=== PATIENT | female | born 1945 | race African-American/Black ===

== ENCOUNTER 2018-06-26 18:30 | Emergency (ER) | payer MEDICARE, OTHER ==
[~2018-06-26] VITALS: Ht 147.3 cm; Wt 45.4 kg
[~2018-06-26 18:30] MED LIST: ATORVASTATIN CA10 MG ORAL; AVAPRO150 MG ORAL; BENAZEPRIL HCL40 MG ORAL; GLIMEPIRIDE1 MG ORAL; GLIPIZIDE5 MG ORAL; GLUCOPHAGE500 MG ORAL; JANUVIA50 MG ORAL; LABETALOL H5 MG/1 M1 IV; LABETALOL HCL100 MG ORAL; LORAZEPAM0.5 MG ORAL; NORVASC10 MG ORAL
--- NOTE | 2018-06-26 18:41 | Emergency Room Report ---
History of Present Illness General Chief Complaint: Multiple Trauma/Fall Source: Patient Present Illness HPI 73-year-old female with hypertension diabetes presenting with left shoulder pain. Patient says that she slipped and fell onto her left shoulder. She walks with cane usually. Not complaining of any back pain. She hit her head or lose consciousness. She not take anything for the pain. No numbness she is complaining of left shoulder pain. Allergies: Coded Allergies: PENICILLINS (Verified Allergy, Unknown, 06/03/15) Patient History Past Medical History: see triage record Past Surgical History: none Pertinent Family History: none Last Menstrual Period: n/a Reviewed Nursing Documentation: PMH: Agreed; PSxH: Agreed Nursing Documentation-PMH Past Medical History: No History, Except For Hx Cardiac Problems: Yes Hx Hypertension: Yes Hx Diabetes: Yes Hx Cancer: No Hx Gastrointestinal Problems: No Hx Neurological Problems: No Physical Exam Vital Signs Date Time Temp Pulse Resp B/P (MAP) Pulse Ox O2 Delivery O2 Flow Rate FiO2 06/26/18 18:21 99.0 70 18 215/95 95 Room Air Sp02 EP Interpretation: reviewed, normal General Appearance: alert, GCS 15, non-toxic, mild distress Head: normocephalic, atraumatic Eyes: bilateral eye normal inspection, bilateral eye PERRL, bilateral eye EOMI ENT: normal ENT inspection, normal pharynx, normal voice, moist mucus membranes Neck: normal inspection, full range of motion, supple Respiratory: normal inspection, lungs clear, normal breath sounds, no respiratory distress, no retraction, no wheezing, speaking full sentences, chest symmetrical Cardiovascular #1: normal inspection, regular rate, rhythm, no edema, normal capillary refill Cardiovascular #2: 2+ radial (R), 2+ radial (L) Gastrointestinal: normal inspection, non tender, soft, non-distended, no guarding Musculoskeletal: other - Left shoulder tender to palpation with limited range of motion also proximal humerus. Distal pulses intact. Able to bend elbow without issue as well as flex wrist. Median ulnar radial nerve intact. No back tenderness Neurologic: normal inspection, alert, oriented x3, responsive, motor strength/ tone normal, sensory intact, normal gait, speech normal Psychiatric: normal inspection, judgement/insight normal, memory normal Skin: normal inspection, normal color, no rash, warm/dry, well hydrated, normal turgor Medical Decision Making Diagnostic Impression: Primary Impression: Proximal humeral fracture ER Course 73-year-old female with left shoulder pain after fall DDX: Sprain/strain vs. fracture versus dislocation Plan: Pain control XR ER course: Pt placed in sling neurovasc intact Disposition: Patient is to be discharged home Patient instructed to keep sling on at all times, and to follow up with orthopedic surgery in 1 week. Patient educated to rest, ice, and elevate extremity and to avoid vigorous activity. Strict precautions discussed with patient on when to return to the emergency room including increased redness or swelling joints, increased pain/swelling of extremity, fever or chills, which could indicate severe illness. Please note that this Emergency Department Report was dictated using [employer] ambulatory technology software, occasionally this can lead to erroneous entry secondary to interpretation by the dictation equipment. Xray: Left humerus 2 view Indication: Pain EP Interpretation: Yes Interpretation: Left proximal humerus fracture Impression:Left proximal humerus fracture Electronically signed by Kayla Carrera MD Xray: Left shoulder complete Indication: Pain EP Interpretation: Yes Interpretation: Left proximal humerus fracture Impression:Left proximal humerus fracture Electronically signed by Kayla Carrera MD Last Vital Signs Date Time Temp Pulse Resp B/P (MAP) Pulse Ox O2 Delivery O2 Flow Rate FiO2 06/26/18 18:21 99.0 70 18 215/95 95 Room Air Disposition: HOME, SELF-CARE Condition: Stable Kayla Carrera M.D. Jun 26, 2018 18:41
--- NOTE | 2018-06-26 18:42 | NUR ---
ED Nurse Note: Pt BIBA from home due to fall down the stairs earlier today, now complaining of L shoulder pain 5/10. No LOC, no head trauma. AOx4, VSS. Will cont to monitor.
[2018-06-26 18:45] VITALS: BP 215/95
--- NOTE | 2018-06-26 19:12 | NUR ---
HAND-OFF: Report given to DAMIAN Mcnair.
--- NOTE | 2018-06-26 19:42 | NUR ---
ED Nurse Note: laurence devine on bedside talking with pt regaring the outcome of the xray. wood and hardware outfitter put sling on pt and pt able to tolerate. pt stated the pain lessen from 5/10-4/10. will continue to monitor.
[2018-06-26 21:30] VITALS: BP 180/75
--- NOTE | 2018-06-26 21:35 | NUR ---
ED Nurse Note: pt was cleared for discahrge by laurence. discharge instruction was explained and pt able to verbalize understandind. daughter on bedside. pt was transfered home by 2 emt from [facility] with all belongings. pt not complaining of any pain right now.
--- NOTE | 2018-06-27 10:32 | Diagnostic Imaging Report ---
Indications: Pain, status post fall Technique: Two views of the left humerus Comparison: None Findings: There is an angulated distracted and probably comminuted fracture of the proximal humeral neck. No distal fracture demonstrated Impression: Positive for humeral neck fracture
--- NOTE | 2018-06-27 10:33 | Diagnostic Imaging Report ---
Indication: Pain, status post fall Technique: 3 views of the left shoulder Comparison: None Findings: There is an oblique distracted possibly comminuted fracture of the proximal humeral neck/shaft. Calcification overlying humeral head may reflect calcific tendinosis. The bones are osteoporotic. No other shoulder fractures are evident. There are numerous compression fracture deformities of the thoracic spine incidentally noted Impression: Positive for proximal humeral neck/shaft fracture Osteoporosis Evidence of multiple thoracic compression fracture deformities
[2018-06-27] MEDS ORDERED: BENAZEPRIL HCL40 MG ORAL ×2 (13:58→14:01)
[2018-06-27] MEDS ORDERED: SPIRONOLACTONE25 MG ORAL (14:01)
== END 2018-06-26 21:35 | disposition home or self-care (01) ==
LOC: EDBD 18:30 → EMR 19:00
DX: S42.352A Displaced comminuted fracture of shaft of humerus, left arm, initial encounter for closed fracture (principal); W18.30XA Fall on same level, unspecified, initial encounter; Y92.89 Other specified places as the place of occurrence of the external cause; Z88.0 Allergy status to penicillin; I10 Essential (primary) hypertension; E11.9 Type 2 diabetes mellitus without complications
CPT/HCPCS: 99284

== ENCOUNTER 2018-06-26 23:46 | Inpatient (IN) | payer MEDICARE ==
[~2018-06-26] VITALS: Ht 142.2 cm; Wt 54.4 kg
[2018-06-27] VITALS (8 sets, daily range): BP systolic 145–182; BP diastolic 78–93
--- NOTE | 2018-06-27 00:08 | Emergency Room Report ---
History of Present Illness General Chief Complaint: Pain Source: Patient, EMS Present Illness HPI Patient was recently here with diagnosed left upper shoulder fracture including the humerus Patient was dispositioned home by ambulance She reports that after arriving home tried to stand she had increased pain to her ankle She was not aware of this pain previously however was not able to tolerate standing The ambulance transported her back to the emergency room Denies any headache denies any neck pain Pain is present with bearing weight involves the left lateral ankle Patient reports that she has a previous hip fracture and left knee fracture Allergies: Coded Allergies: PENICILLINS (Verified Allergy, Unknown, 06/03/15) Patient History Past Medical History: see triage record Pertinent Family History: none Now: No Reviewed Nursing Documentation: PMH: Agreed; PSxH: Agreed Nursing Documentation-PMH Hx Cardiac Problems: Yes Hx Hypertension: Yes Hx Diabetes: Yes Hx Cancer: No Hx Gastrointestinal Problems: No Hx Neurological Problems: No Review of Systems All Other Systems: negative except mentioned in HPI Physical Exam Vital Signs Date Time Temp Pulse Resp B/P (MAP) Pulse Ox O2 Delivery O2 Flow Rate FiO2 06/26/18 23:46 98.2 80 22 182/84 95 Room Air Sp02 EP Interpretation: reviewed, normal General Appearance: well appearing, no apparent distress Head: normocephalic, atraumatic Eyes: bilateral eye PERRL, bilateral eye EOMI ENT: normal pharynx, no angioedema Neck: supple Respiratory: lungs clear, no retraction, no accessory muscle use Cardiovascular #1: regular rate, rhythm Gastrointestinal: non tender, soft Musculoskeletal: other - Brace in place in the left upper arm, tender on palpation lateral ankle left side no obvious bruising or swelling Neurologic: alert, oriented x3, responsive Skin: no rash Lymphatic: no adenopathy Procedures Splinting Splinting : Consent: Verbal Location: Left foot Pre-Made Type: Hand-Made Type: plaster Splint: poserior short Pre-Proc Neuro Vasc Exam: normal Post-Proc Neuro Vasc Exam: normal Patient Tolerated: Well Complications: None Medical Decision Making Diagnostic Impression: Primary Impression: Humerus fracture Additional Impression: Calcaneal fracture ER Course Given the patient's presentation and complaint x-ray imaging was obtained There is evidence of what appears to be a calcaneal fracture Given the patient's age history Given the fractures involving the left arm also now the left foot patient will have further inpatient care And inpatient consultation Labs Test 06/27/18 04:00 06/28/18 04:50 06/28/18 15:15 White Blood Count 14.6 K/UL (4.8-10.8) 8.3 K/UL (4.8-10.8) Red Blood Count 3.87 M/UL (4.20-5.40) 3.67 M/UL (4.20-5.40) Hemoglobin 11.9 G/DL (12.0-16.0) 11.4 G/DL (12.0-16.0) Hematocrit 36.2 % (37.0-47.0) 34.8 % (37.0-47.0) Mean Corpuscular Volume 93 FL (80-99) 95 FL (80-99) Mean Corpuscular Hemoglobin 30.7 PG (27.0-31.0) 30.9 PG (27.0-31.0) Mean Corpuscular Hemoglobin Concent 32.9 G/DL (32.0-36.0) 32.6 G/DL (32.0-36.0) Red Cell Distribution Width 12.4 % (11.6-14.8) 12.5 % (11.6-14.8) Platelet Count 230 K/UL (150-450) 215 K/UL (150-450) Mean Platelet Volume 7.4 FL (6.5-10.1) 8.3 FL (6.5-10.1) Neutrophils (%) (Auto) % (45.0-75.0) 76.5 % (45.0-75.0) Lymphocytes (%) (Auto) % (20.0-45.0) 13.9 % (20.0-45.0) Monocytes (%) (Auto) % (1.0-10.0) 5.5 % (1.0-10.0) Eosinophils (%) (Auto) % (0.0-3.0) 3.3 % (0.0-3.0) Basophils (%) (Auto) % (0.0-2.0) 0.8 % (0.0-2.0) Sodium Level 137 MMOL/L (136-145) 141 MMOL/L (136-145) Potassium Level 5.5 MMOL/L (3.5-5.1) 4.5 MMOL/L (3.5-5.1) Chloride Level 105 MMOL/L (98-107) 106 MMOL/L (98-107) Carbon Dioxide Level 23 MMOL/L (21-32) 27 MMOL/L (21-32) Anion Gap 9 mmol/L (5-15) 8 mmol/L (5-15) Blood Urea Nitrogen 32 mg/dL (7-18) 47 mg/dL (7-18) Creatinine 1.8 MG/DL (0.55-1.30) 2.1 MG/DL (0.55-1.30) Estimat Glomerular Filtration Rate mL/min (>60) mL/min (>60) Glucose Level 140 MG/DL (74-106) 117 MG/DL (74-106) Uric Acid 7.5 MG/DL (2.6-7.2) Calcium Level 10.3 MG/DL (8.5-10.1) 9.5 MG/DL (8.5-10.1) Total Creatine Kinase 90 U/L (26-308) Differential Total Cells Counted 100 Neutrophils % (Manual) 74 % (45-75) Lymphocytes % (Manual) 19 % (20-45) Monocytes % (Manual) 2 % (1-10) Eosinophils % (Manual) 5 % (0-3) Basophils % (Manual) 0 % (0-2) Band Neutrophils 0 % (0-8) Platelet Estimate Adequate Platelet Morphology Normal Erythrocyte Sedimentation Rate 26 MM/HR (0-30) Reticulocyte Count 0.1 % (0.0-2.0) Prothrombin Time 10.5 SEC (9.30-11.50) Prothromb Time International Ratio 1.0 (0.9-1.1) Activated Partial Thromboplast Time 30 SEC (23-33) Phosphorus Level 3.4 MG/DL (2.5-4.9) Magnesium Level 1.7 MG/DL (1.8-2.4) Iron Level 21 ug/dL (50-175) Total Iron Binding Capacity 235 ug/dL (250-450) Percent Iron Saturation 9 % (15-50) Unsaturated Iron Binding 214 ug/dL (112-346) Total Bilirubin 0.2 MG/DL (0.2-1.0) Aspartate Amino Transf (AST/SGOT) 15 U/L (15-37) Alanine Aminotransferase (ALT/SGPT) 23 U/L (12-78) Alkaline Phosphatase 88 U/L (46-116) Lactate Dehydrogenase 242 U/L (81-234) C-Reactive Protein, Quantitative 9.4 mg/dL (0.00-0.90) Total Protein 6.7 G/DL (6.4-8.2) Albumin 3.3 G/DL (3.4-5.0) Globulin 3.4 g/dL Albumin/Globulin Ratio 1.0 (1.0-2.7) Triglycerides Level 56 MG/DL (30-150) Cholesterol Level 145 MG/DL (< 200) LDL Cholesterol 49 mg/dL (<100) HDL Cholesterol 79 MG/DL (40-60) Cholesterol/HDL Ratio 1.8 (3.3-4.4) Vitamin B12 Level 759 PG/ML (193-986) Folate 5.5 NG/ML (8.6-58.9) Urine Color Pale yellow Urine Appearance Clear Urine pH 5 (4.5-8.0) Urine Specific [place] 1.015 (1.005-1.035) Urine Protein 1+ (NEGATIVE) Urine Glucose (UA) Negative (NEGATIVE) Urine Ketones Negative (NEGATIVE) Urine Blood Negative (NEGATIVE) Urine Nitrite Negative (NEGATIVE) Urine Bilirubin Negative (NEGATIVE) Urine Urobilinogen Normal MG/DL (0.0-1.0) Urine Leukocyte Esterase Negative (NEGATIVE) Urine RBC 0-2 /HPF (0 - 2) Urine WBC 0-2 /HPF (0 - 2) Urine Squamous Epithelial Cells Occasional /LPF Urine Bacteria None /HPF (NONE) Urine Eosinophils None seen (NONE SEEN) Urine Random Sodium 57 mmol/L (20-110) Urine Potassium Timed 29 mmol/L (12-62) Other X-Ray Diagnostic Results Other X-Ray Diagnostic Results #1: X-Ray ordered: Left foot # of Views/Limited Vs Complete: 3 View Indication: Pain EP Interpretation: Yes Interpretation: no dislocation, no soft tissue swelling, other - Calcaneal fracture Impression: Other - Calcaneal fracture Electronically Signed by: Dwight Lemon, DO Other X-Ray Diagnostic Results #2: X-Ray ordered: Left ankle # of Views/Limited Vs Complete: 3 View Indication: Pain EP Interpretation: Yes Interpretation: no dislocation, no soft tissue swelling, no fractures Impression: No acute disease Electronically Signed by: Dwight Lemon DO Other X-Ray Diagnostic Results #3: X-Ray ordered: Pelvic # of Views/Limited Vs Complete: 1 View Indication: Pain EP Interpretation: Yes Interpretation: no dislocation, no soft tissue swelling, no fractures Impression: No acute disease Electronically Signed by: Dwight Lemon DO Last Vital Signs Date Time Temp Pulse Resp B/P (MAP) Pulse Ox O2 Delivery O2 Flow Rate FiO2 06/26/18 23:46 98.2 80 22 182/84 95 Room Air Status: improved Disposition: ADMITTED INPATIENT Condition: Serious Dwight Lemon DO Jun 27, 2018 00:08
--- NOTE | 2018-06-27 00:13 | NUR ---
ED Nurse Note: pt returned due to pain on left leg radiating to her knee, per pt she was having trouble gettingo out of vehicle and she started having pain on her leg, brought in by yvan
--- NOTE | 2018-06-27 01:15 | NUR ---
ED Nurse Note: Pt went to X ray.
--- NOTE | 2018-06-27 03:00 | NUR ---
PTED Nurse Note: PT CONTINUES TO REST QUIETLY IN BED, PT GIVEN MOTRIN FOR PAIN, MEDS EFFECTIVE, PT WAITING FOR ROOM PLACEMENT FOR ADMISSION, PT HAS HEEL FRACTURE, DENIEWS CP, SOB, OR ANY OTHER COMPLAINTS OR DISCOMFORTS, WILL CONTINUE TO CLOSELY MONITOR AND RESUME CARE ORDERED.
--- NOTE | 2018-06-27 05:00 | NUR ---
ED Nurse Note: PT PLACED ON HOSPITAL BED, PT WAITING FOR ROOM FOR ADMISSION, PT HAS PATENT SALINE LOCK, DENIES PAIN, NO SOB OR LABORED BREATHING, NAD OR CHANGES NOTED, LEFT FOOT ELEVATED ON PILLOW, WILL CONTINUE TO CLOSELY MONITOR AND RESUME CARE ORDERED.
[2018-06-27 05:03] LABS: HEMATOCRIT 36.2 % (37.0-47.0); HEMOGLOBIN 11.9 G/DL (12.0-16.0); MEAN CORPUSCULAR VOLUME 93 FL (80-99); PLATELET COUNT 230 K/UL (150-450); RED BLOOD COUNT 3.87 M/UL (4.20-5.40); RED CELL DISTRIBUTION WIDTH 12.4 % (11.6-14.8); WHITE BLOOD COUNT 14.6 K/UL (4.8-10.8)
[2018-06-27 05:21] LABS: ANION GAP 9 mmol/L (5-15); BLOOD UREA NITROGEN 32 mg/dL (7-18); CALCIUM 10.3 MG/DL (8.5-10.1); CARBON DIOXIDE 23 MMOL/L (21-32); CHLORIDE 105 MMOL/L (98-107); CREATININE 1.8 MG/DL (0.55-1.30); POTASSIUM 5.5 MMOL/L (3.5-5.1); SODIUM 137 MMOL/L (136-145)
--- NOTE | 2018-06-27 07:15 | NUR ---
ED Nurse Note: Received patient in bed resting. pt is in hospital bed and having sling on Lt arm. pt aao x4 and denied pain. skin warm to touch and clean and intact.
--- NOTE | 2018-06-27 07:55 | Consultation ---
Consult Note Consult Note Patient seen evaluated. 1. Left proximal humerus fracture 2. Left calcanial tuberosity fx, extra-articular 3. Defuse bony deformity with possible Paget's Disease, patient is not aware of the diagnosis, but is aware of bone deformity both Fractures have a reasonable alignment and will treat non-surgical. Full consult dictated. Jimmy Ngo MD Jun 27, 2018 07:55
--- NOTE | 2018-06-27 10:32 | NUR ---
ED Nurse Note: Attempted to give report but nurse is not available. will attempt again in 10 minutes.
--- NOTE | 2018-06-27 11:12 | Diagnostic Imaging Report ---
Indication: Left ankle pain after fall Technique: 3 views of the left ankle Comparison: none Findings: Per technologist, ability to position patient on the lateral view was limited. There is ankylosis of the lateral distal tibia and medial distal fibula. No acute fractures. No dislocations. The bones are osteoporotic. There is a small plantar spur. There is unusual periosteal thickening of the proximal tibia posteriorly. 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
--- NOTE | 2018-06-27 11:16 | Diagnostic Imaging Report ---
Indication: Left foot pain after falling Technique: 3 views left foot Comparison: none Findings: There is a slightly distracted fracture of the inferior calcaneal tuberosity. There is has a varus deformity. Bones are osteoporotic. The joint spaces are preserved. As described on ankle radiograph, there is ankylosis of the distal tibia and fibula Impression: Positive for calcaneal tuberosity fracture. This agrees with the findings reported by the emergency room physician in the electronic medical record Osteoporosis
--- NOTE | 2018-06-27 11:18 | Diagnostic Imaging Report ---
Indication: Pelvic pain after falling Technique: One view of the pelvis Comparison: none Findings: 3 surgical nails are seen reducing old healed proximal femoral fracture. There is extensive new bone surrounding the proximal femoral shaft. Uncertain as to whether this is due to congenital abnormality or is post traumatic in nature. Similar corticated new bone is seen surrounding the medial right femoral shaft, incompletely included. There are degenerative changes of both hip joints. No definite acute fractures. Bones are osteoporotic Impression: Post traumatic and postsurgical changes of the left hip No definite acute bony trauma Unusual new bone seen surrounding both proximal femurs. Uncertain as to whether congenital in nature posttraumatic. Degenerative changes as described
--- NOTE | 2018-06-27 11:36 | NUR ---
ED Nurse Note: Pt is aao x4 stable with VSS, denied pain, calm and cooperative.
--- NOTE | 2018-06-27 11:36 | NUR ---
ED Nurse Note: Nurse is still not available but report given to DAMIAN Venegas. She will call me right away as soon as they have nurse for this patient available.
--- NOTE | 2018-06-27 12:00 | NUR ---
ED Nurse Note: Pt is ready to be transferred. VSS and aao x4 and calm.
[2018-06-27] MEDS ORDERED: Mylanta II UD 30ml ORAL PRN (12:45)
[2018-06-27] MEDS ORDERED: Zolpidem 5mg tab ORAL PRN (12:45)
[2018-06-27] MEDS ORDERED: LORazepam Inj 2mg/ml 1ml IV PRN (12:45)
[2018-06-27] MEDS ORDERED: Miralax 17gm pkt ORAL PRN (12:45)
--- NOTE | 2018-06-27 12:50 | Consultation ---
History of Present Illness General Chief Complaint: Pain Present Illness HPI 73 year old female with hx of HTN, DM, presented to ER after an episode of mechanical fall at pts daughter house. Pt had fracture of left ankle and left shoulder. She is admitted for intractable pain. Allergies: Coded Allergies: PENICILLINS (Verified Allergy, Unknown, 06/03/15) Medication History Scheduled Amlodipine Besylate (Norvasc), 10 MG ORAL DAILY, (Reported) Atorvastatin Calcium* (Lipitor*), 10 MG ORAL DAILY, (Reported) Glipizide* (Glipizide*), 5 MG ORAL BIDAC, (Reported) Irbesartan* (Avapro*), 150 MG ORAL DAILY Labetalol Hcl* (Normodyne*), 100 MG ORAL BID, (Reported) Sitagliptin (Januvia), 50 MG ORAL ACBREAKFAST Miscellaneous Medications Labetalol Hcl* (Labetalol Hcl*), 5 MG IV, (Reported) Patient History Healthcare decision maker Resuscitation status Advanced Directive on File Past Medical/Surgical History Past Medical/Surgical History: (1) History of hypertension (2) Diabetes mellitus Review of Systems Constitutional: Reports: no symptoms Eye: Reports: no symptoms ENT: Reports: no symptoms Physical Exam General Appearance: WD/WN Lines, tubes and drains: peripheral HEENT: normocephalic, atraumatic Neck: non-tender, normal alignment, supple Respiratory/Chest: chest wall non-tender, lungs clear Cardiovascular/Chest: normal peripheral pulses, normal rate Abdomen: normal bowel sounds, non tender Genitourinary/Rectal: normal genital exam, normal rectal exam Last 24 Hour Vital Signs Date Time Temp Pulse Resp B/P (MAP) Pulse Ox O2 Delivery O2 Flow Rate FiO2 06/27/18 11:59 98.2 78 20 169/74 100 Room Air 06/27/18 11:29 98.4 77 18 145/79 100 Room Air 06/27/18 09:30 98.0 64 19 169/83 99 Room Air 06/27/18 07:15 98.4 79 18 155/88 97 Room Air 06/27/18 07:15 78 18 Room Air 06/27/18 06:00 98.4 81 18 169/91 97 Room Air 06/27/18 03:00 98.2 88 18 164/84 97 Room Air 06/27/18 00:13 98.2 80 22 182/84 95 Room Air 06/26/18 23:46 98.2 80 22 182/84 95 Room Air Intake and Output 06/26/18 06/27/18 19:00 07:00 Output Total 0 ml Balance 0 ml Output Urine Total 0 ml Laboratory Tests Test 06/27/18 04:00 White Blood Count 14.6 K/UL (4.8-10.8) H Red Blood Count 3.87 M/UL (4.20-5.40) L Hemoglobin 11.9 G/DL (12.0-16.0) L Hematocrit 36.2 % (37.0-47.0) L Mean Corpuscular Volume 93 FL (80-99) Mean Corpuscular Hemoglobin 30.7 PG (27.0-31.0) Mean Corpuscular Hemoglobin Concent 32.9 G/DL (32.0-36.0) Red Cell Distribution Width 12.4 % (11.6-14.8) Platelet Count 230 K/UL (150-450) Mean Platelet Volume 7.4 FL (6.5-10.1) Neutrophils (%) (Auto) % (45.0-75.0) Lymphocytes (%) (Auto) % (20.0-45.0) Monocytes (%) (Auto) % (1.0-10.0) Eosinophils (%) (Auto) % (0.0-3.0) Basophils (%) (Auto) % (0.0-2.0) Sodium Level 137 MMOL/L (136-145) Potassium Level 5.5 MMOL/L (3.5-5.1) H Chloride Level 105 MMOL/L (98-107) Carbon Dioxide Level 23 MMOL/L (21-32) Anion Gap 9 mmol/L (5-15) Blood Urea Nitrogen 32 mg/dL (7-18) H Creatinine 1.8 MG/DL (0.55-1.30) H Estimat Glomerular Filtration Rate mL/min (>60) Glucose Level 140 MG/DL (74-106) H Calcium Level 10.3 MG/DL (8.5-10.1) H Height (Feet): 4 Height (Inches): 8.00 Weight (Pounds): 120 Assessment/Plan Problem List: (1) Humerus fracture ICD Codes: S42.309A - Unspecified fracture of shaft of humerus, unspecified arm , initial encounter for closed fracture SNOMED: 86047003 (2) Calcaneal fracture ICD Codes: S92.009A - Unspecified fracture of unspecified calcaneus, initial encounter for closed fracture SNOMED: 549035010 (3) Diabetes mellitus ICD Codes: E11.9 - Type 2 diabetes mellitus without complications SNOMED: 95071637 (4) History of hypertension ICD Codes: Z86.79 - Personal history of other diseases of the circulatory system SNOMED: 624622269 Assessment/Plan symptomatic treatment pain management ortho f/u sliding scale diabetic diet Cass Nguyen MD Jun 27, 2018 12:50
--- NOTE | 2018-06-27 13:12 | NUR ---
NURSE NOTES: Patient received in stable condition, alert and oriented, breathing even and unlabored on room air. Belongings reviewed and confirmed with the patient. IV site patent and intact on R hand. Sling in place for L arm. Denies discomfort at this time. Oriented to the room, call light placed within reach. Will continue to monitor.
[2018-06-27] MEDS ORDERED: BENAZEPRIL HCL40 MG ORAL ×2 (13:58→14:01)
[2018-06-27] MEDS ORDERED: SPIRONOLACTONE25 MG ORAL (14:01)
[2018-06-27 14:03] LABS: CREATINE KINASE 90 U/L (26-308)
[2018-06-27] MEDS: NovoLOG Insulin Flexpen SUBQ SCH ×2 (16:48→20:36)
[2018-06-27] MEDS: Morphine Sulfate 2mg/ml Inj(IV/IM USE ONLY) IVP PRN (18:50)
[2018-06-27] MEDS ORDERED: Sodium Polystyrene Sulfonate 15gm Powder ORAL SCH (19:27)
--- NOTE | 2018-06-27 19:28 | NUR ---
HAND-OFF: Report given to Radha SALGADO.
--- NOTE | 2018-06-27 19:30 | Consultation ---
DATE OF CONSULTATION: 06/27/2018 ORTHOPEDIC CONSULTATION: CONSULTING PHYSICIAN: Jimmy Ngo M.D. REASON FOR CONSULTATION: Fall from stairs and left humerus fracture and left calcaneus fracture. BRIEF HISTORY: The patient is a very pleasant 73-year-old female who was ambulatory and lives with her daughter at her daughter's house. There are multiple stairs there. However, she lost her balance in the last 2 stairs and fell down. She landed on her left shoulder and hit her left foot. She was evaluated at [facility] and she was noted to have likely proximal humerus fracture and evidence of left extra-articular calcaneal fracture, which was minimally displaced. She was initially discharged home for outpatient followup; however, she was unable to manage and she came back. She has been admitted to the hospital. Orthopedic consultation was obtained. PAST MEDICAL HISTORY: Significant for history of diabetes and hypertension. The diabetes is controlled with diet. PAST SURGICAL HISTORY: She has had left hip pin placed in for deformities of the hip when she was younger as well as the left knee surgery. She has had chest tube placed for plural issues. ALLERGIES: She is allergic to penicillin, which causes rash. SOCIAL HISTORY: She does not drink or smoke. She lives with her daughter at the daughter's house with multiple stairs at the house. PHYSICAL EXAMINATION: GENERAL: The patient is a very pleasant lady, cooperative with examination. She is able to wiggle her fingers. NEUROLOGICAL: Examination is intact. EXTREMITIES: She has an intact radial, median, and ulnar nerve examination. She has got some pain over the proximal humerus. She is in a sling. Examination of the left foot revealed that she is in a well-padded splint. There is some tenderness over the calcaneus posteriorly. She is able to wiggle her toes. MUSCULOSKELETAL: Examination of the hip and pelvis reveals that there is no fracture subluxation. X-RAYS: X-ray of the proximal humerus is reviewed. I reviewed the x-rays in the emergency room. There is evidence of a proximal humerus fracture, which appears to be slightly angulated and varus deformity. However, this is in acceptable position. X-rays of the left ankle is reviewed. There is synostosis of the tibiofibular joint, otherwise, within normal limits. X-ray of left foot is reviewed. There is a small minimally displaced calcaneal tuberosity fracture, which is extraarticular. There is no other abnormal soft tissue calcifications. X-ray of the pelvis reviewed. There is evidence of pins placed into the left femoral head and neck, most likely due to correction of deformity. It should be noted that on multiple x-rays, there is deformity of the various bones and long bones, which are consistent with Paget disease. IMPRESSION: 1. Left proximal humerus fracture with reasonable alignment in an elderly patient with multiple bone cysts and proximal Paget disease. 2. Left calcaneal tuberosity fracture in a patient with bone deformity and Paget disease, minimally displaced extraarticular implants. PLAN: At this time, I had discussion with the patient and explained my findings. I recommend proceeding with conservative treatment of the left proximal humerus and left calcaneus. We will go ahead and treat her with sling immobilization of the side and put in a well-padded splint for the left foot. We will have her nonweightbearing on the left upper extremity and left lower extremity, although she can be toe-touch weightbearing on the left side. We will work with PT to give her good balance and get her up moving hopefully soon. She will need a center post walker. I will see her back in 2 weeks' time to put a cast on her left leg and check alignment of the left humerus. All questions were answered. I spoke with the patient directly, who is awake and alert and oriented. Jimmy Ngo M.D. DR: MARLENE JOB#: [id number] CC: AVA
--- NOTE | 2018-06-27 19:51 | NUR ---
NURSE NOTES: Patient in bed, awake and alert. IV in place. Patient denies any feeling of pain. No s/s distress noted. Bed in lowest position, call light within reach. Noted to have sling on left arm. Educated patient to use call light for assistance, patient verbalized understanding. Will continue to monitor. Addendum: 06/28/18 at 0052 by COREY MUÑIZ RN RN Also noted to have cast on left leg.
--- NOTE | 2018-06-27 20:29 | NUR ---
CASE MANAGEMENT: INITIAL REVIEW 73 YO F BIBA FROM HOME CC: INABILITY TO AMBULATE PMHx: DM. HTN. SI:LEFT HUMERUS FRACTURE. left calcaneus fracture. T 98.2 HR 80 RR 22 B/P 182/84 SATS 95% ON RA WBC 14.6 K 5.5 BUN 32 CR 1.8 GLU 140 URIC ACID 7.5 CA 10.3 IS: LEFT FOOT XRAY (Impression: Positive for calcaneal tuberosity fracture) XRAY PELVIS (Impression: Post traumatic and postsurgical changes of the left hip) PATIENT ADMITTED TO MED/SURG 06/27/2018 @ 0115 DCP: PATIENT TO BE DISCHARGED TO HOME ONCE MEDICALLY CLEARED. PLAN OF CARE: conservative treatment
[2018-06-27] MEDS: Heparin 5000 units/ml inj SUBQ SCH (20:36)
--- NOTE | 2018-06-28 00:26 | NUR ---
NURSE NOTES: Patient urinated but sample was unable to be collected because urine was accidentally thrown out. Addendum: 06/28/18 at 0723 by COREY MUÑIZ RN RN Patient didn't have bowel movement, unable to collect ob stool.
[2018-06-28 00:37] VITALS: BP 141/78
[2018-06-28] MEDS: Morphine Sulfate 2mg/ml Inj(IV/IM USE ONLY) IVP PRN ×4 (00:49→21:27)
[2018-06-28 04:19] VITALS: BP 150/82
[2018-06-28] MEDS: sitaGLIPtin 50mg tab ORAL SCH (06:12)
[2018-06-28] MEDS: NovoLOG Insulin Flexpen SUBQ SCH ×4 (06:12→21:26)
--- NOTE | 2018-06-28 07:22 | NUR ---
HAND-OFF: Report given to martin fishman rn. Endorsed to am nurse urine sample needed.
--- NOTE | 2018-06-28 07:25 | NUR ---
NURSE NOTES: Pt received from DAMIAN Garcia alert and oriented x4 with no s/s of acute distress. Pt is complaining of 6/10 pain in the left extremity, RN stated to pt that she will administer pain medication as soon as it is due but pt stated that she's able to wait for her next scheduled time for her pain medication. Sling on left extIV site asymptomatic and patent. Bed in lowest position, call light and belongings within reach.
[2018-06-28 07:54] LABS: ALANINE AMINOTRANSFERASE 23 U/L (12-78); ALBUMIN 3.3 G/DL (3.4-5.0); ALKALINE PHOSPHATASE 88 U/L (46-116); ANION GAP 8 mmol/L (5-15); ASPARTATE AMINO TRANSFERASE 15 U/L (15-37); BILIRUBIN,TOTAL 0.2 MG/DL (0.2-1.0); BLOOD UREA NITROGEN 47 mg/dL (7-18); CALCIUM 9.5 MG/DL (8.5-10.1); CARBON DIOXIDE 27 MMOL/L (21-32); CHLORIDE 106 MMOL/L (98-107); CHOLESTEROL 145 MG/DL (< 200); CREATININE 2.1 MG/DL (0.55-1.30); HDL CHOLESTEROL 79 MG/DL (40-60); POTASSIUM 4.5 MMOL/L (3.5-5.1); SODIUM 141 MMOL/L (136-145); TRIGLYCERIDES 56 MG/DL (30-150)
[2018-06-28 08:00] VITALS: BP 164/90
[2018-06-28 08:04] LABS: BASOPHILS % (AUTO) 0.8 % (0.0-2.0); EOSINOPHILS % (AUTO) 3.3 % (0.0-3.0); HEMATOCRIT 34.8 % (37.0-47.0); HEMOGLOBIN 11.4 G/DL (12.0-16.0); LYMPHOCYTES % (AUTO) 13.9 % (20.0-45.0); MEAN CORPUSCULAR VOLUME 95 FL (80-99); MONOCYTES % (AUTO) 5.5 % (1.0-10.0); NEUTROPHILS % (AUTO) 76.5 % (45.0-75.0); PLATELET COUNT 215 K/UL (150-450); RED BLOOD COUNT 3.67 M/UL (4.20-5.40); RED CELL DISTRIBUTION WIDTH 12.5 % (11.6-14.8); WHITE BLOOD COUNT 8.3 K/UL (4.8-10.8)
[2018-06-28 08:18] LABS: LACTATE DEHYDROGENASE 242 U/L (81-234); PHOSPHORUS 3.4 MG/DL (2.5-4.9)
[2018-06-28] MEDS: Heparin 5000 units/ml inj SUBQ SCH ×2 (08:24→21:25)
[2018-06-28 08:54] LABS: % IRON SATURATION 9 % (15-50); IRON 21 ug/dL (50-175); TOTAL IRON BINDING CAPACITY 235 ug/dL (250-450)
[2018-06-28 12:00] VITALS: BP 151/74
--- NOTE | 2018-06-28 13:25 | Pulmonology Progress Note ---
Assessment/Plan Problems: (1) Humerus fracture (2) Calcaneal fracture (3) Diabetes mellitus (4) History of hypertension Assessment/Plan pt/ot physical therapy f/u by ortho sliding scale diabetic diet Subjective ROS Limited/Unobtainable: Yes Constitutional: Reports: no symptoms HEENT: Repors: no symptoms Respiratory: Reports: no symptoms Allergies: Coded Allergies: PENICILLINS (Verified Allergy, Unknown, 06/03/15) Objective Last 24 Hour Vital Signs Date Time Temp Pulse Resp B/P (MAP) Pulse Ox O2 Delivery O2 Flow Rate FiO2 06/28/18 12:00 98.6 80 18 151/74 (99) 97 06/28/18 09:00 Room Air 06/28/18 08:20 81 164/90 06/28/18 08:20 81 164/90 06/28/18 08:00 98.3 81 19 164/90 (114) 99 06/28/18 04:19 97.7 65 18 150/82 (104) 100 06/28/18 01:19 98.4 06/28/18 00:37 98.4 74 18 141/78 (99) 98 06/27/18 22:12 Room Air 06/27/18 20:10 99.0 81 18 155/93 (113) 99 06/27/18 18:02 73 149/78 06/27/18 16:00 97.8 73 18 149/78 (101) 98 06/27/18 15:08 Room Air Intake and Output 06/27/18 06/28/18 18:59 06:59 Intake Total 250 ml 200 ml Balance 250 ml 200 ml Intake Oral 250 ml 200 ml # Voids 1 1 General Appearance: WD/WN HEENT: normocephalic Respiratory/Chest: chest wall non-tender, lungs clear Cardiovascular: normal peripheral pulses, normal rate Abdomen: normal bowel sounds, no organomegaly Genitourinary: normal external genitalia Extremities: no clubbing Skin: no rash Neurologic/Psychiatric: literacy specialist II-XII grossly normal Lymphatic: no neck adenopathy Laboratory Tests 06/28/18 04:50: White Blood Count 8.3, Red Blood Count 3.67L, Hemoglobin 11.4L, Hematocrit 34.8L , Mean Corpuscular Volume 95, Mean Corpuscular Hemoglobin 30.9, Mean Corpuscular Hemoglobin Concent 32.6, Red Cell Distribution Width 12.5, Platelet Count 215, Mean Platelet Volume 8.3, Neutrophils (%) (Auto) 76.5H, Lymphocytes ( %) (Auto) 13.9L, Monocytes (%) (Auto) 5.5, Eosinophils (%) (Auto) 3.3H, Basophils (%) (Auto) 0.8, Differential Total Cells Counted 100, Neutrophils % ( Manual) 74, Lymphocytes % (Manual) 19L, Monocytes % (Manual) 2, Eosinophils % ( Manual) 5H, Basophils % (Manual) 0, Band Neutrophils 0, Platelet Estimate Adequate, Platelet Morphology Normal, Erythrocyte Sedimentation Rate 26, Reticulocyte Count 0.1, Prothrombin Time 10.5, Prothromb Time International Ratio 1.0, Activated Partial Thromboplast Time 30, Sodium Level 141, Potassium Level 4.5, Chloride Level 106, Carbon Dioxide Level 27, Anion Gap 8, Blood Urea Nitrogen 47H, Creatinine 2.1H, Estimat Glomerular Filtration Rate , Glucose Level 117H, Calcium Level 9.5, Phosphorus Level 3.4, Magnesium Level 1.7L, Iron Level 21L, Total Iron Binding Capacity 235L, Percent Iron Saturation 9L, Unsaturated Iron Binding 214, Total Bilirubin 0.2, Aspartate Amino Transf (AST/ SGOT) 15, Alanine Aminotransferase (ALT/SGPT) 23, Alkaline Phosphatase 88, Lactate Dehydrogenase 242H, C-Reactive Protein, Quantitative 9.4H, Total Protein 6.7, Albumin 3.3L, Globulin 3.4, Albumin/Globulin Ratio 1.0, Triglycerides Level 56, Cholesterol Level 145, LDL Cholesterol 49, HDL Cholesterol 79H, Cholesterol/HDL Ratio 1.8L, Carcinoembryonic Antigen [Pending] , Vitamin B12 Level 759, Folate 5.5L Current Medications Medications (Trade) Dose Ordered Sig/Sd Route PRN Reason Start Time Stop Time Status Last Admin Dose Admin Acetaminophen (Tylenol) 650 mg Q4H PRN ORAL fever 06/27/18 12:45 07/27/18 12:44 Al Hydroxide/Mg Hydroxide (Mylanta II) 30 ml Q6H PRN ORAL dyspepsia 06/27/18 12:45 07/27/18 12:44 Amlodipine Besylate (Norvasc) 10 mg DAILY ORAL 06/28/18 09:00 07/28/18 08:59 06/28/18 08:20 Atorvastatin Calcium (Lipitor) 10 mg DAILY ORAL 06/28/18 09:00 07/28/18 08:59 06/28/18 08:21 Clonidine HCl (Catapres Tab) 0.1 mg Q6H PRN ORAL For High Blood Pressure 06/27/18 16:45 07/27/18 16:44 Dextrose (Dextrose 50%) 25 ml Q30M PRN IV Hypoglycemia 06/27/18 12:45 07/27/18 12:44 Dextrose (Dextrose 50%) 50 ml Q30M PRN IV Hypoglycemia 06/27/18 12:45 07/27/18 12:44 Heparin Sodium (Porcine) (Heparin 5000 units/ml) 5,000 units EVERY 12 HOURS SUBQ 06/27/18 21:00 07/27/18 20:59 06/28/18 08:24 Insulin Aspart (NovoLOG) BEFORE MEALS AND HS SUBQ 06/27/18 16:30 07/27/18 16:29 06/28/18 06:12 Labetalol HCl (Normodyne) 100 mg BID ORAL 06/27/18 18:00 07/27/18 17:59 06/28/18 08:20 Lorazepam (Ativan 2mg/ml 1ml) 0.5 mg Q4H PRN IV For Anxiety 06/27/18 12:45 07/04/18 12:44 Morphine Sulfate (Morphine Sulfate) 1 mg Q4H PRN IVP For Pain 06/27/18 12:45 07/04/18 12:44 06/28/18 08:21 Ondansetron HCl (Zofran) 4 mg Q6H PRN IVP Nausea & Vomiting 06/27/18 12:45 07/27/18 12:44 Polyethylene Glycol (Miralax) 17 gm HSPRN PRN ORAL Constipation 06/27/18 12:45 07/27/18 12:44 Sitagliptin Phosphate (Januvia) 50 mg ACBREAKFAST ORAL 06/28/18 06:30 07/28/18 06:29 06/28/18 06:12 Zolpidem Tartrate (Ambien) 5 mg HSPRN PRN ORAL Insomnia 06/27/18 12:45 07/04/18 12:44 Cass Nguyen MD Jun 28, 2018 13:24
--- NOTE | 2018-06-28 14:28 | History & Physical ---
History and Physical History & Physicial Dictated for Int Med-Dr Hinds no. [id number]. Zi Goncalves MD Jun 28, 2018 14:28
[2018-06-28 16:00] VITALS: BP 148/84
[2018-06-28 16:08] LABS: APPEARANCE,URINE CLEAR; BILIRUBIN, URINE NEGATIVE (NEGATIVE); COLOR,URINE PALE YELLOW; GLUCOSE, URINE (UA) NEGATIVE (NEGATIVE); KETONES,URINE NEGATIVE (NEGATIVE); LEUKOCYTE ESTERASE ,URINE NEGATIVE (NEGATIVE); NITRITE,URINE NEGATIVE (NEGATIVE); PH,URINE 5 (4.5-8.0); PROTEIN,URINE 1+ (NEGATIVE); UROBILINOGEN,URINE NORMAL MG/DL (0.0-1.0)
--- NOTE | 2018-06-28 18:14 | Consultation ---
Consult Note Consult Note asked to eval for rising Cr HPI Patient was recently here with diagnosed left upper shoulder fracture including the humerus Patient was dispositioned home by ambulance She reports that after arriving home tried to stand she had increased pain to her ankle She was not aware of this pain previously however was not able to tolerate standing The ambulance transported her back to the emergency room Denies any headache denies any neck pain Pain is present with bearing weight involves the left lateral ankle Patient reports that she has a previous hip fracture and left knee fracture Coded Allergies: PENICILLINS (Verified Allergy, Unknown, 06/03/15) Hx Cardiac Problems: Yes Hx Hypertension: Yes Hx Diabetes: Yes interviewed examined data reviewed Assessment/Plan Acute renal failure: - Dehydration - Underlying Diabetic Nephropathy Dm HTN Mild Anemia Humerus fracture Calcaneal fracture Hydrate- check Ferritin Folate supplement monitor renal parameters Bryan Ojeda MD Jun 28, 2018 18:14
[2018-06-28] MEDS: D5 1/2NS 1,000 ML IV SCH (19:02)
--- NOTE | 2018-06-28 19:50 | NUR ---
NURSE NOTES: Patient in bed, awake and alert. IV in place, patent. Has no complaints of pain at this time. No s/s distress noted. Bed in lowest position, call light within reach. Noted to have sling on left arm and cast on left leg. Educated patient to use call light for assistance, patient verbalized understanding. Will continue to monitor.
--- NOTE | 2018-06-28 19:51 | NUR ---
HAND-OFF: Report given to DAMIAN Garcia.
[2018-06-28 20:00] VITALS: BP 151/74
--- NOTE | 2018-06-28 20:12 | Consultation ---
History of Present Illness General Chief Complaint: Pain Present Illness HPI 72-year-old female, who presents with a chief complaint of left shoulder and left foot pain. The pt pw depressed mood, anhedonia, worthlessness, hopeless and anxiety. the pt depressive sxs revolves around her medical condition. Allergies: Coded Allergies: PENICILLINS (Verified Allergy, Unknown, 06/03/15) Medication History Scheduled Amlodipine Besylate (Norvasc), 10 MG ORAL DAILY, (Reported) Atorvastatin Calcium* (Lipitor*), 10 MG ORAL DAILY, (Reported) Benazepril Hcl* (Benazepril Hcl*), 40 MG ORAL DAILY, (Reported) Benazepril Hcl* (Benazepril Hcl*), 40 MG ORAL TWICE A DAY, (Reported) Glipizide* (Glipizide*), 5 MG ORAL BIDAC, (Reported) Irbesartan* (Avapro*), 150 MG ORAL DAILY Labetalol Hcl* (Normodyne*), 100 MG ORAL BID, (Reported) Sitagliptin (Januvia), 50 MG ORAL ACBREAKFAST Spironolactone* (Aldactone*), 25 MG ORAL DAILY, (Reported) Miscellaneous Medications Labetalol Hcl* (Labetalol Hcl*), 5 MG IV, (Reported) Patient History Healthcare decision maker Resuscitation status Full Code Advanced Directive on File Physical Exam Last 24 Hour Vital Signs Date Time Temp Pulse Resp B/P (MAP) Pulse Ox O2 Delivery O2 Flow Rate FiO2 06/28/18 17:17 79 148/84 06/28/18 16:00 98.8 79 18 148/84 (105) 99 06/28/18 12:00 98.6 80 18 151/74 (99) 97 06/28/18 09:00 Room Air 06/28/18 08:20 81 164/90 06/28/18 08:20 81 164/90 06/28/18 08:00 98.3 81 19 164/90 (114) 99 06/28/18 04:19 97.7 65 18 150/82 (104) 100 06/28/18 01:19 98.4 06/28/18 00:37 98.4 74 18 141/78 (99) 98 06/27/18 22:12 Room Air Intake and Output 06/27/18 06/28/18 19:00 07:00 Intake Total 250 ml 200 ml Balance 250 ml 200 ml Intake Oral 250 ml 200 ml # Voids 1 1 Laboratory Tests Test 06/28/18 04:50 06/28/18 15:15 White Blood Count 8.3 K/UL (4.8-10.8) Red Blood Count 3.67 M/UL (4.20-5.40) L Hemoglobin 11.4 G/DL (12.0-16.0) L Hematocrit 34.8 % (37.0-47.0) L Mean Corpuscular Volume 95 FL (80-99) Mean Corpuscular Hemoglobin 30.9 PG (27.0-31.0) Mean Corpuscular Hemoglobin Concent 32.6 G/DL (32.0-36.0) Red Cell Distribution Width 12.5 % (11.6-14.8) Platelet Count 215 K/UL (150-450) Mean Platelet Volume 8.3 FL (6.5-10.1) Neutrophils (%) (Auto) 76.5 % (45.0-75.0) H Lymphocytes (%) (Auto) 13.9 % (20.0-45.0) L Monocytes (%) (Auto) 5.5 % (1.0-10.0) Eosinophils (%) (Auto) 3.3 % (0.0-3.0) H Basophils (%) (Auto) 0.8 % (0.0-2.0) Differential Total Cells Counted 100 Neutrophils % (Manual) 74 % (45-75) Lymphocytes % (Manual) 19 % (20-45) L Monocytes % (Manual) 2 % (1-10) Eosinophils % (Manual) 5 % (0-3) H Basophils % (Manual) 0 % (0-2) Band Neutrophils 0 % (0-8) Platelet Estimate Adequate Platelet Morphology Normal Erythrocyte Sedimentation Rate 26 MM/HR (0-30) Reticulocyte Count 0.1 % (0.0-2.0) Prothrombin Time 10.5 SEC (9.30-11.50) Prothromb Time International Ratio 1.0 (0.9-1.1) Activated Partial Thromboplast Time 30 SEC (23-33) Sodium Level 141 MMOL/L (136-145) Potassium Level 4.5 MMOL/L (3.5-5.1) Chloride Level 106 MMOL/L (98-107) Carbon Dioxide Level 27 MMOL/L (21-32) Anion Gap 8 mmol/L (5-15) Blood Urea Nitrogen 47 mg/dL (7-18) H Creatinine 2.1 MG/DL (0.55-1.30) H Estimat Glomerular Filtration Rate mL/min (>60) Glucose Level 117 MG/DL (74-106) H Calcium Level 9.5 MG/DL (8.5-10.1) Phosphorus Level 3.4 MG/DL (2.5-4.9) Magnesium Level 1.7 MG/DL (1.8-2.4) L Iron Level 21 ug/dL (50-175) L Total Iron Binding Capacity 235 ug/dL (250-450) L Percent Iron Saturation 9 % (15-50) L Unsaturated Iron Binding 214 ug/dL (112-346) Total Bilirubin 0.2 MG/DL (0.2-1.0) Aspartate Amino Transf (AST/SGOT) 15 U/L (15-37) Alanine Aminotransferase (ALT/SGPT) 23 U/L (12-78) Alkaline Phosphatase 88 U/L (46-116) Lactate Dehydrogenase 242 U/L (81-234) H C-Reactive Protein, Quantitative 9.4 mg/dL (0.00-0.90) H Total Protein 6.7 G/DL (6.4-8.2) Albumin 3.3 G/DL (3.4-5.0) L Globulin 3.4 g/dL Albumin/Globulin Ratio 1.0 (1.0-2.7) Triglycerides Level 56 MG/DL (30-150) Cholesterol Level 145 MG/DL (< 200) LDL Cholesterol 49 mg/dL (<100) HDL Cholesterol 79 MG/DL (40-60) H Cholesterol/HDL Ratio 1.8 (3.3-4.4) L Carcinoembryonic Antigen Pending Vitamin B12 Level 759 PG/ML (193-986) Folate 5.5 NG/ML (8.6-58.9) L Urine Color Pale yellow Urine Appearance Clear Urine pH 5 (4.5-8.0) Urine Specific [place] 1.015 (1.005-1.035) Urine Protein 1+ (NEGATIVE) H Urine Glucose (UA) Negative (NEGATIVE) Urine Ketones Negative (NEGATIVE) Urine Blood Negative (NEGATIVE) Urine Nitrite Negative (NEGATIVE) Urine Bilirubin Negative (NEGATIVE) Urine Urobilinogen Normal MG/DL (0.0-1.0) Urine Leukocyte Esterase Negative (NEGATIVE) Urine RBC 0-2 /HPF (0 - 2) Urine WBC 0-2 /HPF (0 - 2) Urine Squamous Epithelial Cells Occasional /LPF Urine Bacteria None /HPF (NONE) Urine Eosinophils None seen (NONE SEEN) Urine Random Sodium 57 mmol/L (20-110) Urine Potassium Timed 29 mmol/L (12-62) Height (Feet): 4 Height (Inches): 8.00 Weight (Pounds): 120 Medications Current Medications Medications (Trade) Dose Ordered Sig/Sd Route PRN Reason Start Time Stop Time Status Last Admin Dose Admin Acetaminophen (Tylenol) 650 mg Q4H PRN ORAL fever 06/27/18 12:45 07/27/18 12:44 Amlodipine Besylate (Norvasc) 10 mg DAILY ORAL 06/28/18 09:00 07/28/18 08:59 06/28/18 08:20 Atorvastatin Calcium (Lipitor) 10 mg DAILY ORAL 06/28/18 09:00 07/28/18 08:59 06/28/18 08:21 Clonidine HCl (Catapres Tab) 0.1 mg Q6H PRN ORAL For High Blood Pressure 06/27/18 16:45 07/27/18 16:44 Dextrose (Dextrose 50%) 25 ml Q30M PRN IV Hypoglycemia 06/27/18 12:45 07/27/18 12:44 Dextrose (Dextrose 50%) 50 ml Q30M PRN IV Hypoglycemia 06/27/18 12:45 07/27/18 12:44 Dextrose/Sodium Chloride 1,000 ml @ 75 mls/hr [id number] IV 06/28/18 18:15 07/28/18 18:14 06/28/18 19:02 Folic Acid (Folate) 3 mg DAILY ORAL 06/28/18 18:15 07/28/18 18:14 06/28/18 19:02 Heparin Sodium (Porcine) (Heparin 5000 units/ml) 5,000 units EVERY 12 HOURS SUBQ 06/27/18 21:00 07/27/18 20:59 06/28/18 08:24 Insulin Aspart (NovoLOG) BEFORE MEALS AND HS SUBQ 06/27/18 16:30 07/27/18 16:29 06/28/18 17:21 Labetalol HCl (Normodyne) 100 mg BID ORAL 06/27/18 18:00 07/27/18 17:59 06/28/18 17:17 Lorazepam (Ativan 2mg/ml 1ml) 0.5 mg Q4H PRN IV For Anxiety 06/27/18 12:45 07/04/18 12:44 Morphine Sulfate (Morphine Sulfate) 1 mg Q4H PRN IVP For Pain 06/27/18 12:45 07/04/18 12:44 06/28/18 15:56 Ondansetron HCl (Zofran) 4 mg Q6H PRN IVP Nausea & Vomiting 06/27/18 12:45 07/27/18 12:44 Pantoprazole (Protonix) 40 mg EVERY 12 HOURS ORAL 06/28/18 21:00 07/28/18 20:59 Polyethylene Glycol (Miralax) 17 gm HSPRN PRN ORAL Constipation 06/27/18 12:45 07/27/18 12:44 Sitagliptin Phosphate (Januvia) 50 mg ACBREAKFAST ORAL 06/28/18 06:30 07/28/18 06:29 06/28/18 06:12 Zolpidem Tartrate (Ambien) 5 mg HSPRN PRN ORAL Insomnia 06/27/18 12:45 07/04/18 12:44 Alphonse Trejo MD Jun 28, 2018 20:12
--- NOTE | 2018-06-28 21:00 | History and Physical Report ---
DATE OF ADMISSION: 06/27/2018 CHIEF COMPLAINT: The patient is a 72-year-old female, who presents with a chief complaint of left shoulder and left foot pain. HISTORY OF PRESENT ILLNESS: The patient fell in general teller hours of 06/27/2018. The patient presented to [facility]. The patient was found to have proximal left humerus fracture. The patient was given a splint and was sent home. The ambulance arrived at the patient's home, she was unable to walk secondary to left foot pain. The patient then returned to [facility] emergency room via EMS. An x-ray demonstrated an acute fracture of the left calcaneus. The patient is admitted with left humerus fracture and left calcaneal fracture. REVIEW OF SYSTEMS: CONSTITUTIONAL: The patient denies weight loss or weight gain. The patient denies fevers or chills. HEENT: The patient denies ear or throat pain. The patient denies headache. CARDIOVASCULAR: The patient denies palpitations or chest pain. CHEST: The patient denies wheeze or shortness of breath. ABDOMEN: The patient denies nausea, vomiting, diarrhea, or constipation. GENITOURINARY: The patient denies dysuria or increased frequency of urination. NEUROMUSCULAR: The patient denies seizures or generalized weakness. PAST MEDICAL HISTORY: Significant for, 1. Hypertension. 2. Hypercholesterolemia. 3. Diabetes type 2. 4. Osteogenesis imperfecta. 5. Osteoarthritis. 6. Osteoporosis. PAST SURGICAL HISTORY: Significant for, 1. Left hip open reduction and internal fixation. 2. Left knee meniscus repair. 3. Total abdominal hysterectomy. 4. Left breast lumpectomy, benign. CURRENT MEDICATIONS: 1. Amlodipine 10 mg one tablet p.o. daily. 2. Atorvastatin 10 mg p.o. daily. 3. Benazepril 40 mg p.o. daily. 4. Glipizide 5 mg p.o. twice daily. 5. Avapro 150 mg p.o. daily. 6. Labetalol 100 mg p.o. twice daily. 7. Januvia 50 mg p.o. every morning. 8. Spironolactone 25 mg p.o. daily. ALLERGIES: Penicillin. SOCIAL HISTORY: The patient is a and lives with her adult daughter. The patient denies tobacco or alcohol use. PHYSICAL EXAMINATION: VITAL SIGNS: Temperature 98.4, respirations 18, pulse 65, and blood pressure 150/82. GENERAL: The patient is a well-developed and well-nourished female, in no apparent distress. HEENT: Eyes, pupils are equal and responsive to light and accommodation. Extraocular movements are intact. NECK: Supple without lymphadenopathy. CHEST: Lungs are clear to auscultation bilaterally without wheezes or rales. CARDIOVASCULAR: Regular rhythm and rate. S1 and S2 are normal without murmurs, rubs, or gallops. ABDOMEN: Soft, nontender, and nondistended. Positive bowel sounds. No evidence of hepatosplenomegaly. Currently, no rebound or guarding noted. EXTREMITIES: Negative for clubbing, cyanosis, or edema. RECTAL/GENITAL: Refused. NEUROLOGIC: Cranial nerves II through XII are grossly intact without focal deficits. Motor strength is 5/5 bilaterally. Deep tendon reflexes are 2+ plantar. LABORATORY STUDIES: WBC 14.6, hemoglobin 9.9, hematocrit 36.2, and platelets 230,000. Sodium 137, potassium 5.5, chloride 105. CO2 23, BUN 32, creatinine 1.8, and glucose 140. An x-ray of the left foot revealed left calcaneal tuberosity fracture. An x-ray of the left shoulder revealed an angulated comminuted fracture of the proximal left humeral neck. ASSESSMENT: This is a 73-year-old female. 1. Fracture of the left calcaneal tuberosity. 2. Fracture of the left humerus neck. 3. Hypertension. 4. Hypercholesterolemia. 5. Diabetes type 2. 6. Osteogenesis imperfecta. 7. Osteoarthritis. TREATMENT: 1. Fracture of the left calcaneal tuberosity. The patient has been evaluated by Orthopedic surgery, Dr. Ngo. A Podiatry consultation was obtained with Dr. Webster. We will follow recommendations of Podiatry. 2. Proximal left humerus fracture as above. An Orthopedic consultation has been obtained with Dr. Ngo. The patient will not require surgery at this time. Please see consultation by Dr. Ngo. 3. Hypertension. Continue amlodipine as above. 4. Hypercholesterolemia. Continue Lipitor as above. 5. Diabetes type 2. Continue Januvia as above. A NovoLog sliding scale has been instituted. 6. Osteogenesis imperfecta. 7. Osteoarthritis. Zi Shala Goncalves DR: DEANDRE JOB#: [id number] CC:
[2018-06-29 00:34] VITALS: BP 138/75
[2018-06-29 04:00] VITALS: BP 163/85
[2018-06-29] MEDS: Morphine Sulfate 2mg/ml Inj(IV/IM USE ONLY) IVP PRN ×3 (05:47→19:48)
[2018-06-29] MEDS: sitaGLIPtin 50mg tab ORAL SCH (05:47)
[2018-06-29] MEDS: D5 1/2NS 1,000 ML IV SCH ×2 (05:49→18:18)
[2018-06-29] MEDS: NovoLOG Insulin Flexpen SUBQ SCH ×4 (05:49→21:08)
--- NOTE | 2018-06-29 06:00 | NUR ---
NURSE NOTES: Patient awake. No distress noted.
[2018-06-29 07:05] LABS: BASOPHILS % (AUTO) 1.5 % (0.0-2.0); HEMOGLOBIN 10.6 G/DL (12.0-16.0); LYMPHOCYTES % (AUTO) 21.1 % (20.0-45.0); MEAN CORPUSCULAR VOLUME 93 FL (80-99); NEUTROPHILS % (AUTO) 63.4 % (45.0-75.0); PLATELET COUNT 191 K/UL (150-450); RED BLOOD COUNT 3.45 M/UL (4.20-5.40); RED CELL DISTRIBUTION WIDTH 12.4 % (11.6-14.8)
[2018-06-29 07:25] LABS: ALANINE AMINOTRANSFERASE 20 U/L (12-78); ALBUMIN 2.9 G/DL (3.4-5.0); ALBUMIN/GLOBULIN RATIO 0.9 (1.0-2.7); ALKALINE PHOSPHATASE 78 U/L (46-116); ANION GAP 7 mmol/L (5-15); ASPARTATE AMINO TRANSFERASE 13 U/L (15-37); BILIRUBIN,TOTAL 0.4 MG/DL (0.2-1.0); BLOOD UREA NITROGEN 36 mg/dL (7-18); CALCIUM 9.6 MG/DL (8.5-10.1); CARBON DIOXIDE 26 MMOL/L (21-32); CHLORIDE 107 MMOL/L (98-107); CREATININE 1.7 MG/DL (0.55-1.30); FERRITIN 141 NG/ML (8-388); GAMMA GLUTAMYL TRANSPEPTIDASE 42 U/L (5-85); PHOSPHORUS 3.5 MG/DL (2.5-4.9); POTASSIUM 4.1 MMOL/L (3.5-5.1); SODIUM 140 MMOL/L (136-145)
--- NOTE | 2018-06-29 07:28 | NUR ---
HAND-OFF: Report given to ketan barry rn.
[2018-06-29 08:00] VITALS: BP 162/76
[2018-06-29] MEDS: Heparin 5000 units/ml inj SUBQ SCH ×2 (08:54→21:08)
--- NOTE | 2018-06-29 10:43 | Pulmonology Progress Note ---
Assessment/Plan Problems: (1) Humerus fracture (2) Calcaneal fracture (3) Diabetes mellitus (4) History of hypertension Assessment/Plan pt/ot physical therapy f/u by ortho sliding scale diabetic diet Subjective ROS Limited/Unobtainable: No Constitutional: Reports: no symptoms HEENT: Repors: no symptoms Respiratory: Reports: no symptoms Allergies: Coded Allergies: PENICILLINS (Verified Allergy, Unknown, 06/03/15) Objective Last 24 Hour Vital Signs Date Time Temp Pulse Resp B/P (MAP) Pulse Ox O2 Delivery O2 Flow Rate FiO2 06/29/18 09:00 Room Air 06/29/18 08:51 78 162/76 06/29/18 08:50 78 162/76 06/29/18 08:00 98.6 78 19 162/76 (104) 99 06/29/18 06:17 98.0 06/29/18 04:00 98.0 85 18 163/85 (111) 99 06/29/18 00:34 98.1 76 18 138/75 (96) 98 06/28/18 22:38 Room Air 06/28/18 20:00 98.0 82 18 151/74 (99) 98 06/28/18 17:17 79 148/84 06/28/18 16:00 98.8 79 18 148/84 (105) 99 06/28/18 12:00 98.6 80 18 151/74 (99) 97 Intake and Output 06/28/18 06/29/18 18:59 06:59 Intake Total 1080 ml 720 ml Output Total 300 ml 200 ml Balance 780 ml 520 ml Intake Oral 1080 ml 120 ml IV Total 600 ml Output Urine Total 300 ml 200 ml Objective General Appearance: WD/WN Lines, tubes and drains: peripheral HEENT: normocephalic, atraumatic Neck: non-tender Respiratory/Chest: chest wall non-tender, normal breath sounds Breasts: no masses Cardiovascular/Chest: normal peripheral pulses Genitourinary/Rectal: normal genital exam Extremities: normal range of motion Laboratory Tests 06/28/18 15:15: Urine Color Pale yellow, Urine Appearance Clear, Urine pH 5, Urine Specific [place] 1.015, Urine Protein 1+H, Urine Glucose (UA) Negative, Urine Ketones Negative, Urine Blood Negative, Urine Nitrite Negative, Urine Bilirubin Negative , Urine Urobilinogen Normal, Urine Leukocyte Esterase Negative, Urine RBC 0-2, Urine WBC 0-2, Urine Squamous Epithelial Cells Occasional, Urine Bacteria None, Urine Eosinophils None seen, Urine Random Sodium 57, Urine Potassium Timed 29 06/29/18 06:15: White Blood Count 7.0, Red Blood Count 3.45L, Hemoglobin 10.6L, Hematocrit 32.0L , Mean Corpuscular Volume 93, Mean Corpuscular Hemoglobin 30.8, Mean Corpuscular Hemoglobin Concent 33.1, Red Cell Distribution Width 12.4, Platelet Count 191, Mean Platelet Volume 7.2, Neutrophils (%) (Auto) 63.4, Lymphocytes (% ) (Auto) 21.1, Monocytes (%) (Auto) 9.0, Eosinophils (%) (Auto) 5.0H, Basophils (%) (Auto) 1.5, Sodium Level 140, Potassium Level 4.1, Chloride Level 107, Carbon Dioxide Level 26, Anion Gap 7, Blood Urea Nitrogen 36H, Creatinine 1.7H, Estimat Glomerular Filtration Rate , Glucose Level 123H, Hemoglobin A1c 6.0, Uric Acid 7.0, Calcium Level 9.6, Phosphorus Level 3.5, Magnesium Level 1.7L, Ferritin 141, Total Bilirubin 0.4, Gamma Glutamyl Transpeptidase 42, Aspartate Amino Transf (AST/SGOT) 13L, Alanine Aminotransferase (ALT/SGPT) 20, Alkaline Phosphatase 78, C-Reactive Protein, Quantitative 4.4H, Pro-B-Type Natriuretic Peptide 373H, Total Protein 6.1L, Albumin 2.9L, Globulin 3.2, Albumin/Globulin Ratio 0.9L Current Medications Medications (Trade) Dose Ordered Sig/Sd Route PRN Reason Start Time Stop Time Status Last Admin Dose Admin Acetaminophen (Tylenol) 650 mg Q4H PRN ORAL fever 06/27/18 12:45 07/27/18 12:44 Amlodipine Besylate (Norvasc) 10 mg DAILY ORAL 06/28/18 09:00 07/28/18 08:59 06/29/18 08:50 Atorvastatin Calcium (Lipitor) 10 mg DAILY ORAL 06/28/18 09:00 07/28/18 08:59 06/29/18 08:50 Clonidine HCl (Catapres Tab) 0.1 mg Q6H PRN ORAL For High Blood Pressure 06/27/18 16:45 07/27/18 16:44 Dextrose (Dextrose 50%) 25 ml Q30M PRN IV Hypoglycemia 06/27/18 12:45 07/27/18 12:44 Dextrose (Dextrose 50%) 50 ml Q30M PRN IV Hypoglycemia 06/27/18 12:45 07/27/18 12:44 Dextrose/Sodium Chloride 1,000 ml @ 75 mls/hr [id number] IV 06/28/18 18:15 07/28/18 18:14 06/29/18 05:49 Folic Acid (Folate) 3 mg DAILY ORAL 06/28/18 18:15 07/28/18 18:14 06/29/18 08:49 Heparin Sodium (Porcine) (Heparin 5000 units/ml) 5,000 units EVERY 12 HOURS SUBQ 06/27/18 21:00 07/27/18 20:59 06/29/18 08:54 Insulin Aspart (NovoLOG) BEFORE MEALS AND HS SUBQ 06/27/18 16:30 07/27/18 16:29 06/29/18 05:49 Labetalol HCl (Normodyne) 100 mg BID ORAL 06/27/18 18:00 07/27/18 17:59 06/29/18 08:51 Lorazepam (Ativan 2mg/ml 1ml) 0.5 mg Q4H PRN IV For Anxiety 06/27/18 12:45 07/04/18 12:44 Morphine Sulfate (Morphine Sulfate) 1 mg Q4H PRN IVP For Pain 06/27/18 12:45 07/04/18 12:44 06/29/18 05:47 Ondansetron HCl (Zofran) 4 mg Q6H PRN IVP Nausea & Vomiting 06/27/18 12:45 07/27/18 12:44 Pantoprazole (Protonix) 40 mg EVERY 12 HOURS ORAL 06/28/18 21:00 07/28/18 20:59 06/29/18 08:51 Polyethylene Glycol (Miralax) 17 gm HSPRN PRN ORAL Constipation 06/27/18 12:45 07/27/18 12:44 Sitagliptin Phosphate (Januvia) 50 mg ACBREAKFAST ORAL 06/28/18 06:30 07/28/18 06:29 06/29/18 05:47 Zolpidem Tartrate (Ambien) 5 mg HSPRN PRN ORAL Insomnia 06/27/18 12:45 07/04/18 12:44 Cass Nguyen MD Jun 29, 2018 10:43
[2018-06-29 12:00] VITALS: BP 149/89
--- NOTE | 2018-06-29 13:49 | Nephrology Progress Note ---
Assessment/Plan Problem List: (1) Acute renal failure (ARF) Assessment: improving (2) Dehydration (3) Anemia (4) HTN (hypertension) Assessment Acute renal failure: improving - Dehydration - Underlying Diabetic Nephropathy DM normal A1c HTN Mild Anemia Humerus fracture Calcaneal fracture Plan Hydrate- check Ferritin Folate supplement monitor renal parameters IV Iron avoid nephrotoxics per orders Subjective ROS Limited/Unobtainable: No Constitutional: Reports: malaise Objective Objective Last 24 Hour Vital Signs Date Time Temp Pulse Resp B/P (MAP) Pulse Ox O2 Delivery O2 Flow Rate FiO2 06/29/18 09:00 Room Air 06/29/18 08:51 78 162/76 06/29/18 08:50 78 162/76 06/29/18 08:00 98.6 78 19 162/76 (104) 99 06/29/18 06:17 98.0 06/29/18 04:00 98.0 85 18 163/85 (111) 99 06/29/18 00:34 98.1 76 18 138/75 (96) 98 06/28/18 22:38 Room Air 06/28/18 20:00 98.0 82 18 151/74 (99) 98 06/28/18 17:17 79 148/84 06/28/18 16:00 98.8 79 18 148/84 (105) 99 Intake and Output 06/28/18 06/29/18 18:59 06:59 Intake Total 1080 ml 720 ml Output Total 300 ml 200 ml Balance 780 ml 520 ml Intake Oral 1080 ml 120 ml IV Total 600 ml Output Urine Total 300 ml 200 ml Laboratory Tests 06/28/18 15:15: Urine Color Pale yellow, Urine Appearance Clear, Urine pH 5, Urine Specific [place] 1.015, Urine Protein 1+H, Urine Glucose (UA) Negative, Urine Ketones Negative, Urine Blood Negative, Urine Nitrite Negative, Urine Bilirubin Negative , Urine Urobilinogen Normal, Urine Leukocyte Esterase Negative, Urine RBC 0-2, Urine WBC 0-2, Urine Squamous Epithelial Cells Occasional, Urine Bacteria None, Urine Eosinophils None seen, Urine Random Sodium 57, Urine Potassium Timed 29 06/29/18 06:15: White Blood Count 7.0, Red Blood Count 3.45L, Hemoglobin 10.6L, Hematocrit 32.0L , Mean Corpuscular Volume 93, Mean Corpuscular Hemoglobin 30.8, Mean Corpuscular Hemoglobin Concent 33.1, Red Cell Distribution Width 12.4, Platelet Count 191, Mean Platelet Volume 7.2, Neutrophils (%) (Auto) 63.4, Lymphocytes (% ) (Auto) 21.1, Monocytes (%) (Auto) 9.0, Eosinophils (%) (Auto) 5.0H, Basophils (%) (Auto) 1.5, Sodium Level 140, Potassium Level 4.1, Chloride Level 107, Carbon Dioxide Level 26, Anion Gap 7, Blood Urea Nitrogen 36H, Creatinine 1.7H, Estimat Glomerular Filtration Rate , Glucose Level 123H, Hemoglobin A1c 6.0, Uric Acid 7.0, Calcium Level 9.6, Phosphorus Level 3.5, Magnesium Level 1.7L, Ferritin 141, Total Bilirubin 0.4, Gamma Glutamyl Transpeptidase 42, Aspartate Amino Transf (AST/SGOT) 13L, Alanine Aminotransferase (ALT/SGPT) 20, Alkaline Phosphatase 78, C-Reactive Protein, Quantitative 4.4H, Pro-B-Type Natriuretic Peptide 373H, Total Protein 6.1L, Albumin 2.9L, Globulin 3.2, Albumin/Globulin Ratio 0.9L Height (Feet): 4 Height (Inches): 8.00 Weight (Pounds): 120 General Appearance: no apparent distress Cardiovascular: normal rate Respiratory/Chest: lungs clear Abdomen: soft Bryan Ojeda MD Jun 29, 2018 13:49
--- NOTE | 2018-06-29 15:46 | Consultation ---
History of Present Illness General Date patient seen: Jun 29, 2018 Time patient seen: 16:43 Chief Complaint: Painful Left foot secondary to calcaneal fracture. States she had a fall injury fracturing her L foot and humerus. Present Illness Allergies: Coded Allergies: PENICILLINS (Verified Allergy, Unknown, 06/03/15) Medication History Scheduled Amlodipine Besylate (Norvasc), 10 MG ORAL DAILY, (Reported) Atorvastatin Calcium* (Lipitor*), 10 MG ORAL DAILY, (Reported) Benazepril Hcl* (Benazepril Hcl*), 40 MG ORAL DAILY, (Reported) Benazepril Hcl* (Benazepril Hcl*), 40 MG ORAL TWICE A DAY, (Reported) Glipizide* (Glipizide*), 5 MG ORAL BIDAC, (Reported) Irbesartan* (Avapro*), 150 MG ORAL DAILY Labetalol Hcl* (Normodyne*), 100 MG ORAL BID, (Reported) Sitagliptin (Januvia), 50 MG ORAL ACBREAKFAST Spironolactone* (Aldactone*), 25 MG ORAL DAILY, (Reported) Miscellaneous Medications Labetalol Hcl* (Labetalol Hcl*), 5 MG IV, (Reported) Patient History Healthcare decision maker Resuscitation status Full Code Advanced Directive on File Physical Exam Physical Exam Narrative Focused LLE exam: Soft cast is noted to LLE, Foot is in neutral in slightly less 90 degree angle in soft cast. Cast is noted to be C/D/I. 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 Last 24 Hour Vital Signs Date Time Temp Pulse Resp B/P (MAP) Pulse Ox O2 Delivery O2 Flow Rate FiO2 06/29/18 12:00 97.6 68 17 149/89 (109) 98 06/29/18 09:00 Room Air 06/29/18 08:51 78 162/76 06/29/18 08:50 78 162/76 06/29/18 08:00 98.6 78 19 162/76 (104) 99 06/29/18 06:17 98.0 06/29/18 04:00 98.0 85 18 163/85 (111) 99 06/29/18 00:34 98.1 76 18 138/75 (96) 98 06/28/18 22:38 Room Air 06/28/18 20:00 98.0 82 18 151/74 (99) 98 06/28/18 17:17 79 148/84 06/28/18 16:00 98.8 79 18 148/84 (105) 99 Intake and Output 06/28/18 06/29/18 18:59 06:59 Intake Total 1080 ml 720 ml Output Total 300 ml 200 ml Balance 780 ml 520 ml Intake Oral 1080 ml 120 ml IV Total 600 ml Output Urine Total 300 ml 200 ml Laboratory Tests Test 06/29/18 06:15 White Blood Count 7.0 K/UL (4.8-10.8) Red Blood Count 3.45 M/UL (4.20-5.40) L Hemoglobin 10.6 G/DL (12.0-16.0) L Hematocrit 32.0 % (37.0-47.0) L Mean Corpuscular Volume 93 FL (80-99) Mean Corpuscular Hemoglobin 30.8 PG (27.0-31.0) Mean Corpuscular Hemoglobin Concent 33.1 G/DL (32.0-36.0) Red Cell Distribution Width 12.4 % (11.6-14.8) Platelet Count 191 K/UL (150-450) Mean Platelet Volume 7.2 FL (6.5-10.1) Neutrophils (%) (Auto) 63.4 % (45.0-75.0) Lymphocytes (%) (Auto) 21.1 % (20.0-45.0) Monocytes (%) (Auto) 9.0 % (1.0-10.0) Eosinophils (%) (Auto) 5.0 % (0.0-3.0) H Basophils (%) (Auto) 1.5 % (0.0-2.0) Sodium Level 140 MMOL/L (136-145) Potassium Level 4.1 MMOL/L (3.5-5.1) Chloride Level 107 MMOL/L (98-107) Carbon Dioxide Level 26 MMOL/L (21-32) Anion Gap 7 mmol/L (5-15) Blood Urea Nitrogen 36 mg/dL (7-18) H Creatinine 1.7 MG/DL (0.55-1.30) H Estimat Glomerular Filtration Rate mL/min (>60) Glucose Level 123 MG/DL (74-106) H Hemoglobin A1c 6.0 % (4.3-6.0) Uric Acid 7.0 MG/DL (2.6-7.2) Calcium Level 9.6 MG/DL (8.5-10.1) Phosphorus Level 3.5 MG/DL (2.5-4.9) Magnesium Level 1.7 MG/DL (1.8-2.4) L Ferritin 141 NG/ML (8-388) Total Bilirubin 0.4 MG/DL (0.2-1.0) Gamma Glutamyl Transpeptidase 42 U/L (5-85) Aspartate Amino Transf (AST/SGOT) 13 U/L (15-37) L Alanine Aminotransferase (ALT/SGPT) 20 U/L (12-78) Alkaline Phosphatase 78 U/L (46-116) C-Reactive Protein, Quantitative 4.4 mg/dL (0.00-0.90) H Pro-B-Type Natriuretic Peptide 373 pg/mL (0-125) H Total Protein 6.1 G/DL (6.4-8.2) L Albumin 2.9 G/DL (3.4-5.0) L Globulin 3.2 g/dL Albumin/Globulin Ratio 0.9 (1.0-2.7) L Height (Feet): 4 Height (Inches): 8.00 Weight (Pounds): 120 Medications Current Medications Medications (Trade) Dose Ordered Sig/Sd Route PRN Reason Start Time Stop Time Status Last Admin Dose Admin Acetaminophen (Tylenol) 650 mg Q4H PRN ORAL fever 06/27/18 12:45 07/27/18 12:44 Amlodipine Besylate (Norvasc) 10 mg DAILY ORAL 06/28/18 09:00 07/28/18 08:59 06/29/18 08:50 Atorvastatin Calcium (Lipitor) 10 mg DAILY ORAL 06/28/18 09:00 07/28/18 08:59 06/29/18 08:50 Clonidine HCl (Catapres Tab) 0.1 mg Q6H PRN ORAL For High Blood Pressure 06/27/18 16:45 07/27/18 16:44 Dextrose (Dextrose 50%) 25 ml Q30M PRN IV Hypoglycemia 06/27/18 12:45 07/27/18 12:44 Dextrose (Dextrose 50%) 50 ml Q30M PRN IV Hypoglycemia 06/27/18 12:45 07/27/18 12:44 Dextrose/Sodium Chloride 1,000 ml @ 75 mls/hr [id number] IV 06/28/18 18:15 07/28/18 18:14 06/29/18 05:49 Folic Acid (Folate) 3 mg DAILY ORAL 06/28/18 18:15 07/28/18 18:14 06/29/18 08:49 Heparin Sodium (Porcine) (Heparin 5000 units/ml) 5,000 units EVERY 12 HOURS SUBQ 06/27/18 21:00 07/27/18 20:59 06/29/18 08:54 Insulin Aspart (NovoLOG) BEFORE MEALS AND HS SUBQ 06/27/18 16:30 07/27/18 16:29 06/29/18 13:40 Iron Sucrose 200 mg/Sodium Chloride 120 ml @ 240 mls/hr ONCE ONCE IV 06/29/18 16:00 06/29/18 16:29 Labetalol HCl (Normodyne) 200 mg Q12HR ORAL 06/29/18 21:00 07/29/18 20:59 Lorazepam (Ativan 2mg/ml 1ml) 0.5 mg Q4H PRN IV For Anxiety 06/27/18 12:45 07/04/18 12:44 Magnesium Oxide (Mag-Ox 400mg) 400 mg THREE TIMES A DAY ORAL 06/29/18 18:00 07/29/18 17:59 Morphine Sulfate (Morphine Sulfate) 1 mg Q4H PRN IVP For Pain 06/27/18 12:45 07/04/18 12:44 06/29/18 15:33 Ondansetron HCl (Zofran) 4 mg Q6H PRN IVP Nausea & Vomiting 06/27/18 12:45 07/27/18 12:44 Pantoprazole (Protonix) 40 mg EVERY 12 HOURS ORAL 06/28/18 21:00 07/28/18 20:59 06/29/18 08:51 Polyethylene Glycol (Miralax) 17 gm HSPRN PRN ORAL Constipation 06/27/18 12:45 07/27/18 12:44 Sitagliptin Phosphate (Januvia) 50 mg ACBREAKFAST ORAL 06/28/18 06:30 07/28/18 06:29 06/29/18 05:47 Zolpidem Tartrate (Ambien) 5 mg HSPRN PRN ORAL Insomnia 06/27/18 12:45 07/04/18 12:44 Assessment/Plan Assessment/Plan A: L calc fracture DM HTN Actue Renal Failure Osteogenesis Imperfecta P: - Pt seen and evaluated. - Discuss findings with patient. - Chart reviewed. - L ankle XR , negative for acute Fx or dislocation. - L foot XR, positive for fx at inferior calc tuberosity, minimal displacement. Impression: Positive for calcaneal tuberosity fracture. This agrees with the findings reported by the emergency room physician in the electronic medical record - Per ortho cont with conservative treatment regarding calc fx, We will have her nonweightbearing on the left upper extremity and left lower extremity, although she can be toe-touch weightbearing on the left side. We will work with PT to give her good balance and get her up moving hopefully soon. She will need a center post walker. I will see her back in 2 weeks' time to put a cast on her left leg and check alignment of the left humerus. - Agree with ortho consult. Cont conservative treatment per ortho recs. - Keep cast to LLE c/d/i. - NWB to LLE. - No surgical intervention required by podiatry. - Thank you for consultation. Rufino Kelly DPM Jun 29, 2018 15:46
[2018-06-29 16:00] VITALS: BP 149/74
[2018-06-29] MEDS ORDERED: Iron Sucrose 200 MG in NS 110 ML IV ONE (16:00)
--- NOTE | 2018-06-29 17:08 | NUR ---
PT Note PT linda completed, treatment initiated. Patient was able to sit at the EOB but leans to the right. Also c/o pain on the left shoulder with any movement or change in position. Patient needs PT services to increase her muscle strength and balance and to instruct her on safe transfers and mobility, NWB on the LUE/LE.Recommend for patient to be DC'd to a SNF for further rehab. Addendum: 06/29/18 at 1709 by JOSE JAMES PT Amended: Links added.
[2018-06-29] MEDS: Magnesium Oxide 400mg tab ORAL SCH (17:43)
--- NOTE | 2018-06-29 19:15 | NUR ---
HAND-OFF: Report given to DAMIAN Garcia.
--- NOTE | 2018-06-29 19:16 | Internal Med Progress Note ---
Subjective Date of Service: Jun 29, 2018 Physician Name Goncalves,Zi Attending Physician Aiden Hinds MD Current Medications Medications (Trade) Dose Ordered Sig/Sd Route PRN Reason Start Time Stop Time Status Last Admin Dose Admin Acetaminophen (Tylenol) 650 mg Q4H PRN ORAL fever 06/27/18 12:45 07/27/18 12:44 Amlodipine Besylate (Norvasc) 10 mg DAILY ORAL 06/28/18 09:00 07/28/18 08:59 06/29/18 08:50 Atorvastatin Calcium (Lipitor) 10 mg DAILY ORAL 06/28/18 09:00 07/28/18 08:59 06/29/18 08:50 Clonidine HCl (Catapres Tab) 0.1 mg Q6H PRN ORAL For High Blood Pressure 06/27/18 16:45 07/27/18 16:44 Dextrose (Dextrose 50%) 25 ml Q30M PRN IV Hypoglycemia 06/27/18 12:45 07/27/18 12:44 Dextrose (Dextrose 50%) 50 ml Q30M PRN IV Hypoglycemia 06/27/18 12:45 07/27/18 12:44 Dextrose/Sodium Chloride 1,000 ml @ 75 mls/hr [id number] IV 06/28/18 18:15 07/28/18 18:14 06/29/18 18:18 Folic Acid (Folate) 3 mg DAILY ORAL 06/28/18 18:15 07/28/18 18:14 06/29/18 08:49 Heparin Sodium (Porcine) (Heparin 5000 units/ml) 5,000 units EVERY 12 HOURS SUBQ 06/27/18 21:00 07/27/18 20:59 06/29/18 08:54 Insulin Aspart (NovoLOG) BEFORE MEALS AND HS SUBQ 06/27/18 16:30 07/27/18 16:29 06/29/18 17:45 Labetalol HCl (Normodyne) 200 mg Q12HR ORAL 06/29/18 21:00 07/29/18 20:59 Lorazepam (Ativan 2mg/ml 1ml) 0.5 mg Q4H PRN IV For Anxiety 06/27/18 12:45 07/04/18 12:44 Magnesium Oxide (Mag-Ox 400mg) 400 mg THREE TIMES A DAY ORAL 06/29/18 18:00 07/29/18 17:59 06/29/18 17:43 Morphine Sulfate (Morphine Sulfate) 1 mg Q4H PRN IVP For Pain 06/27/18 12:45 07/04/18 12:44 06/29/18 15:33 Ondansetron HCl (Zofran) 4 mg Q6H PRN IVP Nausea & Vomiting 06/27/18 12:45 07/27/18 12:44 Pantoprazole (Protonix) 40 mg EVERY 12 HOURS ORAL 06/28/18 21:00 07/28/18 20:59 06/29/18 08:51 Polyethylene Glycol (Miralax) 17 gm HSPRN PRN ORAL Constipation 06/27/18 12:45 07/27/18 12:44 Sitagliptin Phosphate (Januvia) 50 mg ACBREAKFAST ORAL 06/28/18 06:30 07/28/18 06:29 06/29/18 05:47 Zolpidem Tartrate (Ambien) 5 mg HSPRN PRN ORAL Insomnia 06/27/18 12:45 07/04/18 12:44 Allergies: Coded Allergies: PENICILLINS (Verified Allergy, Unknown, 06/03/15) ROS Limited/Unobtainable: No Constitutional: Reports: no symptoms HEENT: Reports: no symptoms Cardiovascular: Reports: no symptoms Respiratory: Reports: no symptoms Gastrointestinal/Abdominal: Reports: no symptoms Genitourinary: Reports: no symptoms Neurologic/Psychiatric: Reports: no symptoms Subjective 73 YO F admitted with left foot pain. Now fracture left calcaneus. Cover for Int Anthony-Dr Hinds Objective Last Vital Signs Date Time Temp Pulse Resp B/P (MAP) Pulse Ox O2 Delivery O2 Flow Rate FiO2 06/29/18 16:03 97.6 06/29/18 16:00 72 18 149/74 (99) 100 06/29/18 09:00 Room Air Laboratory Tests Test 06/29/18 06:15 White Blood Count 7.0 K/UL (4.8-10.8) Red Blood Count 3.45 M/UL (4.20-5.40) L Hemoglobin 10.6 G/DL (12.0-16.0) L Hematocrit 32.0 % (37.0-47.0) L Mean Corpuscular Volume 93 FL (80-99) Mean Corpuscular Hemoglobin 30.8 PG (27.0-31.0) Mean Corpuscular Hemoglobin Concent 33.1 G/DL (32.0-36.0) Red Cell Distribution Width 12.4 % (11.6-14.8) Platelet Count 191 K/UL (150-450) Mean Platelet Volume 7.2 FL (6.5-10.1) Neutrophils (%) (Auto) 63.4 % (45.0-75.0) Lymphocytes (%) (Auto) 21.1 % (20.0-45.0) Monocytes (%) (Auto) 9.0 % (1.0-10.0) Eosinophils (%) (Auto) 5.0 % (0.0-3.0) H Basophils (%) (Auto) 1.5 % (0.0-2.0) Sodium Level 140 MMOL/L (136-145) Potassium Level 4.1 MMOL/L (3.5-5.1) Chloride Level 107 MMOL/L (98-107) Carbon Dioxide Level 26 MMOL/L (21-32) Anion Gap 7 mmol/L (5-15) Blood Urea Nitrogen 36 mg/dL (7-18) H Creatinine 1.7 MG/DL (0.55-1.30) H Estimat Glomerular Filtration Rate mL/min (>60) Glucose Level 123 MG/DL (74-106) H Hemoglobin A1c 6.0 % (4.3-6.0) Uric Acid 7.0 MG/DL (2.6-7.2) Calcium Level 9.6 MG/DL (8.5-10.1) Phosphorus Level 3.5 MG/DL (2.5-4.9) Magnesium Level 1.7 MG/DL (1.8-2.4) L Ferritin 141 NG/ML (8-388) Total Bilirubin 0.4 MG/DL (0.2-1.0) Gamma Glutamyl Transpeptidase 42 U/L (5-85) Aspartate Amino Transf (AST/SGOT) 13 U/L (15-37) L Alanine Aminotransferase (ALT/SGPT) 20 U/L (12-78) Alkaline Phosphatase 78 U/L (46-116) C-Reactive Protein, Quantitative 4.4 mg/dL (0.00-0.90) H Pro-B-Type Natriuretic Peptide 373 pg/mL (0-125) H Total Protein 6.1 G/DL (6.4-8.2) L Albumin 2.9 G/DL (3.4-5.0) L Globulin 3.2 g/dL Albumin/Globulin Ratio 0.9 (1.0-2.7) L Intake and Output 06/28/18 06/29/18 19:00 07:00 Intake Total 1080 ml 795 ml Output Total 300 ml 200 ml Balance 780 ml 595 ml Intake Oral 1080 ml 120 ml IV Total 675 ml Output Urine Total 300 ml 200 ml Objective PHYSICAL EXAMINATION: GENERAL: The patient is a well-developed and well-nourished female, in no apparent distress. HEENT: Eyes, pupils are equal and responsive to light and accommodation. Extraocular movements are intact. NECK: Supple without lymphadenopathy. CHEST: Lungs are clear to auscultation bilaterally without wheezes or rales. CARDIOVASCULAR: Regular rhythm and rate. S1 and S2 are normal without murmurs, rubs, or gallops. ABDOMEN: Soft, nontender, and nondistended. Positive bowel sounds. No evidence of hepatosplenomegaly. Currently, no rebound or guarding noted. EXTREMITIES: Negative for clubbing, cyanosis, or edema. RECTAL/GENITAL: Refused. NEUROLOGIC: Cranial nerves II through XII are grossly intact without focal deficits. Motor strength is 5/5 bilaterally. Deep tendon reflexes are 2+ plantar. Assessment/Plan Assessment/Plan ASSESSMENT: This is a 73-year-old female. 1. Fracture of the left calcaneal tuberosity. 2. Fracture of the left humerus neck. 3. Hypertension. 4. Hypercholesterolemia. 5. Diabetes type 2. 6. Osteogenesis imperfecta. 7. Osteoarthritis. TREATMENT: 1. Fracture of the left calcaneal tuberosity. The patient has been evaluated by Orthopedic surgery, Dr. Ngo. A Podiatry consultation was obtained with Dr. Webster. NON SURGICAL FRACTURE. CONSERVATIVE TREATMENT 2. Proximal left humerus fracture as above. An Orthopedic consultation has been obtained with Dr. Ngo. The patient will not require surgery at this time. Please see consultation by Dr. Ngo. 3. Hypertension. Continue amlodipine as above. 4. Hypercholesterolemia. Continue Lipitor as above. 5. Diabetes type 2. Continue Januvia as above. A NovoLog sliding scale has been instituted. 6. Osteogenesis imperfecta. 7. Osteoarthritis. Zi Goncalves MD Jun 29, 2018 19:16
[2018-06-29 20:00] VITALS: BP 134/86
--- NOTE | 2018-06-29 20:03 | NUR ---
NURSE NOTES: Patient in bed, awake and alert. IV in place, patent. Has complaints of pain, Morphine prn was given as ordered. No s/s distress noted. Bed in lowest position, call light within reach. Noted to have sling on left arm and cast on left leg. Will continue to monitor.
[2018-06-29] MEDS: Labetalol 200mg tab ORAL SCH (21:07)
--- NOTE | 2018-06-29 21:45 | General Progress Note ---
Assessment/Plan Problem List: (1) MDD (major depressive disorder), recurrent episode, moderate ICD Codes: F33.1 - Major depressive disorder, recurrent, moderate SNOMED: 02947929, [id number] Status: stable Assessment/Plan Ativan prn the pt is reluctant to take meds provided ro/st Subjective Neurologic/Psychiatric: Reports: anxiety, depressed, emotional problems Allergies: Coded Allergies: PENICILLINS (Verified Allergy, Unknown, 06/03/15) Objective Last 24 Hour Vital Signs Date Time Temp Pulse Resp B/P (MAP) Pulse Ox O2 Delivery O2 Flow Rate FiO2 06/29/18 21:07 94 134/86 06/29/18 20:18 97.6 06/29/18 16:00 98.8 72 18 149/74 (99) 100 06/29/18 12:00 97.6 68 17 149/89 (109) 98 06/29/18 09:00 Room Air 06/29/18 08:51 78 162/76 06/29/18 08:50 78 162/76 06/29/18 08:00 98.6 78 19 162/76 (104) 99 06/29/18 04:00 98.0 85 18 163/85 (111) 99 06/29/18 00:34 98.1 76 18 138/75 (96) 98 06/28/18 22:38 Room Air Intake and Output 06/28/18 06/29/18 19:00 07:00 Intake Total 1080 ml 795 ml Output Total 300 ml 200 ml Balance 780 ml 595 ml Intake Oral 1080 ml 120 ml IV Total 675 ml Output Urine Total 300 ml 200 ml Laboratory Tests 06/29/18 06:15: White Blood Count 7.0, Red Blood Count 3.45L, Hemoglobin 10.6L, Hematocrit 32.0L , Mean Corpuscular Volume 93, Mean Corpuscular Hemoglobin 30.8, Mean Corpuscular Hemoglobin Concent 33.1, Red Cell Distribution Width 12.4, Platelet Count 191, Mean Platelet Volume 7.2, Neutrophils (%) (Auto) 63.4, Lymphocytes (% ) (Auto) 21.1, Monocytes (%) (Auto) 9.0, Eosinophils (%) (Auto) 5.0H, Basophils (%) (Auto) 1.5, Sodium Level 140, Potassium Level 4.1, Chloride Level 107, Carbon Dioxide Level 26, Anion Gap 7, Blood Urea Nitrogen 36H, Creatinine 1.7H, Estimat Glomerular Filtration Rate , Glucose Level 123H, Hemoglobin A1c 6.0, Uric Acid 7.0, Calcium Level 9.6, Phosphorus Level 3.5, Magnesium Level 1.7L, Ferritin 141, Total Bilirubin 0.4, Gamma Glutamyl Transpeptidase 42, Aspartate Amino Transf (AST/SGOT) 13L, Alanine Aminotransferase (ALT/SGPT) 20, Alkaline Phosphatase 78, C-Reactive Protein, Quantitative 4.4H, Pro-B-Type Natriuretic Peptide 373H, Total Protein 6.1L, Albumin 2.9L, Globulin 3.2, Albumin/Globulin Ratio 0.9L Height (Feet): 4 Height (Inches): 8.00 Weight (Pounds): 120 General Appearance: no apparent distress, alert Neurologic: oriented x 3, responsive, normal mood/affect Alphonse Trejo MD Jun 29, 2018 21:45
[2018-06-30 00:22] VITALS: BP 153/86
[2018-06-30 04:00] VITALS: BP 111/62
[2018-06-30] MEDS: sitaGLIPtin 50mg tab ORAL SCH (05:58)
[2018-06-30] MEDS: NovoLOG Insulin Flexpen SUBQ SCH ×4 (05:58→20:32)
[2018-06-30] MEDS: Morphine Sulfate 2mg/ml Inj(IV/IM USE ONLY) IVP PRN ×2 (06:01→22:02)
--- NOTE | 2018-06-30 06:38 | NUR ---
NURSE NOTES: NEW IV ACCESS RIGHT HAND 24 GAUGE.
--- NOTE | 2018-06-30 07:18 | NUR ---
HAND-OFF: Report given to LEESA CHRISTY RN.
[2018-06-30 08:00] VITALS: BP 146/80
[2018-06-30] MEDS: Magnesium Oxide 400mg tab ORAL SCH ×3 (09:04→17:58)
[2018-06-30] MEDS: Labetalol 200mg tab ORAL SCH ×2 (09:05→20:29)
[2018-06-30] MEDS: D5 1/2NS 1,000 ML IV SCH (09:19)
[2018-06-30] MEDS: Heparin 5000 units/ml inj SUBQ SCH ×2 (09:20→20:31)
[2018-06-30 12:00] VITALS: BP 139/76
--- NOTE | 2018-06-30 12:57 | Nephrology Progress Note ---
Assessment/Plan Problem List: (1) Acute renal failure (ARF) Assessment: improving (2) Dehydration (3) Anemia (4) HTN (hypertension) Assessment Acute renal failure: improving - Dehydration - Underlying Diabetic Nephropathy DM normal A1c HTN Mild Anemia Humerus fracture Calcaneal fracture Plan today's labs pending Hydrate- check Ferritin Folate supplement monitor renal parameters IV Iron avoid nephrotoxics per orders Subjective ROS Limited/Unobtainable: No Constitutional: Reports: malaise Objective Objective Last 24 Hour Vital Signs Date Time Temp Pulse Resp B/P (MAP) Pulse Ox O2 Delivery O2 Flow Rate FiO2 06/30/18 12:00 97.9 78 17 139/76 (97) 98 06/30/18 09:05 72 146/80 06/30/18 09:04 72 146/80 06/30/18 09:00 Room Air 06/30/18 08:00 97.5 72 18 146/80 (102) 98 06/30/18 06:31 97.9 06/30/18 04:00 97.9 66 18 111/62 (78) 97 06/30/18 00:22 98.5 72 18 153/86 (108) 98 06/29/18 21:48 Room Air 06/29/18 21:07 94 134/86 06/29/18 20:00 98.4 94 18 134/86 (102) 98 06/29/18 16:00 98.8 72 18 149/74 (99) 100 Intake and Output 06/29/18 06/30/18 19:00 07:00 Intake Total 1380 ml 720 ml Output Total 850 ml 300 ml Balance 530 ml 420 ml Intake Oral 480 ml 120 ml IV Total 900 ml 600 ml Output Urine Total 850 ml 300 ml Height (Feet): 4 Height (Inches): 8.00 Weight (Pounds): 120 General Appearance: no apparent distress Cardiovascular: normal rate Respiratory/Chest: decreased breath sounds Abdomen: soft Objective no change Bryan Ojeda MD Jun 30, 2018 12:57
--- NOTE | 2018-06-30 13:04 | Pulmonology Progress Note ---
Assessment/Plan Problems: (1) Humerus fracture (2) Calcaneal fracture (3) Diabetes mellitus (4) History of hypertension Assessment/Plan pt/ot physical therapy f/u by ortho sliding scale diabetic diet all reviewed awaiting d/c to rehab Subjective ROS Limited/Unobtainable: No Constitutional: Reports: no symptoms HEENT: Repors: no symptoms Respiratory: Reports: no symptoms Allergies: Coded Allergies: PENICILLINS (Verified Allergy, Unknown, 06/03/15) Objective Last 24 Hour Vital Signs Date Time Temp Pulse Resp B/P (MAP) Pulse Ox O2 Delivery O2 Flow Rate FiO2 06/30/18 12:00 97.9 78 17 139/76 (97) 98 06/30/18 09:05 72 146/80 06/30/18 09:04 72 146/80 06/30/18 09:00 Room Air 06/30/18 08:00 97.5 72 18 146/80 (102) 98 06/30/18 06:31 97.9 06/30/18 04:00 97.9 66 18 111/62 (78) 97 06/30/18 00:22 98.5 72 18 153/86 (108) 98 06/29/18 21:48 Room Air 06/29/18 21:07 94 134/86 06/29/18 20:00 98.4 94 18 134/86 (102) 98 06/29/18 16:00 98.8 72 18 149/74 (99) 100 Intake and Output 06/29/18 06/30/18 18:59 06:59 Intake Total 1455 ml 720 ml Output Total 850 ml 300 ml Balance 605 ml 420 ml Intake Oral 480 ml 120 ml IV Total 975 ml 600 ml Output Urine Total 850 ml 300 ml Objective General Appearance: WD/WN Lines, tubes and drains: peripheral HEENT: normocephalic, atraumatic Neck: non-tender Respiratory/Chest: chest wall non-tender, normal breath sounds Breasts: no masses Cardiovascular/Chest: normal peripheral pulses Genitourinary/Rectal: normal genital exam Extremities: normal range of motion Current Medications Medications (Trade) Dose Ordered Sig/Sd Route PRN Reason Start Time Stop Time Status Last Admin Dose Admin Acetaminophen (Tylenol) 650 mg Q4H PRN ORAL fever 06/27/18 12:45 07/27/18 12:44 Amlodipine Besylate (Norvasc) 10 mg DAILY ORAL 06/28/18 09:00 07/28/18 08:59 06/30/18 09:04 Atorvastatin Calcium (Lipitor) 10 mg DAILY ORAL 06/28/18 09:00 07/28/18 08:59 06/30/18 09:05 Clonidine HCl (Catapres Tab) 0.1 mg Q6H PRN ORAL For High Blood Pressure 06/27/18 16:45 07/27/18 16:44 Dextrose (Dextrose 50%) 25 ml Q30M PRN IV Hypoglycemia 06/27/18 12:45 07/27/18 12:44 Dextrose (Dextrose 50%) 50 ml Q30M PRN IV Hypoglycemia 06/27/18 12:45 07/27/18 12:44 Dextrose/Sodium Chloride 1,000 ml @ 75 mls/hr [id number] IV 06/28/18 18:15 07/28/18 18:14 06/30/18 09:19 Folic Acid (Folate) 3 mg DAILY ORAL 06/28/18 18:15 07/28/18 18:14 06/30/18 09:04 Heparin Sodium (Porcine) (Heparin 5000 units/ml) 5,000 units EVERY 12 HOURS SUBQ 06/27/18 21:00 07/27/18 20:59 06/30/18 09:20 Insulin Aspart (NovoLOG) BEFORE MEALS AND HS SUBQ 06/27/18 16:30 07/27/18 16:29 06/30/18 12:03 Labetalol HCl (Normodyne) 200 mg Q12HR ORAL 06/29/18 21:00 07/29/18 20:59 06/30/18 09:05 Lorazepam (Ativan 2mg/ml 1ml) 0.5 mg Q4H PRN IV For Anxiety 06/27/18 12:45 07/04/18 12:44 Magnesium Oxide (Mag-Ox 400mg) 400 mg THREE TIMES A DAY ORAL 06/29/18 18:00 07/29/18 17:59 06/30/18 12:02 Morphine Sulfate (Morphine Sulfate) 1 mg Q4H PRN IVP For Pain 06/27/18 12:45 07/04/18 12:44 06/30/18 06:01 Ondansetron HCl (Zofran) 4 mg Q6H PRN IVP Nausea & Vomiting 06/27/18 12:45 07/27/18 12:44 Pantoprazole (Protonix) 40 mg EVERY 12 HOURS ORAL 06/28/18 21:00 07/28/18 20:59 06/30/18 09:05 Polyethylene Glycol (Miralax) 17 gm HSPRN PRN ORAL Constipation 06/27/18 12:45 07/27/18 12:44 Sitagliptin Phosphate (Januvia) 50 mg ACBREAKFAST ORAL 06/28/18 06:30 07/28/18 06:29 06/30/18 05:58 Zolpidem Tartrate (Ambien) 5 mg HSPRN PRN ORAL Insomnia 06/27/18 12:45 07/04/18 12:44 Cass Nguyen MD Jun 30, 2018 13:04
[2018-06-30 15:37] LABS: BASOPHILS % (AUTO) 1.2 % (0.0-2.0); EOSINOPHILS % (AUTO) 4.9 % (0.0-3.0); HEMATOCRIT 30.8 % (37.0-47.0); HEMOGLOBIN 10.2 G/DL (12.0-16.0); LYMPHOCYTES % (AUTO) 18.7 % (20.0-45.0); MEAN CORPUSCULAR VOLUME 93 FL (80-99); MONOCYTES % (AUTO) 9.7 % (1.0-10.0); NEUTROPHILS % (AUTO) 65.4 % (45.0-75.0); PLATELET COUNT 200 K/UL (150-450); RED BLOOD COUNT 3.29 M/UL (4.20-5.40); RED CELL DISTRIBUTION WIDTH 12.1 % (11.6-14.8); WHITE BLOOD COUNT 7.8 K/UL (4.8-10.8)
[2018-06-30] MEDS ORDERED: D5 1/2NS 1000ml IV ONE (15:47)
[2018-06-30 16:00] VITALS: BP 117/66
[2018-06-30 16:59] LABS: ALANINE AMINOTRANSFERASE 27 U/L (12-78); ALBUMIN 2.7 G/DL (3.4-5.0); ALBUMIN/GLOBULIN RATIO 1.1 (1.0-2.7); ALKALINE PHOSPHATASE 75 U/L (46-116); ANION GAP 8 mmol/L (5-15); ASPARTATE AMINO TRANSFERASE 18 U/L (15-37); BILIRUBIN,TOTAL 0.3 MG/DL (0.2-1.0); BLOOD UREA NITROGEN 26 mg/dL (7-18); CARBON DIOXIDE 25 MMOL/L (21-32); CHLORIDE 106 MMOL/L (98-107); CREATININE 1.3 MG/DL (0.55-1.30); PHOSPHORUS 2.4 MG/DL (2.5-4.9); POTASSIUM 4.1 MMOL/L (3.5-5.1); SODIUM 139 MMOL/L (136-145)
--- NOTE | 2018-06-30 17:44 | Internal Med Progress Note ---
Subjective Date of Service: Jun 30, 2018 Physician Name Zi Goncalves Attending Physician Aiden Hinds MD Current Medications Medications (Trade) Dose Ordered Sig/Sd Route PRN Reason Start Time Stop Time Status Last Admin Dose Admin Acetaminophen (Tylenol) 650 mg Q4H PRN ORAL fever 06/27/18 12:45 07/27/18 12:44 Amlodipine Besylate (Norvasc) 10 mg DAILY ORAL 06/28/18 09:00 07/28/18 08:59 06/30/18 09:04 Atorvastatin Calcium (Lipitor) 10 mg DAILY ORAL 06/28/18 09:00 07/28/18 08:59 06/30/18 09:05 Clonidine HCl (Catapres Tab) 0.1 mg Q6H PRN ORAL For High Blood Pressure 06/27/18 16:45 07/27/18 16:44 Dextrose (Dextrose 50%) 25 ml Q30M PRN IV Hypoglycemia 06/27/18 12:45 07/27/18 12:44 Dextrose (Dextrose 50%) 50 ml Q30M PRN IV Hypoglycemia 06/27/18 12:45 07/27/18 12:44 Dextrose/Sodium Chloride 1,000 ml @ 75 mls/hr [id number] IV 06/28/18 18:15 07/28/18 18:14 06/30/18 09:19 Folic Acid (Folate) 3 mg DAILY ORAL 06/28/18 18:15 07/28/18 18:14 06/30/18 09:04 Heparin Sodium (Porcine) (Heparin 5000 units/ml) 5,000 units EVERY 12 HOURS SUBQ 06/27/18 21:00 07/27/18 20:59 06/30/18 09:20 Insulin Aspart (NovoLOG) BEFORE MEALS AND HS SUBQ 06/27/18 16:30 07/27/18 16:29 06/30/18 16:31 Labetalol HCl (Normodyne) 200 mg Q12HR ORAL 06/29/18 21:00 07/29/18 20:59 06/30/18 09:05 Lorazepam (Ativan 2mg/ml 1ml) 0.5 mg Q4H PRN IV For Anxiety 06/27/18 12:45 07/04/18 12:44 Magnesium Oxide (Mag-Ox 400mg) 400 mg THREE TIMES A DAY ORAL 06/29/18 18:00 07/29/18 17:59 06/30/18 12:02 Morphine Sulfate (Morphine Sulfate) 1 mg Q4H PRN IVP For Pain 06/27/18 12:45 07/04/18 12:44 06/30/18 06:01 Ondansetron HCl (Zofran) 4 mg Q6H PRN IVP Nausea & Vomiting 06/27/18 12:45 07/27/18 12:44 Pantoprazole (Protonix) 40 mg EVERY 12 HOURS ORAL 06/28/18 21:00 07/28/18 20:59 06/30/18 09:05 Polyethylene Glycol (Miralax) 17 gm HSPRN PRN ORAL Constipation 06/27/18 12:45 07/27/18 12:44 Sitagliptin Phosphate (Januvia) 50 mg ACBREAKFAST ORAL 06/28/18 06:30 07/28/18 06:29 06/30/18 05:58 Zolpidem Tartrate (Ambien) 5 mg HSPRN PRN ORAL Insomnia 06/27/18 12:45 07/04/18 12:44 Allergies: Coded Allergies: PENICILLINS (Verified Allergy, Unknown, 06/03/15) ROS Limited/Unobtainable: No Constitutional: Reports: no symptoms HEENT: Reports: no symptoms Cardiovascular: Reports: no symptoms Respiratory: Reports: no symptoms Gastrointestinal/Abdominal: Reports: no symptoms Genitourinary: Reports: no symptoms Neurologic/Psychiatric: Reports: no symptoms Subjective 73 YO F admitted with left foot pain. Now fracture left calcaneus. Cover for Int Anthony-Dr Hinds Objective Last Vital Signs Date Time Temp Pulse Resp B/P (MAP) Pulse Ox O2 Delivery O2 Flow Rate FiO2 06/30/18 16:00 98.2 72 17 117/66 (83) 97 06/30/18 09:00 Room Air Laboratory Tests Test 06/30/18 15:10 White Blood Count 7.8 K/UL (4.8-10.8) Red Blood Count 3.29 M/UL (4.20-5.40) L Hemoglobin 10.2 G/DL (12.0-16.0) L Hematocrit 30.8 % (37.0-47.0) L Mean Corpuscular Volume 93 FL (80-99) Mean Corpuscular Hemoglobin 31.0 PG (27.0-31.0) Mean Corpuscular Hemoglobin Concent 33.2 G/DL (32.0-36.0) Red Cell Distribution Width 12.1 % (11.6-14.8) Platelet Count 200 K/UL (150-450) Mean Platelet Volume 7.3 FL (6.5-10.1) Neutrophils (%) (Auto) 65.4 % (45.0-75.0) Lymphocytes (%) (Auto) 18.7 % (20.0-45.0) L Monocytes (%) (Auto) 9.7 % (1.0-10.0) Eosinophils (%) (Auto) 4.9 % (0.0-3.0) H Basophils (%) (Auto) 1.2 % (0.0-2.0) Sodium Level 139 MMOL/L (136-145) Potassium Level 4.1 MMOL/L (3.5-5.1) Chloride Level 106 MMOL/L (98-107) Carbon Dioxide Level 25 MMOL/L (21-32) Anion Gap 8 mmol/L (5-15) Blood Urea Nitrogen 26 mg/dL (7-18) H Creatinine 1.3 MG/DL (0.55-1.30) Estimat Glomerular Filtration Rate mL/min (>60) Glucose Level 155 MG/DL (74-106) H Uric Acid 6.4 MG/DL (2.6-7.2) Calcium Level 9.0 MG/DL (8.5-10.1) Phosphorus Level 2.4 MG/DL (2.5-4.9) L Magnesium Level 1.6 MG/DL (1.8-2.4) L Total Bilirubin 0.3 MG/DL (0.2-1.0) Aspartate Amino Transf (AST/SGOT) 18 U/L (15-37) Alanine Aminotransferase (ALT/SGPT) 27 U/L (12-78) Alkaline Phosphatase 75 U/L (46-116) C-Reactive Protein, Quantitative 2.3 mg/dL (0.00-0.90) H Pro-B-Type Natriuretic Peptide 340 pg/mL (0-125) H Total Protein 5.2 G/DL (6.4-8.2) L Albumin 2.7 G/DL (3.4-5.0) L Globulin 2.5 g/dL Albumin/Globulin Ratio 1.1 (1.0-2.7) Intake and Output 06/29/18 06/30/18 18:59 06:59 Intake Total 1455 ml 720 ml Output Total 850 ml 300 ml Balance 605 ml 420 ml Intake Oral 480 ml 120 ml IV Total 975 ml 600 ml Output Urine Total 850 ml 300 ml Objective PHYSICAL EXAMINATION: GENERAL: The patient is a well-developed and well-nourished female, in no apparent distress. HEENT: Eyes, pupils are equal and responsive to light and accommodation. Extraocular movements are intact. NECK: Supple without lymphadenopathy. CHEST: Lungs are clear to auscultation bilaterally without wheezes or rales. CARDIOVASCULAR: Regular rhythm and rate. S1 and S2 are normal without murmurs, rubs, or gallops. ABDOMEN: Soft, nontender, and nondistended. Positive bowel sounds. No evidence of hepatosplenomegaly. Currently, no rebound or guarding noted. EXTREMITIES: Negative for clubbing, cyanosis, or edema. RECTAL/GENITAL: Refused. NEUROLOGIC: Cranial nerves II through XII are grossly intact without focal deficits. Motor strength is 5/5 bilaterally. Deep tendon reflexes are 2+ plantar. Assessment/Plan Assessment/Plan ASSESSMENT: This is a 73-year-old female. 1. Fracture of the left calcaneal tuberosity. 2. Fracture of the left humerus neck. 3. Hypertension. 4. Hypercholesterolemia. 5. Diabetes type 2. 6. Osteogenesis imperfecta. 7. Osteoarthritis. TREATMENT: 1. Fracture of the left calcaneal tuberosity. The patient has been evaluated by Orthopedic surgery, Dr. Ngo. A Podiatry consultation was obtained with Dr. Webster. NON SURGICAL FRACTURE. CONSERVATIVE TREATMENT 2. Proximal left humerus fracture as above. An Orthopedic consultation has been obtained with Dr. Ngo. The patient will not require surgery at this time. Please see consultation by Dr. Ngo. 3. Hypertension. Continue amlodipine as above. 4. Hypercholesterolemia. Continue Lipitor as above. 5. Diabetes type 2. Continue Januvia as above. A NovoLog sliding scale has been instituted. 6. Osteogenesis imperfecta. 7. Osteoarthritis. 8. Discharge planning Zi Goncalves MD Jun 30, 2018 17:44
--- NOTE | 2018-06-30 19:30 | NUR ---
HAND-OFF: Report given to DAMIAN Castellanos.
--- NOTE | 2018-06-30 19:30 | NUR ---
NURSE NOTES: pt lying comfortably, VSS, no resp distress, discussed plan of care.
[2018-06-30 20:00] VITALS: BP 126/73
--- NOTE | 2018-06-30 21:28 | General Progress Note ---
Assessment/Plan Problem List: (1) MDD (major depressive disorder), recurrent episode, moderate ICD Codes: F33.1 - Major depressive disorder, recurrent, moderate SNOMED: [id number], [id number] Assessment/Plan Ativan prn the pt is reluctant to take meds provided ro/st Subjective Neurologic/Psychiatric: Reports: anxiety, depressed, emotional problems Allergies: Coded Allergies: PENICILLINS (Verified Allergy, Unknown, 06/03/15) Objective Last 24 Hour Vital Signs Date Time Temp Pulse Resp B/P (MAP) Pulse Ox O2 Delivery O2 Flow Rate FiO2 06/30/18 20:29 76 126/73 06/30/18 16:00 98.2 72 17 117/66 (83) 97 06/30/18 12:00 97.9 78 17 139/76 (97) 98 06/30/18 09:05 72 146/80 06/30/18 09:04 72 146/80 06/30/18 09:00 Room Air 06/30/18 08:00 97.5 72 18 146/80 (102) 98 06/30/18 06:31 97.9 06/30/18 04:00 97.9 66 18 111/62 (78) 97 06/30/18 00:22 98.5 72 18 153/86 (108) 98 06/29/18 21:48 Room Air Intake and Output 06/29/18 06/30/18 19:00 07:00 Intake Total 1380 ml 720 ml Output Total 850 ml 300 ml Balance 530 ml 420 ml Intake Oral 480 ml 120 ml IV Total 900 ml 600 ml Output Urine Total 850 ml 300 ml Laboratory Tests 06/30/18 15:10: White Blood Count 7.8, Red Blood Count 3.29L, Hemoglobin 10.2L, Hematocrit 30.8L , Mean Corpuscular Volume 93, Mean Corpuscular Hemoglobin 31.0, Mean Corpuscular Hemoglobin Concent 33.2, Red Cell Distribution Width 12.1, Platelet Count 200, Mean Platelet Volume 7.3, Neutrophils (%) (Auto) 65.4, Lymphocytes (% ) (Auto) 18.7L, Monocytes (%) (Auto) 9.7, Eosinophils (%) (Auto) 4.9H, Basophils (%) (Auto) 1.2, Sodium Level 139, Potassium Level 4.1, Chloride Level 106, Carbon Dioxide Level 25, Anion Gap 8, Blood Urea Nitrogen 26H, Creatinine 1.3, Estimat Glomerular Filtration Rate , Glucose Level 155H, Uric Acid 6.4, Calcium Level 9.0, Phosphorus Level 2.4L, Magnesium Level 1.6L, Total Bilirubin 0.3, Aspartate Amino Transf (AST/SGOT) 18, Alanine Aminotransferase (ALT/SGPT) 27, Alkaline Phosphatase 75, C-Reactive Protein, Quantitative 2.3H, Pro-B-Type Natriuretic Peptide 340H, Total Protein 5.2L, Albumin 2.7L, Globulin 2.5, Albumin/Globulin Ratio 1.1 Height (Feet): 4 Height (Inches): 8.00 Weight (Pounds): 120 General Appearance: WD/WN, no apparent distress, alert Neurologic: alert, oriented x 3, responsive, depressed affect Alphonse Trejo MD Jun 30, 2018 21:28
[2018-07-01] VITALS: BP 140/70
[2018-07-01] MEDS: D5 1/2NS 1,000 ML IV SCH (03:37)
[2018-07-01 04:00] VITALS: BP 143/70
[2018-07-01] MEDS: sitaGLIPtin 50mg tab ORAL SCH (05:46)
[2018-07-01] MEDS: NovoLOG Insulin Flexpen SUBQ SCH ×4 (05:48→20:16)
--- NOTE | 2018-07-01 07:03 | NUR ---
HAND-OFF: Report given to Contreras YIN.
[2018-07-01 07:49] LABS: BASOPHILS % (AUTO) 0.8 % (0.0-2.0); EOSINOPHILS % (AUTO) 2.7 % (0.0-3.0); HEMATOCRIT 35.4 % (37.0-47.0); HEMOGLOBIN 11.5 G/DL (12.0-16.0); LYMPHOCYTES % (AUTO) 18.6 % (20.0-45.0); MEAN CORPUSCULAR VOLUME 94 FL (80-99); MONOCYTES % (AUTO) 8.3 % (1.0-10.0); NEUTROPHILS % (AUTO) 69.5 % (45.0-75.0); PLATELET COUNT 243 K/UL (150-450); RED BLOOD COUNT 3.77 M/UL (4.20-5.40); RED CELL DISTRIBUTION WIDTH 12.5 % (11.6-14.8); WHITE BLOOD COUNT 8.5 K/UL (4.8-10.8)
[2018-07-01 08:00] VITALS: BP 149/81
[2018-07-01 08:01] LABS: ANION GAP 6 mmol/L (5-15); BLOOD UREA NITROGEN 21 mg/dL (7-18); CALCIUM 9.1 MG/DL (8.5-10.1); CARBON DIOXIDE 27 MMOL/L (21-32); CHLORIDE 105 MMOL/L (98-107); CREATININE 1.3 MG/DL (0.55-1.30); POTASSIUM 4.3 MMOL/L (3.5-5.1); SODIUM 138 MMOL/L (136-145)
[2018-07-01] MEDS: Labetalol 200mg tab ORAL SCH ×2 (08:28→20:14)
[2018-07-01] MEDS: Magnesium Oxide 400mg tab ORAL SCH ×3 (08:29→17:41)
[2018-07-01] MEDS: Heparin 5000 units/ml inj SUBQ SCH ×2 (08:32→20:15)
--- NOTE | 2018-07-01 10:48 | General Progress Note ---
Assessment/Plan Problem List: (1) MDD (major depressive disorder), recurrent episode, moderate ICD Codes: F33.1 - Major depressive disorder, recurrent, moderate SNOMED: 83765396, [id number] Status: stable Assessment/Plan Ativan prn the pt is reluctant to take meds provided ro/st Subjective Neurologic/Psychiatric: Reports: anxiety, depressed, emotional problems Allergies: Coded Allergies: PENICILLINS (Verified Allergy, Unknown, 06/03/15) Subjective the pt was depressed and stated that she feels she would never get better and this is doing to be her life. the pts sleep and appetite are adequate Objective Last 24 Hour Vital Signs Date Time Temp Pulse Resp B/P (MAP) Pulse Ox O2 Delivery O2 Flow Rate FiO2 07/01/18 09:00 Room Air 07/01/18 08:28 71 149/81 07/01/18 08:28 71 149/81 07/01/18 08:00 97.7 71 18 149/81 (103) 98 07/01/18 04:00 97.8 68 18 143/70 (94) 99 07/01/18 00:00 98.6 75 18 140/70 (93) 99 06/30/18 22:32 98.2 06/30/18 21:00 Room Air 06/30/18 20:29 76 126/73 06/30/18 20:00 98.6 76 18 126/73 (90) 97 06/30/18 16:00 98.2 72 17 117/66 (83) 97 06/30/18 12:00 97.9 78 17 139/76 (97) 98 Intake and Output 06/30/18 07/01/18 19:00 07:00 Intake Total 795 ml 825 ml Balance 795 ml 825 ml Intake Oral 720 ml IV Total 75 ml 825 ml # Voids 6 # Bowel Movements 1 Laboratory Tests 06/30/18 15:10: White Blood Count 7.8, Red Blood Count 3.29L, Hemoglobin 10.2L, Hematocrit 30.8L , Mean Corpuscular Volume 93, Mean Corpuscular Hemoglobin 31.0, Mean Corpuscular Hemoglobin Concent 33.2, Red Cell Distribution Width 12.1, Platelet Count 200, Mean Platelet Volume 7.3, Neutrophils (%) (Auto) 65.4, Lymphocytes (% ) (Auto) 18.7L, Monocytes (%) (Auto) 9.7, Eosinophils (%) (Auto) 4.9H, Basophils (%) (Auto) 1.2, Sodium Level 139, Potassium Level 4.1, Chloride Level 106, Carbon Dioxide Level 25, Anion Gap 8, Blood Urea Nitrogen 26H, Creatinine 1.3, Estimat Glomerular Filtration Rate , Glucose Level 155H, Uric Acid 6.4, Calcium Level 9.0, Phosphorus Level 2.4L, Magnesium Level 1.6L, Total Bilirubin 0.3, Aspartate Amino Transf (AST/SGOT) 18, Alanine Aminotransferase (ALT/SGPT) 27, Alkaline Phosphatase 75, C-Reactive Protein, Quantitative 2.3H, Pro-B-Type Natriuretic Peptide 340H, Total Protein 5.2L, Albumin 2.7L, Globulin 2.5, Albumin/Globulin Ratio 1.1 07/01/18 05:57: White Blood Count 8.5, Red Blood Count 3.77L, Hemoglobin 11.5L, Hematocrit 35.4L , Mean Corpuscular Volume 94, Mean Corpuscular Hemoglobin 30.6, Mean Corpuscular Hemoglobin Concent 32.5, Red Cell Distribution Width 12.5, Platelet Count 243, Mean Platelet Volume 7.2, Neutrophils (%) (Auto) 69.5, Lymphocytes (% ) (Auto) 18.6L, Monocytes (%) (Auto) 8.3, Eosinophils (%) (Auto) 2.7, Basophils (%) (Auto) 0.8, Sodium Level 138, Potassium Level 4.3, Chloride Level 105, Carbon Dioxide Level 27, Anion Gap 6, Blood Urea Nitrogen 21H, Creatinine 1.3, Estimat Glomerular Filtration Rate , Glucose Level 126H, Calcium Level 9.1 Height (Feet): 4 Height (Inches): 8.00 Weight (Pounds): 120 General Appearance: WD/WN, no apparent distress, alert Neurologic: oriented x 3, responsive, depressed affect Alphonse Trejo MD Jul 01, 2018 10:48
[2018-07-01 12:00] VITALS: BP 124/60
--- NOTE | 2018-07-01 12:14 | Nephrology Progress Note ---
Assessment/Plan Problem List: (1) Acute renal failure (ARF) Assessment: improving (2) Dehydration (3) Anemia (4) HTN (hypertension) Assessment Acute renal failure: improving - Dehydration - Underlying Diabetic Nephropathy DM normal A1c HTN Mild Anemia Humerus fracture Calcaneal fracture Plan DC IV fluids check Ferritin Folate supplement monitor renal parameters IV Iron avoid nephrotoxics per orders ? DC planning? Subjective ROS Limited/Unobtainable: No Constitutional: Reports: malaise Objective Objective Last 24 Hour Vital Signs Date Time Temp Pulse Resp B/P (MAP) Pulse Ox O2 Delivery O2 Flow Rate FiO2 07/01/18 09:00 Room Air 07/01/18 08:28 71 149/81 07/01/18 08:28 71 149/81 07/01/18 08:00 97.7 71 18 149/81 (103) 98 07/01/18 04:00 97.8 68 18 143/70 (94) 99 07/01/18 00:00 98.6 75 18 140/70 (93) 99 06/30/18 22:32 98.2 06/30/18 21:00 Room Air 06/30/18 20:29 76 126/73 06/30/18 20:00 98.6 76 18 126/73 (90) 97 06/30/18 16:00 98.2 72 17 117/66 (83) 97 Intake and Output 06/30/18 07/01/18 19:00 07:00 Intake Total 795 ml 825 ml Balance 795 ml 825 ml Intake Oral 720 ml IV Total 75 ml 825 ml # Voids 6 # Bowel Movements 1 Laboratory Tests 06/30/18 15:10: White Blood Count 7.8, Red Blood Count 3.29L, Hemoglobin 10.2L, Hematocrit 30.8L , Mean Corpuscular Volume 93, Mean Corpuscular Hemoglobin 31.0, Mean Corpuscular Hemoglobin Concent 33.2, Red Cell Distribution Width 12.1, Platelet Count 200, Mean Platelet Volume 7.3, Neutrophils (%) (Auto) 65.4, Lymphocytes (% ) (Auto) 18.7L, Monocytes (%) (Auto) 9.7, Eosinophils (%) (Auto) 4.9H, Basophils (%) (Auto) 1.2, Sodium Level 139, Potassium Level 4.1, Chloride Level 106, Carbon Dioxide Level 25, Anion Gap 8, Blood Urea Nitrogen 26H, Creatinine 1.3, Estimat Glomerular Filtration Rate , Glucose Level 155H, Uric Acid 6.4, Calcium Level 9.0, Phosphorus Level 2.4L, Magnesium Level 1.6L, Total Bilirubin 0.3, Aspartate Amino Transf (AST/SGOT) 18, Alanine Aminotransferase (ALT/SGPT) 27, Alkaline Phosphatase 75, C-Reactive Protein, Quantitative 2.3H, Pro-B-Type Natriuretic Peptide 340H, Total Protein 5.2L, Albumin 2.7L, Globulin 2.5, Albumin/Globulin Ratio 1.1 07/01/18 05:57: White Blood Count 8.5, Red Blood Count 3.77L, Hemoglobin 11.5L, Hematocrit 35.4L , Mean Corpuscular Volume 94, Mean Corpuscular Hemoglobin 30.6, Mean Corpuscular Hemoglobin Concent 32.5, Red Cell Distribution Width 12.5, Platelet Count 243, Mean Platelet Volume 7.2, Neutrophils (%) (Auto) 69.5, Lymphocytes (% ) (Auto) 18.6L, Monocytes (%) (Auto) 8.3, Eosinophils (%) (Auto) 2.7, Basophils (%) (Auto) 0.8, Sodium Level 138, Potassium Level 4.3, Chloride Level 105, Carbon Dioxide Level 27, Anion Gap 6, Blood Urea Nitrogen 21H, Creatinine 1.3, Estimat Glomerular Filtration Rate , Glucose Level 126H, Calcium Level 9.1 Height (Feet): 4 Height (Inches): 8.00 Weight (Pounds): 120 General Appearance: no apparent distress Cardiovascular: normal rate Respiratory/Chest: decreased breath sounds Abdomen: soft Objective no change Bryan Ojeda MD Jul 01, 2018 12:14
--- NOTE | 2018-07-01 13:11 | Pulmonology Progress Note ---
Assessment/Plan Problems: (1) Humerus fracture (2) Calcaneal fracture (3) Diabetes mellitus (4) History of hypertension Assessment/Plan pt/ot physical therapy f/u by ortho sliding scale diabetic diet all reviewed awaiting d/c to rehab check electrolytes Subjective ROS Limited/Unobtainable: No Allergies: Coded Allergies: PENICILLINS (Verified Allergy, Unknown, 06/03/15) Objective Last 24 Hour Vital Signs Date Time Temp Pulse Resp B/P (MAP) Pulse Ox O2 Delivery O2 Flow Rate FiO2 07/01/18 09:00 Room Air 07/01/18 08:28 71 149/81 07/01/18 08:28 71 149/81 07/01/18 08:00 97.7 71 18 149/81 (103) 98 07/01/18 04:00 97.8 68 18 143/70 (94) 99 07/01/18 00:00 98.6 75 18 140/70 (93) 99 06/30/18 22:32 98.2 06/30/18 21:00 Room Air 06/30/18 20:29 76 126/73 06/30/18 20:00 98.6 76 18 126/73 (90) 97 06/30/18 16:00 98.2 72 17 117/66 (83) 97 Intake and Output 06/30/18 07/01/18 19:00 07:00 Intake Total 795 ml 825 ml Balance 795 ml 825 ml Intake Oral 720 ml IV Total 75 ml 825 ml # Voids 6 # Bowel Movements 1 Objective General Appearance: WD/WN Lines, tubes and drains: peripheral HEENT: normocephalic, atraumatic Neck: non-tender Respiratory/Chest: chest wall non-tender, normal breath sounds Breasts: no masses Cardiovascular/Chest: normal peripheral pulses Genitourinary/Rectal: normal genital exam Extremities: normal range of motion Laboratory Tests 06/30/18 15:10: White Blood Count 7.8, Red Blood Count 3.29L, Hemoglobin 10.2L, Hematocrit 30.8L , Mean Corpuscular Volume 93, Mean Corpuscular Hemoglobin 31.0, Mean Corpuscular Hemoglobin Concent 33.2, Red Cell Distribution Width 12.1, Platelet Count 200, Mean Platelet Volume 7.3, Neutrophils (%) (Auto) 65.4, Lymphocytes (% ) (Auto) 18.7L, Monocytes (%) (Auto) 9.7, Eosinophils (%) (Auto) 4.9H, Basophils (%) (Auto) 1.2, Sodium Level 139, Potassium Level 4.1, Chloride Level 106, Carbon Dioxide Level 25, Anion Gap 8, Blood Urea Nitrogen 26H, Creatinine 1.3, Estimat Glomerular Filtration Rate , Glucose Level 155H, Uric Acid 6.4, Calcium Level 9.0, Phosphorus Level 2.4L, Magnesium Level 1.6L, Total Bilirubin 0.3, Aspartate Amino Transf (AST/SGOT) 18, Alanine Aminotransferase (ALT/SGPT) 27, Alkaline Phosphatase 75, C-Reactive Protein, Quantitative 2.3H, Pro-B-Type Natriuretic Peptide 340H, Total Protein 5.2L, Albumin 2.7L, Globulin 2.5, Albumin/Globulin Ratio 1.1 07/01/18 05:57: White Blood Count 8.5, Red Blood Count 3.77L, Hemoglobin 11.5L, Hematocrit 35.4L , Mean Corpuscular Volume 94, Mean Corpuscular Hemoglobin 30.6, Mean Corpuscular Hemoglobin Concent 32.5, Red Cell Distribution Width 12.5, Platelet Count 243, Mean Platelet Volume 7.2, Neutrophils (%) (Auto) 69.5, Lymphocytes (% ) (Auto) 18.6L, Monocytes (%) (Auto) 8.3, Eosinophils (%) (Auto) 2.7, Basophils (%) (Auto) 0.8, Sodium Level 138, Potassium Level 4.3, Chloride Level 105, Carbon Dioxide Level 27, Anion Gap 6, Blood Urea Nitrogen 21H, Creatinine 1.3, Estimat Glomerular Filtration Rate , Glucose Level 126H, Calcium Level 9.1, C- Reactive Protein, Quantitative 2.3H Current Medications Medications (Trade) Dose Ordered Sig/Sd Route PRN Reason Start Time Stop Time Status Last Admin Dose Admin Acetaminophen (Tylenol) 650 mg Q4H PRN ORAL fever 06/27/18 12:45 07/27/18 12:44 Amlodipine Besylate (Norvasc) 10 mg DAILY ORAL 06/28/18 09:00 07/28/18 08:59 07/01/18 08:28 Atorvastatin Calcium (Lipitor) 10 mg DAILY ORAL 06/28/18 09:00 07/28/18 08:59 07/01/18 08:28 Clonidine HCl (Catapres Tab) 0.1 mg Q6H PRN ORAL For High Blood Pressure 06/27/18 16:45 07/27/18 16:44 Dextrose (Dextrose 50%) 25 ml Q30M PRN IV Hypoglycemia 06/27/18 12:45 07/27/18 12:44 Dextrose (Dextrose 50%) 50 ml Q30M PRN IV Hypoglycemia 06/27/18 12:45 07/27/18 12:44 Folic Acid (Folate) 3 mg DAILY ORAL 06/28/18 18:15 07/28/18 18:14 07/01/18 08:29 Heparin Sodium (Porcine) (Heparin 5000 units/ml) 5,000 units EVERY 12 HOURS SUBQ 06/27/18 21:00 07/27/18 20:59 07/01/18 08:32 Insulin Aspart (NovoLOG) BEFORE MEALS AND HS SUBQ 06/27/18 16:30 07/27/18 16:29 07/01/18 12:37 Labetalol HCl (Normodyne) 200 mg Q12HR ORAL 06/29/18 21:00 07/29/18 20:59 07/01/18 08:28 Lorazepam (Ativan 2mg/ml 1ml) 0.5 mg Q4H PRN IV For Anxiety 06/27/18 12:45 07/04/18 12:44 Magnesium Oxide (Mag-Ox 400mg) 400 mg THREE TIMES A DAY ORAL 06/29/18 18:00 07/29/18 17:59 07/01/18 12:39 Morphine Sulfate (Morphine Sulfate) 1 mg Q4H PRN IVP For Pain 06/27/18 12:45 07/04/18 12:44 06/30/18 22:02 Ondansetron HCl (Zofran) 4 mg Q6H PRN IVP Nausea & Vomiting 06/27/18 12:45 07/27/18 12:44 Pantoprazole (Protonix) 40 mg EVERY 12 HOURS ORAL 06/28/18 21:00 07/28/18 20:59 07/01/18 08:28 Polyethylene Glycol (Miralax) 17 gm HSPRN PRN ORAL Constipation 06/27/18 12:45 07/27/18 12:44 Sitagliptin Phosphate (Januvia) 50 mg ACBREAKFAST ORAL 06/28/18 06:30 07/28/18 06:29 07/01/18 05:46 Zolpidem Tartrate (Ambien) 5 mg HSPRN PRN ORAL Insomnia 06/27/18 12:45 07/04/18 12:44 Cass Nguyen MD Jul 01, 2018 13:11
[2018-07-01] MEDS: Morphine Sulfate 2mg/ml Inj(IV/IM USE ONLY) IVP PRN (13:32)
[2018-07-01 16:00] VITALS: BP 158/73
--- NOTE | 2018-07-01 16:58 | NUR ---
*-* DISCHARGE PLANNING *-* PATIENT HAS BEEN REFERRED TO: [facility] P:[phone] F:[phone]
--- NOTE | 2018-07-01 17:54 | Internal Med Progress Note ---
Subjective Date of Service: Jul 01, 2018 Physician Name GoncalvesZi Attending Physician Aiden Hinds MD Current Medications Medications (Trade) Dose Ordered Sig/Sd Route PRN Reason Start Time Stop Time Status Last Admin Dose Admin Acetaminophen (Tylenol) 650 mg Q4H PRN ORAL fever 06/27/18 12:45 07/27/18 12:44 Amlodipine Besylate (Norvasc) 10 mg DAILY ORAL 06/28/18 09:00 07/28/18 08:59 07/01/18 08:28 Atorvastatin Calcium (Lipitor) 10 mg DAILY ORAL 06/28/18 09:00 07/28/18 08:59 07/01/18 08:28 Clonidine HCl (Catapres Tab) 0.1 mg Q6H PRN ORAL For High Blood Pressure 06/27/18 16:45 07/27/18 16:44 Dextrose (Dextrose 50%) 25 ml Q30M PRN IV Hypoglycemia 06/27/18 12:45 07/27/18 12:44 Dextrose (Dextrose 50%) 50 ml Q30M PRN IV Hypoglycemia 06/27/18 12:45 07/27/18 12:44 Folic Acid (Folate) 3 mg DAILY ORAL 06/28/18 18:15 07/28/18 18:14 07/01/18 08:29 Heparin Sodium (Porcine) (Heparin 5000 units/ml) 5,000 units EVERY 12 HOURS SUBQ 06/27/18 21:00 07/27/18 20:59 07/01/18 08:32 Insulin Aspart (NovoLOG) BEFORE MEALS AND HS SUBQ 06/27/18 16:30 07/27/18 16:29 07/01/18 17:40 Labetalol HCl (Normodyne) 200 mg Q12HR ORAL 06/29/18 21:00 07/29/18 20:59 07/01/18 08:28 Lorazepam (Ativan 2mg/ml 1ml) 0.5 mg Q4H PRN IV For Anxiety 06/27/18 12:45 07/04/18 12:44 Magnesium Oxide (Mag-Ox 400mg) 400 mg THREE TIMES A DAY ORAL 06/29/18 18:00 07/29/18 17:59 07/01/18 17:41 Morphine Sulfate (Morphine Sulfate) 1 mg Q4H PRN IVP For Pain 06/27/18 12:45 07/04/18 12:44 07/01/18 13:32 Ondansetron HCl (Zofran) 4 mg Q6H PRN IVP Nausea & Vomiting 06/27/18 12:45 07/27/18 12:44 Pantoprazole (Protonix) 40 mg EVERY 12 HOURS ORAL 06/28/18 21:00 07/28/18 20:59 07/01/18 08:28 Polyethylene Glycol (Miralax) 17 gm HSPRN PRN ORAL Constipation 06/27/18 12:45 07/27/18 12:44 Sitagliptin Phosphate (Januvia) 50 mg ACBREAKFAST ORAL 06/28/18 06:30 07/28/18 06:29 07/01/18 05:46 Zolpidem Tartrate (Ambien) 5 mg HSPRN PRN ORAL Insomnia 06/27/18 12:45 07/04/18 12:44 Allergies: Coded Allergies: PENICILLINS (Verified Allergy, Unknown, 06/03/15) ROS Limited/Unobtainable: No Constitutional: Reports: no symptoms HEENT: Reports: no symptoms Cardiovascular: Reports: no symptoms Respiratory: Reports: no symptoms Gastrointestinal/Abdominal: Reports: no symptoms Genitourinary: Reports: no symptoms Neurologic/Psychiatric: Reports: no symptoms Subjective 73 YO F admitted with left foot pain. Now fracture left calcaneus. Cover for Int Med-Dr Hinds. Await SNF placement Objective Last Vital Signs Date Time Temp Pulse Resp B/P (MAP) Pulse Ox O2 Delivery O2 Flow Rate FiO2 07/01/18 16:00 98.9 74 17 158/73 (101) 96 07/01/18 09:00 Room Air Laboratory Tests Test 07/01/18 05:57 White Blood Count 8.5 K/UL (4.8-10.8) Red Blood Count 3.77 M/UL (4.20-5.40) L Hemoglobin 11.5 G/DL (12.0-16.0) L Hematocrit 35.4 % (37.0-47.0) L Mean Corpuscular Volume 94 FL (80-99) Mean Corpuscular Hemoglobin 30.6 PG (27.0-31.0) Mean Corpuscular Hemoglobin Concent 32.5 G/DL (32.0-36.0) Red Cell Distribution Width 12.5 % (11.6-14.8) Platelet Count 243 K/UL (150-450) Mean Platelet Volume 7.2 FL (6.5-10.1) Neutrophils (%) (Auto) 69.5 % (45.0-75.0) Lymphocytes (%) (Auto) 18.6 % (20.0-45.0) L Monocytes (%) (Auto) 8.3 % (1.0-10.0) Eosinophils (%) (Auto) 2.7 % (0.0-3.0) Basophils (%) (Auto) 0.8 % (0.0-2.0) Sodium Level 138 MMOL/L (136-145) Potassium Level 4.3 MMOL/L (3.5-5.1) Chloride Level 105 MMOL/L (98-107) Carbon Dioxide Level 27 MMOL/L (21-32) Anion Gap 6 mmol/L (5-15) Blood Urea Nitrogen 21 mg/dL (7-18) H Creatinine 1.3 MG/DL (0.55-1.30) Estimat Glomerular Filtration Rate mL/min (>60) Glucose Level 126 MG/DL (74-106) H Calcium Level 9.1 MG/DL (8.5-10.1) C-Reactive Protein, Quantitative 2.3 mg/dL (0.00-0.90) H Intake and Output 06/30/18 07/01/18 18:59 06:59 Intake Total 720 ml 900 ml Balance 720 ml 900 ml Intake Oral 720 ml IV Total 900 ml # Voids 6 # Bowel Movements 1 Objective PHYSICAL EXAMINATION: GENERAL: The patient is a well-developed and well-nourished female, in no apparent distress. HEENT: Eyes, pupils are equal and responsive to light and accommodation. Extraocular movements are intact. NECK: Supple without lymphadenopathy. CHEST: Lungs are clear to auscultation bilaterally without wheezes or rales. CARDIOVASCULAR: Regular rhythm and rate. S1 and S2 are normal without murmurs, rubs, or gallops. ABDOMEN: Soft, nontender, and nondistended. Positive bowel sounds. No evidence of hepatosplenomegaly. Currently, no rebound or guarding noted. EXTREMITIES: Negative for clubbing, cyanosis, or edema. RECTAL/GENITAL: Refused. NEUROLOGIC: Cranial nerves II through XII are grossly intact without focal deficits. Motor strength is 5/5 bilaterally. Deep tendon reflexes are 2+ plantar. Assessment/Plan Assessment/Plan ASSESSMENT: This is a 73-year-old female. 1. Fracture of the left calcaneal tuberosity. 2. Fracture of the left humerus neck. 3. Hypertension. 4. Hypercholesterolemia. 5. Diabetes type 2. 6. Osteogenesis imperfecta. 7. Osteoarthritis. TREATMENT: 1. Fracture of the left calcaneal tuberosity. The patient has been evaluated by Orthopedic surgery, Dr. Ngo. A Podiatry consultation was obtained with Dr. Webster. NON SURGICAL FRACTURE. CONSERVATIVE TREATMENT 2. Proximal left humerus fracture as above. An Orthopedic consultation has been obtained with Dr. Ngo. The patient will not require surgery at this time. Please see consultation by Dr. Ngo. 3. Hypertension. Continue amlodipine as above. 4. Hypercholesterolemia. Continue Lipitor as above. 5. Diabetes type 2. Continue Januvia as above. A NovoLog sliding scale has been instituted. 6. Osteogenesis imperfecta. 7. Osteoarthritis. 8. Discharge planning-[facility] when bed available Zi Goncalves MD Jul 01, 2018 17:54
[2018-07-01] MEDS ORDERED: Norco 5mg/325mg tab ORAL PRN (18:00)
[2018-07-01] MEDS ORDERED: HYDROcodone/Acetamin 10/325 tab ORAL PRN (18:00)
--- NOTE | 2018-07-01 18:30 | NUR ---
NURSE NOTES: IV access was infiltrated, dr. Goncalves made aware. IV pain medication was converted to PO by dr. Goncalves.
--- NOTE | 2018-07-01 19:00 | NUR ---
HAND-OFF: Report given to DAMIAN Lewis.
--- NOTE | 2018-07-01 19:30 | NUR ---
NURSE NOTES: Received patient in bed, in comfortable position. On RA, no SOB, no acute distress. No IV access, MD aware. Bed in lowest position, locked, alarms on. Call light in reach. Patient is c/o L arm pain at 9/10. Will follow up with pain med.
[2018-07-01 20:00] VITALS: BP 137/70
[2018-07-01] MEDS ORDERED: D5 1/2NS 1000ml IV ONE (20:29)
[2018-07-02] VITALS: BP 163/77
[2018-07-02 04:00] VITALS: BP 120/80
[2018-07-02] MEDS: NovoLOG Insulin Flexpen SUBQ SCH ×2 (06:20→11:30)
[2018-07-02] MEDS: sitaGLIPtin 50mg tab ORAL SCH (06:36)
[2018-07-02 07:03] LABS: BASOPHILS % (AUTO) 2.2 % (0.0-2.0); EOSINOPHILS % (AUTO) 3.5 % (0.0-3.0); HEMATOCRIT 35.2 % (37.0-47.0); HEMOGLOBIN 11.5 G/DL (12.0-16.0); LYMPHOCYTES % (AUTO) 20.3 % (20.0-45.0); MEAN CORPUSCULAR VOLUME 94 FL (80-99); MONOCYTES % (AUTO) 8.1 % (1.0-10.0); NEUTROPHILS % (AUTO) 65.9 % (45.0-75.0); PLATELET COUNT 255 K/UL (150-450); RED BLOOD COUNT 3.73 M/UL (4.20-5.40); RED CELL DISTRIBUTION WIDTH 12.5 % (11.6-14.8)
[2018-07-02 07:17] LABS: ALANINE AMINOTRANSFERASE 107 U/L (12-78); ALBUMIN 2.9 G/DL (3.4-5.0); ALBUMIN/GLOBULIN RATIO 0.8 (1.0-2.7); ALKALINE PHOSPHATASE 95 U/L (46-116); ANION GAP 3 mmol/L (5-15); ASPARTATE AMINO TRANSFERASE 76 U/L (15-37); BILIRUBIN,TOTAL 0.3 MG/DL (0.2-1.0); BLOOD UREA NITROGEN 19 mg/dL (7-18); CALCIUM 9.9 MG/DL (8.5-10.1); CARBON DIOXIDE 29 MMOL/L (21-32); CHLORIDE 105 MMOL/L (98-107); CREATININE 1.4 MG/DL (0.55-1.30); GAMMA GLUTAMYL TRANSPEPTIDASE 100 U/L (5-85); PHOSPHORUS 2.1 MG/DL (2.5-4.9); POTASSIUM 5.7 MMOL/L (3.5-5.1); SODIUM 137 MMOL/L (136-145)
--- NOTE | 2018-07-02 07:27 | NUR ---
HAND-OFF: Report given to Penny SALGADO.
[2018-07-02 08:00] VITALS: BP 144/75
--- NOTE | 2018-07-02 08:07 | NUR ---
NURSE NOTES: Patient received in stable condition, sleeping in bed. No s/s of respiratory distress or pain observed. Call light is within reach, will continue to monitor.
[2018-07-02] MEDS: Magnesium Oxide 400mg tab ORAL SCH ×2 (08:26→12:29)
[2018-07-02] MEDS: Labetalol 200mg tab ORAL SCH (08:26)
[2018-07-02] MEDS: Heparin 5000 units/ml inj SUBQ SCH (08:39)
[2018-07-02 12:00] VITALS: BP 121/68
--- NOTE | 2018-07-02 12:41 | NUR ---
*-* DISCHARGE PLANNED *-* PATIENT IS DISCHARGED TO: REHAB ON [facility] ROOM# 1-B SKILLED T:[phone] FOR NURSE TO NURSE REPORT [facility] HAS BEEN ARRANGED FOR POLYGRAPH EXAMINER AT [address] [id number]
--- NOTE | 2018-07-02 13:02 | General Progress Note ---
Assessment/Plan Problem List: (1) MDD (major depressive disorder), recurrent episode, moderate ICD Codes: F33.1 - Major depressive disorder, recurrent, moderate SNOMED: 78943727, [id number] Assessment/Plan Ativan prn the pt is reluctant to take meds provided ro/st Subjective Allergies: Coded Allergies: PENICILLINS (Verified Allergy, Unknown, 06/03/15) Subjective the pt was depressed and stated that she feels she would never get better and this is doing to be her life. the pts sleep and appetite are adequate Objective Last 24 Hour Vital Signs Date Time Temp Pulse Resp B/P (MAP) Pulse Ox O2 Delivery O2 Flow Rate FiO2 07/02/18 12:00 98.4 68 16 121/68 (85) 98 07/02/18 09:00 Room Air 07/02/18 08:26 68 120/80 07/02/18 08:26 68 120/80 07/02/18 08:00 98.1 73 16 144/75 (98) 98 07/02/18 04:00 98.3 68 16 120/80 (93) 100 07/02/18 00:00 98.3 71 16 163/77 (105) 96 07/01/18 21:00 Room Air 07/01/18 20:14 78 136/64 07/01/18 20:00 98.1 78 16 137/70 (92) 96 07/01/18 16:00 98.9 74 17 158/73 (101) 96 07/01/18 14:02 98.1 Intake and Output 07/01/18 07/02/18 19:00 07:00 Intake Total 855 ml 680 ml Output Total 1000 ml Balance 855 ml -320 ml Intake Oral 480 ml 680 ml IV Total 375 ml Output Urine Total 1000 ml # Voids 4 Laboratory Tests 07/02/18 06:15: White Blood Count 8.0, Red Blood Count 3.73L, Hemoglobin 11.5L, Hematocrit 35.2L , Mean Corpuscular Volume 94, Mean Corpuscular Hemoglobin 30.9, Mean Corpuscular Hemoglobin Concent 32.8, Red Cell Distribution Width 12.5, Platelet Count 255, Mean Platelet Volume 8.2, Neutrophils (%) (Auto) 65.9, Lymphocytes (% ) (Auto) 20.3, Monocytes (%) (Auto) 8.1, Eosinophils (%) (Auto) 3.5H, Basophils (%) (Auto) 2.2H, Sodium Level 137, Potassium Level 5.7H, Chloride Level 105, Carbon Dioxide Level 29, Anion Gap 3L, Blood Urea Nitrogen 19H, Creatinine 1.4H , Estimat Glomerular Filtration Rate , Glucose Level 108H, Uric Acid 6.0, Calcium Level 9.9, Phosphorus Level 2.1L, Magnesium Level 1.6L, Total Bilirubin 0.3, Gamma Glutamyl Transpeptidase 100H, Aspartate Amino Transf (AST/SGOT) 76H, Alanine Aminotransferase (ALT/SGPT) 107H, Alkaline Phosphatase 95, Pro-B-Type Natriuretic Peptide 521H, Total Protein 6.4, Albumin 2.9L, Globulin 3.5, Albumin /Globulin Ratio 0.8L 07/02/18 10:45: Potassium Level 5.3H Height (Feet): 4 Height (Inches): 8.00 Weight (Pounds): 120 Alphonse Trejo MD Jul 02, 2018 13:02
[2018-07-02] MEDS ORDERED: Sodium Chloride 550 ML IVPB SCH (13:19)
--- NOTE | 2018-07-02 13:39 | NUR ---
CHARGE NURSE NOTES: OBTAINED ORDER FROM DR. RASHEED TO DC PATIENT TO SNF IF CLEARED BY DR. BUITRAGO. MADE AWARE PATIENT K + LEVEL TODAY IS 5.3, PER MD, GET ORDERS FROM DR. BUITRAGO. DR. BUITRAGO SEEN PATIENT. PER MD, GIVE IV NS BOLUS FOR K+ LEVEL 5.3, OK FOR DISCHARGE TODAY AFTER BOLUS. NOTED. PATIENT DENIES ANY PAIN/DISCOMFORT. ALERT, ORIENTED.
--- NOTE | 2018-07-02 14:08 | NUR ---
NURSE NOTES: RN attempted to reach [facility] to give report. RN was placed on hold and then call was disconnected. RN attempted to reach them again and was placed on hold for another 10 minutes.
--- NOTE | 2018-07-02 14:12 | Pulmonology Progress Note ---
Assessment/Plan Problems: (1) Humerus fracture (2) Calcaneal fracture (3) Diabetes mellitus (4) History of hypertension Assessment/Plan pt/ot physical therapy f/u by ortho sliding scale diabetic diet all reviewed awaiting d/c to rehab check electrolytes Subjective ROS Limited/Unobtainable: No Constitutional: Reports: no symptoms HEENT: Repors: no symptoms Allergies: Coded Allergies: PENICILLINS (Verified Allergy, Unknown, 06/03/15) Objective Last 24 Hour Vital Signs Date Time Temp Pulse Resp B/P (MAP) Pulse Ox O2 Delivery O2 Flow Rate FiO2 07/02/18 12:00 98.4 68 16 121/68 (85) 98 07/02/18 09:00 Room Air 07/02/18 08:26 68 120/80 07/02/18 08:26 68 120/80 07/02/18 08:00 98.1 73 16 144/75 (98) 98 07/02/18 04:00 98.3 68 16 120/80 (93) 100 07/02/18 00:00 98.3 71 16 163/77 (105) 96 07/01/18 21:00 Room Air 07/01/18 20:14 78 136/64 07/01/18 20:00 98.1 78 16 137/70 (92) 96 07/01/18 16:00 98.9 74 17 158/73 (101) 96 Intake and Output 07/01/18 07/02/18 19:00 07:00 Intake Total 855 ml 680 ml Output Total 1000 ml Balance 855 ml -320 ml Intake Oral 480 ml 680 ml IV Total 375 ml Output Urine Total 1000 ml # Voids 4 Objective General Appearance: WD/WN Lines, tubes and drains: peripheral HEENT: normocephalic, atraumatic Neck: non-tender Respiratory/Chest: chest wall non-tender, normal breath sounds Breasts: no masses Cardiovascular/Chest: normal peripheral pulses Genitourinary/Rectal: normal genital exam Extremities: normal range of motion Laboratory Tests 07/02/18 06:15: White Blood Count 8.0, Red Blood Count 3.73L, Hemoglobin 11.5L, Hematocrit 35.2L , Mean Corpuscular Volume 94, Mean Corpuscular Hemoglobin 30.9, Mean Corpuscular Hemoglobin Concent 32.8, Red Cell Distribution Width 12.5, Platelet Count 255, Mean Platelet Volume 8.2, Neutrophils (%) (Auto) 65.9, Lymphocytes (% ) (Auto) 20.3, Monocytes (%) (Auto) 8.1, Eosinophils (%) (Auto) 3.5H, Basophils (%) (Auto) 2.2H, Sodium Level 137, Potassium Level 5.7H, Chloride Level 105, Carbon Dioxide Level 29, Anion Gap 3L, Blood Urea Nitrogen 19H, Creatinine 1.4H , Estimat Glomerular Filtration Rate , Glucose Level 108H, Uric Acid 6.0, Calcium Level 9.9, Phosphorus Level 2.1L, Magnesium Level 1.6L, Total Bilirubin 0.3, Gamma Glutamyl Transpeptidase 100H, Aspartate Amino Transf (AST/SGOT) 76H, Alanine Aminotransferase (ALT/SGPT) 107H, Alkaline Phosphatase 95, Pro-B-Type Natriuretic Peptide 521H, Total Protein 6.4, Albumin 2.9L, Globulin 3.5, Albumin /Globulin Ratio 0.8L 07/02/18 10:45: Potassium Level 5.3H Current Medications Medications (Trade) Dose Ordered Sig/Sd Route PRN Reason Start Time Stop Time Status Last Admin Dose Admin Acetaminophen (Tylenol) 650 mg Q4H PRN ORAL fever 06/27/18 12:45 07/27/18 12:44 Acetaminophen/ Hydrocodone Bitart ([place] 10/325) 1 tab Q4H PRN ORAL Severe Pain (Pain Scale 7-10) 07/01/18 18:00 07/08/18 17:59 07/01/18 19:38 Acetaminophen/ Hydrocodone Bitart ([place] 5/325) 1 tab Q4H PRN ORAL Moderate Pain (Pain Scale 4-6) 07/01/18 18:00 07/08/18 17:59 07/02/18 11:47 Amlodipine Besylate (Norvasc) 10 mg DAILY ORAL 06/28/18 09:00 07/28/18 08:59 07/02/18 08:26 Atorvastatin Calcium (Lipitor) 10 mg DAILY ORAL 06/28/18 09:00 07/28/18 08:59 07/02/18 08:25 Clonidine HCl (Catapres Tab) 0.1 mg Q6H PRN ORAL For High Blood Pressure 06/27/18 16:45 07/27/18 16:44 Dextrose (Dextrose 50%) 25 ml Q30M PRN IV Hypoglycemia 06/27/18 12:45 07/27/18 12:44 Dextrose (Dextrose 50%) 50 ml Q30M PRN IV Hypoglycemia 06/27/18 12:45 07/27/18 12:44 Folic Acid (Folate) 3 mg DAILY ORAL 06/28/18 18:15 07/28/18 18:14 07/02/18 08:25 Insulin Aspart (NovoLOG) BEFORE MEALS AND HS SUBQ 06/27/18 16:30 07/27/18 16:29 07/02/18 11:30 Labetalol HCl (Normodyne) 200 mg Q12HR ORAL 06/29/18 21:00 07/29/18 20:59 07/02/18 08:26 Lorazepam (Ativan 2mg/ml 1ml) 0.5 mg Q4H PRN IV For Anxiety 06/27/18 12:45 07/04/18 12:44 Magnesium Oxide (Mag-Ox 400mg) 400 mg THREE TIMES A DAY ORAL 06/29/18 18:00 07/29/18 17:59 07/02/18 12:29 Ondansetron HCl (Zofran) 4 mg Q6H PRN IVP Nausea & Vomiting 06/27/18 12:45 07/27/18 12:44 Pantoprazole (Protonix) 40 mg EVERY 12 HOURS ORAL 06/28/18 21:00 07/28/18 20:59 07/02/18 08:25 Polyethylene Glycol (Miralax) 17 gm HSPRN PRN ORAL Constipation 06/27/18 12:45 07/27/18 12:44 Sitagliptin Phosphate (Januvia) 50 mg ACBREAKFAST ORAL 06/28/18 06:30 07/28/18 06:29 07/02/18 06:36 Zolpidem Tartrate (Ambien) 5 mg HSPRN PRN ORAL Insomnia 06/27/18 12:45 07/04/18 12:44 Cass Nguyen MD Jul 02, 2018 14:12
--- NOTE | 2018-07-02 14:42 | NUR ---
NURSE NOTES: Patient discharged to [facility], accompanied by ambulance personnel. Daughter informed. Cane and belongings bag left at bedside. Daughter and SNF made aware. IV safely removed.
--- NOTE | 2018-07-02 16:15 | Nephrology Progress Note ---
Assessment/Plan Problem List: (1) Acute renal failure (ARF) Assessment: improving (2) Dehydration (3) Anemia (4) HTN (hypertension) Assessment Acute renal failure: improving - Dehydration - Underlying Diabetic Nephropathy DM normal A1c HTN Mild Anemia Humerus fracture Calcaneal fracture Plan high K noted- suspect slow draw and hemolysis- K to be repeated Folate supplement monitor renal parameters avoid nephrotoxics per orders ? DC planning? Subjective ROS Limited/Unobtainable: No Interval Events/Complaints patient seen at 10 am- family at bedside Objective Objective Last 24 Hour Vital Signs Date Time Temp Pulse Resp B/P (MAP) Pulse Ox O2 Delivery O2 Flow Rate FiO2 07/02/18 12:00 98.4 68 16 121/68 (85) 98 07/02/18 09:00 Room Air 07/02/18 08:26 68 120/80 07/02/18 08:26 68 120/80 07/02/18 08:00 98.1 73 16 144/75 (98) 98 07/02/18 04:00 98.3 68 16 120/80 (93) 100 07/02/18 00:00 98.3 71 16 163/77 (105) 96 07/01/18 21:00 Room Air 07/01/18 20:14 78 136/64 07/01/18 20:00 98.1 78 16 137/70 (92) 96 Intake and Output 07/01/18 07/02/18 19:00 07:00 Intake Total 855 ml 680 ml Output Total 1000 ml Balance 855 ml -320 ml Intake Oral 480 ml 680 ml IV Total 375 ml Output Urine Total 1000 ml # Voids 4 Laboratory Tests 07/02/18 06:15: White Blood Count 8.0, Red Blood Count 3.73L, Hemoglobin 11.5L, Hematocrit 35.2L , Mean Corpuscular Volume 94, Mean Corpuscular Hemoglobin 30.9, Mean Corpuscular Hemoglobin Concent 32.8, Red Cell Distribution Width 12.5, Platelet Count 255, Mean Platelet Volume 8.2, Neutrophils (%) (Auto) 65.9, Lymphocytes (% ) (Auto) 20.3, Monocytes (%) (Auto) 8.1, Eosinophils (%) (Auto) 3.5H, Basophils (%) (Auto) 2.2H, Sodium Level 137, Potassium Level 5.7H, Chloride Level 105, Carbon Dioxide Level 29, Anion Gap 3L, Blood Urea Nitrogen 19H, Creatinine 1.4H , Estimat Glomerular Filtration Rate , Glucose Level 108H, Uric Acid 6.0, Calcium Level 9.9, Phosphorus Level 2.1L, Magnesium Level 1.6L, Total Bilirubin 0.3, Gamma Glutamyl Transpeptidase 100H, Aspartate Amino Transf (AST/SGOT) 76H, Alanine Aminotransferase (ALT/SGPT) 107H, Alkaline Phosphatase 95, Pro-B-Type Natriuretic Peptide 521H, Total Protein 6.4, Albumin 2.9L, Globulin 3.5, Albumin /Globulin Ratio 0.8L 07/02/18 10:45: Potassium Level 5.3H Height (Feet): 4 Height (Inches): 8.00 Weight (Pounds): 120 General Appearance: no apparent distress Cardiovascular: normal rate Respiratory/Chest: decreased breath sounds Abdomen: soft Objective no change Bryan Ojeda MD Jul 02, 2018 16:15
--- NOTE | 2018-07-04 09:38 | Discharge Summary ---
Discharge Summary Discharge Summary _ DATE OF ADMISSION: 06/27/2018 DATE OF DISCHARGE: 07/02/2018 DISCHARGED BY: Dr. Hinds REASON FOR ADMISSION: 73 years old female with history of hypertension, diabetes mellitus, osteoarthritis, osteogenesis imperfecta, was in the emergency room prior to this presentation and was diagnosed with left humerus fracture. At that time patient after stabilization patient was disposition home by ambulance with follow-up with orthopedic surgeon. However according to patient , after arriving home she tried to stand and had increased pain in her ankle . She was not able to tolerate standing , and ambulance brought her back to emergency room for further evaluation and management. Upon evaluation vital signs revealed elevated blood pressure 182/84 . Laboratory workup revealed leukocytosis WBC 14.6 ,stable hemoglobin and hematocrit. BUN 32 creatinine 1.0. Glucose 140. CK 90. Left foot x-ray revealed calcaneal tuberosity fracture. Left ankle x-ray revealed no acute bony trauma. Distal tibial and fibular ankylosis likely related to old trauma. Left hip and pelvis x-ray demonstrated no acute bony trauma. Degenerative changes noted. Patient was admitted to the hospital for further management. CONSULTANTS: pulmonary Dr. Nguyen holistic nutritionist Dr. Ojeda orthopedic surgery Dr. Ngo psychiatrist medicaid specialist Dr. Kelly [facility] COURSE: Patient admitted to medical surgical floor. Pain management was addressed. Orthopedic surgeon seen and evaluated patient Per orthopedic surgeon, multiple x-ray demonstrated deformity of the various bones and long bones, consistent with Paget disease. After reviewing the images, surgeon determined that there was a reasonable alignment of the left proximal humerus fracture and minimally displaced left calcaneal tuberosity fracture. Orthopedic surgeon recommended to proceed with conservative treatment of the left proximal humerus and left calcaneus tuberosity fracture. Sling immobilization on the left side and well-padded splint for left foot provided. Nonweightbearing to left upper extremity and left lower extremity was advised , although she could be toe touching while weightbearing on the left side. Patient was working with physical therapist for balance. Patient require upon disposition center post walker. Patient will need to follow-up with orthopedic surgeon in [address] a cast on her left leg and check alignment of the left humerus. Fall precaution maintained. Security Systems Technician seen and evaluated patient. No surgical intervention was required by podiatry. Security Systems Technician agreed with orthopedic surgeon recommendations. Continue with orthopedic recommendation and further management at the nursing home facility. Blood sugar was managed with Januvia and sliding scale of insulin as needed. Diabetic diet provided. Hemoglobin A1c 6.0, at goal. Blood pressure was managed with beta-doc and calcium channel doc. Lipid panel was stable. DVT prophylaxis provided. Supplemental oxygen provided as needed to keep pulse oximetry above 92%. Prior to discharge pulse oximetry stable on room air. Piece Hand followed. Hemoglobin and hematocrit were closely monitored with goal to keep hemoglobin above 7. Anemia workup revealed low folate and low iron. Patient was provided with IV iron. Folate replacement started. CEA was within normal limits. Renal parameters and electrolytes were closely monitored. Electrolytes corrected as needed. Prior to discharge creatinine from 1.8 down to 1.4 BUN from 32 down to 19. According to holistic nutritionist acute renal failure was likely due to dehydration, and it was improving. Patient also had underlying diabetic nephropathy. Bowel regimen instituted. GI prophylaxis provided. Supportive care provided. Psychiatrist followed and diagnosed patient with major depressive disorder. Patient was reluctant to start any antidepressive medication at this time. Reality orientation and supportive therapy provided. Placement was found at the nursing home facility for further rehabilitation. Patient was stable for transfer. FINAL DIAGNOSES: Left humerus neck fracture Left calcaneal tuberosity fracture Osteogenesis imperfecta Acute renal failure- improving Dehydration Underlying diabetic nephropathy Diabetes mellitus Hypertension Anemia Folate deficiency Osteoarthritis DISCHARGE MEDICATIONS: See Medication Reconciliation list. DISCHARGE INSTRUCTIONS: Patient was discharged to the nursing home facility. Follow up with medical doctor at the facility. I have been assigned to dictate discharge summary for this account. I was not involved in the patient's management.Discharge summary 06/27/2018 Afshan Mccabe NP Jul 04, 2018 09:38
== END 2018-07-02 14:36 | DRG 563 ==
LOC: EDBD 23:46 → EMR 23:59 → 4E 06-27 01:15 → EDBEDREQ 06-27 10:30
DX: S92.052A Displaced other extraarticular fracture of left calcaneus, initial encounter for closed fracture (principal); S42.292A Other displaced fracture of upper end of left humerus, initial encounter for closed fracture; Q78.0 Osteogenesis imperfecta; N17.9 Acute kidney failure, unspecified; W10.8XXA Fall (on) (from) other stairs and steps, initial encounter; Y92.008 Other place in unspecified non-institutional (private) residence as the place of occurrence of the external cause; I10 Essential (primary) hypertension; E78.00 Pure hypercholesterolemia, unspecified; M19.90 Unspecified osteoarthritis, unspecified site; M81.0 Age-related osteoporosis without current pathological fracture; Z79.84 Long term (current) use of oral hypoglycemic drugs; Z88.0 Allergy status to penicillin; E86.0 Dehydration; E11.21 Type 2 diabetes mellitus with diabetic nephropathy; E53.8 Deficiency of other specified B group vitamins; M88.82 Osteitis deformans of upper arm
CPT/HCPCS: 29515; 36415; 72170; 80048; 80053; 80061; 81001; 82378; 82550; 82607; 82728; 82746; 82962; 82977; 83036; 83540; 83550; 83615; 83735; 83880; 84100; 84132; 84133; 84300; 84550; 85007; 85025; 85044; 85060; 85610; 85651; 85730; 86140; 89050; 99283; J1815

== ENCOUNTER 2018-11-26 14:37 | Emergency (ER) | payer MEDICARE, OTHER ==
[~2018-11-26] VITALS: Ht 142.2 cm; Wt 49.9 kg
[~2018-11-26 14:37] MED LIST changes: +SPIRONOLACTONE25 MG ORAL
[2018-11-26 14:50] VITALS: BP 135/54
--- NOTE | 2018-11-26 14:57 | Emergency Room Report ---
History of Present Illness General Chief Complaint: General Complaint Source: Patient Present Illness HPI 73-year-old female ending with left foot discomfort, she says that she had a foot fracture back in June. It was actually found here at [facility]. A splint was placed onto her left foot, and she says that she just has not had it removed at all and that it is getting very itchy. She is not having any actual pain anymore. She has been walking on it with her walker. She has not seen an orthopedic doctor for this. Denies any other complaints Allergies: Coded Allergies: PENICILLINS (Verified Allergy, Unknown, 06/03/15) Patient History Past Medical History: see triage record Past Surgical History: none Pertinent Family History: none Reviewed Nursing Documentation: PMH: Agreed; PSxH: Agreed Nursing Documentation-PMH Past Medical History: No History, Except For Hx Cardiac Problems: No Hx Hypertension: Yes Hx Diabetes: Yes Hx Cancer: No Hx Gastrointestinal Problems: No Hx Neurological Problems: No Review of Systems All Other Systems: negative except mentioned in HPI Physical Exam Vital Signs Date Time Temp Pulse Resp B/P (MAP) Pulse Ox O2 Delivery O2 Flow Rate FiO2 11/26/18 14:40 97.5 66 17 135/54 (81) 98 Room Air General Appearance: normal inspection, well appearing, no apparent distress, alert, GCS 15, non-toxic Head: normocephalic, atraumatic Eyes: bilateral eye normal inspection, bilateral eye EOMI ENT: normal ENT inspection Neck: normal inspection, full range of motion Respiratory: normal inspection, chest non-tender, lungs clear Cardiovascular #1: normal inspection Gastrointestinal: normal inspection Musculoskeletal: other - Removal of the left posterior leg splint reveals a normal foot exam, full range of motion, no signs of infection, distal pulses are intact, nontender heel Neurologic: normal inspection, alert, oriented x3 Psychiatric: normal inspection, judgement/insight normal Medical Decision Making Diagnostic Impression: Primary Impression: History of foot fracture ER Course 73-year-old female here for removal of her splint DDX: Likely a healed calcaneal fracture, she is not complaining of any pain at this time Plan: remove splint, repeat x-ray ER course: Patient has remained stable during ED stay. Disposition: Patient is to be discharged to home. Please note that this Emergency Department Report was dictated using Muzuibed setter technology software, occasionally this can lead to erroneous entry secondary to interpretation by the dictation equipment Xray: Left foot Complete Indication: Pain EP Interpretation: Yes Interpretation: No dislocation, no soft tissue swelling, no fractures Impression: Profound osteoporosis, limiting evaluation Interim healing of previously demonstrated calcaneal fracture Electronically signed by Kayla Carrera MD No definite acute process Last Vital Signs Date Time Temp Pulse Resp B/P (MAP) Pulse Ox O2 Delivery O2 Flow Rate FiO2 11/26/18 14:50 97.5 17 135/54 98 Room Air 11/26/18 14:40 66 Disposition: HOME, SELF-CARE Condition: Stable Kayla Carrera M.D. Nov 26, 2018 14:57
--- NOTE | 2018-11-26 15:04 | NUR ---
ED Nurse Note: pt came in with daughter to have splint removed from left leg. splint should have been removed in jun of this year. ermd eval done splint removed imaging done will monitor.
--- NOTE | 2018-11-26 15:06 | NUR ---
HAND-OFF: Report given to Milton SALGADO.
--- NOTE | 2018-11-26 15:20 | NUR ---
ED Nurse Note: received patient from DAMIAN Farias patient at no distress at this time.
--- NOTE | 2018-11-26 16:14 | Diagnostic Imaging Report ---
Indication: Foot pain Technique: 3 views left foot Comparison: 06/27/2018 Findings: Bones are profoundly osteoporotic. Previously demonstrated calcaneal fracture is no longer evident, appears to be healed. No acute fractures. No dislocations. The joint spaces are preserved. Impression: Profound osteoporosis, limiting evaluation Interim healing of previously demonstrated calcaneal fracture No definite acute process
--- NOTE | 2018-11-26 16:25 | NUR ---
ED Nurse Note: Made contact with patients daughter, . informed patients daughter that her mom will be discharged. states that she will be here in 30 minutes
[2018-11-26 16:26] VITALS: BP 142/60
[2018-11-26 17:06] VITALS: BP 135/72
--- NOTE | 2018-11-26 17:06 | NUR ---
ER DISCHARGE NOTE: Patient is cleared to be discharged per ERMD, pt is aox4, on room air, with stable vital signs. pt was given dc instructions, pt was able to verbalize understanding, pt id band ithout complications. PAtietn was picked up by daughter via walker.
== END 2018-11-26 17:07 | disposition home or self-care (01) ==
LOC: EMR 14:55
DX: M25.572 Pain in left ankle and joints of left foot (principal); M81.0 Age-related osteoporosis without current pathological fracture; Z88.0 Allergy status to penicillin; E11.9 Type 2 diabetes mellitus without complications; I10 Essential (primary) hypertension
CPT/HCPCS: 99283

== ENCOUNTER 2018-12-23 16:00 | Inpatient (IN) | payer MEDICARE, OTHER ==
[~2018-12-23] VITALS: Ht 142.2 cm; Wt 48.1 kg
--- NOTE | 2018-12-23 16:31 | NUR ---
ED Nurse Note: Pt came in from home with daughter c/o swelling on L lateral breast with redness and bleeding/ protruding wound with opening x 3 month. No active bleeding. Pt stated she had a chest tube when she was 11 yo and it is the CT site. Also stated she has been scratching around the area because of itchiness. AOx4, BP 181/80 leila, PA aware. Will cont to monitor.
[2018-12-23] MEDS ORDERED: IBUPROFEN600 MG ORAL (17:03)
[2018-12-23] MEDS ORDERED: CEPHALEXIN500 MG ORAL (17:03)
--- NOTE | 2018-12-23 17:25 | NUR ---
ED Nurse Note: US tech at bedside for imaging.
[2018-12-23 17:39] LABS: ANION GAP 9 mmol/L (5-15); BASOPHILS % (AUTO) 1.8 % (0.0-2.0); BLOOD UREA NITROGEN 50 mg/dL (7-18); CALCIUM 10.6 MG/DL (8.5-10.1); CARBON DIOXIDE 22 MMOL/L (21-32); CHLORIDE 107 MMOL/L (98-107); CREATININE 1.8 MG/DL (0.55-1.30); EOSINOPHILS % (AUTO) 1.4 % (0.0-3.0); HEMATOCRIT 34.8 % (37.0-47.0); HEMOGLOBIN 11.6 G/DL (12.0-16.0); INR 0.9 (0.9-1.1); LYMPHOCYTES % (AUTO) 32.2 % (20.0-45.0); MEAN CORPUSCULAR VOLUME 92 FL (80-99); MONOCYTES % (AUTO) 6.8 % (1.0-10.0); PLATELET COUNT 325 K/UL (150-450); POTASSIUM 5.2 MMOL/L (3.5-5.1); RED BLOOD COUNT 3.78 M/UL (4.20-5.40); RED CELL DISTRIBUTION WIDTH 12.2 % (11.6-14.8); SODIUM 138 MMOL/L (136-145); WHITE BLOOD COUNT 5.9 K/UL (4.8-10.8)
[2018-12-23 17:44] LABS: ALANINE AMINOTRANSFERASE 32 U/L (12-78); ALBUMIN 3.7 G/DL (3.4-5.0); ALBUMIN/GLOBULIN RATIO 1.1 (1.0-2.7); ALKALINE PHOSPHATASE 121 U/L (46-116); ASPARTATE AMINO TRANSFERASE 18 U/L (15-37); BILIRUBIN,TOTAL 0.2 MG/DL (0.2-1.0)
[2018-12-23 18:31] VITALS: BP 161/72
--- NOTE | 2018-12-23 18:36 | NUR ---
ED Nurse Note: CHRISTIANO MAYO -DAUGHTER
--- NOTE | 2018-12-23 18:39 | NUR ---
ED Nurse Note: Pt down to CT for imaging.
--- NOTE | 2018-12-23 19:10 | Consultation ---
History of Present Illness General Date patient seen: Dec 23, 2018 Reason for Hospitalization: Skin Rash/Abscess Present Illness HPI This is a very pleasant 73-year-old female who presented with family member for evaluation of left breast abscess skin rash and mass. Patient states that she has had it for some time now but believes it recently became larger and had some drainage and she got an abscess that would go away but did not so she came in for evaluation potential incision and drainage. In emergency department she was identified to have a normal leukocytosis renal insufficiency, abnormal labs. She has a history of diabetes and is fairly noncompliant with her medication. Surgery was called to evaluate left breast mass and abscess. Patient seen, patient evaluated, chart reviewed. In discussing with patient her history states that many years ago she had a mammography but cannot recall how long ago. Cannot recall the results. Cannot recall where she had it done. She had brought up the mass to her physician who recommended a mammography but she did not follow through. Denies any nausea vomiting fever chills. Allergies: Coded Allergies: PENICILLINS (Verified Allergy, Unknown, 06/03/15) Medication History Scheduled Amlodipine Besylate (Norvasc), 10 MG ORAL DAILY, (Reported) Atorvastatin Calcium* (Lipitor*), 10 MG ORAL DAILY, (Reported) Benazepril Hcl* (Benazepril Hcl*), 40 MG ORAL DAILY, (Reported) Benazepril Hcl* (Benazepril Hcl*), 40 MG ORAL TWICE A DAY, (Reported) Glipizide* (Glipizide*), 5 MG ORAL BIDAC, (Reported) Irbesartan* (Avapro*), 150 MG ORAL DAILY Labetalol Hcl* (Normodyne*), 100 MG ORAL BID, (Reported) Sitagliptin (Januvia), 50 MG ORAL ACBREAKFAST Spironolactone* (Aldactone*), 25 MG ORAL DAILY, (Reported) Miscellaneous Medications Labetalol Hcl* (Labetalol Hcl*), 5 MG IV, (Reported) Patient History History Provided By: Patient, Medical Record, PMD Healthcare decision maker Resuscitation status Advanced Directive on File Past Medical/Surgical History Past Medical/Surgical History: (1) History of hypertension (2) Acute renal failure (ARF) (3) Dehydration (4) Anemia (5) HTN (hypertension) (6) MDD (major depressive disorder), recurrent episode, moderate (7) Hypertensive urgency (8) Diabetes mellitus (9) Osteogenesis imperfecta (10) Osteoporosis (11) Osteoarthritis Review of Systems Review of Symptoms General ROS: no weight loss or fever Psychological ROS: no depression or mood changes, no memory loss Ophthalmic ROS: no visual changes or eye irritation ENT ROS: no nasal congestion, hearing loss, dizziness Allergy and Immunology ROS: no allergic symptoms or urticaria Hematological and Lymphatic ROS: no swollen glands, unusual bleeding or bruising Endocrine ROS: no polyuria, polydipsia, weight changes, temperature intolerance Respiratory ROS: no cough, shortness of breath, or wheezing Cardiovascular ROS: no chest pain or dyspnea on exertion Gastrointestinal ROS: denies abdominal pain, no bright red blood in stool. Musculoskeletal ROS: no myalgias or arthralgias Neurological ROS: no TIA or stroke symptoms Dermatological ROS: no new or changing skin lesions, rashes or pruritis Physical Exam Physical Exam General appearance: alert, cooperative, no distress, appears stated age Head: Normocephalic, without obvious abnormality, atraumatic Eyes: conjunctivae/corneas clear. PERRL, EOM's intact. Fundi benign Throat: Lips, mucosa, and tongue normal. Teeth and gums normal Neck: supple, symmetrical, trachea midline, no adenopathy, thyroid: not enlarged, symmetric, no tenderness/mass/nodules, no carotid bruit and no JVD Lungs: clear to auscultation bilaterally Heart: regular rate and rhythm, S1, S2 normal, no murmur, click, rub or gallop Abdomen: soft, non-tender. Bowel sounds normal. No masses, no organomegaly Extremities: extremities normal, atraumatic, no cyanosis or edema Pulses: 2+ and symmetric Skin: Skin color, texture, turgor normal. No rashes or lesions Neurologic: Grossly normal left breast as below Last 24 Hour Vital Signs Date Time Temp Pulse Resp B/P (MAP) Pulse Ox O2 Delivery O2 Flow Rate FiO2 12/23/18 18:31 98.4 69 15 161/72 99 Room Air 12/23/18 16:25 98.4 67 15 181/80 (113) 96 Room Air Laboratory Tests Test 12/23/18 17:20 White Blood Count 5.9 K/UL (4.8-10.8) Red Blood Count 3.78 M/UL (4.20-5.40) L Hemoglobin 11.6 G/DL (12.0-16.0) L Hematocrit 34.8 % (37.0-47.0) L Mean Corpuscular Volume 92 FL (80-99) Mean Corpuscular Hemoglobin 30.7 PG (27.0-31.0) Mean Corpuscular Hemoglobin Concent 33.3 G/DL (32.0-36.0) Red Cell Distribution Width 12.2 % (11.6-14.8) Platelet Count 325 K/UL (150-450) Mean Platelet Volume 6.2 FL (6.5-10.1) L Neutrophils (%) (Auto) 58.0 % (45.0-75.0) Lymphocytes (%) (Auto) 32.2 % (20.0-45.0) Monocytes (%) (Auto) 6.8 % (1.0-10.0) Eosinophils (%) (Auto) 1.4 % (0.0-3.0) Basophils (%) (Auto) 1.8 % (0.0-2.0) Erythrocyte Sedimentation Rate 20 MM/HR (0-30) Prothrombin Time 10.0 SEC (9.30-11.50) Prothromb Time International Ratio 0.9 (0.9-1.1) Activated Partial Thromboplast Time 25 SEC (23-33) Sodium Level 138 MMOL/L (136-145) Potassium Level 5.2 MMOL/L (3.5-5.1) H Chloride Level 107 MMOL/L (98-107) Carbon Dioxide Level 22 MMOL/L (21-32) Anion Gap 9 mmol/L (5-15) Blood Urea Nitrogen 50 mg/dL (7-18) H Creatinine 1.8 MG/DL (0.55-1.30) H Estimat Glomerular Filtration Rate mL/min (>60) Glucose Level 118 MG/DL (74-106) H Calcium Level 10.6 MG/DL (8.5-10.1) H Magnesium Level 1.7 MG/DL (1.8-2.4) L Total Bilirubin 0.2 MG/DL (0.2-1.0) Aspartate Amino Transf (AST/SGOT) 18 U/L (15-37) Alanine Aminotransferase (ALT/SGPT) 32 U/L (12-78) Alkaline Phosphatase 121 U/L (46-116) H C-Reactive Protein, Quantitative < 0.4 mg/dL (0.00-0.90) Total Protein 7.2 G/DL (6.4-8.2) Albumin 3.7 G/DL (3.4-5.0) Globulin 3.5 g/dL Albumin/Globulin Ratio 1.1 (1.0-2.7) Height (Feet): 4 Height (Inches): 8.00 Weight (Pounds): 105 Assessment/Plan Problem List: (1) Left breast abscess Assessment & Plan: This is a 73-year-old female with a left breast mass and abscess. Afebrile, hemodynamic stable, normal white count. Ultrasound ordered and completed in the emergency department. On my evaluation of ultrasound there is a fluid collection consistent with an abscess and multiple calcifications as well as a mass structure. On physical examination patient has a fairly dense non-mobile left breast mass with an ulceration on the inframammary groove and potential down to the chest wall. There is on the lateral aspect a small area of ulcerated opening with some seropurulent drainage. This is a very unfortunate case where I believe the patient likely has a left breast cancer that is acutely infected as well. The tumor is fungating and may be invading the chest wall. Given above findings as well as MARIA DOLORES and abnormal labs recommend admission for resuscitation and care. We will proceed with CT chest without contrast given renal function. Will likely need to go to the operating room for incision and drainage of left breast abscess which at the same time can perform biopsy as well if necessary. Thank you for allowing me to participate she care will follow with recommendations ICD Codes: N61.1 - Abscess of the breast and nipple SNOMED: 64826510 (2) Left breast mass ICD Codes: N63.20 - Unspecified lump in the left breast, unspecified quadrant SNOMED: [id number] Lukas Sun Dec 23, 2018 19:10
--- NOTE | 2018-12-23 19:18 | Diagnostic Imaging Report ---
CT CHEST WITHOUT CONTRAST INDICATION: Chest pain TECHNIQUE: Continuous helical transaxial imaging of the chest was obtained. Coronal 2-D reformats were also obtained. Study obtained in a Siemens sensation [address] Automatic Exposure Control was utilized. Total Dose length Product (DLP): 413.[address] Dose Index Volume (CTDIvol): 15.27 mGy COMPARISON: Same day left breast ultrasound. FINDINGS: Lungs and pleura: There is bibasilar subsegmental atelectasis. Scattered cystic changes are noted. There is a 4 mm left upper lobe nodule (3:19). No pleural fluid. No airspace consolidation. Heart and mediastinum: Heart is not enlarged. No pericardial fluid. Mild coronary artery atherosclerotic calcifications. There is a 1.5 x 1.5 cm complex left thyroid lobe nodule. Airway: Patent. Lymph nodes: Prominent left axillary lymph nodes which do not meet pathologic enlargement criteria. Vasculature: Main pulmonary artery and ascending aorta are normal in caliber. There is mild aortic atherosclerotic calcification. Upper abdomen: There is a 1.2 cm left adrenal nodule, which by attenuation characteristics likely represent adenoma. Bones and soft tissue: There is a 3.6 x 3.2 x 3.7 cm lobulated left breast mass with some calcification. There is overlying skin thickening and retraction. A portion of the mass appears to be fluid density and measures 1.8 x 2.2 x 2.4 cm. The bones are diffusely demineralized. There are compression deformities of every image vertebral body below T1. Left second rib deformity, presumably due to old trauma. IMPRESSION: 1. Complex left breast mass with overlying skin thickening and retraction highly suspicious for neoplasm, with adjacent fluid component which may represent abscess/collection. Follow-up breast ultrasound is recommended to evaluate fluid component and biopsy is recommended for tissue diagnosis. 2. 4 mm left upper lobe nodule which may be infectious/inflammatory, however in the presence of breast mass, metastatic disease cannot be excluded. 3. Complex left thyroid nodule. Correlation with thyroid ultrasound is recommended. 4. 1.2 cm left adrenal nodule, likely adenoma. 5. Multilevel thoracic vertebral compression deformities of indeterminate age and unclear etiology. Correlation with prior imaging or dedicated MR spine is recommended to assess for pathologic fractures. This corresponds with the statrad preliminary report. The CT scanner at [facility] is accredited by the [employer] and the scans are performed using protocols designed to limit radiation exposure to as low as reasonably achievable to attain images of sufficient resolution adequate for diagnostic evaluation
--- NOTE | 2018-12-23 19:25 | Diagnostic Imaging Report ---
LEFT BREAST ULTRASOUND INDICATION: Left breast mass. TECHNIQUE: Multiplanar ultrasound examination of the left breast with doppler images COMPARISON: Same day Chest CT FINDINGS: In the 2:00 position of the left breast, there is an irregular complex cystic/solid mass with angular margins which contains some calcifications. There is internal vascularity. Within this mass, there is a cystic component measuring 0.6 x 0.2 cm. Adjacent to the mass, there is an additional hypoechoic mass at 5:00, measuring 1.1 x 1.4 cm. Adjacent to the mass, there is a cystic component with a second internal cystic component measuring 2.3 x 2.2 cm without internal vascularity. In the left axilla, there is a normal-appearing, not enlarged lymph node. There is also a nonenlarged lymph node with abnormal morphology and no appreciable fatty hilum. Skin thickening and retraction seen on comparison CT not well seen on ultrasound images. IMPRESSION: 1. Left breast ultrasound images demonstrating multiple left breast masses, which when comparison with same day chest CT likely represents single complex cystic/solid mass, containing calcifications. Findings highly suspicious for malignancy. 2. Adjacent complex cystic structure which may represent fluid collection or abscess; at time of biopsy, fluid sampling is recommended. 3. Left axillary lymph node with abnormal morphology, suspicious for elgin disease. BI-RADS 5: Highly suggestive of malignancy. Tissue diagnosis is recommended.
--- NOTE | 2018-12-23 19:58 | Emergency Room Report ---
Physical Exam Vital Signs Date Time Temp Pulse Resp B/P (MAP) Pulse Ox O2 Delivery O2 Flow Rate FiO2 12/23/18 16:25 98.4 67 15 181/80 (113) 96 Room Air Medical Decision Making Medicare Attestation The history of Hoa Porter has been reviewed and management options for her have been examined and discussed by Amadou Victor. I have personally examined and interviewed the patient. Diagnostic Impression: Primary Impression: Dehydration Additional Impressions: Left breast abscess Acute renal failure (ARF) Hyperkalemia ER Course Briefly, this is 73-year-old female who came in for evaluation of a breast mass and pain. Ultrasound concerning for malignancy versus possible abscess and CT scan is strongly suggestive of a breast mass/cancer. Patient will be admitted for further evaluation and testing. She is also being admitted for hyperkalemia and MARIA DOLORES. Vital signs are stable. She is appropriate for the MedSurg floor. She has been receiving fluids and was given IV antibiotics for possible abscess. I saw the patient with Sahelimoghavami and agree with her treatment plan Last Vital Signs Date Time Temp Pulse Resp B/P (MAP) Pulse Ox O2 Delivery O2 Flow Rate FiO2 12/23/18 18:31 98.4 69 15 161/72 99 Room Air Referrals: NOEMI ALEMAN (PCP) Amadou Victor MD Dec 23, 2018 19:58
--- NOTE | 2018-12-23 20:37 | NUR ---
ED Nurse Note: REPORT GIVEN TO RN MINSU FROM
--- NOTE | 2018-12-23 20:38 | NUR ---
ED Nurse Note: CALLED DAUGHTER TO NOTIFY PT IS GOING TO [facility]. DAUGHTER STATES SHE WILL VISIT HER MOTHER IN THE MORNING. PT NOTIFIED.
--- NOTE | 2018-12-23 20:45 | NUR ---
ED Nurse Note: PT TRANSFERRED TO [facility] WITH ALL BELONGINGS SENT W/ PT, W/ COMPLETED LIST, VSS, RESP EVEN AND UNLABORED, IV INTACT AND PATENT.
[2018-12-23 20:54] VITALS: BP 145/82
--- NOTE | 2018-12-23 20:54 | NUR ---
NURSE NOTES: Received report from DAMIAN Limon (Caroline). Patient alert, awake, and verbally responsive to let her needs known. Breathing unlabored and evenly without signs of distress, discomfort, or sob noted. Denies pain at this time. Left breast abcess noted, no drainage. Belonging's list confirmed with patient. Only belongings are upper denture and right finger ring. Patient desires to keep those belongings at her bedside. Signed by patient. IV intact, dry, clean, and patent on her right AC. Skin intact. Oriented to the unit. Encourage using call light whenever assistance is needed. Call light placed within reach. Bed placed at the lowest with alarm, brake, and side rails up x2 for safety. Will continue to monitor and provide care as ordered.
--- NOTE | 2018-12-23 21:14 | Emergency Room Report ---
History of Present Illness General Chief Complaint: Skin Rash/Abscess Source: Patient, Medical Record, PMD (Mag Naylor) Present Illness HPI 73-year-old female with history of uncontrolled diabetes, hypertension, here complaining of a painful and a hard breast mass in the left lateral breast that has been there for over few months. Patient is here with her daughter, and reports that she has not had them mammogram done ever since she was 40 years old. Patient is not compliant with her diabetes medication either and does not appear to be a good historian. Patient is rating her pain 10 out of 10 and reports that there has been some pus drainage from the sides of the affected area. Denies chest pain, shortness of breath, palpitation, abdominal pain, nausea vomiting. (Mag Naylor) Allergies: Coded Allergies: PENICILLINS (Verified Allergy, Unknown, 06/03/15) Patient History Past Medical History: see triage record Past Surgical History: unable to obtain Pertinent Family History: none Now: No Immunizations: UTD Reviewed Nursing Documentation: PMH: Agreed; PSxH: Agreed (Mag Naylor) Nursing Documentation-PMH Past Medical History: No History, Except For Hx Cardiac Problems: No Hx Hypertension: Yes Hx Diabetes: Yes Hx Cancer: No Hx Gastrointestinal Problems: No Hx Neurological Problems: No (Mag Naylor) Review of Systems All Other Systems: negative except mentioned in HPI (Mag Naylor) Physical Exam Vital Signs Date Time Temp Pulse Resp B/P (MAP) Pulse Ox O2 Delivery O2 Flow Rate FiO2 12/23/18 16:25 98.4 67 15 181/80 (113) 96 Room Air Sp02 EP Interpretation: reviewed, abnormal General Appearance: no apparent distress, alert, GCS 15, non-toxic Head: normocephalic, atraumatic Eyes: bilateral eye normal inspection, bilateral eye PERRL ENT: normal ENT inspection Neck: normal inspection, full range of motion, supple Respiratory: normal inspection, chest non-tender, lungs clear, no rhonchi, no wheezing Cardiovascular #1: normal inspection, regular rate, rhythm, no edema, no murmur , normal capillary refill Gastrointestinal: normal inspection, non tender, soft Musculoskeletal: back normal, other - Hard erythematous mass on left lateral breast Neurologic: normal inspection, alert, oriented x3 Psychiatric: normal inspection, judgement/insight normal Skin: other - Hard erythematous mass in the left lateral breast Lymphatic: normal inspection, no adenopathy (Mag Naylor) Medical Decision Making PA Attestation All diagnoses and treatment plans were reviewed and discussed with my supervising physician Dr. Victor (Mag Naylor) Medicare Attestation The history of Hoa Porter has been reviewed and management options for her have been examined and discussed by Amadou Victor. I have personally examined and interviewed the patient. (Amadou Victor MD) Diagnostic Impression: Primary Impression: Dehydration Additional Impressions: Left breast abscess Acute renal failure (ARF) Hyperkalemia ER Course 73-year-old female with history of uncontrolled diabetes, hypertension, here complaining of a painful and a hard breast mass in the left lateral breast that has been there for over few months. Patient is here with her daughter, and reports that she has not had them mammogram done ever since she was 40 years old. Patient is not compliant with her diabetes medication either and does not appear to be a good historian. Patient is rating her pain 10 out of 10 and reports that there has been some pus drainage from the sides of the affected area. Denies chest pain, shortness of breath, palpitation, abdominal pain, nausea vomiting. Ddx considered but are not limited to: Abscess left breast, malignancy of left breast, Vital signs: are WNL, pt. is afebrile H&PE are most consistent with malignancy of left breast, MARIA DOLORES, hyperkalemia ORDERS: Admission work-up, left breast ultrasound, chest CT no contrast ED INTERVENTIONS: NS bolus, clindamycin Patient was admired with diagnosis of malignancy of left breast, hyperkalemia, MARIA DOLOERS to Dr. Hinds under supervision of : Kayleigh pt stable at time of admission Dr. Sun also examined the patient agrees with the above treatment patient to be admitted for observation I already spoke to patient's daughter over the phone and patient daughter to visit patient tomorrow morning. stable at time of admission Potassium 5.2, BUN 50, creatinine 1.8 (Mag Naylor) EKG Diagnostic Results Rate: normal Rhythm: NSR ST Segments: no acute changes (Mag Naylor) Chest X-Ray Diagnostic Results Chest X-Ray Diagnostic Results : Chest X-Ray Ordered: Yes # of Views/Limited/Complete: 1 View Indication: Other EP Interpretation: Yes PA Xray: Interpretation reviewed, by supervising MD, and agrees with findings. Interpretation: no consolidation, no effusion, no pneumothorax Impression: No acute disease Electronically Signed by: Mag Jordan PA-C (Mag Naylor) CT/MRI/US Diagnostic Results CT/MRI/US Diagnostic Results #1: Imaging Test Ordered: Chest CT no contrast Impression Impression -Large left breast mass 4.1 cm AP by 3.6 cm TV by 3.3 cm CC contacts the chest wall and pectoralis major musculature as well as the skin, demonstrates surrounding spiculation overlying skin thickening with lower attenuation adjacent 2.4 cm collection. This is suspicious for breast neoplasm, and tissue sampling is strongly recommended. -Mildly prominent left axillary nodes which are round and measure up to 0.7 cm diameter. These could be reactive or metastatic. -Unremarkable lungs. -Left adrenal benign hyperplasia, low-attenuation 5 Hounsfield units. -Focal pancreatic calcification could be incidental or could represent chronic pancreatitis. -Vertebral body compression fractures at every level from T2-L2 with severe osteopenia, chronicity indeterminate recommend careful clinical evaluation to determine if there is an acute site. -Prior left posterolateral second and third rib fractures. CT/MRI/US Diagnostic Results #2: Imaging Test Ordered: Left breast ultrasound Impression US LEFT BREAST: Comparison: Same day CT chest. Impression: -Large soft tissue mass in the left breast measures at least 4 cm is noted on comparison CT and is suspicious for neoplasm. -Focal adjacent anechoic fluid collection could represent a necrotic portion of this mass, simple fluid collection, or could represent an infected fluid collection in the proper context. Infection cannot be definitively excluded with imaging. -BI-RADS Category 5: Findings are highly suspicious for malignancy, recommend appropriate action be taken such as biopsy and/or surgical excision. (Mag Naylor) Last Vital Signs Date Time Temp Pulse Resp B/P (MAP) Pulse Ox O2 Delivery O2 Flow Rate FiO2 12/23/18 20:45 97.5 72 18 145/75 99 Room Air (Mag Naylor) Referrals: NOEMI ALEMAN (PCP) Mag Naylor Dec 23, 2018 21:14 Amadou Victor MD Dec 26, 2018 06:26
[2018-12-23] MEDS ORDERED: Miralax 17gm pkt ORAL PRN (21:45)
[2018-12-23] MEDS ORDERED: Morphine Sulfate 2mg/ml Inj(IV/IM USE ONLY) IVP PRN (21:45)
[2018-12-23] MEDS ORDERED: Albuterol/Ipratropium 3ml neb HHN PRN (21:45)
[2018-12-23] MEDS ORDERED: Nitroglycerin Subl 0.4mg tab SL PRN (21:45)
[2018-12-23] MEDS ORDERED: Vancomycin 1 GM in D5W 275 ML IVPB ONE (23:00)
[2018-12-24] VITALS: BP 158/81
[2018-12-24 04:00] VITALS: BP 143/78
--- NOTE | 2018-12-24 05:16 | NUR ---
NURSE NOTES: Informed MD about high potassium level. Waiting for any new orders to follow up regards to abnormal lab value. Will continue to monitor patient and provide care as ordered. Patient is stable, sleeping.
[2018-12-24] MEDS: NovoLOG Insulin Flexpen SUBQ SCH ×4 (06:06→21:00)
[2018-12-24] MEDS: sitaGLIPtin 50mg tab ORAL SCH (06:12)
[2018-12-24 07:12] LABS: BASOPHILS % (AUTO) 1.4 % (0.0-2.0); EOSINOPHILS % (AUTO) 2.4 % (0.0-3.0); HEMATOCRIT 34.4 % (37.0-47.0); HEMOGLOBIN 11.1 G/DL (12.0-16.0); LYMPHOCYTES % (AUTO) 36.9 % (20.0-45.0); MEAN CORPUSCULAR VOLUME 95 FL (80-99); MONOCYTES % (AUTO) 9.5 % (1.0-10.0); NEUTROPHILS % (AUTO) 49.9 % (45.0-75.0); PLATELET COUNT 303 K/UL (150-450); RED BLOOD COUNT 3.63 M/UL (4.20-5.40); RED CELL DISTRIBUTION WIDTH 12.9 % (11.6-14.8); WHITE BLOOD COUNT 5.3 K/UL (4.8-10.8)
[2018-12-24 07:25] LABS: ALANINE AMINOTRANSFERASE 26 U/L (12-78); ALBUMIN 3.3 G/DL (3.4-5.0); ALBUMIN/GLOBULIN RATIO 1.1 (1.0-2.7); ALKALINE PHOSPHATASE 105 U/L (46-116); ANION GAP 9 mmol/L (5-15); ASPARTATE AMINO TRANSFERASE 16 U/L (15-37); BILIRUBIN,TOTAL 0.5 MG/DL (0.2-1.0); BLOOD UREA NITROGEN 40 mg/dL (7-18); CALCIUM 9.8 MG/DL (8.5-10.1); CARBON DIOXIDE 19 MMOL/L (21-32); CHLORIDE 111 MMOL/L (98-107); CREATININE 1.5 MG/DL (0.55-1.30); POTASSIUM 5.1 MMOL/L (3.5-5.1); SODIUM 139 MMOL/L (136-145)
--- NOTE | 2018-12-24 07:54 | NUR ---
HAND-OFF: Report given to DAMIAN Haque. Patient in stable condition. Informed about the high potassium level.
[2018-12-24 08:00] VITALS: BP 131/65
--- NOTE | 2018-12-24 08:01 | NUR ---
nurse notes received patient in bed, patient awake,alert oriented x4, no sign of distress . Denies pain at this time. Left breast abcess no drainage. HL intact, dry, clean, and patent on her right AC. Skin intact.on fall precaution. Encourage using call light whenever assistance is needed. Call light placed within reach. Bed placed at the lowest with alarm, brake, and side rails up x2 for safety. Will continue to monitor and provide care as ordered. savita garcia
--- NOTE | 2018-12-24 08:35 | Surgery Progress Note ---
Surgery Progress Note Subjective Additional Comments no acute events resting comfortable exam stable labs noted maria dolores improved ct and us noted Objective Last 24 Hour Vital Signs Date Time Temp Pulse Resp B/P (MAP) Pulse Ox O2 Delivery O2 Flow Rate FiO2 12/24/18 08:14 Room Air 12/24/18 04:00 98.7 73 18 143/78 (99) 96 12/24/18 00:00 98.0 67 16 158/81 (106) 100 12/23/18 22:56 Room Air 12/23/18 20:54 97.9 75 16 145/82 (103) 98 12/23/18 20:45 97.5 72 18 145/75 99 Room Air 12/23/18 18:31 98.4 69 15 161/72 99 Room Air 12/23/18 16:25 98.4 67 15 181/80 (113) 96 Room Air I&O Intake and Output 12/23/18 12/24/18 19:00 07:00 Intake Total 1275.0 ml Balance 1275.0 ml Intake IV Total 1275.0 ml # Voids 1 2 Dressing: saturated Wound: clean Cardiovascular: RSR Respiratory: clear Abdomen: soft, present bowel sounds, non-distended Extremities: no cyanosis Laboratory Tests Test 12/23/18 17:20 12/24/18 05:50 White Blood Count 5.9 K/UL (4.8-10.8) 5.3 K/UL (4.8-10.8) Red Blood Count 3.78 M/UL (4.20-5.40) L 3.63 M/UL (4.20-5.40) L Hemoglobin 11.6 G/DL (12.0-16.0) L 11.1 G/DL (12.0-16.0) L Hematocrit 34.8 % (37.0-47.0) L 34.4 % (37.0-47.0) L Mean Corpuscular Volume 92 FL (80-99) 95 FL (80-99) Mean Corpuscular Hemoglobin 30.7 PG (27.0-31.0) 30.5 PG (27.0-31.0) Mean Corpuscular Hemoglobin Concent 33.3 G/DL (32.0-36.0) 32.2 G/DL (32.0-36.0) Red Cell Distribution Width 12.2 % (11.6-14.8) 12.9 % (11.6-14.8) Platelet Count 325 K/UL (150-450) 303 K/UL (150-450) Mean Platelet Volume 6.2 FL (6.5-10.1) L 6.5 FL (6.5-10.1) Neutrophils (%) (Auto) 58.0 % (45.0-75.0) 49.9 % (45.0-75.0) Lymphocytes (%) (Auto) 32.2 % (20.0-45.0) 36.9 % (20.0-45.0) Monocytes (%) (Auto) 6.8 % (1.0-10.0) 9.5 % (1.0-10.0) Eosinophils (%) (Auto) 1.4 % (0.0-3.0) 2.4 % (0.0-3.0) Basophils (%) (Auto) 1.8 % (0.0-2.0) 1.4 % (0.0-2.0) Erythrocyte Sedimentation Rate 20 MM/HR (0-30) Prothrombin Time 10.0 SEC (9.30-11.50) Prothromb Time International Ratio 0.9 (0.9-1.1) Activated Partial Thromboplast Time 25 SEC (23-33) Sodium Level 138 MMOL/L (136-145) 139 MMOL/L (136-145) Potassium Level 5.2 MMOL/L (3.5-5.1) H 5.1 MMOL/L (3.5-5.1) Chloride Level 107 MMOL/L (98-107) 111 MMOL/L (98-107) H Carbon Dioxide Level 22 MMOL/L (21-32) 19 MMOL/L (21-32) L Anion Gap 9 mmol/L (5-15) 9 mmol/L (5-15) Blood Urea Nitrogen 50 mg/dL (7-18) H 40 mg/dL (7-18) H Creatinine 1.8 MG/DL (0.55-1.30) H 1.5 MG/DL (0.55-1.30) H Estimat Glomerular Filtration Rate mL/min (>60) mL/min (>60) Glucose Level 118 MG/DL (74-106) H 77 MG/DL (74-106) Calcium Level 10.6 MG/DL (8.5-10.1) H 9.8 MG/DL (8.5-10.1) Magnesium Level 1.7 MG/DL (1.8-2.4) L Total Bilirubin 0.2 MG/DL (0.2-1.0) 0.5 MG/DL (0.2-1.0) Aspartate Amino Transf (AST/SGOT) 18 U/L (15-37) 16 U/L (15-37) Alanine Aminotransferase (ALT/SGPT) 32 U/L (12-78) 26 U/L (12-78) Alkaline Phosphatase 121 U/L (46-116) H 105 U/L (46-116) C-Reactive Protein, Quantitative < 0.4 mg/dL (0.00-0.90) Total Protein 7.2 G/DL (6.4-8.2) 6.3 G/DL (6.4-8.2) L Albumin 3.7 G/DL (3.4-5.0) 3.3 G/DL (3.4-5.0) L Globulin 3.5 g/dL 3.0 g/dL Albumin/Globulin Ratio 1.1 (1.0-2.7) 1.1 (1.0-2.7) Plan Problems: (1) Left breast abscess Assessment & Plan: This is a 73-year-old female with a left breast mass and abscess. Afebrile, hemodynamic stable, normal white count. Ultrasound ordered and completed in the emergency department. On my evaluation of ultrasound there is a fluid collection consistent with an abscess and multiple calcifications as well as a mass structure. On physical examination patient has a fairly dense non-mobile left breast mass with an ulceration on the inframammary groove and potential down to the chest wall. There is on the lateral aspect a small area of ulcerated opening with some seropurulent drainage. This is a very unfortunate case where I believe the patient likely has a left breast cancer that is acutely infected as well. The tumor is fungating and may be invading the chest wall. Given above findings as well as MARIA DOLORES and abnormal labs recommend admission for resuscitation and care. We will proceed with CT chest without contrast given renal function. Will likely need to go to the operating room for incision and drainage of left breast abscess which at the same time can perform biopsy as well if necessary. Thank you for allowing me to participate she care will follow with recommendations CT w/ Impression -Large left breast mass 4.1 cm AP by 3.6 cm TV by 3.3 cm CC contacts the chest wall and pectoralis major musculature as well as the skin, demonstrates surrounding spiculation overlying skin thickening with lower attenuation adjacent 2.4 cm collection. This is suspicious for breast neoplasm, and tissue sampling is strongly recommended. -Mildly prominent left axillary nodes which are round and measure up to 0. 7 cm diameter. These could be reactive or metastatic. -Unremarkable lungs. -Left adrenal benign hyperplasia, low-attenuation 5 Hounsfield units. -Focal pancreatic calcification could be incidental or could represent chronic pancreatitis. -Vertebral body compression fractures at every level from T2-L2 with severe osteopenia, chronicity indeterminate recommend careful clinical evaluation to determine if there is an acute site. -Prior left posterolateral second and third rib fractures. cont with hydration will schedule for surgery soon thank you (2) Left breast mass Lukas Sun Dec 24, 2018 08:35
[2018-12-24] MEDS: Heparin 5000 units/ml inj SUBQ SCH ×2 (08:46→22:44)
[2018-12-24] MEDS ORDERED: Cefepime HCl 2 GM in D5W 110 ML IV SCH (09:00)
[2018-12-24] MEDS: Aztreonam 1gm in D5W 55ml IVPB SCH ×2 (10:15→22:35)
--- NOTE | 2018-12-24 10:41 | Diagnostic Imaging Report ---
Indication: Reason For Exam: PAIN Technique: Single AP view of the chest. Comparison: Chest radiograph dated 06/03/2015; CT chest from same day. Findings: The cardiomediastinal silhouette is within normal limits. Bibasilar subsegmental atelectasis. Right mid lung scarring/atelectasis. No pleural fluid. No pneumothorax. Left second or third rib deformity. Multiple thoracic compression deformities, better evaluated on same-day CT chest. Healing left humeral neck fracture. IMPRESSION: No airspace consolidation.
--- NOTE | 2018-12-24 11:33 | Consultation ---
History of Present Illness General Date patient seen: Dec 24, 2018 Chief Complaint: Skin Rash/Abscess Present Illness HPI 73 y/o F with hx of Dm2, HTN presented to ED on 12/23 for evaluation of Left breast rash and mass. Per patient, she has had it for some time now but believes it recently became larger and had some drainage. Upon admission was found to have leukocytosis, MARIA DOLORES. She has not had a mammography in decades. Denied n/v/d, f/c, chest pain, SOB, abd pain. Allergies: Coded Allergies: PENICILLINS (Verified Allergy, Unknown, 06/03/15) Medication History Scheduled Amlodipine Besylate (Norvasc), 10 MG ORAL DAILY, (Reported) Atorvastatin Calcium* (Lipitor*), 10 MG ORAL DAILY, (Reported) Benazepril Hcl* (Benazepril Hcl*), 40 MG ORAL DAILY, (Reported) Benazepril Hcl* (Benazepril Hcl*), 40 MG ORAL TWICE A DAY, (Reported) Glipizide* (Glipizide*), 5 MG ORAL BIDAC, (Reported) Irbesartan* (Avapro*), 150 MG ORAL DAILY Labetalol Hcl* (Normodyne*), 100 MG ORAL BID, (Reported) Sitagliptin (Januvia), 50 MG ORAL ACBREAKFAST Spironolactone* (Aldactone*), 25 MG ORAL DAILY, (Reported) Miscellaneous Medications Labetalol Hcl* (Labetalol Hcl*), 5 MG IV, (Reported) Patient History Healthcare decision maker MONA GAEL Resuscitation status Full Code Advanced Directive on File No Patient History Narrative Pmhx: as above Shx: reviewed Fhx: non contributory Review of Systems All Other Systems: negative except mentioned in HPI Physical Exam Physical Exam Narrative General appearance: alert, cooperative, no distress, appears stated age Head: Normocephalic, without obvious abnormality, atraumatic Eyes: conjunctivae/corneas clear. PERRL, EOM's intact. Fundi benign Throat: Lips, mucosa, and tongue normal. Teeth and gums normal Neck: supple, symmetrical, trachea midline, no adenopathy, thyroid: not enlarged, symmetric, no tenderness/mass/nodules, no carotid bruit and no JVD Lungs: clear to auscultation bilaterally Heart: regular rate and rhythm, S1, S2 normal, no murmur, click, rub or gallop Abdomen: soft, non-tender. Bowel sounds normal. No masses, no organomegaly Extremities: extremities normal, atraumatic, no cyanosis or edema Pulses: 2+ and symmetric Skin: Skin color, texture, turgor normal. No rashes or lesions Neurologic: Grossly normal left breast as below Last 24 Hour Vital Signs Date Time Temp Pulse Resp B/P (MAP) Pulse Ox O2 Delivery O2 Flow Rate FiO2 12/24/18 08:44 143/78 12/24/18 08:44 73 143/78 12/24/18 08:14 Room Air 12/24/18 08:00 98.5 75 17 131/65 (87) 96 12/24/18 04:00 98.7 73 18 143/78 (99) 96 12/24/18 00:00 98.0 67 16 158/81 (106) 100 12/23/18 22:56 Room Air 12/23/18 20:54 97.9 75 16 145/82 (103) 98 12/23/18 20:45 97.5 72 18 145/75 99 Room Air 12/23/18 18:31 98.4 69 15 161/72 99 Room Air 12/23/18 16:25 98.4 67 15 181/80 (113) 96 Room Air Intake and Output 12/23/18 12/24/18 19:00 07:00 Intake Total 1275.0 ml Balance 1275.0 ml Intake IV Total 1275.0 ml # Voids 1 2 Laboratory Tests Test 12/23/18 17:20 12/24/18 05:50 White Blood Count 5.9 K/UL (4.8-10.8) 5.3 K/UL (4.8-10.8) Red Blood Count 3.78 M/UL (4.20-5.40) L 3.63 M/UL (4.20-5.40) L Hemoglobin 11.6 G/DL (12.0-16.0) L 11.1 G/DL (12.0-16.0) L Hematocrit 34.8 % (37.0-47.0) L 34.4 % (37.0-47.0) L Mean Corpuscular Volume 92 FL (80-99) 95 FL (80-99) Mean Corpuscular Hemoglobin 30.7 PG (27.0-31.0) 30.5 PG (27.0-31.0) Mean Corpuscular Hemoglobin Concent 33.3 G/DL (32.0-36.0) 32.2 G/DL (32.0-36.0) Red Cell Distribution Width 12.2 % (11.6-14.8) 12.9 % (11.6-14.8) Platelet Count 325 K/UL (150-450) 303 K/UL (150-450) Mean Platelet Volume 6.2 FL (6.5-10.1) L 6.5 FL (6.5-10.1) Neutrophils (%) (Auto) 58.0 % (45.0-75.0) 49.9 % (45.0-75.0) Lymphocytes (%) (Auto) 32.2 % (20.0-45.0) 36.9 % (20.0-45.0) Monocytes (%) (Auto) 6.8 % (1.0-10.0) 9.5 % (1.0-10.0) Eosinophils (%) (Auto) 1.4 % (0.0-3.0) 2.4 % (0.0-3.0) Basophils (%) (Auto) 1.8 % (0.0-2.0) 1.4 % (0.0-2.0) Erythrocyte Sedimentation Rate 20 MM/HR (0-30) Prothrombin Time 10.0 SEC (9.30-11.50) Prothromb Time International Ratio 0.9 (0.9-1.1) Activated Partial Thromboplast Time 25 SEC (23-33) Sodium Level 138 MMOL/L (136-145) 139 MMOL/L (136-145) Potassium Level 5.2 MMOL/L (3.5-5.1) H 5.1 MMOL/L (3.5-5.1) Chloride Level 107 MMOL/L (98-107) 111 MMOL/L (98-107) H Carbon Dioxide Level 22 MMOL/L (21-32) 19 MMOL/L (21-32) L Anion Gap 9 mmol/L (5-15) 9 mmol/L (5-15) Blood Urea Nitrogen 50 mg/dL (7-18) H 40 mg/dL (7-18) H Creatinine 1.8 MG/DL (0.55-1.30) H 1.5 MG/DL (0.55-1.30) H Estimat Glomerular Filtration Rate mL/min (>60) mL/min (>60) Glucose Level 118 MG/DL (74-106) H 77 MG/DL (74-106) Calcium Level 10.6 MG/DL (8.5-10.1) H 9.8 MG/DL (8.5-10.1) Magnesium Level 1.7 MG/DL (1.8-2.4) L Total Bilirubin 0.2 MG/DL (0.2-1.0) 0.5 MG/DL (0.2-1.0) Aspartate Amino Transf (AST/SGOT) 18 U/L (15-37) 16 U/L (15-37) Alanine Aminotransferase (ALT/SGPT) 32 U/L (12-78) 26 U/L (12-78) Alkaline Phosphatase 121 U/L (46-116) H 105 U/L (46-116) C-Reactive Protein, Quantitative < 0.4 mg/dL (0.00-0.90) Total Protein 7.2 G/DL (6.4-8.2) 6.3 G/DL (6.4-8.2) L Albumin 3.7 G/DL (3.4-5.0) 3.3 G/DL (3.4-5.0) L Globulin 3.5 g/dL 3.0 g/dL Albumin/Globulin Ratio 1.1 (1.0-2.7) 1.1 (1.0-2.7) Height (Feet): 4 Height (Inches): 8.00 Weight (Pounds): 108 Medications Current Medications Medications (Trade) Dose Ordered Sig/Sd Route PRN Reason Start Time Stop Time Status Last Admin Dose Admin Acetaminophen (Tylenol) 650 mg Q4H PRN ORAL fever 12/23/18 21:45 01/22/19 21:44 Albuterol/ Ipratropium (Albuterol/ Ipratropium) 3 ml Q4H PRN HHN Shortness of Breath 12/23/18 21:45 12/28/18 21:44 Amlodipine Besylate (Norvasc) 10 mg DAILY ORAL 12/24/18 09:00 01/23/19 08:59 12/24/18 08:44 Aztreonam 1 gm/ Dextrose 55 ml @ 110 mls/hr Q12HR IVPB 12/24/18 10:00 12/31/18 09:59 12/24/18 10:15 Benazepril HCl (Lotensin) 40 mg DAILY ORAL 12/24/18 09:00 01/23/19 08:59 12/24/18 08:44 Dextrose (Dextrose 50%) STAT PRN IV Hypoglycemia 12/23/18 21:45 01/22/19 21:44 Heparin Sodium (Porcine) (Heparin 5000 units/ml) 5,000 units EVERY 12 HOURS SUBQ 12/24/18 09:00 01/23/19 08:59 12/24/18 08:46 Insulin Aspart (NovoLOG) BEFORE MEALS AND HS SUBQ 12/24/18 06:30 01/23/19 06:29 Morphine Sulfate (Morphine Sulfate) 2 mg Q4H PRN IVP Moderate Pain (Pain Scale 4-6) 12/23/18 21:45 12/30/18 21:44 Nitroglycerin (Ntg) 0.4 mg Q5M PRN SL Prn Chest Pain 12/23/18 21:45 01/22/19 21:44 Ondansetron HCl (Zofran) 4 mg Q6H PRN IVP Nausea & Vomiting 12/23/18 21:45 01/22/19 21:44 Polyethylene Glycol (Miralax) 17 gm DAILYPRN PRN ORAL Constipation 12/23/18 21:45 01/22/19 21:44 Sitagliptin Phosphate (Januvia) 50 mg ACBREAKFAST ORAL 12/24/18 06:30 01/23/19 06:29 12/24/18 06:12 Temazepam (Restoril) 15 mg HSPRN PRN ORAL Insomnia 12/23/18 21:45 12/30/18 21:44 Assessment/Plan Assessment/Plan: Abx: Aztreonam 12/24- Clindamycin x1 12/23 IV Vancomycin x1 12/23 Assessment: L breast infected mass and abscess, likely breast CA -CT chest: Complex left breast mass with overlying skin thickening and retraction highly suspicious for neoplasm, with adjacent fluid component which may represent abscess collection. Follow-up breast ultrasound is recommended to evaluate fluid component and biopsy is recommended for tissue diagnosis. 4 mm left upper lobe nodule which may be infectious/inflammatory, however in the presence of breast mass, metastatic disease cannot be excluded. Complex left thyroid nodule. Correlation with thyroid ultrasound is recommended. 1.2 cm left adrenal nodule, likely adenoma. Multilevel thoracic vertebral compression deformities of indeterminate age and unclear etiology. Correlation with prior imaging or dedicated MR spine is recommended to assess for pathologic fractures. -Breast US: -Large soft tissue mass in the left breast measures at least 4 cm is noted on comparison CT and is suspicious for neoplasm.-Focal adjacent anechoic fluid collection could represent a necrotic portion of this mass, simple fluid collection, or could represent an infected fluid collection in the proper context. Infection cannot be definitively excluded with imaging.-BI- RADS Category 5: Findings are highly suspicious for malignancy, recommend appropriate action be taken such as biopsy and/or surgical excision. Afebrile No leukocytosis -8/12 CXR: No airspace consolidation. Dm2 HTN Plan: -Continue Aztreonam #1 and Vancomycin #2 -f/u cx -Monitor CBC/CMP, temperatures -wound cx -Sx f/u: plan for surgical intervention Thank you for this consultation. Will continue to follow along with you. Discussed with Lupe Vargas M.D. Dec 24, 2018 11:33
[2018-12-24 11:47] VITALS: BP_SYST 143; BP_SYST 144; BP_DIAS 61
--- NOTE | 2018-12-24 13:45 | NUR ---
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 SI: Deep L-Breast Abscess/Malignancy, Hyperkalemia VS: BP: 181/80 HR: 67 RR 15 02 Sat 96% (RA) T: 98.4 NT: RBC 3.78 Potassium 5.2 BUN 50 Creatinine 1.8 Glucose Random 118 Calcium 10.6 Magnesium 1.7 Alkaline Phosph 121 Breast US: Large soft tissue mass in the left breast measures at least 4 cm is noted on comparison CT and is suspicious for neoplasm. Focal adjacent anechoic fluid collection could represent a necrotic portion of this mass, simple fluid collection. BI-RADS Category 5: Findings are highly suspicious for malignancy. CXR: No airspace consolidation. Chest CT: Complex left breast mass with overlying skin thickening and retraction highly suspicious for neoplasm 2. 4 mm left upper lobe nodule which may be infectious/inflammatory, however in the presence of breast mass, metastatic disease cannot be excluded. 3. Complex left thyroid nodule. Correlation with thyroid ultrasound is recommended. 4. 1.2 cm left adrenal nodule, likely adenoma. IS: Clindamycin 300mg IVPB NS 1000ml IV Admitted to MedSurg MedSurg status DCP: Pending Hospital Stay
--- NOTE | 2018-12-24 13:55 | Consultation ---
History of Present Illness General Date patient seen: Dec 24, 2018 Chief Complaint: Skin Rash/Abscess Present Illness HPI 73 years old female with history of hypertension, diabetes mellitus, osteoarthritis presented with cc of a large lump in left breast. She had a CT of chest in ER showing loculated mass. she is admitted for further management. Allergies: Coded Allergies: PENICILLINS (Verified Allergy, Unknown, 06/03/15) Medication History Scheduled Amlodipine Besylate (Norvasc), 10 MG ORAL DAILY, (Reported) Atorvastatin Calcium* (Lipitor*), 10 MG ORAL DAILY, (Reported) Benazepril Hcl* (Benazepril Hcl*), 40 MG ORAL DAILY, (Reported) Benazepril Hcl* (Benazepril Hcl*), 40 MG ORAL TWICE A DAY, (Reported) Glipizide* (Glipizide*), 5 MG ORAL BIDAC, (Reported) Irbesartan* (Avapro*), 150 MG ORAL DAILY Labetalol Hcl* (Normodyne*), 100 MG ORAL BID, (Reported) Sitagliptin (Januvia), 50 MG ORAL ACBREAKFAST Spironolactone* (Aldactone*), 25 MG ORAL DAILY, (Reported) Miscellaneous Medications Labetalol Hcl* (Labetalol Hcl*), 5 MG IV, (Reported) Patient History Healthcare decision maker MONA MAYO Resuscitation status Full Code Advanced Directive on File No Past Medical/Surgical History Past Medical/Surgical History: (1) Diabetes mellitus (2) History of hypertension (3) Osteoporosis Review of Systems All Other Systems: negative except mentioned in HPI Physical Exam General Appearance: WD/WN Lines, tubes and drains: peripheral HEENT: normocephalic, atraumatic Neck: non-tender, normal alignment Respiratory/Chest: chest wall non-tender, lungs clear Cardiovascular/Chest: normal peripheral pulses, normal rate Abdomen: normal bowel sounds, non tender Genitourinary/Rectal: normal genital exam Extremities: normal range of motion, normal inspection Skin Exam: normal pigmentation Neurologic: release of information clerk II-XII grossly normal Last 24 Hour Vital Signs Date Time Temp Pulse Resp B/P (MAP) Pulse Ox O2 Delivery O2 Flow Rate FiO2 12/24/18 11:47 98.8 68 19 143/61 (88) 99 12/24/18 08:44 143/78 12/24/18 08:44 73 143/78 12/24/18 08:14 Room Air 12/24/18 08:00 98.5 75 17 131/65 (87) 96 12/24/18 04:00 98.7 73 18 143/78 (99) 96 12/24/18 00:00 98.0 67 16 158/81 (106) 100 12/23/18 22:56 Room Air 12/23/18 20:54 97.9 75 16 145/82 (103) 98 12/23/18 20:45 97.5 72 18 145/75 99 Room Air 12/23/18 18:31 98.4 69 15 161/72 99 Room Air 12/23/18 16:25 98.4 67 15 181/80 (113) 96 Room Air Intake and Output 12/23/18 12/24/18 19:00 07:00 Intake Total 1275.0 ml Balance 1275.0 ml Intake IV Total 1275.0 ml # Voids 1 2 Laboratory Tests Test 12/23/18 17:20 12/24/18 05:50 White Blood Count 5.9 K/UL (4.8-10.8) 5.3 K/UL (4.8-10.8) Red Blood Count 3.78 M/UL (4.20-5.40) L 3.63 M/UL (4.20-5.40) L Hemoglobin 11.6 G/DL (12.0-16.0) L 11.1 G/DL (12.0-16.0) L Hematocrit 34.8 % (37.0-47.0) L 34.4 % (37.0-47.0) L Mean Corpuscular Volume 92 FL (80-99) 95 FL (80-99) Mean Corpuscular Hemoglobin 30.7 PG (27.0-31.0) 30.5 PG (27.0-31.0) Mean Corpuscular Hemoglobin Concent 33.3 G/DL (32.0-36.0) 32.2 G/DL (32.0-36.0) Red Cell Distribution Width 12.2 % (11.6-14.8) 12.9 % (11.6-14.8) Platelet Count 325 K/UL (150-450) 303 K/UL (150-450) Mean Platelet Volume 6.2 FL (6.5-10.1) L 6.5 FL (6.5-10.1) Neutrophils (%) (Auto) 58.0 % (45.0-75.0) 49.9 % (45.0-75.0) Lymphocytes (%) (Auto) 32.2 % (20.0-45.0) 36.9 % (20.0-45.0) Monocytes (%) (Auto) 6.8 % (1.0-10.0) 9.5 % (1.0-10.0) Eosinophils (%) (Auto) 1.4 % (0.0-3.0) 2.4 % (0.0-3.0) Basophils (%) (Auto) 1.8 % (0.0-2.0) 1.4 % (0.0-2.0) Erythrocyte Sedimentation Rate 20 MM/HR (0-30) Prothrombin Time 10.0 SEC (9.30-11.50) Prothromb Time International Ratio 0.9 (0.9-1.1) Activated Partial Thromboplast Time 25 SEC (23-33) Sodium Level 138 MMOL/L (136-145) 139 MMOL/L (136-145) Potassium Level 5.2 MMOL/L (3.5-5.1) H 5.1 MMOL/L (3.5-5.1) Chloride Level 107 MMOL/L (98-107) 111 MMOL/L (98-107) H Carbon Dioxide Level 22 MMOL/L (21-32) 19 MMOL/L (21-32) L Anion Gap 9 mmol/L (5-15) 9 mmol/L (5-15) Blood Urea Nitrogen 50 mg/dL (7-18) H 40 mg/dL (7-18) H Creatinine 1.8 MG/DL (0.55-1.30) H 1.5 MG/DL (0.55-1.30) H Estimat Glomerular Filtration Rate mL/min (>60) mL/min (>60) Glucose Level 118 MG/DL (74-106) H 77 MG/DL (74-106) Calcium Level 10.6 MG/DL (8.5-10.1) H 9.8 MG/DL (8.5-10.1) Magnesium Level 1.7 MG/DL (1.8-2.4) L Total Bilirubin 0.2 MG/DL (0.2-1.0) 0.5 MG/DL (0.2-1.0) Aspartate Amino Transf (AST/SGOT) 18 U/L (15-37) 16 U/L (15-37) Alanine Aminotransferase (ALT/SGPT) 32 U/L (12-78) 26 U/L (12-78) Alkaline Phosphatase 121 U/L (46-116) H 105 U/L (46-116) C-Reactive Protein, Quantitative < 0.4 mg/dL (0.00-0.90) Total Protein 7.2 G/DL (6.4-8.2) 6.3 G/DL (6.4-8.2) L Albumin 3.7 G/DL (3.4-5.0) 3.3 G/DL (3.4-5.0) L Globulin 3.5 g/dL 3.0 g/dL Albumin/Globulin Ratio 1.1 (1.0-2.7) 1.1 (1.0-2.7) Height (Feet): 4 Height (Inches): 8.00 Weight (Pounds): 108 Medications Current Medications Medications (Trade) Dose Ordered Sig/Sd Route PRN Reason Start Time Stop Time Status Last Admin Dose Admin Acetaminophen (Tylenol) 650 mg Q4H PRN ORAL fever 12/23/18 21:45 01/22/19 21:44 Albuterol/ Ipratropium (Albuterol/ Ipratropium) 3 ml Q4H PRN HHN Shortness of Breath 12/23/18 21:45 12/28/18 21:44 Amlodipine Besylate (Norvasc) 10 mg DAILY ORAL 12/24/18 09:00 01/23/19 08:59 12/24/18 08:44 Aztreonam 1 gm/ Dextrose 55 ml @ 110 mls/hr Q12HR IVPB 12/24/18 10:00 12/31/18 09:59 12/24/18 10:15 Benazepril HCl (Lotensin) 40 mg DAILY ORAL 12/24/18 09:00 01/23/19 08:59 12/24/18 08:44 Dextrose (Dextrose 50%) STAT PRN IV Hypoglycemia 12/23/18 21:45 01/22/19 21:44 Heparin Sodium (Porcine) (Heparin 5000 units/ml) 5,000 units EVERY 12 HOURS SUBQ 12/24/18 09:00 01/23/19 08:59 12/24/18 08:46 Insulin Aspart (NovoLOG) BEFORE MEALS AND HS SUBQ 12/24/18 06:30 01/23/19 06:29 Morphine Sulfate (Morphine Sulfate) 2 mg Q4H PRN IVP Moderate Pain (Pain Scale 4-6) 12/23/18 21:45 12/30/18 21:44 Nitroglycerin (Ntg) 0.4 mg Q5M PRN SL Prn Chest Pain 12/23/18 21:45 01/22/19 21:44 Ondansetron HCl (Zofran) 4 mg Q6H PRN IVP Nausea & Vomiting 12/23/18 21:45 01/22/19 21:44 Polyethylene Glycol (Miralax) 17 gm DAILYPRN PRN ORAL Constipation 12/23/18 21:45 01/22/19 21:44 Sitagliptin Phosphate (Januvia) 50 mg ACBREAKFAST ORAL 12/24/18 06:30 01/23/19 06:29 12/24/18 06:12 Temazepam (Restoril) 15 mg HSPRN PRN ORAL Insomnia 12/23/18 21:45 12/30/18 21:44 Vancomycin HCl (Vanco rx to dose) 1 ea DAILY PRN MISC Per rx protocol 12/24/18 11:45 01/23/19 11:44 Assessment/Plan Problem List: (1) Left breast mass ICD Codes: N63.20 - Unspecified lump in the left breast, unspecified quadrant SNOMED: 53558141 (2) Acute renal failure (ARF) ICD Codes: N17.9 - Acute kidney failure, unspecified SNOMED: 82477504 (3) History of hypertension ICD Codes: Z86.79 - Personal history of other diseases of the circulatory system SNOMED: 461863705 (4) Anemia ICD Codes: D64.9 - Anemia, unspecified SNOMED: 289515061 (5) Diabetes mellitus ICD Codes: E11.9 - Type 2 diabetes mellitus without complications SNOMED: 57646761 (6) Hypertensive urgency ICD Codes: I10 - Essential (primary) hypertension SNOMED: 185368517 (7) MDD (major depressive disorder), recurrent episode, moderate ICD Codes: F33.1 - Major depressive disorder, recurrent, moderate SNOMED: 11201438, 420884283 Assessment/Plan: iv fluids renal studies might need biopsy continue abx symptomatic treatment Cass Nguyen MD Dec 24, 2018 13:55
--- NOTE | 2018-12-24 14:43 | Anethesia Preoperative Eval ---
Anesthesia Pre-op PMH/ROS General Date of Evaluation: Dec 24, 2018 Time of Evaluation: 14:38 Anesthesiologist: Jannet ASA Score: ASA 3 Mallampati Score Class I : Soft palate, uvula, fauces, pillars visible Class II: Soft palate, uvula, fauces visible Class III: Soft palate, base of uvula visible Class IV: Only hard plate visible Mallampati Classification: Class III Surgeon: Rosendo Diagnosis: L breast mass Surgical Procedure: Excisional Bx of L breast mass Anesthesia History: none Family History: no anesthesia problems Allergies: Coded Allergies: PENICILLINS (Verified Allergy, Unknown, 06/03/15) Medications: see eMAR Patient NPO?: Yes Past Medical History Cardiovascular: Reports: HTN - mild; Denies: CAD, IA, valve dz, arrhythmia, other Pulmonary: Denies: asthma, COPD, HORACIO, other Gastrointestinal/Genitourinary: Reports: GERD, CRI - elevated Cr.; Denies: ESRD, other Neurologic/Psychiatric: Denies: dementia, CVA, depression/anxiety, TIA, other Endocrine: Reports: DM; Denies: hypothyroidism, steroids, other HEENT: Denies: cataract (L), cataract (R), glaucoma, [place] IRA (L), [place] IRA (R), other Hematology/Immune: Reports: anemia - mild; Denies: DVT, bleeding disorder, other Musculoskeletal/Integumentary: Reports: DJD, other - osteogenesis imperfecta; Denies: OA, RA, DDD, edema PMH Narrative: as above PSxH Narrative: hysterectomy, ORIF of L femoral Fx. Anesthesia Pre-op Phys. Exam Physician Exam Last Vital Signs Date Time Temp Pulse Resp B/P (MAP) Pulse Ox O2 Delivery O2 Flow Rate FiO2 12/24/18 11:47 98.8 68 19 143/61 (88) 99 12/24/18 08:14 Room Air Constitutional: NAD Cardiovascular: RRR, no M/R/G Respiratory: CTA Gastrointestinal: S/NT/ND Airway Exam Mallampati Score: Class III MO: limited Neck: short ROM: limited Teeth: missing Dentures: no upper, no lower Anesthesia Pre-op A/P Labs Hematology Test 12/23/18 17:20 12/24/18 05:50 White Blood Count 5.9 K/UL (4.8-10.8) 5.3 K/UL (4.8-10.8) Red Blood Count 3.78 M/UL (4.20-5.40) L 3.63 M/UL (4.20-5.40) L Hemoglobin 11.6 G/DL (12.0-16.0) L 11.1 G/DL (12.0-16.0) L Hematocrit 34.8 % (37.0-47.0) L 34.4 % (37.0-47.0) L Mean Corpuscular Volume 92 FL (80-99) 95 FL (80-99) Mean Corpuscular Hemoglobin 30.7 PG (27.0-31.0) 30.5 PG (27.0-31.0) Mean Corpuscular Hemoglobin Concent 33.3 G/DL (32.0-36.0) 32.2 G/DL (32.0-36.0) Red Cell Distribution Width 12.2 % (11.6-14.8) 12.9 % (11.6-14.8) Platelet Count 325 K/UL (150-450) 303 K/UL (150-450) Mean Platelet Volume 6.2 FL (6.5-10.1) L 6.5 FL (6.5-10.1) Neutrophils (%) (Auto) 58.0 % (45.0-75.0) 49.9 % (45.0-75.0) Lymphocytes (%) (Auto) 32.2 % (20.0-45.0) 36.9 % (20.0-45.0) Monocytes (%) (Auto) 6.8 % (1.0-10.0) 9.5 % (1.0-10.0) Eosinophils (%) (Auto) 1.4 % (0.0-3.0) 2.4 % (0.0-3.0) Basophils (%) (Auto) 1.8 % (0.0-2.0) 1.4 % (0.0-2.0) Erythrocyte Sedimentation Rate 20 MM/HR (0-30) Coagulation Test 12/23/18 17:20 Prothrombin Time 10.0 SEC (9.30-11.50) Prothromb Time International Ratio 0.9 (0.9-1.1) Activated Partial Thromboplast Time 25 SEC (23-33) Chemistry Test 12/23/18 17:20 12/24/18 05:50 Sodium Level 138 MMOL/L (136-145) 139 MMOL/L (136-145) Potassium Level 5.2 MMOL/L (3.5-5.1) H 5.1 MMOL/L (3.5-5.1) Chloride Level 107 MMOL/L (98-107) 111 MMOL/L (98-107) H Carbon Dioxide Level 22 MMOL/L (21-32) 19 MMOL/L (21-32) L Anion Gap 9 mmol/L (5-15) 9 mmol/L (5-15) Blood Urea Nitrogen 50 mg/dL (7-18) H 40 mg/dL (7-18) H Creatinine 1.8 MG/DL (0.55-1.30) H 1.5 MG/DL (0.55-1.30) H Estimat Glomerular Filtration Rate mL/min (>60) mL/min (>60) Glucose Level 118 MG/DL (74-106) H 77 MG/DL (74-106) Calcium Level 10.6 MG/DL (8.5-10.1) H 9.8 MG/DL (8.5-10.1) Magnesium Level 1.7 MG/DL (1.8-2.4) L Total Bilirubin 0.2 MG/DL (0.2-1.0) 0.5 MG/DL (0.2-1.0) Aspartate Amino Transf (AST/SGOT) 18 U/L (15-37) 16 U/L (15-37) Alanine Aminotransferase (ALT/SGPT) 32 U/L (12-78) 26 U/L (12-78) Alkaline Phosphatase 121 U/L (46-116) H 105 U/L (46-116) C-Reactive Protein, Quantitative < 0.4 mg/dL (0.00-0.90) Total Protein 7.2 G/DL (6.4-8.2) 6.3 G/DL (6.4-8.2) L Albumin 3.7 G/DL (3.4-5.0) 3.3 G/DL (3.4-5.0) L Globulin 3.5 g/dL 3.0 g/dL Albumin/Globulin Ratio 1.1 (1.0-2.7) 1.1 (1.0-2.7) Uric Acid Pending Total Creatine Kinase Pending Carcinoembryonic Antigen Pending Risk Assessment & Plan Assessment: ASA 3 Plan: GA with LMA Status Change Before Surgery: No Pre-Antibiotics Drug: as scheduled Ariel Power MD Dec 24, 2018 14:43
[2018-12-24 14:44] LABS: CREATINE KINASE 65 U/L (26-308)
[2018-12-24 16:00] VITALS: BP 131/66
[2018-12-24 16:01] LABS: CREATINE KINASE 57 U/L (26-308)
--- NOTE | 2018-12-24 17:22 | History & Physical ---
History and Physical History & Physicial Dictated for Int Med-Dr Hinds no. [id number] Zi Goncalves MD Dec 24, 2018 17:22
[2018-12-24 18:12] LABS: APPEARANCE,URINE CLEAR; BILIRUBIN, URINE NEGATIVE (NEGATIVE); COLOR,URINE PALE YELLOW; GLUCOSE, URINE (UA) NEGATIVE (NEGATIVE); KETONES,URINE NEGATIVE (NEGATIVE); LEUKOCYTE ESTERASE ,URINE 3+ (NEGATIVE); NITRITE,URINE NEGATIVE (NEGATIVE); PH,URINE 5 (4.5-8.0); PROTEIN,URINE NEGATIVE (NEGATIVE); UROBILINOGEN,URINE NORMAL MG/DL (0.0-1.0)
--- NOTE | 2018-12-24 19:14 | NUR ---
HAND-OFF: Report given to Elvia SALGADO accordingly resting comfortably in bed, no sign of distress,denies pain or discomfort ANG SALGADO.
--- NOTE | 2018-12-24 19:15 | NUR ---
NURSE NOTES: Received report from DAMIAN Haque. Patient is in bed, awake and alert x4. Right AC IV is intact an patent. No signs of distress or SOB. Bed locked and in lowest position with alarm on. 2 side rails up for safety. Call light is within reach. Will continue to monitor the patient.
[2018-12-24 20:00] VITALS: BP 132/69
--- NOTE | 2018-12-24 20:30 | History and Physical Report ---
DATE OF ADMISSION: 12/23/2018 CHIEF COMPLAINT: The patient is a 73-year-old female, who presents with a chief complaint of left breast mass and pain. HISTORY OF PRESENT ILLNESS: The patient states she has had a left chest tube placed when she was a child. The patient thought that the left breast mass was scar tissue. The patient states left breast mass has been increasing in size. The patient presented to [facility]. An initial ultrasound and CT scan showed left breast mass with abscess. The patient is admitted for left breast mass and abscess. REVIEW OF SYSTEMS: CONSTITUTIONAL: The patient denies weight loss or weight gain. The patient denies fevers or chills. HEENT: The patient denies ear or throat pain. The patient denies headache. CARDIOVASCULAR: The patient denies palpitations or chest pain. CHEST: The patient denies wheeze or shortness of breath. ABDOMEN: The patient denies nausea, vomiting, diarrhea, or constipation. GENITOURINARY: The patient denies dysuria or increased frequency of urination. NEUROMUSCULAR: The patient denies seizures or generalized weakness. PAST MEDICAL HISTORY: Significant for: 1. Hypertension. 2. Hypercholesterolemia. 3. Diabetes type 2. 4. Osteogenesis imperfecta. 5. Osteoarthritis. 6. Osteoporosis. PAST SURGICAL HISTORY: Significant for: 1. Left hip open reduction and internal fixation. 2. Left knee meniscus repair. 3. Total abdominal hysterectomy. 4. Left breast lumpectomy, benign. CURRENT MEDICATIONS: 1. Amlodipine 10 mg one tab p.o. daily. 2. Atorvastatin 10 mg p.o. daily. 3. Benazepril 40 mg p.o. daily. 4. Glipizide 5 mg p.o. twice daily. 5. Avapro 150 mg p.o. daily. 6. Labetalol 100 mg p.o. twice daily. 7. Sitagliptin 50 mg p.o. daily. 8. Aldactone 25 mg p.o. daily. ALLERGIES: Penicillin. SOCIAL HISTORY: The patient is a and lives with her daughter. The patient denies tobacco or alcohol use. PHYSICAL EXAMINATION: VITAL SIGNS: Temperature 98.5, respirations 17, pulse 75, and blood pressure 131/65. GENERAL: The patient is a well-developed and well-nourished female, in no apparent distress. HEENT: Eyes, pupils are equal and responsive to light and accommodation. Extraocular movements are intact. NECK: Supple without lymphadenopathy. CHEST: Lungs are clear to auscultation bilaterally without wheezes or rales. CARDIOVASCULAR: Regular rhythm and rate. S1 and S2 are normal without murmurs, rubs, or gallops. ABDOMEN: Soft, nontender, and nondistended. Positive bowel sounds. No evidence of hepatosplenomegaly. Currently, no rebound or guarding noted. EXTREMITIES: Negative for clubbing, cyanosis, or edema. RECTAL/GENITAL: Not performed. NEUROLOGIC: Cranial nerves II through XII are grossly intact without focal deficits. Motor strength is 5/5 bilaterally. Deep tendon reflexes are 2+ plantar. LABORATORY AND DIAGNOSTIC DATA: A CT and ultrasound of the left breast revealed a soft tissue mass in the left breast suspicious for neoplasm. There was also a fluid collection, which could represent necrotic tissue versus abscess. A CT scan of the chest is pending. WBC 5.9, hemoglobin 11.6, hematocrit 34.8, and platelets 325,000. Sodium 139, potassium 5.1, chloride 111, CO2 19, BUN 40, creatinine 1.5, and glucose 77. ASSESSMENT: This is a 73-year-old female. 1. Left breast mass. 2. Left breast probable abscess. 3. Hypertension. 4. Hypercholesterolemia. 5. Diabetes type 2. 6. Osteogenesis imperfecta. 7. Osteoarthritis. 8. Osteoporosis. TREATMENT: 1. Left breast mass/abscess. A General Surgery consultation has been obtained with Dr. Sun. We will follow recommendations of Surgery. 2. Hypertension. Continue amlodipine as above. 3. Hypercholesterolemia. Continue atorvastatin as above. 4. Diabetes type 2. NovoLog sliding scale has been instituted. 5. Osteogenesis imperfecta. 6. Osteoarthritis. 7. Osteoporosis. Zi Goncalves M.D. DR: DEANDRE JOB#: [id number] CC:
--- NOTE | 2018-12-24 22:13 | Pre-Procedure Note/Attestation ---
Pre-Procedure Note/Attestation Complete Prior to Procedure Planned Procedure: left Procedure Narrative: incision and drainage of left breast mass with possible biopsy Indications for Procedure Pre-Operative Diagnosis: infected left breast mass with abscess Attestation I attest that I discussed the nature of the procedure; its benefits; risks and complications; and alternatives (and the risks and benefits of such alternatives ), prior to the procedure, with the patient (or the patient's legal insurance verification representative). I attest that, if there was a reasonable possibility of needing a blood transfusion, the patient (or the patient's legal insurance verification representative) was given the [facility] standardized written summary, pursuant to the Francisco Pierson Blood Safety Act ([place] Health and Safety Code # 1645, as amended). I attest that I re-evaluated the patient just prior to the surgery and that there has been no change in the patient's H&P, except as documented below: Lukas Sun Dec 24, 2018 22:13
[2018-12-25] VITALS (12 sets, daily range): BP systolic 124–190; BP diastolic 63–92
[2018-12-25] MEDS: NovoLOG Insulin Flexpen SUBQ SCH ×4 (05:42→21:00)
[2018-12-25] MEDS: sitaGLIPtin 50mg tab ORAL SCH (05:42)
[2018-12-25 06:15] LABS: BASOPHILS % (AUTO) 1.2 % (0.0-2.0); EOSINOPHILS % (AUTO) 2.6 % (0.0-3.0); HEMATOCRIT 35.6 % (37.0-47.0); HEMOGLOBIN 11.4 G/DL (12.0-16.0); LYMPHOCYTES % (AUTO) 44.7 % (20.0-45.0); MEAN CORPUSCULAR VOLUME 95 FL (80-99); NEUTROPHILS % (AUTO) 43.5 % (45.0-75.0); PLATELET COUNT 311 K/UL (150-450); RED BLOOD COUNT 3.75 M/UL (4.20-5.40); RED CELL DISTRIBUTION WIDTH 12.9 % (11.6-14.8); WHITE BLOOD COUNT 5.4 K/UL (4.8-10.8)
[2018-12-25 06:42] LABS: ANION GAP 8 mmol/L (5-15); BLOOD UREA NITROGEN 33 mg/dL (7-18); CALCIUM 9.9 MG/DL (8.5-10.1); CARBON DIOXIDE 19 MMOL/L (21-32); CHLORIDE 109 MMOL/L (98-107); CREATININE 1.5 MG/DL (0.55-1.30); POTASSIUM 5.4 MMOL/L (3.5-5.1); SODIUM 136 MMOL/L (136-145)
[2018-12-25 06:43] LABS: INR 0.9 (0.9-1.1)
[2018-12-25] MEDS ORDERED: Bacitracin 50000 Units Vial ONE (07:19)
[2018-12-25] MEDS ORDERED: Lidocaine 1% 10mg/ml/Epi 0.005mg/ml 30ml vial INJ ONE (07:19)
[2018-12-25] MEDS ORDERED: Bupivacaine w/Epi 0.5% 30ml Vial INJ ONE (07:19)
--- NOTE | 2018-12-25 07:24 | NUR ---
HAND-OFF: Report given to Silvestre Mcclellan RN.
[2018-12-25] MEDS ORDERED: NeoSporin Gu Irrig 1ml Amp IRRIG ONE (07:28)
[2018-12-25] MEDS ORDERED: LR 1000ml 1,000 ML IVLG SCH (07:39)
[2018-12-25] MEDS ORDERED: Lidocaine 1% MPF 10mg/ml 5ml ONE ×2 (07:39→08:14)
[2018-12-25] MEDS ORDERED: Sodium Chloride 10ml vial INJ ONE (07:39)
--- NOTE | 2018-12-25 07:41 | Immediate Post-Op Evaluation ---
Immediate Post-Op Evalulation Immediate Post-Op Evalulation Procedure: Excisional Bx of L breast mass Date of Evaluation: Dec 25, 2018 Time of Evaluation: 09:01 IV Fluids: 200 LR Blood Products: 0 Estimated Blood Loss: 4 Urinary Output: 0 Blood Pressure Systolic: 147 Blood Pressure Diastolic: 63 Pulse Rate: 75 Respiratory Rate: 16 O2 Sat by Pulse Oximetry: 100 Temperature (Fahrenheit): 98 Pain Score (1-10): 2 Nausea: No Vomiting: No Complications 0 Patient Status: awake, reacts, patent, extubated, none Hydration Status: adequate Dru Gram Ancef IV Given Within 1 Hr of Incision: Yes Time Given: 08:16 Hernandez Resendiz MD Dec 25, 2018 07:41
[2018-12-25] MEDS ORDERED: LORazepam Inj 2mg/ml 1ml IV PRN (07:45)
[2018-12-25] MEDS ORDERED: Midazolam 2mg/2ml Inj IVP PRN (07:45)
[2018-12-25] MEDS ORDERED: HYDROcodone/Acetamin 7.5/325 tab ORAL PRN (07:45)
[2018-12-25] MEDS ORDERED: DiphenhydrAMINE 50mg/ml Inj IVP PRN (07:45)
[2018-12-25] MEDS ORDERED: Hydromorphone 0.5mg/0.5ml inj IVP PRN (07:45)
[2018-12-25] MEDS ORDERED: Metoclopramide 10mg/2ml Inj IVP PRN (07:45)
[2018-12-25] MEDS ORDERED: oxyCODONE HCL/Acetaminophen 5/325mg ORAL PRN (07:45)
[2018-12-25] MEDS ORDERED: Atropine Sulfate 0.4mg/ml inj IVP PRN (07:45)
[2018-12-25] MEDS ORDERED: HYDROcodone/Acetamin 5/325 tab ORAL PRN ×2 (07:45→09:30)
[2018-12-25] MEDS ORDERED: Meperidine 50mg/ml Inj(FOR RIGORS ONLY) IVP PRN (07:45)
[2018-12-25] MEDS ORDERED: Labetalol 5mg/ml 20ml vial IV PRN (07:45)
[2018-12-25] MEDS ORDERED: Acetaminophen (Non formulary) 100 ML IV ONE (07:45)
[2018-12-25] MEDS ORDERED: fentaNYL 100 mcg/2 mL IV PRN (07:45)
[2018-12-25] MEDS ORDERED: Alfentanil 2ml Inj ONE (07:48)
[2018-12-25] MEDS ORDERED: Midazolam 2mg/2ml Inj ONE (07:48)
[2018-12-25] MEDS ORDERED: NS Irrig 1000ml IRRIG ONE ×2 (07:54→08:21)
[2018-12-25] MEDS ORDERED: Propofol 200mg/20ml IV ONE (08:00)
[2018-12-25] MEDS ORDERED: LR 1000ml ONE (08:00)
[2018-12-25] MEDS ORDERED: Sterile Water Irrig 1000ml IRRIG ONE (08:00)
[2018-12-25] MEDS ORDERED: Naloxone 0.4mg/ml Inj ONE (08:33)
[2018-12-25] MEDS ORDERED: Vancomycin 1gm/D5W 275ml IVPB SCH ×2 (09:00)
[2018-12-25] MEDS: Heparin 5000 units/ml inj SUBQ SCH ×2 (09:00→21:07)
--- NOTE | 2018-12-25 09:25 | Brief Operative Note ---
Immediate Post Operative Note Operative Note Pre-op Diagnosis: infected left breast mass with abscess Procedure: incision and drainage of left breast abscess left breast mass biopsy Post-op Diagnosis: same as pre-op Surgeon: raya Anesthesiologist: nikki Anesthesia: general, local Specimen: yes Complications: none Condition: stable Fluids: see records Estimated Blood Loss: minimal Drains: none Implant(s) used?: No Lukas Sun Dec 25, 2018 09:25
[2018-12-25] MEDS ORDERED: Milk of Magnesia 30ml Ud ORAL PRN (09:30)
[2018-12-25] MEDS ORDERED: Morphine Sulfate 2mg/ml Inj(IV/IM USE ONLY) IVP PRN (09:45)
[2018-12-25] MEDS ORDERED: Miralax 17gm pkt ORAL PRN (09:45)
[2018-12-25] MEDS: Aztreonam 1gm in D5W 55ml IVPB SCH ×2 (10:30→21:06)
--- NOTE | 2018-12-25 12:41 | Internal Med Progress Note ---
Subjective Date of Service: Dec 25, 2018 Physician Name Goncalves,Zi Attending Physician Aiden Hinds MD Current Medications Medications (Trade) Dose Ordered Sig/Sd Route PRN Reason Start Time Stop Time Status Last Admin Dose Admin Acetaminophen (Tylenol) 650 mg Q4H PRN ORAL fever 12/23/18 21:45 01/22/19 21:44 Acetaminophen (Tylenol) 650 mg Q6H PRN ORAL Mild Pain (Pain Scale 1-3) 12/25/18 09:30 01/24/19 09:29 Acetaminophen/ Hydrocodone Bitart ([place] 5/325) 1 tab Q1H PRN ORAL Mild Pain (Pain Scale 1-3) 12/25/18 07:45 12/25/18 16:00 Acetaminophen/ Hydrocodone Bitart ([place] 5/325) 1 tab Q4H PRN ORAL Moderate Pain (Pain Scale 4-6) 12/25/18 09:30 01/01/19 09:29 Acetaminophen/ Hydrocodone Bitart ([place] 7.5/325) 1 tab Q1H PRN ORAL Moderate Pain (Pain Scale 4-6) 12/25/18 07:45 12/25/18 16:00 Al Hydroxide/Mg Hydroxide (Mylanta) 15 ml Q1H PRN ORAL gi upset 12/25/18 07:45 12/25/18 16:00 Albuterol/ Ipratropium (Albuterol/ Ipratropium) 3 ml Q4H PRN HHN Shortness of Breath 12/23/18 21:45 12/28/18 21:44 Amlodipine Besylate (Norvasc) 10 mg DAILY ORAL 12/24/18 09:00 01/23/19 08:59 12/24/18 08:44 Atropine Sulfate (Atropine 0.4mg/ ml) 0.5 mg Q5M PRN IVP HR<40 12/25/18 07:45 12/25/18 16:00 Aztreonam 1 gm/ Dextrose 55 ml @ 110 mls/hr Q12HR IVPB 12/24/18 10:00 12/31/18 09:59 12/25/18 10:30 Benazepril HCl (Lotensin) 40 mg DAILY ORAL 12/24/18 09:00 01/23/19 08:59 12/24/18 08:44 Dextrose (Dextrose 50%) STAT PRN IV Hypoglycemia 12/23/18 21:45 01/22/19 21:44 Diphenhydramine HCl (Benadryl) 25 mg Q15M PRN IVP Itching 12/25/18 07:45 12/25/18 16:00 Docusate Sodium (Colace) 100 mg TWICE A DAY ORAL 12/25/18 18:00 01/24/19 17:59 Fentanyl Citrate (Sublimaze 100 mcg/2 mL) 25 mcg Q10M PRN IV Moderate Pain (Pain Scale 4-6) 12/25/18 07:45 12/25/18 16:00 Heparin Sodium (Porcine) (Heparin 5000 units/ml) 5,000 units EVERY 12 HOURS SUBQ 12/24/18 09:00 01/23/19 08:59 12/24/18 22:44 Hydralazine HCl (Apresoline) 5 mg Q30M PRN IV SBP>160 / DBP>90 12/25/18 07:45 12/25/18 16:00 12/25/18 09:37 Hydromorphone HCl (Dilaudid) 0.5 mg Q15M PRN IVP Severe Pain (Pain Scale 7-10) 12/25/18 07:45 12/25/18 16:00 Insulin Aspart (NovoLOG) BEFORE MEALS AND HS SUBQ 12/24/18 06:30 01/23/19 06:29 Labetalol HCl (Normodyne) 5 mg Q10M PRN IV SBP>160 / DBP>90 12/25/18 07:45 12/25/18 16:00 Lorazepam (Ativan 2mg/ml 1ml) 1 mg Q15M PRN IV For Anxiety 12/25/18 07:45 12/25/18 16:00 Magnesium Hydroxide (Mom) 30 ml BIDPRN PRN ORAL Constipation 12/25/18 09:30 01/24/19 09:29 Meperidine HCl (Demerol) 25 mg Q5M PRN IVP Shivering.May repeat x 1 12/25/18 07:45 12/25/18 16:00 Metoclopramide HCl (Reglan) 10 mg Q1H PRN IVP Nausea & Vomiting 12/25/18 07:45 12/25/18 16:00 Midazolam HCl (Versed 2mg/2ml vial) 1 mg Q15M PRN IVP For Anxiety 12/25/18 07:45 12/25/18 16:00 Morphine Sulfate (Morphine Sulfate) 2 mg Q4H PRN IVP SEVERE PAIN 12/25/18 09:45 12/30/18 21:44 Nitroglycerin (Ntg) 0.4 mg Q5M PRN SL Prn Chest Pain 12/23/18 21:45 01/22/19 21:44 Ondansetron HCl (Zofran) 4 mg Q1H PRN IVP Nausea & Vomiting 12/25/18 07:45 12/25/18 16:00 Ondansetron HCl (Zofran) 4 mg Q6H PRN IVP Nausea & Vomiting 12/25/18 09:30 01/24/19 09:29 12/25/18 11:05 Oxycodone/ Acetaminophen (Percocet 5-325) 1 tab Q1H PRN ORAL Severe Pain (Pain Scale 7-10) 12/25/18 07:45 12/25/18 16:00 Polyethylene Glycol (Miralax) 17 gm DAILYPRN PRN ORAL Constipation 12/25/18 09:45 01/22/19 21:44 Sitagliptin Phosphate (Januvia) 50 mg ACBREAKFAST ORAL 12/24/18 06:30 01/23/19 06:29 12/24/18 06:12 Sodium Chloride 1,000 ml @ 75 mls/hr [id number] IV 12/24/18 22:15 01/23/19 22:14 12/25/18 12:29 Temazepam (Restoril) 15 mg HSPRN PRN ORAL Insomnia 12/23/18 21:45 12/30/18 21:44 Vancomycin HCl (Vanco rx to dose) 1 ea DAILY PRN MISC Per rx protocol 12/24/18 11:45 01/23/19 11:44 Allergies: Coded Allergies: PENICILLINS (Verified Allergy, Unknown, 06/03/15) ROS Limited/Unobtainable: No Constitutional: Reports: no symptoms HEENT: Reports: no symptoms Cardiovascular: Reports: no symptoms Respiratory: Reports: no symptoms Gastrointestinal/Abdominal: Reports: no symptoms Genitourinary: Reports: no symptoms Neurologic/Psychiatric: Reports: no symptoms Subjective 73 YO F admitted with left breast mass/abscess. S/P incision and drainage with biopsy 12/24/18. Cover for Int Herminia Hinds Objective Last Vital Signs Date Time Temp Pulse Resp B/P (MAP) Pulse Ox O2 Delivery O2 Flow Rate FiO2 12/25/18 11:45 97.8 70 18 135/64 (87) 100 12/25/18 09:45 Nasal Cannula 3 12/24/18 20:01 21 Laboratory Tests Test 12/24/18 15:39 12/24/18 17:50 12/25/18 05:16 Uric Acid 6.6 MG/DL (2.6-7.2) Total Creatine Kinase 57 U/L (26-308) Urine Color Pale yellow Urine Appearance Clear Urine pH 5 (4.5-8.0) Urine Specific [place] 1.015 (1.005-1.035) Urine Protein Negative (NEGATIVE) Urine Glucose (UA) Negative (NEGATIVE) Urine Ketones Negative (NEGATIVE) Urine Blood Negative (NEGATIVE) Urine Nitrite Negative (NEGATIVE) Urine Bilirubin Negative (NEGATIVE) Urine Urobilinogen Normal MG/DL (0.0-1.0) Urine Leukocyte Esterase 3+ (NEGATIVE) H Urine RBC 5-10 /HPF (0 - 2) H Urine WBC 10-15 /HPF (0 - 2) H Urine Squamous Epithelial Cells Few /LPF (NONE/OCC) Urine Bacteria Moderate /HPF (NONE) H Urine Eosinophils None seen (NONE SEEN) Urine Osmolality 523 mOsm/kg (429-449) H Urine Random Creatinine Pending Urine Random Microalbumin Pending Urine Random Sodium 140 mmol/L (20-110) H Urine Microalbumin/Creatinine Ratio Pending White Blood Count 5.4 K/UL (4.8-10.8) Red Blood Count 3.75 M/UL (4.20-5.40) L Hemoglobin 11.4 G/DL (12.0-16.0) L Hematocrit 35.6 % (37.0-47.0) L Mean Corpuscular Volume 95 FL (80-99) Mean Corpuscular Hemoglobin 30.4 PG (27.0-31.0) Mean Corpuscular Hemoglobin Concent 32.0 G/DL (32.0-36.0) Red Cell Distribution Width 12.9 % (11.6-14.8) Platelet Count 311 K/UL (150-450) Mean Platelet Volume 6.0 FL (6.5-10.1) L Neutrophils (%) (Auto) 43.5 % (45.0-75.0) L Lymphocytes (%) (Auto) 44.7 % (20.0-45.0) Monocytes (%) (Auto) 8.0 % (1.0-10.0) Eosinophils (%) (Auto) 2.6 % (0.0-3.0) Basophils (%) (Auto) 1.2 % (0.0-2.0) Prothrombin Time 10.1 SEC (9.30-11.50) Prothromb Time International Ratio 0.9 (0.9-1.1) Activated Partial Thromboplast Time 34 SEC (23-33) H Sodium Level 136 MMOL/L (136-145) Potassium Level 5.4 MMOL/L (3.5-5.1) H Chloride Level 109 MMOL/L (98-107) H Carbon Dioxide Level 19 MMOL/L (21-32) L Anion Gap 8 mmol/L (5-15) Blood Urea Nitrogen 33 mg/dL (7-18) H Creatinine 1.5 MG/DL (0.55-1.30) H Estimat Glomerular Filtration Rate mL/min (>60) Glucose Level 77 MG/DL (74-106) Calcium Level 9.9 MG/DL (8.5-10.1) Random Vancomycin Level 10.5 ug/mL Microbiology Date/Time Source Procedure Growth Status 12/24/18 17:50 Urine,Clean Catch Urine Culture - Preliminary NO GROWTH Resulted 12/24/18 11:54 Breast Left Gram Stain Pending Resulted 12/24/18 11:54 Wound Culture - Preliminary Staphylococcus Aureus Resulted Intake and Output 12/24/18 12/25/18 19:00 07:00 Intake Total 805 ml 580 ml Balance 805 ml 580 ml Intake Oral 750 ml IV Total 55 ml 580 ml # Voids 3 2 # Bowel Movements 1 Objective PHYSICAL EXAMINATION: GENERAL: The patient is a well-developed and well-nourished female, in no apparent distress. HEENT: Eyes, pupils are equal and responsive to light and accommodation. Extraocular movements are intact. NECK: Supple without lymphadenopathy. CHEST: Lungs are clear to auscultation bilaterally without wheezes or rales. CARDIOVASCULAR: Regular rhythm and rate. S1 and S2 are normal without murmurs, rubs, or gallops. ABDOMEN: Soft, nontender, and nondistended. Positive bowel sounds. No evidence of hepatosplenomegaly. Currently, no rebound or guarding noted. EXTREMITIES: Negative for clubbing, cyanosis, or edema. RECTAL/GENITAL: Not performed. NEUROLOGIC: Cranial nerves II through XII are grossly intact without focal deficits. Motor strength is 5/5 bilaterally. Deep tendon reflexes are 2+ plantar. Assessment/Plan Assessment/Plan ASSESSMENT: This is a 73-year-old female. 1. Left breast mass. 2. Left breast probable abscess. 3. Hypertension. 4. Hypercholesterolemia. 5. Diabetes type 2. 6. Osteogenesis imperfecta. 7. Osteoarthritis. 8. Osteoporosis. TREATMENT: 1. Left breast mass/abscess. A General Surgery consultation has been obtained with Dr. Sun. We will follow recommendations of Surgery. 2. Hypertension. Continue amlodipine as above. 3. Hypercholesterolemia. Continue atorvastatin as above. 4. Diabetes type 2. NovoLog sliding scale has been instituted. 5. Osteogenesis imperfecta. 6. Osteoarthritis. 7. Osteoporosis. 8. S/P I&D and excisional biopsy 12/24/18 Zi Goncalves MD Dec 25, 2018 12:41
--- NOTE | 2018-12-25 13:22 | Infectious Diseases Prog Note ---
Assessment/Plan Assessment/Plan Assessment: L breast infected mass and abscess, likely breast CA -12/25 SP incision and drainage of left breast abscess . left breast mass biopsy --cx p -12/24 wound cx S. aureus -CT chest: Complex left breast mass with overlying skin thickening and retraction highly suspicious for neoplasm, with adjacent fluid component which may represent abscess collection. Follow-up breast ultrasound is recommended to evaluate fluid component and biopsy is recommended for tissue diagnosis. 4 mm left upper lobe nodule which may be infectious/inflammatory, however in the presence of breast mass, metastatic disease cannot be excluded. Complex left thyroid nodule. Correlation with thyroid ultrasound is recommended. 1.2 cm left adrenal nodule, likely adenoma. Multilevel thoracic vertebral compression deformities of indeterminate age and unclear etiology. Correlation with prior imaging or dedicated MR spine is recommended to assess for pathologic fractures. -Breast US: -1Left breast ultrasound images demonstrating multiple left breast masses, which when comparison with same day chest CT likely represents single complex cystic/solid mass, containing calcifications. Findings highly suspicious for malignancy. Adjacent complex cystic structure which may represent fluid collection or abscess; at time of biopsy, fluid sampling is recommended. Left axillary lymph node with abnormal morphology, suspicious for elgin disease. Afebrile No leukocytosis -12/23 CXR: No airspace consolidation. Dm2 HTN Plan: -Continue Aztreonam #2 and Vancomycin #3 -12/23 SP Clindamycin x1 -f/u cx -Monitor CBC/CMP, temperatures -f/u wound cx, path -Sx f/u Thank you for this consultation. Will continue to follow along with you. Discussed with RN Subjective Allergies: Coded Allergies: PENICILLINS (Verified Allergy, Unknown, 06/03/15) Subjective afebril no leukocytosis s/p I+D abscess and biopsy Objective Vital Signs Last 24 Hour Vital Signs Date Time Temp Pulse Resp B/P (MAP) Pulse Ox O2 Delivery O2 Flow Rate FiO2 12/25/18 11:45 97.8 70 18 135/64 (87) 100 12/25/18 10:24 76 18 130/66 (87) 100 12/25/18 09:45 60 15 180/77 100 Nasal Cannula 3 12/25/18 09:37 190/80 12/25/18 09:30 61 18 183/78 100 Nasal Cannula 3 12/25/18 09:20 65 16 190/80 100 Nasal Cannula 3 12/25/18 09:10 63 14 182/92 100 Simple Mask 6 12/25/18 09:00 61 18 186/83 100 Simple Mask 6 12/25/18 09:00 Room Air 12/25/18 08:51 98.0 75 16 147/63 98 Simple Mask 6 12/25/18 08:49 75 16 100 12/25/18 04:00 97.8 65 16 124/70 (88) 97 12/25/18 00:00 97.2 69 17 143/79 (100) 99 12/24/18 21:00 Room Air 12/24/18 20:01 78 18 97 Room Air 21 12/24/18 20:00 98.5 69 16 132/69 (90) 98 12/24/18 16:00 98.4 76 18 131/66 (87) 99 Height (Feet): 4 Height (Inches): 8.00 Weight (Pounds): 106 Objective General appearance: alert, cooperative, no distress, appears stated age Head: Normocephalic, without obvious abnormality, atraumatic Eyes: conjunctivae/corneas clear. PERRL, EOM's intact. Fundi benign Throat: Lips, mucosa, and tongue normal. Teeth and gums normal Neck: supple, symmetrical, trachea midline, no adenopathy, thyroid: not enlarged, symmetric, no tenderness/mass/nodules, no carotid bruit and no JVD Lungs: clear to auscultation bilaterally Heart: regular rate and rhythm, S1, S2 normal, no murmur, click, rub or gallop Abdomen: soft, non-tender. Bowel sounds normal. No masses, no organomegaly Extremities: extremities normal, atraumatic, no cyanosis or edema Pulses: 2+ and symmetric Skin: Skin color, texture, turgor normal. No rashes or lesions Neurologic: Grossly normal left breast as below Microbiology Date/Time Source Procedure Growth Status 12/24/18 17:50 Urine,Clean Catch Urine Culture - Preliminary NO GROWTH Resulted 12/24/18 11:54 Breast Left Gram Stain Pending Resulted 12/24/18 11:54 Wound Culture - Preliminary Staphylococcus Aureus Resulted Laboratory Tests Test 12/24/18 15:39 12/24/18 17:50 12/25/18 05:16 Uric Acid 6.6 MG/DL (2.6-7.2) Total Creatine Kinase 57 U/L (26-308) Urine Color Pale yellow Urine Appearance Clear Urine pH 5 (4.5-8.0) Urine Specific [place] 1.015 (1.005-1.035) Urine Protein Negative (NEGATIVE) Urine Glucose (UA) Negative (NEGATIVE) Urine Ketones Negative (NEGATIVE) Urine Blood Negative (NEGATIVE) Urine Nitrite Negative (NEGATIVE) Urine Bilirubin Negative (NEGATIVE) Urine Urobilinogen Normal MG/DL (0.0-1.0) Urine Leukocyte Esterase 3+ (NEGATIVE) H Urine RBC 5-10 /HPF (0 - 2) H Urine WBC 10-15 /HPF (0 - 2) H Urine Squamous Epithelial Cells Few /LPF (NONE/OCC) Urine Bacteria Moderate /HPF (NONE) H Urine Eosinophils None seen (NONE SEEN) Urine Osmolality 523 mOsm/kg (429-449) H Urine Random Creatinine Pending Urine Random Microalbumin Pending Urine Random Sodium 140 mmol/L (20-110) H Urine Microalbumin/Creatinine Ratio Pending White Blood Count 5.4 K/UL (4.8-10.8) Red Blood Count 3.75 M/UL (4.20-5.40) L Hemoglobin 11.4 G/DL (12.0-16.0) L Hematocrit 35.6 % (37.0-47.0) L Mean Corpuscular Volume 95 FL (80-99) Mean Corpuscular Hemoglobin 30.4 PG (27.0-31.0) Mean Corpuscular Hemoglobin Concent 32.0 G/DL (32.0-36.0) Red Cell Distribution Width 12.9 % (11.6-14.8) Platelet Count 311 K/UL (150-450) Mean Platelet Volume 6.0 FL (6.5-10.1) L Neutrophils (%) (Auto) 43.5 % (45.0-75.0) L Lymphocytes (%) (Auto) 44.7 % (20.0-45.0) Monocytes (%) (Auto) 8.0 % (1.0-10.0) Eosinophils (%) (Auto) 2.6 % (0.0-3.0) Basophils (%) (Auto) 1.2 % (0.0-2.0) Prothrombin Time 10.1 SEC (9.30-11.50) Prothromb Time International Ratio 0.9 (0.9-1.1) Activated Partial Thromboplast Time 34 SEC (23-33) H Sodium Level 136 MMOL/L (136-145) Potassium Level 5.4 MMOL/L (3.5-5.1) H Chloride Level 109 MMOL/L (98-107) H Carbon Dioxide Level 19 MMOL/L (21-32) L Anion Gap 8 mmol/L (5-15) Blood Urea Nitrogen 33 mg/dL (7-18) H Creatinine 1.5 MG/DL (0.55-1.30) H Estimat Glomerular Filtration Rate mL/min (>60) Glucose Level 77 MG/DL (74-106) Calcium Level 9.9 MG/DL (8.5-10.1) Random Vancomycin Level 10.5 ug/mL Current Medications Medications (Trade) Dose Ordered Sig/Sd Route PRN Reason Start Time Stop Time Status Last Admin Dose Admin Acetaminophen (Tylenol) 650 mg Q4H PRN ORAL fever 12/23/18 21:45 01/22/19 21:44 Acetaminophen (Tylenol) 650 mg Q6H PRN ORAL Mild Pain (Pain Scale 1-3) 12/25/18 09:30 01/24/19 09:29 Acetaminophen/ Hydrocodone Bitart ([place] 5/325) 1 tab Q1H PRN ORAL Mild Pain (Pain Scale 1-3) 12/25/18 07:45 12/25/18 16:00 Acetaminophen/ Hydrocodone Bitart ([place] 5/325) 1 tab Q4H PRN ORAL Moderate Pain (Pain Scale 4-6) 12/25/18 09:30 01/01/19 09:29 Acetaminophen/ Hydrocodone Bitart ([place] 7.5/325) 1 tab Q1H PRN ORAL Moderate Pain (Pain Scale 4-6) 12/25/18 07:45 12/25/18 16:00 Al Hydroxide/Mg Hydroxide (Mylanta) 15 ml Q1H PRN ORAL gi upset 12/25/18 07:45 12/25/18 16:00 Albuterol/ Ipratropium (Albuterol/ Ipratropium) 3 ml Q4H PRN HHN Shortness of Breath 12/23/18 21:45 12/28/18 21:44 Amlodipine Besylate (Norvasc) 10 mg DAILY ORAL 12/24/18 09:00 01/23/19 08:59 12/24/18 08:44 Atropine Sulfate (Atropine 0.4mg/ ml) 0.5 mg Q5M PRN IVP HR<40 12/25/18 07:45 12/25/18 16:00 Aztreonam 1 gm/ Dextrose 55 ml @ 110 mls/hr Q12HR IVPB 12/24/18 10:00 12/31/18 09:59 12/25/18 10:30 Benazepril HCl (Lotensin) 40 mg DAILY ORAL 12/24/18 09:00 01/23/19 08:59 12/24/18 08:44 Dextrose (Dextrose 50%) STAT PRN IV Hypoglycemia 12/23/18 21:45 01/22/19 21:44 Diphenhydramine HCl (Benadryl) 25 mg Q15M PRN IVP Itching 12/25/18 07:45 12/25/18 16:00 Docusate Sodium (Colace) 100 mg TWICE A DAY ORAL 12/25/18 18:00 01/24/19 17:59 Fentanyl Citrate (Sublimaze 100 mcg/2 mL) 25 mcg Q10M PRN IV Moderate Pain (Pain Scale 4-6) 12/25/18 07:45 12/25/18 16:00 Heparin Sodium (Porcine) (Heparin 5000 units/ml) 5,000 units EVERY 12 HOURS SUBQ 12/24/18 09:00 01/23/19 08:59 12/24/18 22:44 Hydralazine HCl (Apresoline) 5 mg Q30M PRN IV SBP>160 / DBP>90 12/25/18 07:45 12/25/18 16:00 12/25/18 09:37 Hydromorphone HCl (Dilaudid) 0.5 mg Q15M PRN IVP Severe Pain (Pain Scale 7-10) 12/25/18 07:45 12/25/18 16:00 Insulin Aspart (NovoLOG) BEFORE MEALS AND HS SUBQ 12/24/18 06:30 01/23/19 06:29 Labetalol HCl (Normodyne) 5 mg Q10M PRN IV SBP>160 / DBP>90 12/25/18 07:45 12/25/18 16:00 Lorazepam (Ativan 2mg/ml 1ml) 1 mg Q15M PRN IV For Anxiety 12/25/18 07:45 12/25/18 16:00 Magnesium Hydroxide (Mom) 30 ml BIDPRN PRN ORAL Constipation 12/25/18 09:30 01/24/19 09:29 Meperidine HCl (Demerol) 25 mg Q5M PRN IVP Shivering.May repeat x 1 12/25/18 07:45 12/25/18 16:00 Metoclopramide HCl (Reglan) 10 mg Q1H PRN IVP Nausea & Vomiting 12/25/18 07:45 12/25/18 16:00 Midazolam HCl (Versed 2mg/2ml vial) 1 mg Q15M PRN IVP For Anxiety 12/25/18 07:45 12/25/18 16:00 Morphine Sulfate (Morphine Sulfate) 2 mg Q4H PRN IVP SEVERE PAIN 12/25/18 09:45 12/30/18 21:44 Nitroglycerin (Ntg) 0.4 mg Q5M PRN SL Prn Chest Pain 12/23/18 21:45 01/22/19 21:44 Ondansetron HCl (Zofran) 4 mg Q1H PRN IVP Nausea & Vomiting 12/25/18 07:45 12/25/18 16:00 Ondansetron HCl (Zofran) 4 mg Q6H PRN IVP Nausea & Vomiting 12/25/18 09:30 01/24/19 09:29 12/25/18 11:05 Oxycodone/ Acetaminophen (Percocet 5-325) 1 tab Q1H PRN ORAL Severe Pain (Pain Scale 7-10) 12/25/18 07:45 12/25/18 16:00 Polyethylene Glycol (Miralax) 17 gm DAILYPRN PRN ORAL Constipation 12/25/18 09:45 01/22/19 21:44 Sitagliptin Phosphate (Januvia) 50 mg ACBREAKFAST ORAL 12/24/18 06:30 01/23/19 06:29 12/24/18 06:12 Sodium Chloride 1,000 ml @ 75 mls/hr [id number] IV 12/24/18 22:15 01/23/19 22:14 12/25/18 12:29 Temazepam (Restoril) 15 mg HSPRN PRN ORAL Insomnia 12/23/18 21:45 12/30/18 21:44 Vancomycin HCl (Vanco rx to dose) 1 ea DAILY PRN MISC Per rx protocol 12/24/18 11:45 01/23/19 11:44 Lupe Mora M.D. Dec 25, 2018 13:22
--- NOTE | 2018-12-25 13:51 | Pulmonology Progress Note ---
Assessment/Plan Problems: (1) Left breast mass (2) Acute renal failure (ARF) (3) History of hypertension (4) Anemia (5) Diabetes mellitus (6) Hypertensive urgency (7) MDD (major depressive disorder), recurrent episode, moderate Assessment/Plan s/p drainage of the abscess staph growing so far, sensitivity pending sliding scale d/w Dr. Farr,pts primary physician, he wants Dr. arias to see the pt. Subjective ROS Limited/Unobtainable: No Constitutional: Reports: no symptoms HEENT: Repors: no symptoms Respiratory: Reports: no symptoms Allergies: Coded Allergies: PENICILLINS (Verified Allergy, Unknown, 06/03/15) Objective Last 24 Hour Vital Signs Date Time Temp Pulse Resp B/P (MAP) Pulse Ox O2 Delivery O2 Flow Rate FiO2 12/25/18 11:45 97.8 70 18 135/64 (87) 100 12/25/18 10:24 76 18 130/66 (87) 100 12/25/18 09:45 60 15 180/77 100 Nasal Cannula 3 12/25/18 09:37 190/80 12/25/18 09:30 61 18 183/78 100 Nasal Cannula 3 12/25/18 09:20 65 16 190/80 100 Nasal Cannula 3 12/25/18 09:10 63 14 182/92 100 Simple Mask 6 12/25/18 09:00 61 18 186/83 100 Simple Mask 6 12/25/18 09:00 Room Air 12/25/18 08:51 98.0 75 16 147/63 98 Simple Mask 6 12/25/18 08:49 75 16 100 12/25/18 04:00 97.8 65 16 124/70 (88) 97 12/25/18 00:00 97.2 69 17 143/79 (100) 99 12/24/18 21:00 Room Air 12/24/18 20:01 78 18 97 Room Air 21 12/24/18 20:00 98.5 69 16 132/69 (90) 98 12/24/18 16:00 98.4 76 18 131/66 (87) 99 Intake and Output 12/24/18 12/25/18 19:00 07:00 Intake Total 805 ml 580 ml Balance 805 ml 580 ml Intake Oral 750 ml IV Total 55 ml 580 ml # Voids 3 2 # Bowel Movements 1 HEENT: normocephalic, atraumatic Respiratory/Chest: chest wall non-tender, lungs clear Breasts: no masses Cardiovascular: normal peripheral pulses Abdomen: normal bowel sounds, no organomegaly Genitourinary: normal external genitalia Extremities: no clubbing Skin: no rash Microbiology Date/Time Source Procedure Growth Status 12/24/18 17:50 Urine,Clean Catch Urine Culture - Preliminary NO GROWTH Resulted 12/24/18 11:54 Breast Left Gram Stain - Final Resulted 12/24/18 11:54 Wound Culture - Preliminary Staphylococcus Aureus Resulted Laboratory Tests 12/24/18 15:39: Uric Acid 6.6, Total Creatine Kinase 57 12/24/18 17:50: Urine Color Pale yellow, Urine Appearance Clear, Urine pH 5, Urine Specific [place] 1.015, Urine Protein Negative, Urine Glucose (UA) Negative, Urine Ketones Negative, Urine Blood Negative, Urine Nitrite Negative, Urine Bilirubin Negative, Urine Urobilinogen Normal, Urine Leukocyte Esterase 3+H, Urine RBC 5- 10H, Urine WBC 10-15H, Urine Squamous Epithelial Cells Few, Urine Bacteria ModerateH, Urine Eosinophils None seen, Urine Osmolality 523H, Urine Random Creatinine [Pending], Urine Random Microalbumin [Pending], Urine Random Sodium 140H, Urine Microalbumin/Creatinine Ratio [Pending] 12/25/18 05:16: White Blood Count 5.4, Red Blood Count 3.75L, Hemoglobin 11.4L, Hematocrit 35.6L , Mean Corpuscular Volume 95, Mean Corpuscular Hemoglobin 30.4, Mean Corpuscular Hemoglobin Concent 32.0, Red Cell Distribution Width 12.9, Platelet Count 311, Mean Platelet Volume 6.0L, Neutrophils (%) (Auto) 43.5L, Lymphocytes (%) (Auto) 44.7, Monocytes (%) (Auto) 8.0, Eosinophils (%) (Auto) 2.6, Basophils (%) (Auto) 1.2, Prothrombin Time 10.1, Prothromb Time International Ratio 0.9, Activated Partial Thromboplast Time 34H, Sodium Level 136, Potassium Level 5.4H, Chloride Level 109H, Carbon Dioxide Level 19L, Anion Gap 8, Blood Urea Nitrogen 33H, Creatinine 1.5H, Estimat Glomerular Filtration Rate , Glucose Level 77, Calcium Level 9.9, Random Vancomycin Level 10.5 Current Medications Medications (Trade) Dose Ordered Sig/Sd Route PRN Reason Start Time Stop Time Status Last Admin Dose Admin Acetaminophen (Tylenol) 650 mg Q4H PRN ORAL fever 12/23/18 21:45 01/22/19 21:44 Acetaminophen (Tylenol) 650 mg Q6H PRN ORAL Mild Pain (Pain Scale 1-3) 12/25/18 09:30 01/24/19 09:29 Acetaminophen/ Hydrocodone Bitart ([place] 5/325) 1 tab Q1H PRN ORAL Mild Pain (Pain Scale 1-3) 12/25/18 07:45 12/25/18 16:00 Acetaminophen/ Hydrocodone Bitart ([place] 5/325) 1 tab Q4H PRN ORAL Moderate Pain (Pain Scale 4-6) 12/25/18 09:30 01/01/19 09:29 Acetaminophen/ Hydrocodone Bitart ([place] 7.5/325) 1 tab Q1H PRN ORAL Moderate Pain (Pain Scale 4-6) 12/25/18 07:45 12/25/18 16:00 Al Hydroxide/Mg Hydroxide (Mylanta) 15 ml Q1H PRN ORAL gi upset 12/25/18 07:45 12/25/18 16:00 Albuterol/ Ipratropium (Albuterol/ Ipratropium) 3 ml Q4H PRN HHN Shortness of Breath 12/23/18 21:45 12/28/18 21:44 Amlodipine Besylate (Norvasc) 10 mg DAILY ORAL 12/24/18 09:00 01/23/19 08:59 12/24/18 08:44 Atropine Sulfate (Atropine 0.4mg/ ml) 0.5 mg Q5M PRN IVP HR<40 12/25/18 07:45 12/25/18 16:00 Aztreonam 1 gm/ Dextrose 55 ml @ 110 mls/hr Q12HR IVPB 12/24/18 10:00 12/31/18 09:59 12/25/18 10:30 Benazepril HCl (Lotensin) 40 mg DAILY ORAL 12/24/18 09:00 01/23/19 08:59 12/24/18 08:44 Dextrose (Dextrose 50%) STAT PRN IV Hypoglycemia 12/23/18 21:45 01/22/19 21:44 Diphenhydramine HCl (Benadryl) 25 mg Q15M PRN IVP Itching 12/25/18 07:45 12/25/18 16:00 Docusate Sodium (Colace) 100 mg TWICE A DAY ORAL 12/25/18 18:00 01/24/19 17:59 Fentanyl Citrate (Sublimaze 100 mcg/2 mL) 25 mcg Q10M PRN IV Moderate Pain (Pain Scale 4-6) 12/25/18 07:45 12/25/18 16:00 Heparin Sodium (Porcine) (Heparin 5000 units/ml) 5,000 units EVERY 12 HOURS SUBQ 12/24/18 09:00 01/23/19 08:59 12/24/18 22:44 Hydralazine HCl (Apresoline) 5 mg Q30M PRN IV SBP>160 / DBP>90 12/25/18 07:45 12/25/18 16:00 12/25/18 09:37 Hydromorphone HCl (Dilaudid) 0.5 mg Q15M PRN IVP Severe Pain (Pain Scale 7-10) 12/25/18 07:45 12/25/18 16:00 Insulin Aspart (NovoLOG) BEFORE MEALS AND HS SUBQ 12/24/18 06:30 01/23/19 06:29 Labetalol HCl (Normodyne) 5 mg Q10M PRN IV SBP>160 / DBP>90 12/25/18 07:45 12/25/18 16:00 Lorazepam (Ativan 2mg/ml 1ml) 1 mg Q15M PRN IV For Anxiety 12/25/18 07:45 12/25/18 16:00 Magnesium Hydroxide (Mom) 30 ml BIDPRN PRN ORAL Constipation 12/25/18 09:30 01/24/19 09:29 Meperidine HCl (Demerol) 25 mg Q5M PRN IVP Shivering.May repeat x 1 12/25/18 07:45 12/25/18 16:00 Metoclopramide HCl (Reglan) 10 mg Q1H PRN IVP Nausea & Vomiting 12/25/18 07:45 12/25/18 16:00 Midazolam HCl (Versed 2mg/2ml vial) 1 mg Q15M PRN IVP For Anxiety 12/25/18 07:45 12/25/18 16:00 Morphine Sulfate (Morphine Sulfate) 2 mg Q4H PRN IVP SEVERE PAIN 12/25/18 09:45 12/30/18 21:44 Nitroglycerin (Ntg) 0.4 mg Q5M PRN SL Prn Chest Pain 12/23/18 21:45 01/22/19 21:44 Ondansetron HCl (Zofran) 4 mg Q1H PRN IVP Nausea & Vomiting 12/25/18 07:45 12/25/18 16:00 Ondansetron HCl (Zofran) 4 mg Q6H PRN IVP Nausea & Vomiting 12/25/18 09:30 01/24/19 09:29 12/25/18 11:05 Oxycodone/ Acetaminophen (Percocet 5-325) 1 tab Q1H PRN ORAL Severe Pain (Pain Scale 7-10) 12/25/18 07:45 12/25/18 16:00 Polyethylene Glycol (Miralax) 17 gm DAILYPRN PRN ORAL Constipation 12/25/18 09:45 01/22/19 21:44 Sitagliptin Phosphate (Januvia) 50 mg ACBREAKFAST ORAL 12/24/18 06:30 01/23/19 06:29 12/24/18 06:12 Sodium Chloride 1,000 ml @ 75 mls/hr [id number] IV 12/24/18 22:15 01/23/19 22:14 12/25/18 12:29 Temazepam (Restoril) 15 mg HSPRN PRN ORAL Insomnia 12/23/18 21:45 12/30/18 21:44 Vancomycin HCl (Vanco rx to dose) 1 ea DAILY PRN MISC Per rx protocol 12/24/18 11:45 01/23/19 11:44 Cass Nguyen MD Dec 25, 2018 13:51
--- NOTE | 2018-12-25 13:54 | NUR ---
NURSE NOTES: RECEIVED PT FROM PACU, REPORT GIVEN BY DAMIAN JULIO. PT IN NO APPARENT DISTRESS AT THIS TIME. VSS. PT DENIES PAIN. PT WAS GIVEN PRN ZOFRAN FOR NAUSEA. PER NORI, ANESTHESIOLOGIST INSERTED NEW IV RIGHT EJ G22; ASYMPTOMATIC, PATENT, INTACT. PT RESTING IN BED AT THIS TIME. CALL LIGHT WITHIN REACH. WILL CONTINUE TO MONITOR.
--- NOTE | 2018-12-25 16:00 | NUR ---
NURSE NOTES: DR COLINDRES AT BEDSIDE WITH ORDER TO START DRESSING CHANGE OF LEFT BREAST TOMORROW: PACKING AND COVER WITH DRY DRESSING.
--- NOTE | 2018-12-25 16:02 | Diagnostic Imaging Report ---
Indication:Elevated Bun and Creatinine. Technique: Grayscale and duplex Doppler imaging of the kidneys performed. Comparison: None Findings: Cortical echogenicity is diffusely increased within both kidneys. There is no hydronephrosis.. The right kidney measures 7.6 cm. in length. The left kidney measures 8.8 cm. in length. There are multiple tiny cysts bilaterally. There may be a small cyst within the anterior part of the spleen measuring 1.4 cm. The IVC is patent. Urinary bladder is unremarkable. IMPRESSION: Medical renal disease. Splenic cyst
[2018-12-25] MEDS: Docusate 100mg tablet ORAL SCH (17:19)
--- NOTE | 2018-12-25 19:20 | NUR ---
HAND-OFF: Report given to Elana KULKARNI RN.
--- NOTE | 2018-12-25 19:30 | NUR ---
NURSE NOTES: Patient awake in bed, alert and oriented x 4. no complaints of pain at this time. With IV on the right EJ g.22 connected to NS @75. Instructed the use of call light. Call light and needs in reach. Bed in lowest position and lock engaged. Will continue to monitor.
--- NOTE | 2018-12-25 19:32 | NUR ---
CASE MANAGEMENT: REVIEW SI: LEFT BREAST ABSCESS/MALIGNANCY LEFT BREAST ABSCESS I&D w/BIOPSY 12/25 T 98.4 HR 91 RR 18 BP 136/76 SAT 96% ROOM AIR H/H 11.4/35.6 K 5.4 BUN 33 CR 1.5 IS: KAYEXALATE PO X1 MORPHINE 2MG IV X1 NS IVF @75ML/HR AZACTAM IV Q12HR CLEAR LIQUID DIET MED/SURG STATUS DCP: PATIENT IS FROM HOME
[2018-12-25] MEDS ORDERED: Sodium Polystyrene Sulfonate 15gm Powder ORAL SCH (21:00)
--- NOTE | 2018-12-25 23:15 | Consultation ---
DATE OF CONSULTATION: 12/25/2018 NOTE: POOR AUDIO. CONSULTING PHYSICIAN: Nita Waggoner M.D. REFERRING PHYSICIAN: Aiden Hinds M.D. REASON FOR CONSULTATION: Left-sided breast mass. HISTORY OF PRESENT ILLNESS: The patient's case has been in detail discussed with Dr. Hinds as well as Dr. Carter, the patient's dish machine operator as well as Dr. Sun of surgical team. The patient is status post surgical procedure in pharmacist. The patient has been evaluated on an urgent basis postoperatively while she was still very groggy with postanesthesia effects. In brief, the patient is a pleasant 73-year-old female with history of hypertension, diabetes, osteoarthritis. The patient presented to the hospital with left-sided chest wall mass/cellulitis/abscess. Per report, the patient had undergone CT scan of the chest, which had demonstrated mass consistent with possibly the abscess. The patient has been evaluated by surgical team, has undergone surgical drainage on 12/25/2018, as well as breast mass biopsies of multiple areas. Case has been discussed with Dr. Sun of surgical team. The mass was noted to be most probably malignant, however, pathology is currently pending. The patient has been followed by Dr. Carter in regard to diagnosis of osteogenesis imperfecta, osteoarthritis, and osteoporosis. PAST MEDICAL HISTORY: Hypertension, hypercholesterolemia, diabetes, osteogenesis imperfecta, osteoarthritis, osteoporosis. PAST SURGICAL HISTORY: Status post left hip open reduction and internal fixation, left knee arthritis, meniscus repair, total abdominal hysterectomy, left breast biopsy in the past. MEDICATIONS: Noted. ALLERGIES: Noted. SOCIAL HISTORY: the patient is , lives with her daughter. I am trying to attempt to get a hold of the daughter, no answers back yet. No tobacco, alcohol, or drugs. REVIEW OF SYSTEMS: The patient is unable to obtain full review of systems at this point in time. PHYSICAL EXAMINATION: VITAL SIGNS: The patient has temperature of 98.5, respiratory rate 17, pulse of 75, blood pressure 130/65. HEENT: Sclerae anicteric. CHEST: Rhonchi bilaterally. There is a left-sided breast mass, postsurgical changes. The breast wound is noted. CARDIAC: Regular. ABDOMEN: Soft, nontender, nondistended. EXTREMITIES: No cyanosis or clubbing. There is trace edema in the lower extremities. LABORATORY AND DIAGNOSTIC DATA: Laboratory as well as investigation has been noted. The patient has undergone CAT scan of the chest on 12/23/2018 demonstrating scattered cystic changes, prominent left upper lobe nodule noted, coronary artery calcification has been noted, 1.5 cm left thyroid nodule has been noted, prominent left axillary lymph node has been noted, main pulmonary artery and ascending aorta within normal limits. Upper abdomen demonstrated 1.2 cm nodule, soft tissue demonstrates 3.6 x 3.2 x 3.7 cm lobulated left breast mass with some calcification, overlying skin thickening and retraction is noted, a portion of the mass appears to be fluid filled measuring approximately 1.8 x 2.2 x 2.4 cm. Bones are for the most part demineralized. The patient's laboratory as well as investigation studies otherwise demonstrate hemoglobin 11.4, white count 5.4, platelet count of 111,000. The patient's creatinine on admission has been noted to be 1.5, continues to be at 1.5 with potassium of 5.4 and calcium of 9.9. ASSESSMENT: 1. Fungating left-sided breast mass with abscess formation, status post I and D as well as multiple biopsies. We will await results of the biopsy. The patient had subsequently imaging studies. The patient had CT scan of the chest and the patient subsequently had MRI of the abdomen and pelvis demonstrating bone scan. It can be done as an outpatient basis. We will await the results of pathology and have pathologist to proceed with . 2. History of hyperlipidemia, per primary team. 3. History of osteoarthritis. 4. Skin abscess. Continue antibiotics per primary team. 5. Renal insufficiency per primary team. 6. Hyperkalemia, per primary team. Case has been in detail discussed with Dr. Carter as well as Dr. Hinds. Nita Waggoner M.D. DR: Aiyana JOB#: [id number] CC:
[2018-12-26] VITALS: BP 137/60
--- NOTE | 2018-12-26 00:41 | NUR ---
NURSE NOTES: There were uncollected urine on order history. Urine collected and sent to the lab. Spoke with [facility] and they said they were already done on 12/24. Charge nurse made aware.
[2018-12-26 01:01] LABS: APPEARANCE,URINE CLEAR; BILIRUBIN, URINE NEGATIVE (NEGATIVE); COLOR,URINE PALE YELLOW; GLUCOSE, URINE (UA) NEGATIVE (NEGATIVE); KETONES,URINE NEGATIVE (NEGATIVE); LEUKOCYTE ESTERASE ,URINE NEGATIVE (NEGATIVE); NITRITE,URINE NEGATIVE (NEGATIVE); PH,URINE 5 (4.5-8.0); PROTEIN,URINE NEGATIVE (NEGATIVE); UROBILINOGEN,URINE NORMAL MG/DL (0.0-1.0)
[2018-12-26 04:00] VITALS: BP 149/77
[2018-12-26] MEDS: NovoLOG Insulin Flexpen SUBQ SCH ×3 (05:34→16:30)
[2018-12-26] MEDS: sitaGLIPtin 50mg tab ORAL SCH (06:21)
--- NOTE | 2018-12-26 06:55 | NUR ---
HAND-OFF: Report given to DAMIAN Rivers.
[2018-12-26 07:10] LABS: ANION GAP 9 mmol/L (5-15); BLOOD UREA NITROGEN 34 mg/dL (7-18); CARBON DIOXIDE 19 MMOL/L (21-32); CHLORIDE 111 MMOL/L (98-107); CREATININE 1.7 MG/DL (0.55-1.30); POTASSIUM 5.5 MMOL/L (3.5-5.1); SODIUM 139 MMOL/L (136-145)
[2018-12-26 07:19] LABS: BASOPHILS % (AUTO) 1.1 % (0.0-2.0); EOSINOPHILS % (AUTO) 2.8 % (0.0-3.0); HEMATOCRIT 32.9 % (37.0-47.0); HEMOGLOBIN 10.5 G/DL (12.0-16.0); LYMPHOCYTES % (AUTO) 33.3 % (20.0-45.0); MEAN CORPUSCULAR VOLUME 96 FL (80-99); MONOCYTES % (AUTO) 8.7 % (1.0-10.0); NEUTROPHILS % (AUTO) 54.1 % (45.0-75.0); PLATELET COUNT 279 K/UL (150-450); RED BLOOD COUNT 3.43 M/UL (4.20-5.40); RED CELL DISTRIBUTION WIDTH 13.1 % (11.6-14.8); WHITE BLOOD COUNT 5.8 K/UL (4.8-10.8)
[2018-12-26 08:00] VITALS: BP 193/99
[2018-12-26] MEDS: Docusate 100mg tablet ORAL SCH (08:01)
[2018-12-26] MEDS: Heparin 5000 units/ml inj SUBQ SCH (08:08)
[2018-12-26] MEDS: Aztreonam 1gm in D5W 55ml IVPB SCH (08:41)
--- NOTE | 2018-12-26 11:15 | 48 Hour Post Anesthesia Eval ---
Post Anesthesia Evaluation Procedure: Excisional Bx of L breast mass Date of Evaluation: Dec 26, 2018 Airway: patent Nausea: No Vomiting: No Hydration Status: adequate Cardiopulmonary Status: at baseline Mental Status/LOC: patient returned to baseline Post-Anesthesia Complications: 0 Follow-up care needed: N/A - further care as per stephen team Franci Silva MD Dec 26, 2018 11:15
--- NOTE | 2018-12-26 11:38 | NUR ---
NURSE NOTES: PT AXOX4, AMBULATING WITH WALKER. SEEN AND CLEARED BY PHYSICAL THERAPY. PT DENIES PAIN. LEFT BREAST SURGICAL DRESSING CLEAN, DRY, AND INTACT. DENIES SOB OR DIZZINESS. PT IS SITTING ON CHAIR WAITING FOR LUNCH. PT EDUCATED TO CALL RN BEFORE GOING BACK TO BED. WILL CONTINUE TO MONITOR.
--- NOTE | 2018-12-26 11:41 | Infectious Diseases Prog Note ---
Assessment/Plan Assessment/Plan Assessment: L breast infected mass and abscess, likely breast CA -12/25 SP incision and drainage of left breast abscess . left breast mass biopsy --cx NTD -12/24 wound cx MSSA -CT chest: Complex left breast mass with overlying skin thickening and retraction highly suspicious for neoplasm, with adjacent fluid component which may represent abscess collection. Follow-up breast ultrasound is recommended to evaluate fluid component and biopsy is recommended for tissue diagnosis. 4 mm left upper lobe nodule which may be infectious/inflammatory, however in the presence of breast mass, metastatic disease cannot be excluded. Complex left thyroid nodule. Correlation with thyroid ultrasound is recommended. 1.2 cm left adrenal nodule, likely adenoma. Multilevel thoracic vertebral compression deformities of indeterminate age and unclear etiology. Correlation with prior imaging or dedicated MR spine is recommended to assess for pathologic fractures. -Breast US: -1Left breast ultrasound images demonstrating multiple left breast masses, which when comparison with same day chest CT likely represents single complex cystic/solid mass, containing calcifications. Findings highly suspicious for malignancy. Adjacent complex cystic structure which may represent fluid collection or abscess; at time of biopsy, fluid sampling is recommended. Left axillary lymph node with abnormal morphology, suspicious for [place] disease. Afebrile No leukocytosis -12/23 CXR: No airspace consolidation. Dm2 HTN Plan: -D/c Aztreonam #3 -Continue Vancomycin #/-14 for MSSA breast abscess -upon discharge, can transition to PO Clindamycin 450mg qid -12/23 SP Clindamycin x1 -f/u cx -Monitor CBC/CMP, temperatures -f/u wound cx, path -Sx f/u Thank you for this consultation. Will continue to follow along with you. Discussed with RN Subjective Allergies: Coded Allergies: PENICILLINS (Verified Allergy, Unknown, 06/03/15) Subjective afebril no leukocytosis Objective Vital Signs Last 24 Hour Vital Signs Date Time Temp Pulse Resp B/P (MAP) Pulse Ox O2 Delivery O2 Flow Rate FiO2 12/26/18 09:45 84 20 98 Room Air 21 12/26/18 09:00 Room Air 12/26/18 08:01 149/77 12/26/18 08:01 83 149/77 12/26/18 08:00 97.6 82 18 193/99 (130) 97 12/26/18 04:00 98.2 83 18 149/77 (101) 98 8/15/19 00:00 97.9 91 18 137/60 (85) 99 12/25/18 21:00 Room Air 12/25/18 20:39 76 18 96 Room Air 21 12/25/18 20:00 97.7 73 16 141/68 (92) 94 12/25/18 16:00 98.4 91 18 136/76 (96) 12/25/18 11:45 97.8 70 18 135/64 (87) 100 Height (Feet): 4 Height (Inches): 8.00 Weight (Pounds): 106 Objective General appearance: alert, cooperative, no distress, appears stated age Head: Normocephalic, without obvious abnormality, atraumatic Eyes: conjunctivae/corneas clear. PERRL, EOM's intact. Fundi benign Throat: Lips, mucosa, and tongue normal. Teeth and gums normal Neck: supple, symmetrical, trachea midline, no adenopathy, thyroid: not enlarged, symmetric, no tenderness/mass/nodules, no carotid bruit and no JVD Lungs: clear to auscultation bilaterally Heart: regular rate and rhythm, S1, S2 normal, no murmur, click, rub or gallop Abdomen: soft, non-tender. Bowel sounds normal. No masses, no organomegaly Extremities: extremities normal, atraumatic, no cyanosis or edema Pulses: 2+ and symmetric Skin: Skin color, texture, turgor normal. No rashes or lesions Neurologic: Grossly normal left breast as below Microbiology Date/Time Source Procedure Growth Status 12/24/18 17:50 Urine,Clean Catch Urine Culture - Final Staphylococcus Aureus Complete 12/25/18 08:26 Breast Left Gram Stain - Final Resulted 12/25/18 08:26 Breast Left Aerobic Culture - Preliminary NO GROWTH Resulted 12/25/18 08:26 Breast Left Anaerobic Culture Pending Resulted 12/24/18 11:54 Breast Left Gram Stain - Final Complete 12/24/18 11:54 Wound Culture - Final Staphylococcus Aureus Usual Skin Radha Complete Laboratory Tests Test 12/26/18 00:15 12/26/18 05:44 Urine Color Pale yellow Urine Appearance Clear Urine pH 5 (4.5-8.0) Urine Specific [place] 1.010 (1.005-1.035) Urine Protein Negative (NEGATIVE) Urine Glucose (UA) Negative (NEGATIVE) Urine Ketones Negative (NEGATIVE) Urine Blood Negative (NEGATIVE) Urine Nitrite Negative (NEGATIVE) Urine Bilirubin Negative (NEGATIVE) Urine Urobilinogen Normal MG/DL (0.0-1.0) Urine Leukocyte Esterase Negative (NEGATIVE) Urine RBC 0-2 /HPF (0 - 2) Urine WBC 0 /HPF (0 - 2) Urine Squamous Epithelial Cells Few /LPF (NONE/OCC) Urine Bacteria None /HPF (NONE) Urine Eosinophils Negative (NONE SEEN) Urine Osmolality 355 mOsm/kg (429-449) L Urine Random Creatinine Pending Urine Random Microalbumin Pending Urine Random Sodium 82 mmol/L (20-110) Urine Microalbumin/Creatinine Ratio Pending White Blood Count 5.8 K/UL (4.8-10.8) Red Blood Count 3.43 M/UL (4.20-5.40) L Hemoglobin 10.5 G/DL (12.0-16.0) L Hematocrit 32.9 % (37.0-47.0) L Mean Corpuscular Volume 96 FL (80-99) Mean Corpuscular Hemoglobin 30.7 PG (27.0-31.0) Mean Corpuscular Hemoglobin Concent 32.0 G/DL (32.0-36.0) Red Cell Distribution Width 13.1 % (11.6-14.8) Platelet Count 279 K/UL (150-450) Mean Platelet Volume 5.8 FL (6.5-10.1) L Neutrophils (%) (Auto) 54.1 % (45.0-75.0) Lymphocytes (%) (Auto) 33.3 % (20.0-45.0) Monocytes (%) (Auto) 8.7 % (1.0-10.0) Eosinophils (%) (Auto) 2.8 % (0.0-3.0) Basophils (%) (Auto) 1.1 % (0.0-2.0) Sodium Level 139 MMOL/L (136-145) Potassium Level 5.5 MMOL/L (3.5-5.1) H Chloride Level 111 MMOL/L (98-107) H Carbon Dioxide Level 19 MMOL/L (21-32) L Anion Gap 9 mmol/L (5-15) Blood Urea Nitrogen 34 mg/dL (7-18) H Creatinine 1.7 MG/DL (0.55-1.30) H Estimat Glomerular Filtration Rate mL/min (>60) Glucose Level 108 MG/DL (74-106) H Calcium Level 9.0 MG/DL (8.5-10.1) Current Medications Medications (Trade) Dose Ordered Sig/Sd Route PRN Reason Start Time Stop Time Status Last Admin Dose Admin Acetaminophen (Tylenol) 650 mg Q4H PRN ORAL fever 12/23/18 21:45 01/22/19 21:44 Acetaminophen (Tylenol) 650 mg Q6H PRN ORAL Mild Pain (Pain Scale 1-3) 12/25/18 09:30 01/24/19 09:29 Acetaminophen/ Hydrocodone Bitart ([place] 5/325) 1 tab Q4H PRN ORAL Moderate Pain (Pain Scale 4-6) 12/25/18 09:30 01/01/19 09:29 Albuterol/ Ipratropium (Albuterol/ Ipratropium) 3 ml Q4H PRN HHN Shortness of Breath 12/23/18 21:45 12/28/18 21:44 Amlodipine Besylate (Norvasc) 10 mg DAILY ORAL 12/24/18 09:00 01/23/19 08:59 12/26/18 08:01 Aztreonam 1 gm/ Dextrose 55 ml @ 110 mls/hr Q12HR IVPB 12/24/18 10:00 12/31/18 09:59 12/26/18 08:41 Benazepril HCl (Lotensin) 40 mg DAILY ORAL 12/24/18 09:00 01/23/19 08:59 12/26/18 08:01 Dextrose (Dextrose 50%) STAT PRN IV Hypoglycemia 12/23/18 21:45 01/22/19 21:44 Docusate Sodium (Colace) 100 mg TWICE A DAY ORAL 12/25/18 18:00 01/24/19 17:59 12/26/18 08:01 Heparin Sodium (Porcine) (Heparin 5000 units/ml) 5,000 units EVERY 12 HOURS SUBQ 12/24/18 09:00 01/23/19 08:59 12/26/18 08:08 Insulin Aspart (NovoLOG) BEFORE MEALS AND HS SUBQ 12/24/18 06:30 01/23/19 06:29 Magnesium Hydroxide (Mom) 30 ml BIDPRN PRN ORAL Constipation 12/25/18 09:30 01/24/19 09:29 Morphine Sulfate (Morphine Sulfate) 2 mg Q4H PRN IVP SEVERE PAIN 12/25/18 09:45 12/30/18 21:44 Nitroglycerin (Ntg) 0.4 mg Q5M PRN SL Prn Chest Pain 12/23/18 21:45 01/22/19 21:44 Ondansetron HCl (Zofran) 4 mg Q6H PRN IVP Nausea & Vomiting 12/25/18 09:30 01/24/19 09:29 12/25/18 11:05 Polyethylene Glycol (Miralax) 17 gm DAILYPRN PRN ORAL Constipation 12/25/18 09:45 01/22/19 21:44 Sitagliptin Phosphate (Januvia) 50 mg ACBREAKFAST ORAL 12/24/18 06:30 01/23/19 06:29 12/26/18 06:21 Sodium Chloride 1,000 ml @ 75 mls/hr [id number] IV 12/24/18 22:15 01/23/19 22:14 12/26/18 02:07 Temazepam (Restoril) 15 mg HSPRN PRN ORAL Insomnia 12/23/18 21:45 12/30/18 21:44 Vancomycin HCl (Vanco rx to dose) 1 ea DAILY PRN MISC Per rx protocol 12/24/18 11:45 01/23/19 11:44 Lupe Mora M.D. Dec 26, 2018 11:41
[2018-12-26 12:00] VITALS: BP 150/80
[2018-12-26] MEDS ORDERED: CLINDAMYCIN HC150 MG ORAL (13:22)
--- NOTE | 2018-12-26 13:24 | Pulmonology Progress Note ---
Assessment/Plan Problems: (1) Left breast mass (2) Acute renal failure (ARF) (3) History of hypertension (4) Anemia (5) Diabetes mellitus (6) Hypertensive urgency (7) MDD (major depressive disorder), recurrent episode, moderate Assessment/Plan s/p drainage of the abscess staph growing so far, sensitivity pending sliding scale d/w Dr. Farr,pts primary physician, he wants Dr. arias to see the pt. dc home with clindamycin for 10 days as recommended by ID Subjective ROS Limited/Unobtainable: No Constitutional: Reports: no symptoms HEENT: Repors: no symptoms Respiratory: Reports: no symptoms Allergies: Coded Allergies: PENICILLINS (Verified Allergy, Unknown, 06/03/15) Objective Last 24 Hour Vital Signs Date Time Temp Pulse Resp B/P (MAP) Pulse Ox O2 Delivery O2 Flow Rate FiO2 12/26/18 12:00 98.0 81 19 150/80 (103) 99 12/26/18 09:45 84 20 98 Room Air 21 12/26/18 09:00 Room Air 12/26/18 08:01 149/77 12/26/18 08:01 83 149/77 12/26/18 08:00 97.6 82 18 193/99 (130) 97 12/26/18 04:00 98.2 83 18 149/77 (101) 98 12/26/18 00:00 97.9 91 18 137/60 (85) 99 12/25/18 21:00 Room Air 12/25/18 20:39 76 18 96 Room Air 21 12/25/18 20:00 97.7 73 16 141/68 (92) 94 12/25/18 16:00 98.4 91 18 136/76 (96) Intake and Output 12/25/18 12/26/18 19:00 07:00 Intake Total 940 ml 475 ml Balance 940 ml 475 ml Intake Oral 360 ml 400 ml IV Total 580 ml 75 ml # Voids 2 4 General Appearance: WD/WN HEENT: normocephalic, atraumatic Respiratory/Chest: chest wall non-tender, lungs clear Cardiovascular: normal peripheral pulses, normal rate, no gallop/murmur Abdomen: normal bowel sounds, non distended Genitourinary: normal external genitalia Skin: no rash Microbiology Date/Time Source Procedure Growth Status 12/24/18 17:50 Urine,Clean Catch Urine Culture - Final Staphylococcus Aureus Complete 12/25/18 08:26 Breast Left Gram Stain - Final Resulted 12/25/18 08:26 Breast Left Aerobic Culture - Preliminary NO GROWTH Resulted 12/25/18 08:26 Breast Left Anaerobic Culture Pending Resulted 12/24/18 11:54 Breast Left Gram Stain - Final Complete 12/24/18 11:54 Wound Culture - Final Staphylococcus Aureus Usual Skin Radha Complete Laboratory Tests 12/26/18 00:15: Urine Color Pale yellow, Urine Appearance Clear, Urine pH 5, Urine Specific [place] 1.010, Urine Protein Negative, Urine Glucose (UA) Negative, Urine Ketones Negative, Urine Blood Negative, Urine Nitrite Negative, Urine Bilirubin Negative, Urine Urobilinogen Normal, Urine Leukocyte Esterase Negative, Urine RBC 0-2, Urine WBC 0, Urine Squamous Epithelial Cells Few, Urine Bacteria None, Urine Eosinophils Negative, Urine Osmolality 355L, Urine Random Creatinine [ Pending], Urine Random Microalbumin [Pending], Urine Random Sodium 82, Urine Microalbumin/Creatinine Ratio [Pending] 12/26/18 05:44: White Blood Count 5.8, Red Blood Count 3.43L, Hemoglobin 10.5L, Hematocrit 32.9L , Mean Corpuscular Volume 96, Mean Corpuscular Hemoglobin 30.7, Mean Corpuscular Hemoglobin Concent 32.0, Red Cell Distribution Width 13.1, Platelet Count 279, Mean Platelet Volume 5.8L, Neutrophils (%) (Auto) 54.1, Lymphocytes ( %) (Auto) 33.3, Monocytes (%) (Auto) 8.7, Eosinophils (%) (Auto) 2.8, Basophils (%) (Auto) 1.1, Sodium Level 139, Potassium Level 5.5H, Chloride Level 111H, Carbon Dioxide Level 19L, Anion Gap 9, Blood Urea Nitrogen 34H, Creatinine 1.7H , Estimat Glomerular Filtration Rate , Glucose Level 108H, Calcium Level 9.0 Current Medications Medications (Trade) Dose Ordered Sig/Sd Route PRN Reason Start Time Stop Time Status Last Admin Dose Admin Acetaminophen (Tylenol) 650 mg Q4H PRN ORAL fever 12/23/18 21:45 01/22/19 21:44 Acetaminophen (Tylenol) 650 mg Q6H PRN ORAL Mild Pain (Pain Scale 1-3) 12/25/18 09:30 01/24/19 09:29 Acetaminophen/ Hydrocodone Bitart ([place] 5/325) 1 tab Q4H PRN ORAL Moderate Pain (Pain Scale 4-6) 12/25/18 09:30 01/01/19 09:29 Albuterol/ Ipratropium (Albuterol/ Ipratropium) 3 ml Q4H PRN HHN Shortness of Breath 12/23/18 21:45 12/28/18 21:44 Amlodipine Besylate (Norvasc) 10 mg DAILY ORAL 12/24/18 09:00 01/23/19 08:59 12/26/18 08:01 Benazepril HCl (Lotensin) 40 mg DAILY ORAL 12/24/18 09:00 01/23/19 08:59 12/26/18 08:01 Dextrose (Dextrose 50%) STAT PRN IV Hypoglycemia 12/23/18 21:45 01/22/19 21:44 Docusate Sodium (Colace) 100 mg TWICE A DAY ORAL 12/25/18 18:00 01/24/19 17:59 12/26/18 08:01 Heparin Sodium (Porcine) (Heparin 5000 units/ml) 5,000 units EVERY 12 HOURS SUBQ 12/24/18 09:00 01/23/19 08:59 12/26/18 08:08 Insulin Aspart (NovoLOG) BEFORE MEALS AND HS SUBQ 12/24/18 06:30 01/23/19 06:29 Magnesium Hydroxide (Mom) 30 ml BIDPRN PRN ORAL Constipation 12/25/18 09:30 01/24/19 09:29 Morphine Sulfate (Morphine Sulfate) 2 mg Q4H PRN IVP SEVERE PAIN 12/25/18 09:45 12/30/18 21:44 Nitroglycerin (Ntg) 0.4 mg Q5M PRN SL Prn Chest Pain 12/23/18 21:45 01/22/19 21:44 Ondansetron HCl (Zofran) 4 mg Q6H PRN IVP Nausea & Vomiting 12/25/18 09:30 01/24/19 09:29 12/25/18 11:05 Polyethylene Glycol (Miralax) 17 gm DAILYPRN PRN ORAL Constipation 12/25/18 09:45 01/22/19 21:44 Sitagliptin Phosphate (Januvia) 50 mg ACBREAKFAST ORAL 12/24/18 06:30 01/23/19 06:29 12/26/18 06:21 Sodium Chloride 1,000 ml @ 75 mls/hr [id number] IV 12/24/18 22:15 01/23/19 22:14 12/26/18 02:07 Temazepam (Restoril) 15 mg HSPRN PRN ORAL Insomnia 12/23/18 21:45 12/30/18 21:44 Vancomycin HCl (Vanco rx to dose) 1 ea DAILY PRN MISC Per rx protocol 12/24/18 11:45 01/23/19 11:44 Cass Nguyen MD Dec 26, 2018 13:24
--- NOTE | 2018-12-26 14:42 | General Progress Note ---
Progress Note Progress Note POD #1 doing well dressings changed site clean with new dressings applied spoke with pathology. carcinoma. pending details with final report micro noted d/c planning from surgical standpoint daughter stated she will help with wound care and they plan to travel soon but will be back plan for follow up with me in 2 weeks on 01/08 at 10am plan to f/u with oncology thank you Lukas Sun Dec 26, 2018 14:42
--- NOTE | 2018-12-26 15:01 | NUR ---
P.T NOTE: P.T evaluation completed. Pt is alert , O x4 pleasant and cooperative. No major c/o pain and agreeable to participate in P.T evaluation. Pt is currently functioning independently at baseline. Skilled P.T service is not needed at this time. Encouraged patient OOB activities VS bedrest unless otherwise ordered. Pt verbalized understanding. No further P.T follow up needed. DC P.T services. Thank you for this referral.
[2018-12-26 16:00] VITALS: BP 151/79
--- NOTE | 2018-12-26 17:28 | NUR ---
NURSE NOTES: PT'S DTG CHRISTIANO WAS AT BEDSIDE, REQUESTING HOME HEALTH SERVICES FOR WOUND CARE. RN SPOKE TO DUB ROOM ENGINEER ODILON AND MADE AWARE OF DTG REQUESTING TO SPEAK TO DUB ROOM ENGINEER. PER ODILON, SHE DOES NOT HAVE TIME TO SPEAK TO PT AND TOLD RN TO GIVE [facility] NUMBER AND THEY WILL CALL PT TO VERIFY SERVICES. RN EXPLAINED THIS TO CHRISTIANO, WHO INSISTED TO SPEAK TO ODILON. CHRISTIANO WAS TAKEN TO DUB ROOM ENGINEER'S OFFICE TO SPEAK TO ODILON. AFTER DAUGHTER SPOKE TO DUB ROOM ENGINEER, RN EDUCATED PT AND DAUGHTER ON WOUND CARE AND S/S OF INFECTION. FOLLOW UP WITH DR COLINDRES'S OFFICE ON SundayJAN 08 FOR FOLLOW UP. PER CHRISTIANO, SHE WILL NOT BE ABLE TO MAKE SUNDAY'S APPOINTMENT AND WANTS SUNDAY. RN EDUCATED DTG TO CALL OFFICE TOMORROW AND REARRANGE APPOINTMENT. RN GAVE FAMILY DR COLINDRES'S NUMBER AND OFFICE ADDRESS TO FOLLOW UP. RN ALSO GAVE NEW PRESCRIPTION FOR CLINDAMYCIN TO START FOUR TIMES A DAY X10 DAYS. BOTH VERBALIZED UNDERSTANDING. IV ACCESS OF RIGHT EJ WAS TAKEN OUT AT 1600 HRS. PRESSURE DRESSING APPLIED. NO BLEEDING NOTED. RN EDUCATED FAMILY TO MONITOR FOR BLEEDING AND APPLY PRESSURE DRESSING AND CALL EMERGENCY SERVICES IF CONTINUED BLEEDING. RN DEMONSTRATED HOW TO PERFORM WOUND CARE AND SUPPLIES GIVEN TO CHRSITIANO. PT WAS ESCORTED TO PRIVATE VEHICLE VIA WHEELCHAIR. PT WAS DISCHARGED IN STABLE CONDITION.
--- NOTE | 2018-12-26 22:39 | Discharge Summary ---
Discharge Summary Hospital Course Date of Admission Dec 23, 2018 at 20:44 Date of Discharge Dec 26, 2018 at 17:19 Admitting Diagnosis deep left breast abscess/mallignancy, hyperkalemi HPI Hoa Porter is a 73 year old female who was admitted on Dec 23, 2018 at 20:44 for Deep Left Breast Abscess/Mallignancy,Hyperkalemi Hospital Course Last 24 Hour Vital Signs Date Time Temp Pulse Resp B/P (MAP) Pulse Ox O2 Delivery O2 Flow Rate FiO2 12/26/18 16:00 83 18 151/79 (103) 98 12/26/18 12:00 98.0 81 19 150/80 (103) 99 12/26/18 09:45 84 20 98 Room Air 21 12/26/18 09:00 Room Air 12/26/18 08:01 149/77 12/26/18 08:01 83 149/77 12/26/18 08:00 97.6 82 18 193/99 (130) 97 12/26/18 04:00 98.2 83 18 149/77 (101) 98 12/26/18 00:00 97.9 91 18 137/60 (85) 99 Discharge Discharge Disposition Patient was discharged to Aiden Hinds MD Dec 26, 2018 22:39
--- NOTE | 2018-12-27 | Discharge Summary ---
DATE OF ADMISSION: 12/23/2018 DATE OF DISCHARGE: 12/26/2018 HISTORY OF PRESENT ILLNESS: This is a 73-year-old very delightful female with past medical history significant for diabetes type 2, hypertension, dyslipidemia, osteogenesis imperfecta, osteoporosis, osteoarthritis, history of left breast lumpectomy benign, total abdominal hysterectomy, left knee meniscus repair, left hip open reduction and internal fixation, who was presented to the hospital complaining about the left breast mass, painful, tender. Shortly after initial evaluation, the patient was admitted to the hospital with left breast mass, possible infected mass with abscess. HOSPITAL COURSE: Throughout the hospital course, the patient was consulted with Dr. Mora from Infectious Disease, Dr. Sun from Surgery, Dr. Nguyen from Pulmonary/Critical Care, and Dr. Nita Waggoner from Hematology/Oncology. The patient underwent debridement of the wound and biopsy, and was noted to have MSSA infection. Initially was started on broad-spectrum antibiotics with vancomycin as well as Azactam and subsequently was switched to clindamycin. The patient was discharged home on clindamycin 400 mg p.o. 4 times a day, to be followed as an outpatient with Dr. Nita Waggoner. FINAL DIAGNOSES: 1. Infected left breast mass with abscess, most likely secondary to underlying breast cancer. 2. Complex left mass with overlying skin thickening adjacent to the chest wall. 3. Diabetes type 2. 4. Hypertension. 5. Osteogenesis imperfecta. 6. Osteoporosis. 7. Osteoarthritis. MEDICATIONS ON DISCHARGE: Continue discharge medication list. ACTIVITY: As tolerated. DIET: Would be 1800-ADA cardiac diet. FOLLOWUP: The patient was advised to follow up with Dr. Nita Waggoner from Hematology/Oncology as well as Dr. Nish Carter from Rheumatology. Aiden Hinds M.D. DR: Dionne JOB#: [id number] CC:
--- NOTE | 2018-12-27 00:30 | Operative Note - Dictated ---
DATE OF OPERATION: 12/25/2018 PREOPERATIVE DIAGNOSIS: Infected left breast mass with abscess. POSTOPERATIVE DIAGNOSIS: Infected left breast mass with abscess. OPERATION PERFORMED: 1. Incision and drainage of the left breast abscess. 2. Left breast mass biopsy. ATTENDING SURGEON: Lukas Sun M.D. BOARDING MACHINE OPERATOR: None. ANESTHESIOLOGIST: Hernandez Resendiz M.D. ANESTHESIA: General ASSISTANT PROFESSOR OF SURGERY plus local. ESTIMATED BLOOD LOSS: Minimal. IV FLUIDS: Please see anesthesia records. COMPLICATIONS: None. DRAINS: None. SPECIMENS: 1. Microbiology cultures. 2. Left breast mass. DRAINS: None. IMPLANTS: None. WOUND CLASSIFICATION: Class III. COUNTS: Sponge and needle count correct x2. ANTIBIOTICS: The patient is on scheduled IV antibiotics for acute active infectious process. INDICATIONS FOR PROCEDURE: This 73-year-old female presented to emergency department of [facility] complaining of worsening left breast mass and drainage. She was identified to have a mass with abscess. Ultrasound identified a fluid collection consistent with abscess and a CT scan demonstrated a large mass infiltrating the chest wall concerning highly suspicious and concerning for neoplasm. Surgery was indicated and recommended. I had a long discussion with the patient and her daughter regards to surgery and operative plan and indications. I explained to her that she currently has a mass that is likely a cancer that has been there for some time and is now invading the chest wall with axillary lymph nodes. Furthermore, I explained the mass is now acute with superimposed infection. Infection needs to be drained, but no operative curative plan is made for the mass. Mass has not been biopsied before given that will be in the operating room and undergo incision and drainage do biopsy of the mass so that we can begin to initiate a treatment plan. Oncologist has been called for plan details and explained to the family as well as medical teams. Consent was obtained. OPERATIVE NOTE: The patient was taken to the operating room and placed on the operating table in the supine position with bilateral arms out. All bony prominences were well padded. SCDs were placed. Preoperative time-out taken in identifying the patient, procedure, operative staff, and surgical staff. General anesthesia was induced and the patient was intubated. The left axilla and chest wall were clipped and prepped in standard surgical fashion. A large mass was identified with a fluctuant area. After proper draping, the area of maximum fluctuance was identified and a fresh #15 scalpel was used and the area was incised. Immediately, drainage of seropurulent fluid was identified and cultured. The fluid was evacuated and approximately 3 x 4 cm x 2 cm deep abscess cavity was identified. The abscess cavity was then cleared and underlying, there was a significantly large mass fixated to the chest wall. A portion of the mass was fungating out. A fungating portion of the mass including the skin in the mass was biopsied using a fresh #15 scalpel. This was sent as the specimen to pathology for evaluation. Following this, 2 areas were irrigated, cleansed, and no other fluctuance or other abnormalities were noted. Hemostasis achieved with electrocautery. Packing with gauze was placed followed by dressings. Local anesthetic was infiltrated. The patient tolerated the procedure well, was extubated, and taken to postanesthetic care unit in stable condition. Operative findings were discussed with the family and the patient. Lukas Sun M.D. DR: VICTOR M JOB#: [id number] CC:
--- NOTE | 2018-12-27 23:02 | Diagnostic Imaging Report ---
APPROVED REPORT CPT Code: 04346 Present Symptoms Comments: Screening Pain BILATERAL: Imaging reveals a patent deep venous system bilaterally. There is no evidence of thrombus within the common femoral, superficial femoral, popliteal or tibial segments. The greater saphenous veins are within normal limits. Doppler indicates normal spontaneous flow within these segments.
== END 2018-12-26 17:19 | disposition home or self-care (01) | DRG 584 ==
LOC: EMR 17:25 → CANBEDREQ 20:21 → EDBEDREQ 20:43 → 4E 20:44
PROC: 0HBU0ZX Excision of Left Breast, Open Approach, Diagnostic (ICD-10-PCS; principal; 2018-12-25 08:00)
PROC: 0H9U0ZZ Drainage of Left Breast, Open Approach (ICD-10-PCS; principal; 2018-12-25 08:00)
DX: C50.912 Malignant neoplasm of unspecified site of left female breast (principal); N17.9 Acute kidney failure, unspecified; F33.1 Major depressive disorder, recurrent, moderate; Q78.0 Osteogenesis imperfecta; N61.1 Abscess of the breast and nipple; I16.0 Hypertensive urgency; E86.0 Dehydration; E87.5 Hyperkalemia; I10 Essential (primary) hypertension; E78.00 Pure hypercholesterolemia, unspecified; M81.0 Age-related osteoporosis without current pathological fracture; Z88.0 Allergy status to penicillin; E11.9 Type 2 diabetes mellitus without complications
CPT/HCPCS: 36415; 71045; 71250; 76770; 80048; 80053; 80202; 81001; 82043; 82378; 82550; 82962; 83735; 83935; 84300; 84550; 85025; 85610; 85651; 85730; 86140; 86850; 86900; 86901; 87070; 87075; 87086; 87181; 87205; 89050; 93005; 93970; 94003; 94150; 94664; 96361; 96365; 99285; J1815; J2250; J2405; J3490; S0077

== ENCOUNTER 2019-02-06 10:59 | Inpatient (IN) | payer MEDICARE, OTHER ==
[~2019-02-06] VITALS: Ht 127 cm; Wt 44.5 kg
[2019-02-06] VITALS (13 sets, daily range): BP systolic 142–212; BP diastolic 77–100
[~2019-02-06 10:59] MED LIST changes: +CEPHALEXIN500 MG ORAL; +CLINDAMYCIN HC150 MG ORAL; +IBUPROFEN600 MG ORAL
[2019-02-06] MEDS ORDERED: FLUOXETINE HCL20 MG ORAL (11:26)
--- NOTE | 2019-02-06 12:17 | Pre-Procedure Note/Attestation ---
Pre-Procedure Note/Attestation Complete Prior to Procedure Procedure Narrative: INSERTION OF PORTACATH TUNNELLED IMPLANTABLE CENTRAL VENOUS CATHETER AND PORT Indications for Procedure Pre-Operative Diagnosis: breast cancer to undergo chemo Attestation I attest that I discussed the nature of the procedure; its benefits; risks and complications; and alternatives (and the risks and benefits of such alternatives ), prior to the procedure, with the patient (or the patient's legal market survey representative). I attest that, if there was a reasonable possibility of needing a blood transfusion, the patient (or the patient's legal market survey representative) was given the [facility] standardized written summary, pursuant to the [place] Blood Safety Act ([place] Health and Safety Code # 1645, as amended). I attest that I re-evaluated the patient just prior to the surgery and that there has been no change in the patient's H&P, except as documented below: Lukas Sun Feb 06, 2019 12:17
[2019-02-06] MEDS ORDERED: fentaNYL 100 mcg/2 mL ONE (14:31)
[2019-02-06] MEDS ORDERED: Bacitracin Oint 15gm Tube TOPIC ONE (14:59)
[2019-02-06] MEDS ORDERED: LR 1000ml ONE (15:00)
[2019-02-06] MEDS ORDERED: Sterile Water Irrig 1000ml IRRIG ONE (15:00)
[2019-02-06] MEDS ORDERED: Bupivacaine 0.25% Inj 30ml INJ ONE (15:00)
[2019-02-06] MEDS ORDERED: Lidocaine 1% 10mg/ml/Epi 0.005mg/ml 30ml vial INJ ONE (15:00)
[2019-02-06] MEDS ORDERED: Bacitracin 50000 Units Vial ONE (15:00)
[2019-02-06] MEDS ORDERED: Propofol 200mg/20ml IV ONE (15:00)
[2019-02-06] MEDS ORDERED: Heparin 1000 units/ml 1ml Vial ONE (15:00)
[2019-02-06] MEDS ORDERED: NS Irrig 1000ml ONE (15:00)
[2019-02-06] MEDS ORDERED: Heparin 5000 units/ml inj ONE (15:00)
[2019-02-06] MEDS ORDERED: Bupivacaine 0.5% Inj 30 ml vial INJ ONE (15:01)
[2019-02-06] MEDS ORDERED: Lidocaine 1% MPF 10mg/ml 5ml ONE (15:09)
[2019-02-06] MEDS ORDERED: NS 110ml IRRIG ONE (15:35)
[2019-02-06] MEDS ORDERED: LR 1000ml 1,000 ML IVLG SCH (16:23)
--- NOTE | 2019-02-06 16:23 | Anethesia Preoperative Eval ---
Anesthesia Pre-op PMH/ROS General Date of Evaluation: Feb 06, 2019 Time of Evaluation: 15:10 Anesthesiologist: Jannet ASA Score: ASA 3 Mallampati Score Class I : Soft palate, uvula, fauces, pillars visible Class II: Soft palate, uvula, fauces visible Class III: Soft palate, base of uvula visible Class IV: Only hard plate visible Mallampati Classification: Class III Surgeon: Rosendo Diagnosis: Breast CA Surgical Procedure: Permacath placement Anesthesia History: none Family History: no anesthesia problems Allergies: Coded Allergies: PENICILLINS (Verified Allergy, Unknown, 06/03/15) Medications: see eMAR Patient NPO?: Yes Past Medical History Cardiovascular: Reports: HTN; Denies: CAD, [place], valve dz, arrhythmia, other Pulmonary: Denies: asthma, COPD, HORACIO, other Gastrointestinal/Genitourinary: Reports: GERD, CRI; Denies: ESRD, other Neurologic/Psychiatric: Reports: depression/anxiety; Denies: dementia, CVA, TIA, other Endocrine: Reports: DM, hypothyroidism HEENT: Denies: cataract (L), cataract (R), glaucoma, NISQUALLY (L), NISQUALLY (R), other Hematology/Immune: Reports: anemia Musculoskeletal/Integumentary: Reports: other - oteogenesis imperfecta; Denies: OA, RA, DJD, DDD, edema PMH Narrative: as above PSxH Narrative: Multiple for treatment of fractures Anesthesia Pre-op Phys. Exam Physician Exam Last Vital Signs Date Time Temp Pulse Resp B/P (MAP) Pulse Ox O2 Delivery O2 Flow Rate FiO2 02/06/19 11:40 97.1 59 20 161/80 99 Room Air Constitutional: NAD Neurologic: CN 2-12 intact Cardiovascular: RRR, no M/R/G Respiratory: CTA Gastrointestinal: S/NT/ND Airway Exam Mallampati Score: Class III MO: limited Neck: stiff ROM: limited Teeth: missing Dentures: no upper, no lower Anesthesia Pre-op A/P Labs see chart Studies Pre-op Studies: EKG - SR Risk Assessment & Plan Assessment: ASA 3 Plan: GA with LMA Status Change Before Surgery: No Pre-Antibiotics Drug: Ancef 1gr. Given Within 1 Hr of Incision: Yes Time Given: 16:10 Ariel Power MD Feb 06, 2019 16:23
[2019-02-06] MEDS ORDERED: Hydromorphone 0.5mg/0.5ml inj IVP PRN (16:30)
[2019-02-06] MEDS ORDERED: Ketorolac 30mg Inj IV PRN (16:30)
--- NOTE | 2019-02-06 17:21 | Brief Operative Note ---
Immediate Post Operative Note Operative Note Pre-op Diagnosis: breast cancer to undergo chemo Procedure: 1. left chest wall tunneled internal jugular implanted port a cath central venous catheter with implantable port Post-op Diagnosis: same as pre-op Surgeon: raya Anesthesiologist: gardenia Anesthesia: general, local Specimen: none Complications: none Condition: stable Fluids: see records Estimated Blood Loss: minimal Drains: none Implant(s) used?: Yes - bard 6f port Lukas Sun Feb 06, 2019 17:21
[2019-02-06] MEDS ORDERED: HYDROcodone/Acetamin 5/325 tab ORAL PRN (17:30)
[2019-02-06] MEDS ORDERED: Morphine Sulfate 2mg/ml Inj(IV/IM USE ONLY) IVP PRN ×2 (17:30)
[2019-02-06] MEDS ORDERED: Sennosides 8.6mg tab ORAL PRN (17:30)
[2019-02-06] MEDS ORDERED: Milk of Magnesia 30ml Ud ORAL PRN (17:30)
--- NOTE | 2019-02-06 17:35 | Immediate Post-Op Evaluation ---
Immediate Post-Op Evalulation Immediate Post-Op Evalulation Procedure: Infusaport catheter placement Date of Evaluation: Feb 06, 2019 Time of Evaluation: 17:34 IV Fluids: 1000 Blood Products: none Estimated Blood Loss: 50 Urinary Output: none Blood Pressure Systolic: 172 Blood Pressure Diastolic: 76 Pulse Rate: 68 Respiratory Rate: 20 O2 Sat by Pulse Oximetry: 100 Temperature (Fahrenheit): 97.4 Pain Score (1-10): 1 Nausea: No Vomiting: No Complications none Patient Status: reacts, patent, none Hydration Status: adequate Ariel Power MD Feb 06, 2019 17:35
[2019-02-06] MEDS ORDERED: Labetalol 5mg/ml 20ml vial IV ONE (17:57)
[2019-02-06] MEDS ORDERED: Tubing IV Secondary IV ONE (17:58)
[2019-02-06] MEDS ORDERED: Labetalol 5mg/ml 20ml vial IV SCH (18:01)
--- NOTE | 2019-02-06 19:25 | NUR ---
NURSE NOTES: Received pr from PACU via bed, AOx4, denies any pain, no distress noted. Left nasir cath in-place with steri strips, no bleeding noted. IV left foot #22 patent and intact. Oxygen 3liters via nasal canala. SCD on right leg. Complain of nausea, will medicate as needed. Bed in lowest position and locked, side rails up 2, call light within reach. Will continue to monitor.
--- NOTE | 2019-02-06 19:48 | NUR ---
NURSE NOTES: Spoke to regarding patient and new order received. Order read back and carried out.
[2019-02-06] MEDS ORDERED: D5 1/2NS w/KCl 20mEq 1,000 ML IV SCH (20:00)
--- NOTE | 2019-02-06 21:55 | NUR ---
NURSE NOTES: Per July (Venous tech), right port a cath site is bleeding whenever she scan the area. Per tech, she wants Dr. Sun to be called and do the stat venous duplex in am. Assessed area noted minimal amount of bleeding noted. Informed tech to continue doing the venous scan. Informed DAVE Ng. Will continue to monitor.
--- NOTE | 2019-02-06 22:00 | NUR ---
NURSE NOTES: Pt tolerated clear liquid without any nausea. Will advance diet to regular.
[2019-02-06] MEDS: Clindamycin 600mg 50 ML IV SCH (22:58)
--- NOTE | 2019-02-06 23:00 | NUR ---
NURSE NOTES: Per July (racking technician), she noted blood clot on right jugular vein. Asked July to give me preliminary report so I can let Dr. Sun made aware. Awaiting for preliminary report. DAMIAN Jefferson aware.
--- NOTE | 2019-02-06 23:45 | NUR ---
NURSE NOTES: Preliminary venous duplex report of upper and lower extremities sent to Dr. Sun.
--- NOTE | 2019-02-06 23:47 | NUR ---
NURSE NOTES: Dr. Sun saw preliminary venous duplex report of upper and lower extremities. No orders given.
[2019-02-07] VITALS: BP 147/84
[2019-02-07 04:00] VITALS: BP 138/71
[2019-02-07] MEDS: Clindamycin 600mg 50 ML IV SCH ×2 (05:10→14:17)
[2019-02-07 06:41] LABS: BASOPHILS % (AUTO) 0.5 % (0.0-2.0); HEMATOCRIT 33.9 % (37.0-47.0); HEMOGLOBIN 10.8 G/DL (12.0-16.0); LYMPHOCYTES % (AUTO) 10.9 % (20.0-45.0); MEAN CORPUSCULAR VOLUME 98 FL (80-99); MONOCYTES % (AUTO) 4.2 % (1.0-10.0); NEUTROPHILS % (AUTO) 84.4 % (45.0-75.0); PLATELET COUNT 276 K/UL (150-450); RED BLOOD COUNT 3.47 M/UL (4.20-5.40); RED CELL DISTRIBUTION WIDTH 12.8 % (11.6-14.8); WHITE BLOOD COUNT 9.4 K/UL (4.8-10.8)
[2019-02-07 06:56] LABS: ANION GAP 9 mmol/L (5-15); BLOOD UREA NITROGEN 40 mg/dL (7-18); CARBON DIOXIDE 22 MMOL/L (21-32); CHLORIDE 107 MMOL/L (98-107); CREATININE 1.7 MG/DL (0.55-1.30); POTASSIUM 5.7 MMOL/L (3.5-5.1); SODIUM 138 MMOL/L (136-145)
--- NOTE | 2019-02-07 07:12 | 48 Hour Post Anesthesia Eval ---
Post Anesthesia Evaluation Procedure: Infusaport catheter placement Date of Evaluation: Feb 07, 2019 Time of Evaluation: 06:48 Blood Pressure Systolic: 138 0: 71 Pulse Rate: 79 Respiratory Rate: 16 Temperature (Fahrenheit): 98.7 O2 Sat by Pulse Oximetry: 100 Airway: patent Nausea: No Vomiting: No Pain Intensity: 2 Hydration Status: adequate Cardiopulmonary Status: Stable Mental Status/LOC: patient returned to baseline Follow-up Care/Observations: 0 Post-Anesthesia Complications: 0 Follow-up care needed: N/A Hernandez Resendiz MD Feb 07, 2019 07:12
--- NOTE | 2019-02-07 07:34 | NUR ---
HAND-OFF: Report given to DAMIAN Lew. Pt stable condition.
--- NOTE | 2019-02-07 07:35 | NUR ---
NURSE NOTES: Received report from DAMIAN Hernandez. Pt is a/o x 4, in bed. No respiratory distress. Denies any pain at this time. Lt port a cath dressing is C/D/I. No N/V noted. Bed in lowest position, call light within reach. Will continue to monitor.
[2019-02-07 08:00] VITALS: BP 130/68
--- NOTE | 2019-02-07 08:30 | NUR ---
P.T Note: P.T evaluation completed. Pt is alert, O X 4 , pleasant and cooperative. Pt denied c/o of pain nor discomfort. Pt is totally independent in all areas of ADL/functional activities and gait/locomotion using the cane. Current functional status does not warrant skilled P.T service as this time. [place] P.T services. Thank you for this referral.
[2019-02-07] MEDS: Docusate 100mg cap ORAL SCH ×2 (08:42→18:01)
--- NOTE | 2019-02-07 11:53 | Diagnostic Imaging Report ---
Indication: Dyspnea Comparison: 12/23/2018 A single view chest radiograph was obtained. Findings: Mixed interstitial alveolar densities demonstrated throughout the lungs probably on the basis of the pulmonary vascular congestion. Perihilar infiltrate not excluded. There is a left chest port present. The tip of the port is projected over the right atrium. The heart is mildly enlarged. Bones are osteopenic. IMPRESSION: Suspected pulmonary vascular congestion due to heart failure. Superimposed perihilar pneumonia not excluded
[2019-02-07 12:00] VITALS: BP 140/69
--- NOTE | 2019-02-07 12:28 | Diagnostic Imaging Report ---
Indication: Intraoperative imaging during Port-A-Cath placement COMPARISON: None FINDINGS: 4 fluoroscopic images were obtained intraoperatively. Fluoroscopic time 114 seconds Images show placement of a left jugular Port-A-Cath. This is in the left anterior chest wall. IMPRESSION: Intraoperative imaging as described above
--- NOTE | 2019-02-07 15:15 | NUR ---
CASE MANAGEMENT:REVIEW 73 YR OLD FEMALE HERE FOR ELECTIVE SURGERY SI: BREAST CANCER 97.1 66 20 161/80 99% ON RA IS: TO SURGERY FOR: LT CHEST WALL TUNNELED INTERNAL JUGULAR IMPLANTED PORT A CATH CENTRAL VENOUS CATHETER W/IMPLANTABLE PORT : TO MED/SURG POST OP
[2019-02-07 16:00] VITALS: BP 144/73
--- NOTE | 2019-02-07 16:52 | Surgery Progress Note ---
Surgery Progress Note Subjective Procedure Performed 1. left chest wall tunneled internal jugular implanted port a cath central venous catheter with implantable port Symptoms: improved, pain absent, tolerating diet, voiding well, passing flatus Additional Comments US noted DVT acute Objective Last 24 Hour Vital Signs Date Time Temp Pulse Resp B/P (MAP) Pulse Ox O2 Delivery O2 Flow Rate FiO2 02/07/19 16:00 98.5 81 18 144/73 (96) 99 02/07/19 12:00 98.9 78 18 140/69 (92) 98 02/07/19 09:00 Room Air 02/07/19 08:00 98.7 88 18 130/68 (88) 98 02/07/19 07:12 79 16 100 02/07/19 04:00 98.7 79 16 138/71 (93) 100 02/07/19 00:00 97.5 81 16 147/84 (105) 100 02/06/19 21:00 Nasal Cannula 3.0 02/06/19 20:00 97.4 83 18 142/80 (100) 100 02/06/19 20:00 97.4 83 18 142/80 (100) 100 02/06/19 19:20 97.1 77 15 165/78 100 Nasal Cannula 3 02/06/19 19:10 74 14 173/77 100 Nasal Cannula 3 02/06/19 19:07 97.1 02/06/19 19:00 70 12 185/84 100 Nasal Cannula 3 02/06/19 18:56 195/88 02/06/19 18:45 71 12 198/87 100 Nasal Cannula 3 02/06/19 18:30 75 10 205/100 100 Nasal Cannula 3 02/06/19 18:15 66 10 206/93 100 Nasal Cannula 3 02/06/19 18:03 70 207/94 02/06/19 18:00 65 10 207/94 100 Nasal Cannula 3 02/06/19 17:50 65 13 212/96 100 Nasal Cannula 3 02/06/19 17:40 68 24 193/90 100 Simple Mask 6 02/06/19 17:35 68 10 200/90 100 Simple Mask 6 02/06/19 17:35 68 20 100 02/06/19 17:32 97.4 66 12 210/93 100 Simple Mask 6 I&O Intake and Output 02/06/19 02/07/19 19:00 07:00 Intake Total 1000 ml 975 ml Output Total 50 ml Balance 950 ml 975 ml Intake Oral 100 ml IV Total 1000 ml 875 ml Output Estimated Blood Loss 50 ml # Voids 1 Dressing: dry Wound: clean Cardiovascular: RSR Respiratory: clear Abdomen: soft, flat, non-tender, present bowel sounds Extremities: no edema, no tenderness, no cyanosis Laboratory Tests Test 02/07/19 04:45 White Blood Count 9.4 K/UL (4.8-10.8) Red Blood Count 3.47 M/UL (4.20-5.40) L Hemoglobin 10.8 G/DL (12.0-16.0) L Hematocrit 33.9 % (37.0-47.0) L Mean Corpuscular Volume 98 FL (80-99) Mean Corpuscular Hemoglobin 31.1 PG (27.0-31.0) H Mean Corpuscular Hemoglobin Concent 31.8 G/DL (32.0-36.0) L Red Cell Distribution Width 12.8 % (11.6-14.8) Platelet Count 276 K/UL (150-450) Mean Platelet Volume 6.8 FL (6.5-10.1) Neutrophils (%) (Auto) 84.4 % (45.0-75.0) H Lymphocytes (%) (Auto) 10.9 % (20.0-45.0) L Monocytes (%) (Auto) 4.2 % (1.0-10.0) Eosinophils (%) (Auto) 0.0 % (0.0-3.0) Basophils (%) (Auto) 0.5 % (0.0-2.0) Prothrombin Time 10.3 SEC (9.30-11.50) Prothromb Time International Ratio 1.0 (0.9-1.1) Activated Partial Thromboplast Time 27 SEC (23-33) Sodium Level 138 MMOL/L (136-145) Potassium Level 5.7 MMOL/L (3.5-5.1) H Chloride Level 107 MMOL/L (98-107) Carbon Dioxide Level 22 MMOL/L (21-32) Anion Gap 9 mmol/L (5-15) Blood Urea Nitrogen 40 mg/dL (7-18) H Creatinine 1.7 MG/DL (0.55-1.30) H Estimat Glomerular Filtration Rate mL/min (>60) Glucose Level 170 MG/DL (74-106) H Calcium Level 10.0 MG/DL (8.5-10.1) Plan Problems: (1) Acute internal jugular vein thrombosis Assessment & Plan: see operative report US noted admit post op cancer patient with acute dvt start heparin gtt will follow Lukas Sun Feb 07, 2019 16:52
[2019-02-07] MEDS ORDERED: Heparin 25,000u/D5W 500ml 500 ML IV SCH (17:45)
--- NOTE | 2019-02-07 19:30 | NUR ---
NURSE NOTES: Receive a report from DAMIAN Lew. Round is done. Pt is in bed, awake and alert. No acute distress noted. Denies pain. Left chest wall implanted port site is clear without any bleeding signs. Heparin drip is 18u/kg/hr(16ml/hr) running on left foot with 22G. No bleeding signs noted. Will check aPTT q 6hr. SCD is on right leg. I/S at bed side and encourage to do while awake. Call light within reach. Will continue to monitor.
--- NOTE | 2019-02-07 19:31 | NUR ---
HAND-OFF: Report given to DAMIAN Yeung. Pt is stable with heparin drip.
[2019-02-07 20:00] VITALS: BP 140/75
--- NOTE | 2019-02-07 21:15 | Operative Note - Dictated ---
DATE OF OPERATION: 02/07/2019 PREOPERATIVE DIAGNOSIS: Breast cancer to undergo chemotherapy. POSTOPERATIVE DIAGNOSIS: Breast cancer to undergo chemotherapy. OPERATION PERFORMED: Left chest wall tunneled internal jugular implanted Port-A-Cath central venous catheter with implantable port. ATTENDING SURGEON: Lukas Sun M.D. MOTION PICTURE EQUIPMENT MACHINIST: None. ANESTHESIOLOGIST: Ariel Power M.D. ANESTHESIA: General GETA plus local. ESTIMATED BLOOD LOSS: Minimal. IV FLUIDS: Please see anesthesia records. COMPLICATIONS: None. DRAINS: None. COUNTS: Sponge and needle count correct x2. ANTIBIOTICS: The patient given IV antibiotics one hour prior to cut time. IMPLANTS: [employer] PowerPort slim implantable port, reference number [id number], lot number , date of expiration 08/11/2021. INDICATIONS FOR PROCEDURE: This 73-year-old female with left breast mass, which was a prior biopsy by myself after acute active infection and identified to be the breast cancer. The patient was discharged and has been seen by her oncologist, Dr. Nita Waggoner here who has planned the patient undergo chemotherapy. The patient requires implantable port to undergo ongoing chemotherapy under the guidance of the oncologist. The patient was scheduled for port placement on 02/06/2019. Risks, benefits, and alternatives discussed with patient in detail, who expressed understanding and consented for surgery. OPERATIVE NOTE: The patient was taken to the operating room and placed on the operating table in the supine position with bilateral arms tucked. All bony prominences well padded. SCDs were placed. Preoperative time-out taken to identify the patient, procedure, operative staff and surgical staff. General anesthesia was induced and LMA was placed by the anesthesiologist. Cipro 400 mg IV was given 1 hour prior to cut time. The bilateral chest wall and necks were prepped and draped in standard surgical fashion. Initial attempt was made at right subclavian access with a finder needle and venous blood was obtained and guidewire passed. Fluoroscopy was used and identified a guidewire not being able to be inserted without resistance. At this time, decision made to go right internal jugular. Ultrasound guidance clearly at this time identified in the right internal jugular there is a large near obstructive clot. Given this finding, very large clot in the right internal jugular that could be identified on ultrasound intraoperatively and inability to pass a guidewire from the right subclavian. Decision was made to more access on the right side and ultrasound guidance was used to evaluate the left internal jugular and left internal jugular was noted to be clear without thrombus. At this time, given these findings, it was not felt safe or appropriate to place a Port-A-Cath on the right given that the right subclavian likely does have an occlusion given the findings of a large near occlusive acute DVT on the right internal jugular that likely probably is deeper. The guidewire could not be passed safely and therefore right side not appropriate for use. Given this and the patient's need to undergo chemotherapy prior to any surgical resection, decision was made to place a Port-A-Cath on the left side with plans for intervention as necessary for the left breast cancer in the future, but in the meantime, the patient has received appropriate chemotherapeutic neoadjuvant therapy. Using ultrasound guidance, the left internal jugular was cannulated with a needle and a guidewire was passed. Needle was removed. Following this, position on the left chest wall was identified for port placement. A incision was made in the left chest wall and carried down to subcutaneous tissue where a pocket was created with electrocautery for the port. Following this, a tunneling device was used to tunnel the port catheter from the incision point at the left internal jugular down to the area of the newly created port site in the left chest wall. No complication from tunnelling device noted and catheter passed freely. Following this, a dilator and sheath was inserted over the guidewire and the guidewire was removed. The dilator was removed and peel-away sheath was left in place. The catheter was placed into the peel-away sheath and the peel-away sheath was broken and retracted. The catheter was then cut appropriately at the chest wall and port attached and locked. The port was then clearly aspirated and flushed without complication. The port was placed in the created cavity and sutured into places with 2-0 Prolene sutures. The port site skin incision was reapproximated in a two-layer fashion beginning with a 3-0 Vicryl suture followed by 4-0 Monocryl subcuticular running suture. The left neck small incision for insertion site and tunneling was reapproximated using 4-0 Monocryl subcuticular interrupted suture. Incision sites were cleansed, skin glue and Steri-Strips applied. Of note, throughout the procedure fluoroscopy was used to ensure guidewire appropriate positioning as well as catheter positioning. The patient was extubated, taken to postanesthetic care unit in stable condition where chest x-ray was taken identifying good port placement and catheter placements. At this time, decision made to admit the patient postoperatively for upper and lower extremity duplex studies given intraoperative findings. Lukas Sun M.D. DR: Zaynab JOB#: [id number] CC: AVA
[2019-02-08 00:45] VITALS: BP 111/73
--- NOTE | 2019-02-08 01:00 | NUR ---
NURSE NOTES: Received report from Anjana, RN and round made. Received pt laying in bed, AOx4, denies any pain, no distress noted. IV left foot patent and intact. Heparin drip infusing 16ml/hr rate 18. Bed in lowest postion and locked, side rails up x 2, call light within reach. Will continue to monitor.
--- NOTE | 2019-02-08 01:00 | NUR ---
NURSE NOTES: aPTT result came out as 80 sec within range to maintain the same dose. Will continue to follow up q 6hr. Pt is continent but put on diaper as pt's request during night time. Skin intact. Will continue to monitor.
--- NOTE | 2019-02-08 01:00 | NUR ---
HAND-OFF: Report given to DAMIAN Hernandez. Round is done. No noted acute distress.
[2019-02-08 04:00] VITALS: BP 141/68
[2019-02-08 04:54] LABS: BASOPHILS % (AUTO) 0.9 % (0.0-2.0); EOSINOPHILS % (AUTO) 1.5 % (0.0-3.0); HEMATOCRIT 29.1 % (37.0-47.0); HEMOGLOBIN 9.4 G/DL (12.0-16.0); MEAN CORPUSCULAR VOLUME 96 FL (80-99); MONOCYTES % (AUTO) 10.5 % (1.0-10.0); NEUTROPHILS % (AUTO) 62.1 % (45.0-75.0); PLATELET COUNT 247 K/UL (150-450); RED BLOOD COUNT 3.02 M/UL (4.20-5.40); RED CELL DISTRIBUTION WIDTH 12.5 % (11.6-14.8); WHITE BLOOD COUNT 7.5 K/UL (4.8-10.8)
[2019-02-08 05:23] LABS: ALANINE AMINOTRANSFERASE 31 U/L (12-78); ALBUMIN 3.1 G/DL (3.4-5.0); ALBUMIN/GLOBULIN RATIO 1.1 (1.0-2.7); ALKALINE PHOSPHATASE 111 U/L (46-116); ANION GAP 9 mmol/L (5-15); ASPARTATE AMINO TRANSFERASE 19 U/L (15-37); BILIRUBIN,TOTAL 0.2 MG/DL (0.2-1.0); BLOOD UREA NITROGEN 47 mg/dL (7-18); CALCIUM 9.3 MG/DL (8.5-10.1); CARBON DIOXIDE 24 MMOL/L (21-32); CHLORIDE 105 MMOL/L (98-107); CREATININE 1.8 MG/DL (0.55-1.30); POTASSIUM 5.2 MMOL/L (3.5-5.1); SODIUM 138 MMOL/L (136-145)
--- NOTE | 2019-02-08 06:45 | NUR ---
NURSE NOTES: PTT result 114. Hold infusion for 30 mins. Decrease by 3units/kg/hr. Next PTT at 1315.
[2019-02-08] MEDS ORDERED: Heparin 25,000u/D5W 500ml 500 ML IV SCH (07:15)
--- NOTE | 2019-02-08 07:15 | NUR ---
NURSE NOTES: New rate 15units/kg/hr. Veriied by DAMIAN Hampton.
--- NOTE | 2019-02-08 07:30 | NUR ---
NURSE NOTES: Patient is in bed awake and able to verbalize needs. Stable. Denies pain or SOB. Patient is running heparin as ordered. No signs of distress noted. Patient encouraged to use call light for assistance, verbalized understanding. Patient is in bed in locked and lowest position with call light within reach. All needs met at this time. Will continue to monitor.
--- NOTE | 2019-02-08 07:32 | NUR ---
HAND-OFF: Report given to DAMIAN Hampton. Pt in stable condition.
[2019-02-08 08:00] VITALS: BP 175/86
[2019-02-08] MEDS: Docusate 100mg cap ORAL SCH ×2 (09:21→17:43)
[2019-02-08 11:22] VITALS: BP 164/85
--- NOTE | 2019-02-08 12:31 | Surgery Progress Note ---
Surgery Progress Note Subjective Procedure Performed 1. left chest wall tunneled internal jugular implanted port a cath central venous catheter with implantable port Symptoms: improved, pain absent, tolerating diet, voiding well, passing flatus Objective Last 24 Hour Vital Signs Date Time Temp Pulse Resp B/P (MAP) Pulse Ox O2 Delivery O2 Flow Rate FiO2 02/08/19 11:32 165/80 02/08/19 11:22 98.5 89 18 164/85 (111) 98 02/08/19 09:21 81 175/86 02/08/19 09:21 175/86 02/08/19 09:00 Room Air 02/08/19 08:00 98.4 81 20 175/86 (115) 99 02/08/19 04:00 98.7 75 18 141/68 (92) 95 02/08/19 00:45 98.0 82 18 111/73 (86) 97 02/07/19 21:00 Room Air 02/07/19 20:00 98.9 81 20 140/75 (96) 98 02/07/19 16:00 98.5 81 18 144/73 (96) 99 I&O Intake and Output 02/07/19 02/08/19 18:59 06:59 Intake Total 750 ml 212.021 ml Balance 750 ml 212.021 ml Intake Oral 400 ml 100 ml IV Total 350 ml 112.021 ml # Voids 3 3 Dressing: dry Wound: clean Cardiovascular: RSR Respiratory: clear Abdomen: soft, flat, non-tender, present bowel sounds Extremities: no edema, no tenderness, no cyanosis Laboratory Tests Test 02/07/19 17:30 02/08/19 00:22 02/08/19 04:30 02/08/19 06:05 Activated Partial Thromboplast Time 27 SEC (23-33) 88 SEC (23-33) H 114 SEC (23-33) H White Blood Count 7.5 K/UL (4.8-10.8) Red Blood Count 3.02 M/UL (4.20-5.40) L Hemoglobin 9.4 G/DL (12.0-16.0) L Hematocrit 29.1 % (37.0-47.0) L Mean Corpuscular Volume 96 FL (80-99) Mean Corpuscular Hemoglobin 31.2 PG (27.0-31.0) H Mean Corpuscular Hemoglobin Concent 32.4 G/DL (32.0-36.0) Red Cell Distribution Width 12.5 % (11.6-14.8) Platelet Count 247 K/UL (150-450) Mean Platelet Volume 6.3 FL (6.5-10.1) L Neutrophils (%) (Auto) 62.1 % (45.0-75.0) Lymphocytes (%) (Auto) 25.0 % (20.0-45.0) Monocytes (%) (Auto) 10.5 % (1.0-10.0) H Eosinophils (%) (Auto) 1.5 % (0.0-3.0) Basophils (%) (Auto) 0.9 % (0.0-2.0) Sodium Level 138 MMOL/L (136-145) Potassium Level 5.2 MMOL/L (3.5-5.1) H Chloride Level 105 MMOL/L (98-107) Carbon Dioxide Level 24 MMOL/L (21-32) Anion Gap 9 mmol/L (5-15) Blood Urea Nitrogen 47 mg/dL (7-18) H Creatinine 1.8 MG/DL (0.55-1.30) H Estimat Glomerular Filtration Rate mL/min (>60) Glucose Level 127 MG/DL (74-106) H Calcium Level 9.3 MG/DL (8.5-10.1) Total Bilirubin 0.2 MG/DL (0.2-1.0) Aspartate Amino Transf (AST/SGOT) 19 U/L (15-37) Alanine Aminotransferase (ALT/SGPT) 31 U/L (12-78) Alkaline Phosphatase 111 U/L (46-116) Total Protein 6.0 G/DL (6.4-8.2) L Albumin 3.1 G/DL (3.4-5.0) L Globulin 2.9 g/dL Albumin/Globulin Ratio 1.1 (1.0-2.7) Prothrombin Time 10.6 SEC (9.30-11.50) Prothromb Time International Ratio 1.0 (0.9-1.1) Plan Problems: (1) Acute internal jugular vein thrombosis Assessment & Plan: see operative report US noted admit post op cancer patient with acute dvt start heparin gtt start lovenox 40 sq daily will follow Lukas Sun Feb 08, 2019 12:31
[2019-02-08] MEDS ORDERED: Enoxaparin 40mg Inj SUBQ SCH ×2 (13:00→14:30)
--- NOTE | 2019-02-08 14:29 | NUR ---
NURSE NOTES: Lovenox administered as ordered. Patient teaching given regarding medication administration and purpose, medication frequency, dosing, and route, alternating sites, and sharps disposals. Patient verbalized understanding.
[2019-02-08 16:00] VITALS: BP 111/65
--- NOTE | 2019-02-08 16:31 | History & Physical ---
History and Physical History & Physicial dictated for int Med-Dr Hinds no. [id number]. Zi Goncalves MD Feb 08, 2019 16:31
--- NOTE | 2019-02-08 19:21 | NUR ---
HAND-OFF: Report given to Breanne URBANO. Patient is stable.
[2019-02-08 20:00] VITALS: BP 117/74
--- NOTE | 2019-02-08 20:00 | NUR ---
NURSE NOTES: RECEIVED PATIENT LYING IN BED, AWAKE, ALERT/ORIENTED X4, VERBALLY RESPONSIVE, DENIES PAIN. NO SIGNS AND SYMPTOMS OF ACUTE CARDIO RESPIRATORY DISTRESS/SHORTNESS OF BREATH, DENIES CHEST PAIN, NO PERIPHERAL EDEMA NOTED. PORT A CATH LEFT CHEST WALL/DERMABOND WITH STERI STRIPS/CHEMOTHERAPY. NO COMPLAINTS OF GI DISCOMFORT, NO N/V/D. ASSISTED WITH COMFORT CARE. SIDE RAILS UP X2/BED IN LOWEST POSITION FOR SAFETY. BED ALARM ACTIVATED. ENCOURAGED PATIENT TO UTILIZE CALL LIGHT FOR ASSISTANCE, VERBALIZED UNDERSTANDING. NOTED CANE AT BEDSIDE. NAD.
--- NOTE | 2019-02-08 21:10 | NUR ---
NURSE NOTES: INCONTINENT OF URINE, CARE PROVIDED, TOLERATED WELL. NAD.
--- NOTE | 2019-02-08 22:15 | History and Physical Report ---
DATE OF ADMISSION: 02/07/2019 CHIEF COMPLAINT: The patient is a 73-year-old female, who presents with a chief complaint of implantation of Port-A-Cath. HISTORY OF PRESENT ILLNESS: The patient was admitted to [facility] in December 2018. Please see history and physical and discharge summary dictated at that time. The patient was diagnosed with left breast invasive ductal cell carcinoma. The patient is followed as an outpatient by Dr. Nita Waggoner. The patient is scheduled for chemotherapy. The patient was admitted for placement of left Port-A-Cath for chemotherapy. REVIEW OF SYSTEMS: CONSTITUTIONAL: The patient denies weight loss or weight gain. The patient denies fevers or chills. HEENT: The patient denies ear or throat pain. The patient denies headache. CARDIOVASCULAR: The patient denies palpitations or chest pain. CHEST: The patient denies wheeze or shortness of breath. ABDOMEN: The patient denies nausea, vomiting, diarrhea, or constipation. GENITOURINARY: The patient denies dysuria or increased frequency of urination. NEUROMUSCULAR: The patient denies seizures or generalized weakness. PAST MEDICAL HISTORY: Significant for: 1. Left breast cancer, diagnosed in December 2018. 2. Hypertension. 3. Hypercholesterolemia. 4. Diabetes type 2. 5. Osteogenesis imperfecta. 6. Osteoarthritis. 7. Osteoporosis. PAST SURGICAL HISTORY: Significant for: 1. Open reduction and internal fixation of left hip fracture. 2. Left knee meniscus repair. 3. Total abdominal hysterectomy. 4. Left breast lumpectomy, which was benign. CURRENT MEDICATIONS: 1. Atorvastatin 10 mg p.o. daily. 2. Benazepril 40 mg p.o. twice daily. 3. Fluoxetine 20 mg p.o. daily. 4. Labetalol 100 mg p.o. twice daily. 5. Spironolactone 25 mg p.o. daily. ALLERGIES: Penicillin. SOCIAL HISTORY: The patient is a and lives with her adult daughter. The patient denies tobacco or alcohol use. PHYSICAL EXAMINATION: VITAL SIGNS: Temperature 98.7, respirations 18, pulse 75, and blood pressure 141/68. GENERAL: The patient is a well-developed and well-nourished female, in no apparent distress. HEENT: Eyes, pupils are equal and responsive to light and accommodation. Extraocular movements are intact. NECK: Supple without lymphadenopathy. CHEST: Lungs are clear to auscultation bilaterally without wheezes or rales. CARDIOVASCULAR: Regular rate. S1, S2 normal without murmurs, rubs, or gallops. ABDOMEN: Soft, nontender, and nondistended. Positive bowel sounds. No evidence of hepatosplenomegaly. Currently, no rebound or guarding noted. EXTREMITIES: Negative for clubbing, cyanosis, or edema. RECTAL/GENITAL: Not performed. NEUROLOGIC: Cranial nerves II through XII are grossly intact without focal deficits. Motor strength is 5/5 bilaterally. Deep tendon reflexes are 2+ plantar. LABORATORY STUDIES: WBC 9.4, hemoglobin 10.8, hematocrit 32.9, and platelets 276,000. Sodium 138, potassium 5.7, chloride 107, CO2 22, BUN 40, and creatinine 1.7. Glucose 170. ASSESSMENT: This is a 73-year-old female with: 1. Left breast cancer. 2. Hypertension. 3. Hypercholesterolemia. 4. Diabetes type 2. 5. Osteogenesis imperfecta. 6. Osteoarthritis. 7. Osteoporosis. TREATMENT: 1. Left breast cancer. The patient is status post placement of left Port-A-Cath by Dr. Sun. Follow surgical recommendations. An Oncology consultation has been obtained with Dr. Nita Waggoner. 2. Hypertension. Continue benazepril and labetalol as above. 3. Hypercholesterolemia. Continue atorvastatin as above. 4. Diabetes type 2. The patient has been started on a NovoLog sliding scale. 5. Osteogenesis imperfecta. 6. Osteoarthritis. 7. Osteoporosis. Zi Goncalves M.D. DR: YANELI JOB#: [id number] CC:
[2019-02-09] VITALS (7 sets, daily range): BP systolic 114–146; BP diastolic 67–83
[2019-02-09 06:01] LABS: BASOPHILS % (AUTO) 1.4 % (0.0-2.0); EOSINOPHILS % (AUTO) 2.3 % (0.0-3.0); HEMATOCRIT 28.3 % (37.0-47.0); HEMOGLOBIN 9.1 G/DL (12.0-16.0); MEAN CORPUSCULAR VOLUME 96 FL (80-99); MONOCYTES % (AUTO) 11.3 % (1.0-10.0); PLATELET COUNT 226 K/UL (150-450); RED BLOOD COUNT 2.94 M/UL (4.20-5.40); RED CELL DISTRIBUTION WIDTH 12.6 % (11.6-14.8); WHITE BLOOD COUNT 5.3 K/UL (4.8-10.8)
--- NOTE | 2019-02-09 06:05 | NUR ---
NURSE NOTES: RESTED WELL, NO SIGNIFICANT CHANGE OF CONDITION NOTED THROUGHOUT THE NIGHT. SAFETY MAINTAINED. NAD.
[2019-02-09 06:19] LABS: ALANINE AMINOTRANSFERASE 27 U/L (12-78); ALBUMIN 2.8 G/DL (3.4-5.0); ALKALINE PHOSPHATASE 96 U/L (46-116); ANION GAP 6 mmol/L (5-15); ASPARTATE AMINO TRANSFERASE 17 U/L (15-37); BILIRUBIN,TOTAL 0.2 MG/DL (0.2-1.0); BLOOD UREA NITROGEN 40 mg/dL (7-18); CALCIUM 9.4 MG/DL (8.5-10.1); CARBON DIOXIDE 24 MMOL/L (21-32); CHLORIDE 108 MMOL/L (98-107); CREATININE 1.7 MG/DL (0.55-1.30); POTASSIUM 5.5 MMOL/L (3.5-5.1); SODIUM 138 MMOL/L (136-145)
--- NOTE | 2019-02-09 07:13 | NUR ---
NURSE NOTES: TELEPHONE CALL PLACED TO DR. RASHEED REGARDING ELEVATED POTASSIUM LEVEL OF 5.5, LEFT MESSAGE ON URGENT VOICE MAIL, WILL ENDORSE TO AM NURSE TO FOLLOW UP.
--- NOTE | 2019-02-09 07:30 | NUR ---
NURSE NOTES: Patient is in bed asleep. Stable. No visible signs of distress at this time. Breathing is even and unlabored. Patient is in bed in locked and lowest position with call light within reach. All safety measures provided. Will continue to monitor.
--- NOTE | 2019-02-09 07:30 | NUR ---
HAND-OFF: Report given to PAWEL JIMENEZ RN.
[2019-02-09] MEDS ORDERED: Sodium Polystyrene Sulfonate 15gm Powder ORAL SCH (08:15)
[2019-02-09] MEDS: Docusate 100mg cap ORAL SCH ×2 (08:31→17:37)
[2019-02-09] MEDS: Enoxaparin 40mg Inj SUBQ SCH (08:33)
--- NOTE | 2019-02-09 14:30 | Consultation ---
History of Present Illness General Date patient seen: Feb 09, 2019 Time patient seen: 10:30 Chief Complaint: hospitalist Referring physician: dr Hinds Reason for Consultation: left lung nodule, sopitalist Present Illness HPI 73-year-old female, with PMH of left breast cancer, diagnosed in December 2018, hypertension, hypercholesterolemia, diabetes mellitus type 2, osteogenesis imperfecta, osteoarthritis, osteoporosis, was recently diagnosed with invasive ductal cell carcinoma left breast . Patient was sent by oncologist for placement of Port -a -cath for chemotherapy. - Venous Duplex BUE revealed acute DVT right internal jugular. Patient started on a/coagulation, initially with heprin gtt. Patient undergone placement of port-a-cath via left jugular. Later heparin gtt was discontinued and patient started on Lovenox for anticoagulation Chemistry revealed hyperkalemia and renal failure. CXR demonstrated left internal jugular implanter port. Renal US done on previous admission revealed evidence of medical renal disease. CT chest done previously demonstrated KARMA pulmonary nodule, possible malignant as well as left thyroid complex nodule Hyperkalemia was treated . Patient apparently was on EDMOND inhibitor for BP management, which was stopped. K still elevated this am. Creatinine remains at baseline. Patient denies chest pain, SOB, cough, pain. Patient slightly forgetful, but able overall provide significant history. Allergies: Coded Allergies: PENICILLINS (Verified Allergy, Unknown, 06/03/15) Medication History Scheduled Atorvastatin Calcium* (Lipitor*), 10 MG ORAL DAILY, (Reported) Benazepril Hcl* (Benazepril Hcl*), 40 MG ORAL TWICE A DAY, (Reported) Fluoxetine Hcl* (Fluoxetine Hcl*), 20 MG ORAL DAILY, (Reported) Labetalol Hcl* (Normodyne*), 100 MG ORAL BID, (Reported) Spironolactone* (Aldactone*), 25 MG ORAL DAILY, (Reported) Discontinued Medications Amlodipine Besylate (Norvasc), 10 MG ORAL DAILY, (Reported) Discontinued Reason: Pt stopped taking med Clindamycin Hcl* (Clindamycin Hcl*), 450 MG ORAL FOUR TIMES A DAY Discontinued Reason: Pt stopped taking med Glipizide* (Glipizide*), 5 MG ORAL BIDAC, (Reported) Discontinued Reason: Pt stopped taking med Irbesartan* (Avapro*), 150 MG ORAL DAILY Discontinued Reason: Pt stopped taking med Sitagliptin (Januvia), 50 MG ORAL ACBREAKFAST Discontinued Reason: Pt stopped taking med Patient History History Provided By: Patient Healthcare decision maker Y Resuscitation status Full Code Advanced Directive on File No Past Medical/Surgical History Past Medical/Surgical History: (1) Osteogenesis imperfecta (2) Diabetes mellitus (3) Breast cancer (4) Acute internal jugular vein thrombosis (5) History of hypertension (6) MDD (major depressive disorder), recurrent episode, moderate (7) Anemia (8) Acute renal failure (ARF) Review of Systems Constitutional: Reports: weakness Eye: Reports: no symptoms ENT: Reports: hearing loss Respiratory: Reports: no symptoms Cardiovascular: Reports: no symptoms Gastrointestinal: Reports: constipation Genitourinary: Reports: no symptoms Musculoskeletal: Reports: other - osteogenesis imperfecta Skin: Reports: dryness Psychiatric: Reports: depressed feelings Neurological: Reports: no symptoms Endocrine: Reports: other - diabetes Hematologic/Lymphatic: Reports: anemia Physical Exam General Appearance: no apparent distress, alert Lines, tubes and drains: central line - Left chest Port- a- cath, intact, mild erythema, no ed ed, along the incision site ; insiciiion site dry, no drainage Neck: non-tender, normal alignment, supple Respiratory/Chest: chest wall non-tender, lungs clear Cardiovascular/Chest: normal peripheral pulses, normal rate, no JVD Abdomen: normal bowel sounds, non tender, soft Extremities: normal range of motion, non-tender, no calf tenderness, normal capillary refill Skin Exam: warm/dry Neurologic: alert, responsive - forgetful Musculoskeletal: atrophy - BLE Last 24 Hour Vital Signs Date Time Temp Pulse Resp B/P (MAP) Pulse Ox O2 Delivery O2 Flow Rate FiO2 02/09/19 12:00 98.3 71 17 133/67 (89) 99 02/09/19 09:00 Room Air 02/09/19 08:31 73 139/83 02/09/19 08:30 73 139/83 02/09/19 08:00 97.7 73 20 139/83 (101) 99 02/09/19 04:00 98.0 66 18 142/73 (96) 99 02/09/19 00:00 97.3 76 18 114/69 (84) 97 02/08/19 20:58 Room Air 02/08/19 20:44 72 121/74 02/08/19 20:00 98.9 72 18 117/74 (88) 99 02/08/19 17:44 105/65 02/08/19 16:00 98.1 71 18 111/65 (80) 98 Intake and Output 02/08/19 02/09/19 19:00 07:00 Intake Total 80.016 ml 240 ml Balance 80.016 ml 240 ml Intake Oral 240 ml IV Total 80.016 ml # Voids 4 3 Laboratory Tests Test 02/09/19 04:45 White Blood Count 5.3 K/UL (4.8-10.8) Red Blood Count 2.94 M/UL (4.20-5.40) L Hemoglobin 9.1 G/DL (12.0-16.0) L Hematocrit 28.3 % (37.0-47.0) L Mean Corpuscular Volume 96 FL (80-99) Mean Corpuscular Hemoglobin 31.0 PG (27.0-31.0) Mean Corpuscular Hemoglobin Concent 32.2 G/DL (32.0-36.0) Red Cell Distribution Width 12.6 % (11.6-14.8) Platelet Count 226 K/UL (150-450) Mean Platelet Volume 6.7 FL (6.5-10.1) Neutrophils (%) (Auto) 50.0 % (45.0-75.0) Lymphocytes (%) (Auto) 35.0 % (20.0-45.0) Monocytes (%) (Auto) 11.3 % (1.0-10.0) H Eosinophils (%) (Auto) 2.3 % (0.0-3.0) Basophils (%) (Auto) 1.4 % (0.0-2.0) Sodium Level 138 MMOL/L (136-145) Potassium Level 5.5 MMOL/L (3.5-5.1) H Chloride Level 108 MMOL/L (98-107) H Carbon Dioxide Level 24 MMOL/L (21-32) Anion Gap 6 mmol/L (5-15) Blood Urea Nitrogen 40 mg/dL (7-18) H Creatinine 1.7 MG/DL (0.55-1.30) H Estimat Glomerular Filtration Rate mL/min (>60) Glucose Level 104 MG/DL (74-106) Calcium Level 9.4 MG/DL (8.5-10.1) Total Bilirubin 0.2 MG/DL (0.2-1.0) Aspartate Amino Transf (AST/SGOT) 17 U/L (15-37) Alanine Aminotransferase (ALT/SGPT) 27 U/L (12-78) Alkaline Phosphatase 96 U/L (46-116) Total Protein 5.6 G/DL (6.4-8.2) L Albumin 2.8 G/DL (3.4-5.0) L Globulin 2.8 g/dL Albumin/Globulin Ratio 1.0 (1.0-2.7) Height (Feet): 4 Height (Inches): 2.00 Weight (Pounds): 98 Medications Current Medications Medications (Trade) Dose Ordered Sig/Sd Route PRN Reason Start Time Stop Time Status Last Admin Dose Admin Acetaminophen (Tylenol) 650 mg Q6H PRN ORAL Mild Pain (Pain Scale 1-3) 02/06/19 17:30 03/08/19 17:29 Acetaminophen/ Hydrocodone Bitart ([place] 5/325) 1 tab Q4H PRN ORAL Moderate Pain (Pain Scale 4-6) 02/06/19 17:30 02/13/19 17:29 Al Hydroxide/Mg Hydroxide (Mylanta) 15 ml Q6H PRN ORAL DYSPEPSIA 02/06/19 17:30 03/08/19 17:29 Amlodipine Besylate (Norvasc) 5 mg DAILY ORAL 02/09/19 09:00 03/11/19 08:59 02/09/19 08:30 Atorvastatin Calcium (Lipitor) 10 mg BEDTIME ORAL 02/08/19 21:00 03/10/19 20:59 02/08/19 20:43 Clonidine HCl (Catapres Tab) 0.1 mg Q4H PRN ORAL SBP>160 02/08/19 11:15 03/10/19 11:14 02/08/19 11:32 Diphenhydramine HCl (Benadryl) 25 mg Q8H PRN ORAL Itching/Pruritis 02/06/19 17:30 03/08/19 17:29 Docusate Sodium (Colace) 100 mg TWICE A DAY ORAL 02/07/19 09:00 03/09/19 08:59 02/09/19 08:31 Enoxaparin Sodium (Lovenox) 40 mg DAILY SUBQ 02/09/19 09:00 03/11/19 08:59 02/09/19 08:33 Fluoxetine HCl (PROzac) 20 mg DAILY ORAL 02/09/19 09:00 03/11/19 08:59 02/09/19 08:30 Labetalol HCl (Normodyne) 100 mg Q12HR ORAL 02/08/19 09:15 03/10/19 09:14 02/09/19 08:31 Magnesium Hydroxide (Mom) 30 ml BIDPRN PRN ORAL Constipation 02/06/19 17:30 03/08/19 17:29 Morphine Sulfate (Morphine Sulfate) 1 mg Q4H PRN IVP pain scale 1-3 02/06/19 17:30 02/13/19 17:29 Morphine Sulfate (Morphine Sulfate) 2 mg Q4H PRN IVP pain scale 4-6 02/06/19 17:30 02/13/19 17:29 Ondansetron HCl (Zofran) 4 mg Q6H PRN IVP Nausea & Vomiting 02/06/19 17:30 03/08/19 17:29 02/07/19 03:25 Sennosides (Senokot) 8.6 mg BIDPRN PRN ORAL Constipation 02/06/19 17:30 03/08/19 17:29 Temazepam (Restoril) 7.5 mg DAILYPRN PRN ORAL Insomnia 02/06/19 17:30 02/13/19 17:29 Assessment/Plan Assessment/Plan: ASSESSMENT 1. Left breast Ca , likely metastatic 2. Acute DVT R internal jugular 3. Left upper lobe pulmonary nodule, r/o malignancy 4. Left complex thyroid nodule 5. Chronic renal failure 6. Anemia 7. Hyperkalemia , possibly due to EDMOND 8. HTN 9. HLD 10. DM type2 11.Osteoarthritis and osteoporosis 12. Osteogenesis imperfecta PLAN OF CARE [facility] floor s/p Laurie-cath placement surgeon follows pain management a/coagulation with Lovenox daily due to renal failure monitor HH with goal to keep Hgb above 7 BP management with CCB and BB, off EDMOND already Kayexalate for hyper K, and monitor K lrvel renal US in December revealed evidence of medical renal disease, monitor renal paramerts, lytes, correct lytes as needed and avoid nephrotoxics O2 HHN prn CXR noted, doubt PNA of concern KARMA nodule, possibly malignancy, outpatient w/up as per oncologist KARMA nodule and complex L thyroid nodule monitor BS, diabetic diet supportive care bowel regimen PT eval and Rx fall precautions case discussed and evaluated by supervising physician Afshan Mccabe NP Feb 09, 2019 14:30
--- NOTE | 2019-02-09 14:53 | Internal Med Progress Note ---
Subjective Date of Service: Feb 09, 2019 Physician Name Zi Goncalves Attending Physician Aiden Hinds MD Current Medications Medications (Trade) Dose Ordered Sig/Sd Route PRN Reason Start Time Stop Time Status Last Admin Dose Admin Acetaminophen (Tylenol) 650 mg Q6H PRN ORAL Mild Pain (Pain Scale 1-3) 02/06/19 17:30 03/08/19 17:29 Acetaminophen/ Hydrocodone Bitart ([place] 5/325) 1 tab Q4H PRN ORAL Moderate Pain (Pain Scale 4-6) 02/06/19 17:30 02/13/19 17:29 Al Hydroxide/Mg Hydroxide (Mylanta) 15 ml Q6H PRN ORAL DYSPEPSIA 02/06/19 17:30 03/08/19 17:29 Amlodipine Besylate (Norvasc) 5 mg DAILY ORAL 02/09/19 09:00 03/11/19 08:59 02/09/19 08:30 Atorvastatin Calcium (Lipitor) 10 mg BEDTIME ORAL 02/08/19 21:00 03/10/19 20:59 02/08/19 20:43 Clonidine HCl (Catapres Tab) 0.1 mg Q4H PRN ORAL SBP>160 02/08/19 11:15 03/10/19 11:14 02/08/19 11:32 Diphenhydramine HCl (Benadryl) 25 mg Q8H PRN ORAL Itching/Pruritis 02/06/19 17:30 03/08/19 17:29 Docusate Sodium (Colace) 100 mg TWICE A DAY ORAL 02/07/19 09:00 03/09/19 08:59 02/09/19 08:31 Enoxaparin Sodium (Lovenox) 40 mg DAILY SUBQ 02/09/19 09:00 03/11/19 08:59 02/09/19 08:33 Fluoxetine HCl (PROzac) 20 mg DAILY ORAL 02/09/19 09:00 03/11/19 08:59 02/09/19 08:30 Labetalol HCl (Normodyne) 100 mg Q12HR ORAL 02/08/19 09:15 03/10/19 09:14 02/09/19 08:31 Magnesium Hydroxide (Mom) 30 ml BIDPRN PRN ORAL Constipation 02/06/19 17:30 03/08/19 17:29 Morphine Sulfate (Morphine Sulfate) 1 mg Q4H PRN IVP pain scale 1-3 02/06/19 17:30 02/13/19 17:29 Morphine Sulfate (Morphine Sulfate) 2 mg Q4H PRN IVP pain scale 4-6 02/06/19 17:30 02/13/19 17:29 Ondansetron HCl (Zofran) 4 mg Q6H PRN IVP Nausea & Vomiting 02/06/19 17:30 03/08/19 17:29 02/07/19 03:25 Sennosides (Senokot) 8.6 mg BIDPRN PRN ORAL Constipation 02/06/19 17:30 03/08/19 17:29 Temazepam (Restoril) 7.5 mg DAILYPRN PRN ORAL Insomnia 02/06/19 17:30 02/13/19 17:29 Allergies: Coded Allergies: PENICILLINS (Verified Allergy, Unknown, 06/03/15) ROS Limited/Unobtainable: No Constitutional: Reports: no symptoms HEENT: Reports: no symptoms Cardiovascular: Reports: no symptoms Respiratory: Reports: no symptoms Gastrointestinal/Abdominal: Reports: no symptoms Genitourinary: Reports: no symptoms Neurologic/Psychiatric: Reports: no symptoms Subjective 73 YO F admitted with left breast cancer; S/P port-a-cath placement 02/07/19. Now Acute DVT Objective Last Vital Signs Date Time Temp Pulse Resp B/P (MAP) Pulse Ox O2 Delivery O2 Flow Rate FiO2 02/09/19 12:00 98.3 71 17 133/67 (89) 99 02/09/19 09:00 Room Air 02/06/19 21:00 3.0 Laboratory Tests Test 02/09/19 04:45 White Blood Count 5.3 K/UL (4.8-10.8) Red Blood Count 2.94 M/UL (4.20-5.40) L Hemoglobin 9.1 G/DL (12.0-16.0) L Hematocrit 28.3 % (37.0-47.0) L Mean Corpuscular Volume 96 FL (80-99) Mean Corpuscular Hemoglobin 31.0 PG (27.0-31.0) Mean Corpuscular Hemoglobin Concent 32.2 G/DL (32.0-36.0) Red Cell Distribution Width 12.6 % (11.6-14.8) Platelet Count 226 K/UL (150-450) Mean Platelet Volume 6.7 FL (6.5-10.1) Neutrophils (%) (Auto) 50.0 % (45.0-75.0) Lymphocytes (%) (Auto) 35.0 % (20.0-45.0) Monocytes (%) (Auto) 11.3 % (1.0-10.0) H Eosinophils (%) (Auto) 2.3 % (0.0-3.0) Basophils (%) (Auto) 1.4 % (0.0-2.0) Sodium Level 138 MMOL/L (136-145) Potassium Level 5.5 MMOL/L (3.5-5.1) H Chloride Level 108 MMOL/L (98-107) H Carbon Dioxide Level 24 MMOL/L (21-32) Anion Gap 6 mmol/L (5-15) Blood Urea Nitrogen 40 mg/dL (7-18) H Creatinine 1.7 MG/DL (0.55-1.30) H Estimat Glomerular Filtration Rate mL/min (>60) Glucose Level 104 MG/DL (74-106) Calcium Level 9.4 MG/DL (8.5-10.1) Total Bilirubin 0.2 MG/DL (0.2-1.0) Aspartate Amino Transf (AST/SGOT) 17 U/L (15-37) Alanine Aminotransferase (ALT/SGPT) 27 U/L (12-78) Alkaline Phosphatase 96 U/L (46-116) Total Protein 5.6 G/DL (6.4-8.2) L Albumin 2.8 G/DL (3.4-5.0) L Globulin 2.8 g/dL Albumin/Globulin Ratio 1.0 (1.0-2.7) Intake and Output 02/08/19 02/09/19 19:00 07:00 Intake Total 80.016 ml 240 ml Balance 80.016 ml 240 ml Intake Oral 240 ml IV Total 80.016 ml # Voids 4 3 Objective PHYSICAL EXAMINATION: GENERAL: The patient is a well-developed and well-nourished female, in no apparent distress. HEENT: Eyes, pupils are equal and responsive to light and accommodation. Extraocular movements are intact. NECK: Supple without lymphadenopathy. CHEST: Lungs are clear to auscultation bilaterally without wheezes or rales. CARDIOVASCULAR: Regular rate. S1, S2 normal without murmurs, rubs, or gallops. ABDOMEN: Soft, nontender, and nondistended. Positive bowel sounds. No evidence of hepatosplenomegaly. Currently, no rebound or guarding noted. EXTREMITIES: Negative for clubbing, cyanosis, or edema. RECTAL/GENITAL: Not performed. NEUROLOGIC: Cranial nerves II through XII are grossly intact without focal deficits. Motor strength is 5/5 bilaterally. Deep tendon reflexes are 2+ plantar. Assessment/Plan Assessment/Plan ASSESSMENT: This is a 73-year-old female with: 1. Left breast cancer. 2. Hypertension. 3. Hypercholesterolemia. 4. Diabetes type 2. 5. Osteogenesis imperfecta. 6. Osteoarthritis. 7. Osteoporosis. 8. Deep venous thrombosis TREATMENT: 1. Left breast cancer. The patient is status post placement of left Port-A-Cath by Dr. Sun. Follow surgical recommendations. An Oncology consultation has been obtained with Dr. Nita Waggonre. 2. Hypertension. Continue benazepril and labetalol as above. 3. Hypercholesterolemia. Continue atorvastatin as above. 4. Diabetes type 2. The patient has been started on a NovoLog sliding scale. 5. Osteogenesis imperfecta. 6. Osteoarthritis. 7. Osteoporosis. 8. 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 Continue lovenox per Onc Zi Goncalves MD Feb 09, 2019 14:53
--- NOTE | 2019-02-09 15:43 | Surgery Progress Note ---
Surgery Progress Note Subjective Procedure Performed 1. left chest wall tunneled internal jugular implanted port a cath central venous catheter with implantable port Additional Comments Doing well. Heparin drip stopped. Started on Lovenox as scheduled. Comfortable appearing. Labs noted. Objective Last 24 Hour Vital Signs Date Time Temp Pulse Resp B/P (MAP) Pulse Ox O2 Delivery O2 Flow Rate FiO2 02/09/19 12:00 98.3 71 17 133/67 (89) 99 02/09/19 09:00 Room Air 02/09/19 08:31 73 139/83 02/09/19 08:30 73 139/83 02/09/19 08:00 97.7 73 20 139/83 (101) 99 02/09/19 04:00 98.0 66 18 142/73 (96) 99 02/09/19 00:00 97.3 76 18 114/69 (84) 97 02/08/19 20:58 Room Air 02/08/19 20:44 72 121/74 02/08/19 20:00 98.9 72 18 117/74 (88) 99 02/08/19 17:44 105/65 02/08/19 16:00 98.1 71 18 111/65 (80) 98 I&O Intake and Output 02/08/19 02/09/19 19:00 07:00 Intake Total 80.016 ml 240 ml Balance 80.016 ml 240 ml Intake Oral 240 ml IV Total 80.016 ml # Voids 4 3 Dressing: dry Wound: clean, dry Cardiovascular: RSR Respiratory: clear Abdomen: soft, flat, non-tender, present bowel sounds Extremities: no edema, no tenderness, no cyanosis Laboratory Tests Test 02/09/19 04:45 White Blood Count 5.3 K/UL (4.8-10.8) Red Blood Count 2.94 M/UL (4.20-5.40) L Hemoglobin 9.1 G/DL (12.0-16.0) L Hematocrit 28.3 % (37.0-47.0) L Mean Corpuscular Volume 96 FL (80-99) Mean Corpuscular Hemoglobin 31.0 PG (27.0-31.0) Mean Corpuscular Hemoglobin Concent 32.2 G/DL (32.0-36.0) Red Cell Distribution Width 12.6 % (11.6-14.8) Platelet Count 226 K/UL (150-450) Mean Platelet Volume 6.7 FL (6.5-10.1) Neutrophils (%) (Auto) 50.0 % (45.0-75.0) Lymphocytes (%) (Auto) 35.0 % (20.0-45.0) Monocytes (%) (Auto) 11.3 % (1.0-10.0) H Eosinophils (%) (Auto) 2.3 % (0.0-3.0) Basophils (%) (Auto) 1.4 % (0.0-2.0) Sodium Level 138 MMOL/L (136-145) Potassium Level 5.5 MMOL/L (3.5-5.1) H Chloride Level 108 MMOL/L (98-107) H Carbon Dioxide Level 24 MMOL/L (21-32) Anion Gap 6 mmol/L (5-15) Blood Urea Nitrogen 40 mg/dL (7-18) H Creatinine 1.7 MG/DL (0.55-1.30) H Estimat Glomerular Filtration Rate mL/min (>60) Glucose Level 104 MG/DL (74-106) Calcium Level 9.4 MG/DL (8.5-10.1) Total Bilirubin 0.2 MG/DL (0.2-1.0) Aspartate Amino Transf (AST/SGOT) 17 U/L (15-37) Alanine Aminotransferase (ALT/SGPT) 27 U/L (12-78) Alkaline Phosphatase 96 U/L (46-116) Total Protein 5.6 G/DL (6.4-8.2) L Albumin 2.8 G/DL (3.4-5.0) L Globulin 2.8 g/dL Albumin/Globulin Ratio 1.0 (1.0-2.7) Plan Problems: (1) Acute internal jugular vein thrombosis Assessment & Plan: see operative report US noted admit post op cancer patient with acute dvt Lovenox 40 mg subcutaneous daily Prescription written to be filled tomorrow Home health recommended Discharge planning for tomorrow Lukas Sun Feb 09, 2019 15:43
--- NOTE | 2019-02-09 19:06 | NUR ---
HAND-OFF: Report given to Dagoberto SALGADO. Patient is stable.
--- NOTE | 2019-02-09 19:24 | NUR ---
NURSE NOTES: Patient in bed, awake, alert and verbally responsive. Able to make needs known. Respiration is even and unlabored. No complaint of pain or discomfort noted. Abdomen is soft and non distended. Kept clean and comfortable. Bed in low and locked position. Provided safe environment. Skin is warm and dry to touch. Call light is at bedside. Will continue plan of care.
[2019-02-10 04:00] VITALS: BP 154/86
[2019-02-10 06:36] LABS: BASOPHILS % (AUTO) 1.6 % (0.0-2.0); EOSINOPHILS % (AUTO) 1.5 % (0.0-3.0); HEMATOCRIT 30.4 % (37.0-47.0); HEMOGLOBIN 9.8 G/DL (12.0-16.0); LYMPHOCYTES % (AUTO) 32.5 % (20.0-45.0); MEAN CORPUSCULAR VOLUME 97 FL (80-99); MONOCYTES % (AUTO) 10.1 % (1.0-10.0); NEUTROPHILS % (AUTO) 54.3 % (45.0-75.0); PLATELET COUNT 242 K/UL (150-450); RED BLOOD COUNT 3.14 M/UL (4.20-5.40); RED CELL DISTRIBUTION WIDTH 12.6 % (11.6-14.8); WHITE BLOOD COUNT 6.2 K/UL (4.8-10.8)
[2019-02-10 06:45] LABS: ANION GAP 7 mmol/L (5-15); BLOOD UREA NITROGEN 38 mg/dL (7-18); CALCIUM 9.4 MG/DL (8.5-10.1); CARBON DIOXIDE 24 MMOL/L (21-32); CHLORIDE 109 MMOL/L (98-107); CREATININE 1.5 MG/DL (0.55-1.30); POTASSIUM 4.6 MMOL/L (3.5-5.1); SODIUM 140 MMOL/L (136-145)
--- NOTE | 2019-02-10 07:13 | NUR ---
HAND-OFF: Report given to Lizzy Hampton.
--- NOTE | 2019-02-10 07:15 | NUR ---
NURSE NOTES: Patient is in bed asleep. Stable. No visible signs of distress noted. Breathing is even and unlabored. Patient is in bed in locked and lowest position with call light within reach. All safety measures provided. WIll continue to monitor.
[2019-02-10 08:00] VITALS: BP 157/78
[2019-02-10] MEDS: Enoxaparin 40mg Inj SUBQ SCH (08:57)
[2019-02-10] MEDS: Docusate 100mg cap ORAL SCH ×2 (09:00→18:00)
--- NOTE | 2019-02-10 10:18 | NUR ---
NURSE NOTES: Clarified with supervisor fur floor worker Judith that patient does not have any suicidal ideations. Confirmed with patient.
--- NOTE | 2019-02-10 11:37 | NUR ---
CASE MANAGEMENT:REVIEW 02/10/19 SI: BREAST CANCER. S/P [facility] CATH PLACEMENT NOW W/ACTE THROMBUS IN RT INTERNAL JUGULAR VEIN H/H-9.8/30.4 BUN+38 CR+1.5 INR-1.0 APTT+114 IS: LOVENOX 40MG SQ QD PROZAC PO QD NORVASC PO QD LABETALOL PO Q12 : MED/SURG STATUS 3 EAST DCP: FROM HOME PLAN: REFERRED TO [facility]
[2019-02-10 12:00] VITALS: BP 127/67
--- NOTE | 2019-02-10 13:21 | Pulmonology Progress Note ---
Assessment/Plan Problems: (1) Acute internal jugular vein thrombosis (2) Metastatic adenocarcinoma (3) History of hypertension (4) Anemia (5) Diabetes mellitus Assessment/Plan On lovenox respiratory treatment iv hydration symptomatic treatment Subjective ROS Limited/Unobtainable: No Constitutional: Reports: no symptoms HEENT: Repors: no symptoms Respiratory: Reports: no symptoms Allergies: Coded Allergies: PENICILLINS (Verified Allergy, Unknown, 06/03/15) Objective Last 24 Hour Vital Signs Date Time Temp Pulse Resp B/P (MAP) Pulse Ox O2 Delivery O2 Flow Rate FiO2 02/10/19 12:00 97.5 78 19 127/67 (87) 99 02/10/19 09:00 Room Air 02/10/19 08:56 79 157/78 02/10/19 08:56 79 157/78 02/10/19 08:00 97.7 79 18 157/78 (104) 99 02/10/19 04:00 98.7 76 18 154/86 (108) 99 02/09/19 23:30 98.1 75 18 146/75 (98) 100 02/09/19 20:24 84 145/76 02/09/19 20:00 Room Air 02/09/19 19:59 98.8 84 16 145/76 (99) 99 02/09/19 15:58 98.0 85 19 134/78 (96) 99 Intake and Output 02/09/19 02/10/19 19:00 07:00 Intake Total 480 ml 360 ml Balance 480 ml 360 ml Intake Oral 480 ml 360 ml # Voids 2 General Appearance: WD/WN HEENT: normocephalic, atraumatic Respiratory/Chest: normal breath sounds Breasts: no masses Cardiovascular: normal rate, no JVD Abdomen: normal bowel sounds, soft, non tender Genitourinary: normal external genitalia Extremities: no cyanosis Neurologic/Psychiatric: recreation aide II-XII grossly normal Laboratory Tests 02/10/19 04:45: White Blood Count 6.2, Red Blood Count 3.14L, Hemoglobin 9.8L, Hematocrit 30.4L , Mean Corpuscular Volume 97, Mean Corpuscular Hemoglobin 31.1H, Mean Corpuscular Hemoglobin Concent 32.1, Red Cell Distribution Width 12.6, Platelet Count 242, Mean Platelet Volume 6.3L, Neutrophils (%) (Auto) 54.3, Lymphocytes ( %) (Auto) 32.5, Monocytes (%) (Auto) 10.1H, Eosinophils (%) (Auto) 1.5, Basophils (%) (Auto) 1.6, Sodium Level 140, Potassium Level 4.6, Chloride Level 109H, Carbon Dioxide Level 24, Anion Gap 7, Blood Urea Nitrogen 38H, Creatinine 1.5H, Estimat Glomerular Filtration Rate , Glucose Level 101, Calcium Level 9.4 Current Medications Medications (Trade) Dose Ordered Sig/Sd Route PRN Reason Start Time Stop Time Status Last Admin Dose Admin Acetaminophen (Tylenol) 650 mg Q6H PRN ORAL Mild Pain (Pain Scale 1-3) 02/06/19 17:30 03/08/19 17:29 Acetaminophen/ Hydrocodone Bitart ([place] 5/325) 1 tab Q4H PRN ORAL Moderate Pain (Pain Scale 4-6) 02/06/19 17:30 02/13/19 17:29 Al Hydroxide/Mg Hydroxide (Mylanta) 15 ml Q6H PRN ORAL DYSPEPSIA 02/06/19 17:30 03/08/19 17:29 Amlodipine Besylate (Norvasc) 5 mg DAILY ORAL 02/09/19 09:00 03/11/19 08:59 02/10/19 08:56 Atorvastatin Calcium (Lipitor) 10 mg BEDTIME ORAL 02/08/19 21:00 03/10/19 20:59 02/09/19 20:24 Clonidine HCl (Catapres Tab) 0.1 mg Q4H PRN ORAL SBP>160 02/08/19 11:15 03/10/19 11:14 02/08/19 11:32 Diphenhydramine HCl (Benadryl) 25 mg Q8H PRN ORAL Itching/Pruritis 02/06/19 17:30 03/08/19 17:29 Docusate Sodium (Colace) 100 mg TWICE A DAY ORAL 02/07/19 09:00 03/09/19 08:59 02/09/19 08:31 Enoxaparin Sodium (Lovenox) 40 mg DAILY SUBQ 02/09/19 09:00 03/11/19 08:59 02/10/19 08:57 Fluoxetine HCl (PROzac) 20 mg DAILY ORAL 02/09/19 09:00 03/11/19 08:59 02/10/19 08:56 Labetalol HCl (Normodyne) 100 mg Q12HR ORAL 02/08/19 09:15 03/10/19 09:14 02/10/19 08:56 Magnesium Hydroxide (Mom) 30 ml BIDPRN PRN ORAL Constipation 02/06/19 17:30 03/08/19 17:29 Morphine Sulfate (Morphine Sulfate) 1 mg Q4H PRN IVP pain scale 1-3 02/06/19 17:30 02/13/19 17:29 Morphine Sulfate (Morphine Sulfate) 2 mg Q4H PRN IVP pain scale 4-6 02/06/19 17:30 02/13/19 17:29 Ondansetron HCl (Zofran) 4 mg Q6H PRN IVP Nausea & Vomiting 02/06/19 17:30 03/08/19 17:29 02/07/19 03:25 Sennosides (Senokot) 8.6 mg BIDPRN PRN ORAL Constipation 02/06/19 17:30 03/08/19 17:29 Temazepam (Restoril) 7.5 mg DAILYPRN PRN ORAL Insomnia 02/06/19 17:30 02/13/19 17:29 Cass Nguyen MD Feb 10, 2019 13:21
[2019-02-10] MEDS ORDERED: LOVENOX10 M4 SUBQ (13:23)
--- NOTE | 2019-02-10 13:53 | NUR ---
NURSE NOTES: RN attempted to call rivas morales, unable to leave message in mailbox. Tried calling both listed numbers on face sheet. Phone number not in service.
--- NOTE | 2019-02-10 15:49 | NUR ---
DISCHARGE PLANNING Discharge order noted Patient has been referred to; [facility] [phone] verified acceptance
[2019-02-10 16:00] VITALS: BP_SYST 134; BP_SYST 146; BP_DIAS 78; BP_DIAS 81
--- NOTE | 2019-02-10 16:23 | Surgery Progress Note ---
Surgery Progress Note Subjective Procedure Performed 1. left chest wall tunneled internal jugular implanted port a cath central venous catheter with implantable port Additional Comments On Lovenox Doing very well DC planning Objective Last 24 Hour Vital Signs Date Time Temp Pulse Resp B/P (MAP) Pulse Ox O2 Delivery O2 Flow Rate FiO2 02/10/19 12:00 97.5 78 19 127/67 (87) 99 02/10/19 09:00 Room Air 02/10/19 08:56 79 157/78 02/10/19 08:56 79 157/78 02/10/19 08:00 97.7 79 18 157/78 (104) 99 02/10/19 04:00 98.7 76 18 154/86 (108) 99 02/09/19 23:30 98.1 75 18 146/75 (98) 100 02/09/19 20:24 84 145/76 02/09/19 20:00 Room Air 02/09/19 19:59 98.8 84 16 145/76 (99) 99 I&O Intake and Output 02/09/19 02/10/19 19:00 07:00 Intake Total 480 ml 360 ml Balance 480 ml 360 ml Intake Oral 480 ml 360 ml # Voids 2 Dressing: dry Wound: clean Cardiovascular: RSR Respiratory: clear Abdomen: soft, non-tender, present bowel sounds Extremities: no cyanosis Laboratory Tests Test 02/10/19 04:45 White Blood Count 6.2 K/UL (4.8-10.8) Red Blood Count 3.14 M/UL (4.20-5.40) L Hemoglobin 9.8 G/DL (12.0-16.0) L Hematocrit 30.4 % (37.0-47.0) L Mean Corpuscular Volume 97 FL (80-99) Mean Corpuscular Hemoglobin 31.1 PG (27.0-31.0) H Mean Corpuscular Hemoglobin Concent 32.1 G/DL (32.0-36.0) Red Cell Distribution Width 12.6 % (11.6-14.8) Platelet Count 242 K/UL (150-450) Mean Platelet Volume 6.3 FL (6.5-10.1) L Neutrophils (%) (Auto) 54.3 % (45.0-75.0) Lymphocytes (%) (Auto) 32.5 % (20.0-45.0) Monocytes (%) (Auto) 10.1 % (1.0-10.0) H Eosinophils (%) (Auto) 1.5 % (0.0-3.0) Basophils (%) (Auto) 1.6 % (0.0-2.0) Sodium Level 140 MMOL/L (136-145) Potassium Level 4.6 MMOL/L (3.5-5.1) Chloride Level 109 MMOL/L (98-107) H Carbon Dioxide Level 24 MMOL/L (21-32) Anion Gap 7 mmol/L (5-15) Blood Urea Nitrogen 38 mg/dL (7-18) H Creatinine 1.5 MG/DL (0.55-1.30) H Estimat Glomerular Filtration Rate mL/min (>60) Glucose Level 101 MG/DL (74-106) Calcium Level 9.4 MG/DL (8.5-10.1) Plan Problems: (1) Acute internal jugular vein thrombosis Assessment & Plan: see operative report US noted admit post op cancer patient with acute dvt Lovenox 40 mg subcutaneous daily Prescription written to be filled Home health recommended Discharge planning Lukas Sun Feb 10, 2019 16:23
--- NOTE | 2019-02-10 19:05 | NUR ---
NURSE NOTES: Patient discharged home as ordered. Stable. Denies pain or SOB. Patient and patient's daughter given thorough discharge instructions by RN. Home health has been arranged by SILVESTRE Minaya. Nurse Cathi will visit patient in morning. Patient has all belongings. Patient's daughter has prescriptions and portacath discharge packet. Patient's daughter verbalized that she will get the prescription filled tonight from [facility] pharmacy. IV removed without complications. Patient instructed to monitor sight for redness and bleeding. Skin is clean, dry, and intact. Patient assisted outside without incident.
--- NOTE | 2019-02-11 11:53 | Discharge Summary ---
Discharge Summary Discharge Summary _ DATE OF ADMISSION: 02/06/2019 DATE OF DISCHARGE: 02/10/2019 DISCHARGED BY: Dr. Hinds REASON FOR ADMISSION: 73 years old female with past medical history of hypertension, hypercholesterolemia, diabetes mellitus type 2, osteogenesis imperfecta, osteoarthritis, osteoporosis, was recently diagnosed with invasive ductal cell carcinoma left breast. Patient was sent by oncologist for placement of Port-A- Cath for future chemotherapy. CONSULTANTS: hospitalist Dr. Nugyen surgery Dr. Sun [facility] COURSE: Patient admitted to medical surgical floor. Venous duplex bilateral upper extremity revealed acute DVT right internal jugular. Patient started on anticoagulation; initially was on a heparin drip. Patient undergone placement of Port-A-Cath via left jugular. Surgeon closely followed. Port-A-Cath appeared to be stable for use for future chemotherapy. Pain management was addressed. Heparin drip was discontinued , and patient started on Lovenox for anticoagulation, dosed daily due to renal failure. Hyperkalemia was treated. Potassium level was closely monitored. Patient apparently was prior on EDMOND inhibitor for blood pressure management , which stopped. Renal ultrasound, done on previous admission, revealed evidence of medical renal disease. Renal parameters and electrolytes were closely monitored, electrolytes further corrected as needed , and nephrotoxins were avoided. Creatinine remained at baseline. CT chest, done on previous admission , demonstrated left upper lobe pulmonary nodule , possibly malignant, as well as the left thyroid complex nodule. Supplemental oxygen and bronchodilator treatment provided as needed. Chest x-ray noted, no evidence of pneumonia. Of concern was left upper lobe nodule, possibly malignant, noted on previous CT chest. Outpatient work-up as per oncologist recommended for left upper lobe nodule and complex left thyroid nodule. Hemoglobin and hematocrit were closely monitored with goal to keep hemoglobin above 7. Blood pressure was managed with calcium channel doc and beta doc. Blood sugar was closely monitored. Diabetic diet provided. Supportive care provided. Bowel regimen instituted. Fall precaution maintained. Patient was working with physical therapist. Patient clinically stabilized and was ready for discharge home. FINAL DIAGNOSES: Left breast cancer , likely metastatic Acute DVT right internal jugular Left upper lobe pulmonary nodule , rule out malignancy Left complex thyroid nodule Chronic renal failure Anemia Hyperkalemia , probably due to EDMOND inhibitor Hypertension Hyperlipidemia Diabetes mellitus type 2 Osteoarthritis and osteoporosis Osteogenesis imperfecta DISCHARGE MEDICATIONS: See Medication Reconciliation list. DISCHARGE INSTRUCTIONS: Patient was discharged home with home health services. Follow up with primary care provider and oncologist in one week. Afshan Mccabe NP Feb 11, 2019 11:53
== END 2019-02-10 19:17 | disposition home health service (06) | DRG 580 ==
LOC: SUR 10:59 → OBSVTOIN 17:57 → 3E 17:57 → OBSVTOIN 02-07 16:51 → INTOOBSV 02-07 16:51
PROC: 05HN33Z Insertion of Infusion Device into Left Internal Jugular Vein, Percutaneous Approach (ICD-10-PCS; principal; 2019-02-07)
PROC: 0JH63WZ Insertion of Totally Implantable Vascular Access Device into Chest Subcutaneous Tissue and Fascia, Percutaneous Approach (ICD-10-PCS; principal; 2019-02-07)
DX: C50.912 Malignant neoplasm of unspecified site of left female breast (principal); Q78.0 Osteogenesis imperfecta; I82.C11 Acute embolism and thrombosis of right internal jugular vein; C79.9 Secondary malignant neoplasm of unspecified site; N18.9 Chronic kidney disease, unspecified; E87.5 Hyperkalemia; M19.90 Unspecified osteoarthritis, unspecified site; M81.0 Age-related osteoporosis without current pathological fracture; Z88.0 Allergy status to penicillin; E04.1 Nontoxic single thyroid nodule; D64.9 Anemia, unspecified; T46.5X5A Adverse effect of other antihypertensive drugs, initial encounter; E78.00 Pure hypercholesterolemia, unspecified; I12.9 Hypertensive chronic kidney disease with stage 1 through stage 4 chronic kidney disease, or unspecified chronic kidney disease; E11.22 Type 2 diabetes mellitus with diabetic chronic kidney disease
CPT/HCPCS: 36415; 71045; 76000; 80048; 80053; 82962; 85025; 85610; 85730; 93005; 93970; 94003; 94150; J2405; S0077

== ENCOUNTER 2019-03-14 07:16 | Inpatient (IN) | payer MEDICARE, OTHER ==
[~2019-03-14] VITALS: Ht 137.2 cm; Wt 54.9 kg
[2019-03-14] VITALS (7 sets, daily range): BP systolic 120–200; BP diastolic 63–94
[~2019-03-14 07:16] MED LIST changes: +FLUOXETINE HCL20 MG ORAL; +LOVENOX10 M4 SUBQ
[2019-03-14] MEDS ORDERED: UNOBMED (07:19)
--- NOTE | 2019-03-14 07:25 | NUR ---
ED Nurse Note: Patient brought in by [facility] from home c/o fall, patient states that she was trying to put her shoes on, had an episode of dizziness and fell, patient is alert and oriented x4, no head trauma noted however presents with shortening of the left leg, patient complains of left sided pain. patient is alert and oriented x4, patient presents with an elevated blood pressure of 200/74. patient placed on a classroom monitor, IV is located on left upper chest via port-a-cath, blood drawn and fluids transfusing. will continue to monitor
--- NOTE | 2019-03-14 07:45 | Emergency Room Report ---
History of Present Illness General Chief Complaint: Multiple Trauma/Fall Source: Patient, EMS Present Illness HPI Patient presents with reports of fall and pain to the left hip Patient reports that after she woke up she put on her shoes the wrong way when she tried to walk she stumbled and fell to her left side That happened this morning Patient is awake denies any head injury or loss of consciousness denies any vomiting or diarrhea Patient has multiple comorbidities Pain is worse on the left elbow and left hip with any touch patient presents with paramedics Allergies: Coded Allergies: PENICILLINS (Verified Allergy, Unknown, 06/03/15) Patient History Past Medical History: see triage record Reviewed Nursing Documentation: PMH: Agreed; PSxH: Agreed Nursing Documentation-PMH Hx Cardiac Problems: Yes - L-KNEE SURGERY, L-HIP SURGERY Hx Hypertension: Yes Hx Diabetes: Yes - TYPE 2 Hx Cancer: Yes - BREAST CA Hx Gastrointestinal Problems: No Hx Neurological Problems: No Review of Systems All Other Systems: negative except mentioned in HPI Physical Exam Vital Signs Date Time Temp Pulse Resp B/P (MAP) Pulse Ox O2 Delivery O2 Flow Rate FiO2 03/14/19 07:12 98.6 76 19 208/96 (133) 100 Room Air Sp02 EP Interpretation: reviewed, normal General Appearance: mild distress - Appears in pain Head: normocephalic, atraumatic Eyes: right eye other - Appears to have a possible lazy right eye; bilateral eye EOMI ENT: normal pharynx, no angioedema Neck: supple Respiratory: lungs clear, no respiratory distress, no retraction Cardiovascular #1: regular rate, rhythm Gastrointestinal: non tender, soft Musculoskeletal: other - Left leg appears shortened patient has pain on palpation of the left pelvic area left elbow is also mildly swollen and tender to touch Neurologic: alert, oriented x3, responsive Skin: no rash Lymphatic: no adenopathy Procedures Critical Care Time Critical Care Time 35 minutes for multiple re-evaluations, critical findings including significantly elevated potassium concerning for cardiac arrest requiring acute intervention not including any procedural time Splinting Splinting : Consent: Verbal Location: Left elbow Hand-Made Type: plaster Splint: poserior short Pre-Proc Neuro Vasc Exam: normal Post-Proc Neuro Vasc Exam: normal Patient Tolerated: Well Complications: None Medical Decision Making Diagnostic Impression: Primary Impression: Closed left hip fracture Additional Impressions: Fracture of olecranon process, left, closed Osteogenesis imperfecta Hyperkalemia ER Course Given the patient's history and presentation multiple differentials considered initially consideration for orthopedic process such as fractures Other differential such as metabolic and infectious process also considered, X-ray imaging does reveal left elbow fracture also Appears to have new left-sided hip fracture I spoke to the patient's daughter at length patient is under the care of and receiving chemotherapy Therefore he is also notified Orthopedic specialty is notified Patient's potassium level also returns elevated This is addressed and patient admitted for further care Labs Test 03/14/19 07:00 White Blood Count 4.8 K/UL (4.8-10.8) Red Blood Count 3.27 M/UL (4.20-5.40) Hemoglobin 10.1 G/DL (12.0-16.0) Hematocrit 31.8 % (37.0-47.0) Mean Corpuscular Volume 97 FL (80-99) Mean Corpuscular Hemoglobin 31.0 PG (27.0-31.0) Mean Corpuscular Hemoglobin Concent 31.9 G/DL (32.0-36.0) Red Cell Distribution Width 13.4 % (11.6-14.8) Platelet Count 394 K/UL (150-450) Mean Platelet Volume 6.6 FL (6.5-10.1) Neutrophils (%) (Auto) 83.0 % (45.0-75.0) Lymphocytes (%) (Auto) 13.2 % (20.0-45.0) Monocytes (%) (Auto) 3.2 % (1.0-10.0) Eosinophils (%) (Auto) 0.1 % (0.0-3.0) Basophils (%) (Auto) 0.6 % (0.0-2.0) Prothrombin Time 10.6 SEC (9.30-11.50) Prothromb Time International Ratio 1.0 (0.9-1.1) Activated Partial Thromboplast Time 27 SEC (23-33) Sodium Level 142 MMOL/L (136-145) Potassium Level 6.8 MMOL/L (3.5-5.1) Chloride Level 111 MMOL/L (98-107) Carbon Dioxide Level 18 MMOL/L (21-32) Anion Gap 12 mmol/L (5-15) Blood Urea Nitrogen 41 mg/dL (7-18) Creatinine 1.9 MG/DL (0.55-1.30) Estimat Glomerular Filtration Rate mL/min (>60) Glucose Level 213 MG/DL (74-106) Calcium Level 9.7 MG/DL (8.5-10.1) Total Bilirubin 0.2 MG/DL (0.2-1.0) Aspartate Amino Transf (AST/SGOT) 21 U/L (15-37) Alanine Aminotransferase (ALT/SGPT) 36 U/L (12-78) Alkaline Phosphatase 118 U/L (46-116) Troponin I 0.022 ng/mL (0.000-0.056) Total Protein 6.7 G/DL (6.4-8.2) Albumin 3.4 G/DL (3.4-5.0) Globulin 3.3 g/dL Albumin/Globulin Ratio 1.0 (1.0-2.7) EKG Diagnostic Results Rate: normal Rhythm: NSR ST Segments: other - Nonspecific ST and T wave changes Rhythm Strip Diag. Results EP Interpretation: yes Rate: 80 Rhythm: NSR, no PVC's, no ectopy Chest X-Ray Diagnostic Results Chest X-Ray Diagnostic Results : Chest X-Ray Ordered: Yes # of Views/Limited/Complete: 1 View Indication: Chest Pain EP Interpretation: Yes Interpretation: no consolidation, no effusion, no pneumothorax Impression: No acute disease Electronically Signed by: Dwight Lemon DO Other X-Ray Diagnostic Results Other X-Ray Diagnostic Results #1: X-Ray ordered: left elbow # of Views/Limited Vs Complete: 4 View Indication: Pain EP Interpretation: Yes Interpretation: other - Fracture involving left olecranon, mild displacement , positive soft tissue swelling no obvious foreign body Impression: Other - Acute fracture dislocation left olecranon Electronically Signed by: Dwight Lemon DO Other X-Ray Diagnostic Results #2: X-Ray ordered: Left hip # of Views/Limited Vs Complete: 2 View Indication: Pain EP Interpretation: Yes Interpretation: no dislocation, no soft tissue swelling, no fractures, other - Evidence of previous surgery Impression: No acute disease - However please refer to CT imaging for update Electronically Signed by: Dwight Lemon DO Other X-Ray Diagnostic Results #3: X-Ray ordered: Left tib-fib # of Views/Limited Vs Complete: 2 View Indication: Pain EP Interpretation: Yes Interpretation: no dislocation, no soft tissue swelling, no fractures Impression: No acute disease Electronically Signed by: Dwight Lemon DO CT/MRI/US Diagnostic Results CT/MRI/US Diagnostic Results : Impression CT pelvic Impression: Evidence of acute fracture lines involving the intertrochanteric region and subtrochanteric region of the left femur. These appear to be acute. These are nondisplaced. Uncertain as to whether there is a through and through fracture. Evidence of prior surgical repair of old femoral neck fracture. The surgical hardware is intact Extensive heterotopic new bone involving both femurs. May be related to prior trauma or could be a manifestation of DISH Age-indeterminate compression fracture deformities of the L4 and L5 vertebral bodies Evidence of rectal fecal impaction 3 cm and 2 cm right ovarian cyst. Recommend further follow-up with sonography 4.6 x 1.9 cm tubular structure to the right of the rectum. This could represent a hydrosalpinx, loculated intraperitoneal fluid, or an unusual cyst. Likewise, further evaluation with sonography should be considered Last Vital Signs Date Time Temp Pulse Resp B/P (MAP) Pulse Ox O2 Delivery O2 Flow Rate FiO2 03/14/19 07:20 98.6 80 19 200/74 100 Room Air Status: improved Disposition: ADMITTED INPATIENT Condition: Serious Referrals: NOT CHOSEN IPA/,REFERRING (PCP) Dwight Lemon DO Mar 14, 2019 07:45
[2019-03-14 07:52] LABS: BASOPHILS % (AUTO) 0.6 % (0.0-2.0); EOSINOPHILS % (AUTO) 0.1 % (0.0-3.0); HEMATOCRIT 31.8 % (37.0-47.0); HEMOGLOBIN 10.1 G/DL (12.0-16.0); LYMPHOCYTES % (AUTO) 13.2 % (20.0-45.0); MEAN CORPUSCULAR VOLUME 97 FL (80-99); MONOCYTES % (AUTO) 3.2 % (1.0-10.0); PLATELET COUNT 394 K/UL (150-450); RED BLOOD COUNT 3.27 M/UL (4.20-5.40); RED CELL DISTRIBUTION WIDTH 13.4 % (11.6-14.8); WHITE BLOOD COUNT 4.8 K/UL (4.8-10.8)
[2019-03-14] MEDS ORDERED: Morphine Sulfate 4mg/ml Inj (IV USE ONLY) IVP ONE (08:00)
[2019-03-14 08:08] LABS: ALANINE AMINOTRANSFERASE 36 U/L (12-78); ALBUMIN 3.4 G/DL (3.4-5.0); ALKALINE PHOSPHATASE 118 U/L (46-116); ANION GAP 12 mmol/L (5-15); ASPARTATE AMINO TRANSFERASE 21 U/L (15-37); BILIRUBIN,TOTAL 0.2 MG/DL (0.2-1.0); BLOOD UREA NITROGEN 41 mg/dL (7-18); CALCIUM 9.7 MG/DL (8.5-10.1); CARBON DIOXIDE 18 MMOL/L (21-32); CHLORIDE 111 MMOL/L (98-107); CREATININE 1.9 MG/DL (0.55-1.30); SODIUM 142 MMOL/L (136-145)
[2019-03-14 08:15] LABS: POTASSIUM 6.8 MMOL/L (3.5-5.1)
[2019-03-14] MEDS ORDERED: Sodium Polystyrene Sulfonate 15gm Powder ORAL ONE (08:45)
[2019-03-14] MEDS ORDERED: Insulin Human Regular 100units/ml 3ml IV ONE (08:45)
--- NOTE | 2019-03-14 09:15 | NUR ---
ED Nurse Note: Patient in bed in no distress at this time. bed is at the lowest position, patient rates her pain 2/10 after medications
--- NOTE | 2019-03-14 10:15 | Diagnostic Imaging Report ---
Indication: Pain in the left hip status post fall Technique: Noncontrast spiral acquisitions obtained through the pelvis. Multiplanar reconstructions generated. Total dose length product 692 mGycm. CTDIvol(s) 21 mGy. Dose reduction achieved using automated exposure control Comparison: Left hip radiograph performed earlier the same day Findings: 3 surgical pins are seen reducing an old healed femoral neck fracture. The hardware is intact. There is extensive dense heterotopic new bone bridging the anterior left intertrochanteric region and subtrochanteric region. There is a fracture line oriented vertically through the posterior greater trochanter extending distally into the cortex of the posterior proximal shaft. There is also a fracture line of the medial cortex beginning anteriorly at the level of the at the junction of the new bone and eagle bone and extending into the chest above the lesser trochanter posteromedial shaft. These fractures are all nondisplaced. There are a few displaced fracture fragments medially just inferior to the neck shaft junction which may be residua of the prior trauma. No pelvic fracture demonstrated. No evidence of right hip fracture. Both femurs demonstrate extensive new bone formation. There are compression fracture deformities of the L4 and L5 vertebral bodies, acuity of which is indeterminate. No significant soft tissue contusion or hematoma is demonstrated. There is evidence of rectal fecal impaction, with the rectum is distended by feces to up to 8.5 cm in diameter. There is slight thickening of the rectal wall. There is a 3 cm cyst in the right ovary. There is also a second 2 cm cyst. There is a tubular fluid collection which measures approximately 4.6 x 1.9 cm just to the right of the rectum. Impression: Evidence of acute fracture lines involving the intertrochanteric region and subtrochanteric region of the left femur. These appear to be acute. These are nondisplaced. Uncertain as to whether there is a through and through fracture. Evidence of prior surgical repair of old femoral neck fracture. The surgical hardware is intact Extensive heterotopic new bone involving both femurs. May be related to prior trauma or could be a manifestation of DISH Age-indeterminate compression fracture deformities of the L4 and L5 vertebral bodies Evidence of rectal fecal impaction 3 cm and 2 cm right ovarian cyst. Recommend further follow-up with sonography 4.6 x 1.9 cm tubular structure to the right of the rectum. This could represent a hydrosalpinx, loculated intraperitoneal fluid, or an unusual cyst. Likewise, further evaluation with sonography should be considered Findings discussed by phone with Dr. Lemon at the time of interpretation The CT scanner at [facility] is accredited by the [employer] and the scans are performed using protocols designed to limit radiation exposure to as low as reasonably achievable to attain images of sufficient resolution adequate for diagnostic evaluation.
--- NOTE | 2019-03-14 10:20 | NUR ---
TRANSFER TO FLOOR: Patient transferred to [facility] Puentes as ordered, per Report given to DAMIAN Puentes
--- NOTE | 2019-03-14 10:21 | Diagnostic Imaging Report ---
Indications:Trauma, elbow deformity Technique: Three or 4 views of the left elbow Comparison: None Findings: Positioning is suboptimal, presumably due to deformity of the elbow. There is dorsal soft tissue swelling. There is a distracted fracture of the olecranon demonstrated on what is presumably the lateral view. There is subluxation or dislocation of the radial head relative to the humerus. The bones are osteoporotic. There is a curvature deformity of the ulnar and radial shafts Impression: Evidence of slightly distracted olecranon fracture, not optimally demonstrated Evidence of subluxation or dislocation of the radial head, acuity indeterminate Chronic appearing deformity of the humeral and ulnar shafts
--- NOTE | 2019-03-14 10:24 | Diagnostic Imaging Report ---
Indication: Trauma, pain Technique: 2 views of the left tibia and fibula Comparison: none Findings: There is evidence of prior surgical repair of the distal femur. The bones are osteoporotic. 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 No acute fractures. No dislocations. No radiopaque foreign body demonstrated. Some chronic appearing periosteal reaction is seen along the posterior proximal tibial shaft on the lateral view. There are fairly severe degenerative changes of the patellofemoral joint Impression: No acute abnormality Chronic, postsurgical, and posttraumatic findings as described
--- NOTE | 2019-03-14 10:26 | Diagnostic Imaging Report ---
Indication: Chest pain Technique: One view of the chest Comparison: 02/06/2019 Findings: Left chest port catheter is again demonstrated. Previously demonstrated right perihilar consolidation is no longer evident. There is a linear scarring in the right midlung periphery. There is generalized mild interstitial prominence and central bronchial wall thickening. Impression: No definite acute process Mild interstitial prominence and central bronchial wall thickening is probably on the basis of senescent change Other findings as noted
--- NOTE | 2019-03-14 10:30 | Diagnostic Imaging Report ---
Indication: Reason For Exam: TRAUMA Technique: One view of the pelvis with additional imaging of the left femur Comparison: 06/27/2018 Findings: Again demonstrated are surgical screws reducing old healed left femoral neck fracture. There is extensive heterotopic new bone throughout the femur. There is also extensive heterotopic new bone along the shaft of the right femur. There is surgical hardware also seen reducing old healed distal femoral fracture. No definite acute fracture demonstrated. The bones are osteoporotic. There is evidence of rectal fecal impaction as well as rectal fecal incontinence Impression: No acute process demonstrated. The acute fractures demonstrated on subsequent CT scan are occult plain radiographs. Postsurgical and postradiation changes, as described Osteoporotic change Evidence of rectal fecal impaction and rectal fecal incontinence
--- NOTE | 2019-03-14 10:30 | NUR ---
NURSE NOTES: Nurse report given by DAMIAN Rose from ER. Patient's transferred to the floor by edgar. Patient's unable to ambulate, AO x 4, denies pain, no s/s of distress or SOB, L elbow splinting present on patient. Patient's belonging list went over with patient and ER nurse and signed by both nurses at bedside. ID checked, manager cardiac applied. Skin intact, except L elbow fracture and L hip fracture surgical scar. Bed low and locked, call light within reach, side rails x 2, bed alarm is armed. Vital signs: Temp 97.6, BP 137/87, TX 84, O2 92% and Temp 18. Contacted Dr. Hinds and Dr. Nguyen for admission orders. Awaiting for response.
[2019-03-14] MEDS ORDERED: D5 1/2NS 1,000 ML IV SCH (11:38)
[2019-03-14] MEDS ORDERED: LORazepam Inj 2mg/ml 1ml IV PRN (11:45)
[2019-03-14] MEDS ORDERED: Miralax 17gm pkt ORAL PRN (11:45)
[2019-03-14] MEDS ORDERED: Zolpidem 5mg tab ORAL PRN (11:45)
[2019-03-14] MEDS ORDERED: Enalaprilat 2.5mg/2ml Inj IV PRN (12:45)
[2019-03-14] MEDS ORDERED: Labetalol 5mg/ml 20ml vial IV PRN (12:45)
--- NOTE | 2019-03-14 12:53 | Consultation ---
History of Present Illness General Date patient seen: Mar 14, 2019 Chief Complaint: Multiple Trauma/Fall Present Illness HPI 74 year old female with hx of recently diagnosed Left breast cancer , likely metastatic, Acute DVT right internal jugular, Left upper lobe pulmonary nodule, Chronic renal insufficiency, Hypertension, Diabetes mellitus type 2, Osteogenesis imperfecta with multiple old fracture of extremities was brought in by paramedics with CC of fall at home. Initial evaluation in ER showed that pt has Left femoral fracture. Her systolic BP was 200 on presentation. She is admitted to telemetry for further management. Her K was high, which is most likely caused by a combination of dehydration, spirinolactone and Esteban-inhibitors. Allergies: Coded Allergies: PENICILLINS (Verified Allergy, Unknown, 06/03/15) Medication History Scheduled Atorvastatin Calcium* (Lipitor*), 10 MG ORAL DAILY, (Reported) Benazepril Hcl* (Benazepril Hcl*), 40 MG ORAL TWICE A DAY, (Reported) Enoxaparin* (Lovenox*), 40 MG SUBQ DAILY Fluoxetine Hcl* (Fluoxetine Hcl*), 20 MG ORAL DAILY, (Reported) Labetalol Hcl* (Normodyne*), 100 MG ORAL BID, (Reported) Spironolactone* (Aldactone*), 25 MG ORAL DAILY, (Reported) Miscellaneous Medications Unable to Obtain Medications (Unable To Obtain Meds), (Reported) Patient History Healthcare decision maker Resuscitation status Advanced Directive on File Past Medical/Surgical History Past Medical/Surgical History: (1) Diabetes mellitus (2) Anemia (3) History of hypertension (4) Metastatic adenocarcinoma (5) Hyperkalemia (6) Elbow fracture, left (7) Acute internal jugular vein thrombosis Review of Systems All Other Systems: negative except mentioned in HPI Physical Exam General Appearance: WD/WN Lines, tubes and drains: peripheral HEENT: normocephalic, atraumatic Neck: non-tender, normal alignment Respiratory/Chest: chest wall non-tender, lungs clear, normal breath sounds Cardiovascular/Chest: normal peripheral pulses, normal rate Abdomen: normal bowel sounds, soft Genitourinary/Rectal: normal genital exam Skin Exam: normal pigmentation Neurologic: nursing techn II-XII grossly normal Last 24 Hour Vital Signs Date Time Temp Pulse Resp B/P (MAP) Pulse Ox O2 Delivery O2 Flow Rate FiO2 03/14/19 11:19 Room Air 03/14/19 10:20 98.2 89 20 150/67 98 Room Air 03/14/19 10:08 98.2 91 20 146/65 98 Room Air 03/14/19 09:35 98.6 03/14/19 09:34 86 187/88 03/14/19 09:14 98.6 90 19 180/94 100 Room Air 03/14/19 07:20 98.6 80 19 200/74 100 Room Air 03/14/19 07:20 76 19 Room Air 03/14/19 07:12 98.6 76 19 208/96 (133) 100 Room Air Laboratory Tests Test 03/14/19 07:00 White Blood Count 4.8 K/UL (4.8-10.8) Red Blood Count 3.27 M/UL (4.20-5.40) L Hemoglobin 10.1 G/DL (12.0-16.0) L Hematocrit 31.8 % (37.0-47.0) L Mean Corpuscular Volume 97 FL (80-99) Mean Corpuscular Hemoglobin 31.0 PG (27.0-31.0) Mean Corpuscular Hemoglobin Concent 31.9 G/DL (32.0-36.0) L Red Cell Distribution Width 13.4 % (11.6-14.8) Platelet Count 394 K/UL (150-450) Mean Platelet Volume 6.6 FL (6.5-10.1) Neutrophils (%) (Auto) 83.0 % (45.0-75.0) H Lymphocytes (%) (Auto) 13.2 % (20.0-45.0) L Monocytes (%) (Auto) 3.2 % (1.0-10.0) Eosinophils (%) (Auto) 0.1 % (0.0-3.0) Basophils (%) (Auto) 0.6 % (0.0-2.0) Prothrombin Time 10.6 SEC (9.30-11.50) Prothromb Time International Ratio 1.0 (0.9-1.1) Activated Partial Thromboplast Time 27 SEC (23-33) Sodium Level 142 MMOL/L (136-145) Potassium Level 6.8 MMOL/L (3.5-5.1) *H Chloride Level 111 MMOL/L (98-107) H Carbon Dioxide Level 18 MMOL/L (21-32) L Anion Gap 12 mmol/L (5-15) Blood Urea Nitrogen 41 mg/dL (7-18) H Creatinine 1.9 MG/DL (0.55-1.30) H Estimat Glomerular Filtration Rate mL/min (>60) Glucose Level 213 MG/DL (74-106) H Calcium Level 9.7 MG/DL (8.5-10.1) Total Bilirubin 0.2 MG/DL (0.2-1.0) Aspartate Amino Transf (AST/SGOT) 21 U/L (15-37) Alanine Aminotransferase (ALT/SGPT) 36 U/L (12-78) Alkaline Phosphatase 118 U/L (46-116) H Troponin I 0.022 ng/mL (0.000-0.056) Total Protein 6.7 G/DL (6.4-8.2) Albumin 3.4 G/DL (3.4-5.0) Globulin 3.3 g/dL Albumin/Globulin Ratio 1.0 (1.0-2.7) Height (Feet): 4 Height (Inches): 8.00 Weight (Pounds): 110 Medications Current Medications Medications (Trade) Dose Ordered Sig/Sd Route PRN Reason Start Time Stop Time Status Last Admin Dose Admin Acetaminophen (Tylenol) 650 mg Q4H PRN ORAL fever 03/14/19 11:45 04/13/19 11:44 Benazepril HCl (Lotensin) 40 mg TWICE A DAY ORAL 03/14/19 18:00 04/13/19 17:59 UNV Dextrose (Dextrose 50%) 25 ml Q30M PRN IV Hypoglycemia 03/14/19 11:45 04/13/19 11:44 Dextrose (Dextrose 50%) 50 ml Q30M PRN IV Hypoglycemia 03/14/19 11:45 04/13/19 11:44 Dextrose/Sodium Chloride 1,000 ml @ 50 mls/hr Q20H IV 03/14/19 11:38 04/13/19 11:37 03/14/19 12:06 Fluoxetine HCl (PROzac) 20 mg DAILY ORAL 03/15/19 09:00 04/14/19 08:59 Heparin Sodium (Porcine) (Heparin 5000 units/ml) 5,000 units EVERY 12 HOURS SUBQ 03/14/19 21:00 04/13/19 20:59 Lorazepam (Ativan 2mg/ml 1ml) 0.5 mg Q4H PRN IV For Anxiety 03/14/19 11:45 03/21/19 11:44 Morphine Sulfate (Morphine Sulfate) 2 mg Q4H PRN IVP For Pain 4-6 03/14/19 11:45 03/21/19 11:44 Morphine Sulfate (Morphine Sulfate) 4 mg Q4H PRN IVP For Pain 7-10 03/14/19 11:45 03/21/19 11:44 Ondansetron HCl (Zofran) 4 mg Q6H PRN IVP Nausea & Vomiting 03/14/19 11:45 04/13/19 11:44 03/14/19 12:05 Polyethylene Glycol (Miralax) 17 gm HSPRN PRN ORAL Constipation 03/14/19 11:45 04/13/19 11:44 Zolpidem Tartrate (Ambien) 5 mg HSPRN PRN ORAL Insomnia 03/14/19 11:45 03/21/19 11:44 Assessment/Plan Problem List: (1) Hypertensive emergency ICD Codes: I16.1 - Hypertensive emergency SNOMED: 123328506355491 (2) Closed left hip fracture ICD Codes: S72.002A - Fracture of unspecified part of neck of left femur, initial encounter for closed fracture SNOMED: 447456457 (3) Acute renal failure (ARF) ICD Codes: N17.9 - Acute kidney failure, unspecified SNOMED: 17895602 (4) Metastatic adenocarcinoma ICD Codes: C79.9 - Secondary malignant neoplasm of unspecified site SNOMED: 5320339, 329544389, 455289710 (5) Breast cancer ICD Codes: C50.919 - Malignant neoplasm of unspecified site of unspecified female breast SNOMED: 472728329 (6) History of hypertension ICD Codes: Z86.79 - Personal history of other diseases of the circulatory system SNOMED: 275416973 (7) Diabetes mellitus ICD Codes: E11.9 - Type 2 diabetes mellitus without complications SNOMED: 70875666 Assessment/Plan: telemetry monitoring iv fluids pt got Kayexalate in ER avoid ESTEBAN and Spirinolactone ortho evaluation monitor BP closely symptomatic treatment sliding scale, diabetic diet. Cass Nguyen MD Mar 14, 2019 12:53
[2019-03-14] MEDS: D5 1/2NS 1,000 ML IV SCH ×2 (13:20→22:09)
[2019-03-14] MEDS: Morphine Sulfate 2mg/ml Inj(IV/IM USE ONLY) IVP PRN (13:24)
--- NOTE | 2019-03-14 15:52 | NUR ---
NURSE NOTES: Contacted Dr. Randal Waggoner to get the patient's chemo medication records and Dr. Waggoner said he will contact Dr. Hinds about in. Dr. Hinds acknowledged.
--- NOTE | 2019-03-14 16:04 | History & Physical ---
History and Physical History & Physicial Aiden Hinds MD Mar 14, 2019 16:04
--- NOTE | 2019-03-14 18:45 | History and Physical Report ---
DATE OF ADMISSION: 03/14/2019 CHIEF COMPLAINT: Fall with left-sided body injury. HISTORY OF PRESENT ILLNESS: The patient is a 74-year-old very delightful female with past medical history significant for left breast cancer with possible metastasis to the lung, history of acute DVT of the right internal jugular, left upper lobe pulmonary nodule, chronic kidney disease, hypertension, diabetes type 2, osteogenic imperfecta, history of multiple old fracture of the extremities who was brought into the emergency room accompanied via EMS due to the fall at home and sustained injury to the left side of body. The patient after initial evaluation in the emergency room was noted to have the left femoral fracture as well as left elbow fracture. It was noted that initial blood pressure was in 200 due to the pain and subsequently the patient was admitted to telemetry for further evaluation and workup. The patient was noted to have elevated potassium level of 6.8. After further discussion with Dr. Nita Waggoner, the patient received chemotherapy yesterday in his office for left breast cancer. PAST MEDICAL HISTORY/PAST SURGICAL HISTORY: As above, history of left breast cancer with possible metastasis to the lung, acute DVT of the right internal jugular, chronic renal insufficiency, hypertension, diabetes type 2, osteogenic imperfecta with multiple old fracture, dyslipidemia. MEDICATIONS: At home significant for atorvastatin 10 mg daily, benazepril 40 mg twice a day, Lovenox 40 mg subcutaneous daily, fluoxetine 20 mg daily, labetalol 100 mg twice a day, spironolactone 25 mg daily. ALLERGIES: Penicillin. SOCIAL HISTORY: No smoking, alcohol, or drugs. She lives with daughter. FAMILY HISTORY: Noncontributory. REVIEW OF SYSTEMS: Mostly as above denies any dysuria, frequency, hematuria. Denies any hemoptysis or hematochezia. Complained about the left elbow pain, left hip pain. Denies any loss of consciousness. Denies any fall with head injury. Denies any loss of consciousness. Denies any bowel or urine incontinence. PHYSICAL EXAMINATION: VITAL SIGNS: On admission from the ER, temperature 98.6, pulse of 76, respirations 19, blood pressure initially 208/96, repeat one is 150/67. GENERAL: The patient is awake, responsive no acute distress. HEENT: Pupils are equal and reactive to light. Extraocular motor intact. NECK: Supple. No JVD. LUNGS: Good air entry. No wheezing or rales. Chest wall has left-sided chest wall PassPort. ABDOMEN: Soft, nondistended, nontender. Positive bowel sounds. EXTREMITIES: No cyanosis, clubbing, edema NEUROLOGIC: Cranial nerves II through XII grossly intact. Moving all the extremities except the left upper extremity due to the pain as well as left hip pain NEUROLOGIC: Cranial nerves II through XII grossly grossly intact. RECTAL/GENITOURINARY: Refused and deferred. PSYCHIATRIC: Mood and affect is intact. LABORATORY AND DIAGNOSTIC DATA: Laboratory on admission from the ER significant for sodium 142, potassium 6.8, chloride 111, bicarb 18, BUN 41, creatinine 1.9, and glucose is 213. Troponin 0.22. Alkaline phosphate is 118. Glucose level 213. Calcium 9.7. WBC of 4.8, hemoglobin 10, hematocrit 31, and platelets 394. PT of 10, INR 1.0, PTT of 27. X-ray of the tibia-fibula noted. The patient has no acute abnormality, chronic postsurgical and posttraumatic findings are noted. No acute fracture or dislocation. No radiographic foreign body demonstrated. Chest x-ray, no definite acute process. Mild interstitial prominence and central bronchial wall thickening is probably on the basis of senescent changes. X-ray of the elbow show evidence of the slightly distracted olecranon fracture, not optimally demonstrated, evidence of the subluxation or dislocation of the radial head acuity indeterminate, chronic appearing deformity of the humerus and ulnar shaft. X-ray of the hip acute fracture demonstrated on the subsequent CT scan on plain radiographic, postsurgical and postradiation changes described, osteoporotic changes. CT of the pelvic confirmed that the patient has evidence of acute fracture lines involving the intratrochanteric region and subtrochanteric region of the left femur, these appear to be acute. There are nondisplaced, uncertain as to weather there are through and through fracture, evidence of the prior surgical repair of the old femoral neck fracture, surgical hardware is intact, extensive heterotropic new bone involving the both femoral, may be related to the prior trauma or could be manifested of DISH, age indeterminate compression fracture, deformity of the L4 and L5 vertebral bodies, evidence of the rectal fecal impaction, 3 centimeters and 2 centimeter right ovarian cyst, 4 x 4.6 x 1.9 cm tubular structure to the right of the rectum. This could be in store representative of hydrosalpinx, loculated intraperitoneal fluid, or unusual cyst. ASSESSMENT: 1. Status post of fall with left elbow as well as left femoral fracture. 2. History of breast cancer with possible metastasis to the lung, status post of chemotherapy, latest one was yesterday. 3. Acute DVT of the right internal jugular. 4. Chronic renal insufficiency. 5. Hyperkalemia. 6. Hypertension. 7. Diabetes type 2. 8. Osteogenic imperfecta. PLAN: Admit the patient to telemetry. We will follow up laboratory, aggressive IV hydration. Discussed case with Dr. Nguyen, Pulmonary Critical Care. Dr. Montaño from Orthopedics and Dr. Nita Waggoner from Hematology/Oncology. We start the patient on Neupogen 300 mg daily x5 days. Monitor laboratory. Pain control. We will hold off on the spironolactone medication. DVT prophylaxis is Lovenox. Code status is Full Code. Aiden Hinds M.D. DR: Adonis JOB#: [id number] CC:
--- NOTE | 2019-03-14 19:32 | NUR ---
HAND-OFF: Report given to DAMIAN Price. Patient's stabel. Plan of care endorsed. .
--- NOTE | 2019-03-14 19:45 | NUR ---
NURSE NOTES: Pt received from DAMIAN Puentes alert and oriented x4 with no acute s/s of distress noted. Portacath on L subclavian asymptomatic and patent, able to get drawback, running to D5 1/2NS at 100. L arm in splint, clean and intact. Portacath on L subclavian, dressing dry and intact. Bed in lowest position, bed alarm on. Call light and belongings within reach.
[2019-03-14] MEDS: Heparin 5000 units/ml inj SUBQ SCH (21:00)
--- NOTE | 2019-03-14 21:08 | NUR ---
NURSE NOTES: Endorsed to Dr Hinds that pt has history of DM and that pt has portacath on L upper chest. Per Dr. Hinds, - Insulin Lispro sensitive scale - Accuchecks achs - Ok to use portacath on L upper chest.
[2019-03-14] MEDS: Morphine Sulfate 4mg/ml Inj (IV USE ONLY) IVP PRN (21:49)
[2019-03-14] MEDS: TBO-Filgrastim 300 mcg/0.5ml SQ SCH (22:09)
--- NOTE | 2019-03-14 22:45 | Consultation ---
DATE OF CONSULTATION: 03/14/2019 CHIEF COMPLAINT: Left elbow pain. HISTORY OF PRESENT ILLNESS: The patient is a pleasant 74-year-old female with a history of osteogenesis imperfecta who had a fall. She has pain in the left elbow. She had imaging studies, which showed left elbow olecranon fracture. Orthopedic consultation was obtained for further care and recommendation. PAST MEDICAL HISTORY: Osteogenesis imperfecta. Reviewed from the intake chart. PAST SURGICAL HISTORY: Includes multiple orthopedic injuries and fracture fixations including the hip, femur. Reviewed from the intake chart. MEDICATIONS: Reviewed from the intake chart. PHYSICAL EXAMINATION: GENERAL: The patient is resting comfortably in bed. She is lethargic and sleepy, but arousable. She is a little nauseous. VITAL SIGNS: Afebrile. Stable vital signs. EXTREMITIES: Left elbow examination shows a posterior splint in place. The patient has +2 minimal swelling and ecchymosis of the left hand. IMAGING: Two views of the left elbow are reviewed, which shows minimally displaced olecranon fracture with severe osteopenia. Left hip series reviewed and show closed reduction and percutaneous pinning, previous left femoral neck fracture, which has healed with significant deformity both right and left femur. Left knee series reviewed, which show what appears to be open reduction distal femur fracture. ASSESSMENT: 1. Left olecranon fracture minimally displaced. 2. Osteogenesis imperfecta. DISCUSSION: At this point, the fracture is minimally displaced. What we recommend at this point is to continue with the sling immobilization for a period of probably 3 weeks. At that point, we can begin placing in a hinged brace and begin some active range of motion exercises. We will try slower rehabilitation given her underlying osteogenesis imperfecta . It will take a little bit longer to heal. She needs serial x-rays on a weekly basis to make sure there is no displacement of the fracture. If there is displacement of fracture, ultimately she will require operative fixation, which she has had in the past for other injuries. In the meantime, she will continue under the medical care of Dr. Hinds and Dr. Nguyen. Alan Montaño M.D. DR: Khalida JOB#: [id number] CC: AVA
[2019-03-15] VITALS (7 sets, daily range): BP systolic 143–161; BP diastolic 70–98
[2019-03-15] MEDS: Morphine Sulfate 4mg/ml Inj (IV USE ONLY) IVP PRN ×5 (01:41→23:56)
[2019-03-15] MEDS: NovoLOG Insulin Flexpen SUBQ SCH ×4 (06:35→21:00)
[2019-03-15 07:31] LABS: ALANINE AMINOTRANSFERASE 30 U/L (12-78); ALBUMIN 2.9 G/DL (3.4-5.0); ALKALINE PHOSPHATASE 94 U/L (46-116); ANION GAP 9 mmol/L (5-15); ASPARTATE AMINO TRANSFERASE 16 U/L (15-37); BILIRUBIN,TOTAL 0.3 MG/DL (0.2-1.0); BLOOD UREA NITROGEN 35 mg/dL (7-18); CALCIUM 8.6 MG/DL (8.5-10.1); CARBON DIOXIDE 21 MMOL/L (21-32); CHLORIDE 113 MMOL/L (98-107); CREATININE 1.7 MG/DL (0.55-1.30); POTASSIUM 4.9 MMOL/L (3.5-5.1); SODIUM 143 MMOL/L (136-145)
--- NOTE | 2019-03-15 07:50 | NUR ---
HAND-OFF: Report given to DAMIAN Hendricks. Plan of care endorsed.
--- NOTE | 2019-03-15 08:03 | NUR ---
NURSE NOTES: Pt sleeping comfortably, she is NPO due to N/V. 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 Pt has port of cath that can be use. Bed is locked and in lowest position. Awaiting for new lab results. Call light is by pt hands. Will continue to monitor pt for pain and labs.
--- NOTE | 2019-03-15 09:10 | Pulmonology Progress Note ---
Assessment/Plan Problems: (1) Hypertensive emergency (2) Closed left hip fracture (3) Acute renal failure (ARF) (4) Metastatic adenocarcinoma (5) Breast cancer (6) History of hypertension (7) Diabetes mellitus Assessment/Plan BP better renal function improving Ortho note reviewed, no need for surgery sliding scale, diabetic diet check labs in am. Subjective ROS Limited/Unobtainable: No Constitutional: Reports: no symptoms HEENT: Repors: no symptoms Respiratory: Reports: no symptoms Allergies: Coded Allergies: PENICILLINS (Verified Allergy, Unknown, 06/03/15) Objective Last 24 Hour Vital Signs Date Time Temp Pulse Resp B/P (MAP) Pulse Ox O2 Delivery O2 Flow Rate FiO2 03/15/19 04:00 98.7 104 20 143/89 (107) 03/15/19 04:00 103 03/15/19 00:00 98.3 107 20 143/83 (103) 99 03/15/19 00:00 103 03/14/19 21:00 Room Air 03/14/19 20:00 99.0 101 20 132/85 (101) 98 03/14/19 20:00 105 03/14/19 16:20 183/107 03/14/19 16:00 98.6 83 20 154/87 (109) 92 03/14/19 16:00 102 03/14/19 12:00 82 03/14/19 12:00 98.8 85 18 120/63 (82) 91 03/14/19 11:19 Room Air 03/14/19 10:30 97.6 84 18 137/87 (104) 92 03/14/19 10:20 98.2 89 20 150/67 98 Room Air 03/14/19 10:08 98.2 91 20 146/65 98 Room Air 03/14/19 09:35 98.6 03/14/19 09:34 86 187/88 03/14/19 09:14 98.6 90 19 180/94 100 Room Air Intake and Output 03/14/19 03/15/19 19:00 07:00 Intake Total 700 ml Balance 700 ml Intake IV Total 700 ml # Voids 1 4 # Bowel Movements 2 2 General Appearance: WD/WN HEENT: normocephalic, atraumatic Respiratory/Chest: chest wall non-tender, lungs clear Breasts: no masses Cardiovascular: normal peripheral pulses, normal rate Abdomen: normal bowel sounds, soft, non tender Extremities: no cyanosis Neurologic/Psychiatric: 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 fertility extension specialist II-XII grossly normal Laboratory Tests 03/15/19 06:43: Sodium Level 143, Potassium Level 4.9, Chloride Level 113H, Carbon Dioxide Level 21, Anion Gap 9, Blood Urea Nitrogen 35H, Creatinine 1.7H, Estimat Glomerular Filtration Rate , Glucose Level 131H, Calcium Level 8.6, Total Bilirubin 0.3, Aspartate Amino Transf (AST/SGOT) 16, Alanine Aminotransferase ( ALT/SGPT) 30, Alkaline Phosphatase 94, Total Protein 5.7L, Albumin 2.9L, Globulin 2.8, Albumin/Globulin Ratio 1.0, Thyroid Stimulating Hormone (TSH) 1.085 Current Medications Medications (Trade) Dose Ordered Sig/Sd Route PRN Reason Start Time Stop Time Status Last Admin Dose Admin Acetaminophen (Tylenol) 650 mg Q4H PRN ORAL fever 03/14/19 11:45 04/13/19 11:44 Chlorhexidine Gluconate (Fawn-Hex 2%) 1 applic DAILY@2000 TOPIC 03/15/19 20:00 04/14/19 19:59 Dextrose (Dextrose 50%) 25 ml Q30M PRN IV Hypoglycemia 03/14/19 21:45 04/13/19 21:44 Dextrose (Dextrose 50%) 50 ml Q30M PRN IV Hypoglycemia 03/14/19 21:45 04/13/19 21:44 Dextrose/Sodium Chloride 1,000 ml @ 100 mls/hr Q10H IV 03/14/19 13:15 04/13/19 13:14 03/14/19 22:09 Enalaprilat (Vasotec) 2.5 mg Q4H PRN IV sbp more than 200 03/14/19 12:45 04/13/19 12:44 Fluoxetine HCl (PROzac) 20 mg DAILY ORAL 03/15/19 09:00 04/14/19 08:59 Heparin Sodium (Porcine) (Heparin 5000 units/ml) 5,000 units EVERY 12 HOURS SUBQ 03/14/19 21:00 04/13/19 20:59 Hydralazine HCl (Apresoline) 20 mg Q4H PRN IV sbp more than 160 03/14/19 12:45 04/13/19 12:44 03/14/19 16:20 Insulin Aspart (NovoLOG) BEFORE MEALS AND HS SUBQ 03/15/19 06:30 04/14/19 06:29 03/15/19 06:35 Labetalol HCl (Normodyne) 20 mg Q1H PRN IV sbp more than 180 03/14/19 12:45 04/13/19 12:44 Lorazepam (Ativan 2mg/ml 1ml) 0.5 mg Q4H PRN IV For Anxiety 03/14/19 11:45 03/21/19 11:44 03/14/19 16:20 Morphine Sulfate (Morphine Sulfate) 2 mg Q4H PRN IVP For Pain 4-6 03/14/19 11:45 03/21/19 11:44 03/14/19 13:24 Morphine Sulfate (Morphine Sulfate) 4 mg Q4H PRN IVP For Pain 7-10 03/14/19 11:45 03/21/19 11:44 03/15/19 01:41 Ondansetron HCl (Zofran) 4 mg Q6H PRN IVP Nausea & Vomiting 03/14/19 11:45 04/13/19 11:44 03/15/19 01:16 Polyethylene Glycol (Miralax) 17 gm HSPRN PRN ORAL Constipation 03/14/19 11:45 04/13/19 11:44 Tbo-Filgrastim (Granix) 300 mcg QHS SQ 03/14/19 21:00 04/13/19 20:59 03/14/19 22:09 Zolpidem Tartrate (Ambien) 5 mg HSPRN PRN ORAL Insomnia 03/14/19 11:45 03/21/19 11:44 Cass Nguyen MD Mar 15, 2019 09:10
[2019-03-15] MEDS: D5 1/2NS 1,000 ML IV SCH ×2 (09:27→18:13)
[2019-03-15] MEDS: Heparin 5000 units/ml inj SUBQ SCH ×2 (09:35→21:00)
[2019-03-15 11:50] LABS: HEMATOCRIT 26.7 % (37.0-47.0); HEMOGLOBIN 8.4 G/DL (12.0-16.0); MEAN CORPUSCULAR VOLUME 97 FL (80-99); PLATELET COUNT 238 K/UL (150-450); RED BLOOD COUNT 2.76 M/UL (4.20-5.40); RED CELL DISTRIBUTION WIDTH 14.6 % (11.6-14.8); WHITE BLOOD COUNT 33.8 K/UL (4.8-10.8)
--- NOTE | 2019-03-15 12:00 | NUR ---
NURSE NOTES: notified doc. Nguyen about high WBC count, labs were drawn 2 times.
--- NOTE | 2019-03-15 12:41 | Cardiology Report ---
APPROVED REPORT EKG Measurement Heart [id number] NM [id number] Normal sinus rhythm Voltage criteria for left ventricular hypertrophy Nonspecific T wave abnormality Abnormal ECG
--- NOTE | 2019-03-15 14:52 | Internal Med Progress Note ---
Subjective Date of Service: Mar 15, 2019 Physician Name IvannaZi Attending Physician Aiden Hinds MD Current Medications Medications (Trade) Dose Ordered Sig/Sd Route PRN Reason Start Time Stop Time Status Last Admin Dose Admin Acetaminophen (Tylenol) 650 mg Q4H PRN ORAL fever 03/14/19 11:45 04/13/19 11:44 Chlorhexidine Gluconate (Fawn-Hex 2%) 1 applic DAILY@2000 TOPIC 03/15/19 20:00 04/14/19 19:59 Dextrose (Dextrose 50%) 25 ml Q30M PRN IV Hypoglycemia 03/14/19 21:45 04/13/19 21:44 Dextrose (Dextrose 50%) 50 ml Q30M PRN IV Hypoglycemia 03/14/19 21:45 04/13/19 21:44 Dextrose/Sodium Chloride 1,000 ml @ 100 mls/hr Q10H IV 03/14/19 13:15 04/13/19 13:14 03/15/19 09:27 Enalaprilat (Vasotec) 2.5 mg Q4H PRN IV sbp more than 200 03/14/19 12:45 04/13/19 12:44 Fluoxetine HCl (PROzac) 20 mg DAILY ORAL 03/15/19 09:00 04/14/19 08:59 03/15/19 09:35 Heparin Sodium (Porcine) (Heparin 5000 units/ml) 5,000 units EVERY 12 HOURS SUBQ 03/14/19 21:00 04/13/19 20:59 03/15/19 09:35 Hydralazine HCl (Apresoline) 20 mg Q4H PRN IV sbp more than 160 03/14/19 12:45 04/13/19 12:44 03/14/19 16:20 Insulin Aspart (NovoLOG) BEFORE MEALS AND HS SUBQ 03/15/19 06:30 04/14/19 06:29 03/15/19 06:35 Labetalol HCl (Normodyne) 20 mg Q1H PRN IV sbp more than 180 03/14/19 12:45 04/13/19 12:44 Lorazepam (Ativan 2mg/ml 1ml) 0.5 mg Q4H PRN IV For Anxiety 03/14/19 11:45 03/21/19 11:44 03/14/19 16:20 Morphine Sulfate (Morphine Sulfate) 2 mg Q4H PRN IVP For Pain 4-6 03/14/19 11:45 03/21/19 11:44 03/14/19 13:24 Morphine Sulfate (Morphine Sulfate) 4 mg Q4H PRN IVP For Pain 7-10 03/14/19 11:45 03/21/19 11:44 03/15/19 13:57 Ondansetron HCl (Zofran) 4 mg Q6H PRN IVP Nausea & Vomiting 03/14/19 11:45 04/13/19 11:44 03/15/19 09:33 Polyethylene Glycol (Miralax) 17 gm HSPRN PRN ORAL Constipation 03/14/19 11:45 04/13/19 11:44 Tbo-Filgrastim (Granix) 300 mcg QHS SQ 03/14/19 21:00 04/13/19 20:59 03/14/19 22:09 Zolpidem Tartrate (Ambien) 5 mg HSPRN PRN ORAL Insomnia 03/14/19 11:45 03/21/19 11:44 Allergies: Coded Allergies: PENICILLINS (Verified Allergy, Unknown, 06/03/15) ROS Limited/Unobtainable: No Constitutional: Reports: no symptoms HEENT: Reports: no symptoms Cardiovascular: Reports: no symptoms Respiratory: Reports: no symptoms Gastrointestinal/Abdominal: Reports: no symptoms Genitourinary: Reports: no symptoms Neurologic/Psychiatric: Reports: no symptoms Subjective 74 YO F admitted with fall injury. Now fracture left femur and left olecranon fracture. Cover for Int Anthony-Dr Hinds Objective Last Vital Signs Date Time Temp Pulse Resp B/P (MAP) Pulse Ox O2 Delivery O2 Flow Rate FiO2 03/15/19 12:00 117 03/15/19 12:00 98.6 20 143/79 (100) 94 03/15/19 09:00 Room Air Laboratory Tests Test 03/15/19 06:43 03/15/19 11:35 Sodium Level 143 MMOL/L (136-145) Potassium Level 4.9 MMOL/L (3.5-5.1) Chloride Level 113 MMOL/L (98-107) H Carbon Dioxide Level 21 MMOL/L (21-32) Anion Gap 9 mmol/L (5-15) Blood Urea Nitrogen 35 mg/dL (7-18) H Creatinine 1.7 MG/DL (0.55-1.30) H Estimat Glomerular Filtration Rate mL/min (>60) Glucose Level 131 MG/DL (74-106) H Calcium Level 8.6 MG/DL (8.5-10.1) Total Bilirubin 0.3 MG/DL (0.2-1.0) Aspartate Amino Transf (AST/SGOT) 16 U/L (15-37) Alanine Aminotransferase (ALT/SGPT) 30 U/L (12-78) Alkaline Phosphatase 94 U/L (46-116) Total Protein 5.7 G/DL (6.4-8.2) L Albumin 2.9 G/DL (3.4-5.0) L Globulin 2.8 g/dL Albumin/Globulin Ratio 1.0 (1.0-2.7) Thyroid Stimulating Hormone (TSH) 1.085 uiU/mL (0.358-3.740) White Blood Count 33.8 K/UL (4.8-10.8) #*H Red Blood Count 2.76 M/UL (4.20-5.40) L Hemoglobin 8.4 G/DL (12.0-16.0) L Hematocrit 26.7 % (37.0-47.0) L Mean Corpuscular Volume 97 FL (80-99) Mean Corpuscular Hemoglobin 30.5 PG (27.0-31.0) Mean Corpuscular Hemoglobin Concent 31.5 G/DL (32.0-36.0) L Red Cell Distribution Width 14.6 % (11.6-14.8) Platelet Count 238 K/UL (150-450) Mean Platelet Volume 6.9 FL (6.5-10.1) Neutrophils (%) (Auto) % (45.0-75.0) Lymphocytes (%) (Auto) % (20.0-45.0) Monocytes (%) (Auto) % (1.0-10.0) Eosinophils (%) (Auto) % (0.0-3.0) Basophils (%) (Auto) % (0.0-2.0) Differential Total Cells Counted 100 Neutrophils % (Manual) 91 % (45-75) H Lymphocytes % (Manual) 7 % (20-45) L Monocytes % (Manual) 1 % (1-10) Eosinophils % (Manual) 0 % (0-3) Basophils % (Manual) 0 % (0-2) Band Neutrophils 1 % (0-8) Platelet Estimate Adequate Platelet Morphology Normal Anisocytosis 1+ Intake and Output 03/14/19 03/15/19 18:59 06:59 Intake Total 700 ml Balance 700 ml Intake IV Total 700 ml # Voids 1 4 # Bowel Movements 2 2 Objective PHYSICAL EXAMINATION: GENERAL: The patient is awake, responsive no acute distress. HEENT: Pupils are equal and reactive to light. Extraocular motor intact. NECK: Supple. No JVD. LUNGS: Good air entry. No wheezing or rales. Chest wall has left-sided chest wall PassPort. ABDOMEN: Soft, nondistended, nontender. Positive bowel sounds. EXTREMITIES: No cyanosis, clubbing, edema NEUROLOGIC: Cranial nerves II through XII grossly intact. Moving all the extremities except the left upper extremity due to the pain as well as left hip pain NEUROLOGIC: Cranial nerves II through XII grossly grossly intact. RECTAL/GENITOURINARY: Refused and deferred. PSYCHIATRIC: Mood and affect is intact. Assessment/Plan Problem List: (1) Hypercholesteremia (2) HTN (hypertension) Assessment & Plan: Continue hydralazine, vasotec and labetolol (3) Breast cancer, left (4) Deep venous thrombosis (5) Fracture of olecranon process, left, closed Assessment & Plan: Non surgical-see ortho note-Dr Montaño (6) Intertrochanteric fracture of left femur Assessment & Plan: See ortho note-Dr Montaño (7) Diabetes mellitus Assessment & Plan: continue novolog sliding scale (8) Osteogenesis imperfecta Status: not improved Zi Goncalves MD Mar 15, 2019 14:52
--- NOTE | 2019-03-15 15:08 | NUR ---
NURSE NOTES: reported tachycardia and all abnormal labs to Dr. Truong and doctKim Izquierdo. Doctor Felecia ordered Metoprolol 2.5mg IV q6hrs if HR>125.
[2019-03-15] MEDS ORDERED: NS 275ml ONE (16:24)
[2019-03-15] MEDS ORDERED: Metoprolol 5mg/5ml Inj IVP PRN ×3 (19:30→20:45)
[2019-03-15] MEDS: TBO-Filgrastim 300 mcg/0.5ml SQ SCH (21:00)
--- NOTE | 2019-03-15 21:19 | NUR ---
HAND-OFF: Report given to Jimmy/Rn.
--- NOTE | 2019-03-15 21:25 | NUR ---
NURSE NOTES: Received report from Henrique Nur RN. Patient in bed AAO X4 with no complaints of acute pain or discomfort noted at this time. Kept clean, dry, and comfortable in bed. Patient has hx of brittle bones and currently has e left arm FX, patient handled with extra care when turning and being cleaned PRN when soiled. IV line intact and patent, and placed on continuous cardiac monitoring per protocol. Safety precaution in place; siderails X3 up, call light within reach, bed in lowest position, brakes and alarm on at all times. Needs and wants anticipated and attended. Will continue plan of care
[2019-03-15] MEDS: Dyna-Hex 2% Top Sol 2oz TOPIC SCH (22:08)
[2019-03-15 23:17] LABS: HEMATOCRIT 23.8 % (37.0-47.0); HEMOGLOBIN 7.8 G/DL (12.0-16.0); MEAN CORPUSCULAR VOLUME 97 FL (80-99); PLATELET COUNT 193 K/UL (150-450); RED BLOOD COUNT 2.46 M/UL (4.20-5.40); RED CELL DISTRIBUTION WIDTH 13.4 % (11.6-14.8)
--- NOTE | 2019-03-15 23:20 | NUR ---
NURSE NOTES: Spoke to Karen from lab regarding STAT CBC result. Relayed message to MD Felecia. regarding result.
[2019-03-15 23:21] LABS: WHITE BLOOD COUNT 25.1 K/UL (4.8-10.8)
[2019-03-16] VITALS: BP 133/81
--- NOTE | 2019-03-16 | NUR ---
NURSE NOTES: Called and left message to on-call PX regarding medication availability Granix 300mcg. Awaiting call-back.
--- NOTE | 2019-03-16 01:24 | NUR ---
NURSE NOTES: Spoke with Jc from On-call PX regarding patient's Granix 300mcg SQ. Noted that medication to be held d/t elevated WBC at 25.1 Will continue to monitor
--- NOTE | 2019-03-16 01:32 | NUR ---
NURSE NOTES: Spoke with MD Felecia. regarding pt CBC result. Repeat CBC in the morning per
[2019-03-16 04:00] VITALS: BP 135/91
[2019-03-16] MEDS: Morphine Sulfate 4mg/ml Inj (IV USE ONLY) IVP PRN ×3 (04:32→16:30)
[2019-03-16] MEDS: D5 1/2NS 1,000 ML IV SCH (04:38)
[2019-03-16] MEDS: NovoLOG Insulin Flexpen SUBQ SCH ×4 (06:16→21:00)
[2019-03-16 06:33] LABS: HEMATOCRIT 24.6 % (37.0-47.0); MEAN CORPUSCULAR VOLUME 97 FL (80-99); PLATELET COUNT 192 K/UL (150-450); RED BLOOD COUNT 2.53 M/UL (4.20-5.40); RED CELL DISTRIBUTION WIDTH 14.3 % (11.6-14.8); WHITE BLOOD COUNT 19.3 K/UL (4.8-10.8)
[2019-03-16 07:14] LABS: ALANINE AMINOTRANSFERASE 21 U/L (12-78); ALBUMIN 2.5 G/DL (3.4-5.0); ALBUMIN/GLOBULIN RATIO 0.9 (1.0-2.7); ALKALINE PHOSPHATASE 90 U/L (46-116); ANION GAP 8 mmol/L (5-15); ASPARTATE AMINO TRANSFERASE 15 U/L (15-37); BILIRUBIN,TOTAL 0.3 MG/DL (0.2-1.0); BLOOD UREA NITROGEN 27 mg/dL (7-18); CARBON DIOXIDE 21 MMOL/L (21-32); CHLORIDE 111 MMOL/L (98-107); CREATININE 1.5 MG/DL (0.55-1.30); PHOSPHORUS 1.7 MG/DL (2.5-4.9); POTASSIUM 4.2 MMOL/L (3.5-5.1); SODIUM 140 MMOL/L (136-145)
--- NOTE | 2019-03-16 07:34 | NUR ---
HAND-OFF: Report given to Henrique Nur RN. Endorsed plan of care, patient stable in bed.
--- NOTE | 2019-03-16 07:45 | NUR ---
NURSE NOTES: pt. awake in bed. Pt on monitoring tech no signs of cardiac or respiratory distress at this time. Pt has Gtube, and feeding set up 35ml/hr tolerating it well. Bed locked and in lowest position. Call light within reach. Will continue to follow plan of care. Addendum: 03/16/19 at 0756 by Ruthie Nur RN pt is awake not nauseas at the moment. Pt is NPO. Pt on monitoring tech no respiratory distress at this time. pt has been tachycardic all night. Bed is locked and in lowest position. pt has port a cath that is patent and oK to use. Call light within reach. will continue to monitor pt.
[2019-03-16 08:00] VITALS: BP 147/87
[2019-03-16] MEDS: Heparin 5000 units/ml inj SUBQ SCH ×2 (08:35→22:06)
--- NOTE | 2019-03-16 08:53 | Pulmonology Progress Note ---
Assessment/Plan Problems: (1) Hypertensive emergency (2) Closed left hip fracture (3) Acute renal failure (ARF) (4) Metastatic adenocarcinoma (5) Breast cancer (6) History of hypertension (7) Diabetes mellitus (8) Leukocytosis Assessment/Plan wbc lower cultures negative afebrile BP better renal function improving Ortho note reviewed, no need for surgery sliding scale, diabetic diet check labs in am. Subjective ROS Limited/Unobtainable: No Constitutional: Reports: no symptoms HEENT: Repors: no symptoms Respiratory: Reports: no symptoms Allergies: Coded Allergies: PENICILLINS (Verified Allergy, Unknown, 06/03/15) Objective Last 24 Hour Vital Signs Date Time Temp Pulse Resp B/P (MAP) Pulse Ox O2 Delivery O2 Flow Rate FiO2 03/16/19 08:32 138 147/87 03/16/19 08:10 Room Air 03/16/19 04:00 139 03/16/19 04:00 99.0 130 21 135/91 (106) 95 03/16/19 00:00 98.9 129 22 133/81 (98) 95 03/16/19 00:00 132 03/15/19 21:00 Room Air 03/15/19 20:00 99.1 128 21 144/70 (94) 95 03/15/19 20:00 154 03/15/19 16:00 98.5 124 20 161/98 (119) 95 03/15/19 16:00 133 03/15/19 15:23 165/98 03/15/19 12:00 117 03/15/19 12:00 98.6 117 20 143/79 (100) 94 03/15/19 09:00 Room Air Intake and Output 03/15/19 03/16/19 19:00 07:00 Output Total 300 ml 800 ml Balance -300 ml -800 ml Output Urine Total 300 ml 800 ml # Bowel Movements 1 General Appearance: WD/WN HEENT: normocephalic, anicteric Respiratory/Chest: chest wall non-tender, lungs clear Breasts: no masses Cardiovascular: normal peripheral pulses Abdomen: soft, non tender Genitourinary: normal external genitalia Skin: no ulcers Neurologic/Psychiatric: transonic engineer II-XII grossly normal Laboratory Tests 03/15/19 11:35: White Blood Count 33.8#*H, Red Blood Count 2.76L, Hemoglobin 8.4L, Hematocrit 26.7L, Mean Corpuscular Volume 97, Mean Corpuscular Hemoglobin 30.5, Mean Corpuscular Hemoglobin Concent 31.5L, Red Cell Distribution Width 14.6, Platelet Count 238, Mean Platelet Volume 6.9, Neutrophils (%) (Auto) , Lymphocytes (%) (Auto) , Monocytes (%) (Auto) , Eosinophils (%) (Auto) , Basophils (%) (Auto) , Differential Total Cells Counted 100, Neutrophils % ( Manual) 91H, Lymphocytes % (Manual) 7L, Monocytes % (Manual) 1, Eosinophils % ( Manual) 0, Basophils % (Manual) 0, Band Neutrophils 1, Platelet Estimate Adequate, Platelet Morphology Normal, Anisocytosis + 03/15/19 22:50: White Blood Count 25.1*H, Red Blood Count 2.46L, Hemoglobin 7.8L, Hematocrit 23.8L, Mean Corpuscular Volume 97, Mean Corpuscular Hemoglobin 31.7H, Mean Corpuscular Hemoglobin Concent 32.8, Red Cell Distribution Width 13.4, Platelet Count 193, Mean Platelet Volume 9.1, Neutrophils (%) (Auto) , Lymphocytes (%) ( Auto) , Monocytes (%) (Auto) , Eosinophils (%) (Auto) , Basophils (%) (Auto) , Differential Total Cells Counted 100, Neutrophils % (Manual) 93H, Lymphocytes % (Manual) 4L, Monocytes % (Manual) 1, Eosinophils % (Manual) 0, Basophils % ( Manual) 0, Band Neutrophils 2, Platelet Estimate Adequate, Platelet Morphology Normal, Hypochromasia + 03/16/19 06:00: White Blood Count 19.3H, Red Blood Count 2.53L, Hemoglobin 8.0L, Hematocrit 24.6L, Mean Corpuscular Volume 97, Mean Corpuscular Hemoglobin 31.5H, Mean Corpuscular Hemoglobin Concent 32.4, Red Cell Distribution Width 14.3, Platelet Count 192, Mean Platelet Volume 7.0, Neutrophils (%) (Auto) , Lymphocytes (%) ( Auto) , Monocytes (%) (Auto) , Eosinophils (%) (Auto) , Basophils (%) (Auto) , Neutrophils % (Manual) [Pending], Lymphocytes % (Manual) [Pending], Platelet Estimate [Pending], Platelet Morphology [Pending], Sodium Level 140, Potassium Level 4.2, Chloride Level 111H, Carbon Dioxide Level 21, Anion Gap 8, Blood Urea Nitrogen 27H, Creatinine 1.5H, Estimat Glomerular Filtration Rate , Glucose Level 244#H, Calcium Level 8.0L, Phosphorus Level 1.7L, Magnesium Level 1.2L, Total Bilirubin 0.3, Aspartate Amino Transf (AST/SGOT) 15, Alanine Aminotransferase (ALT/SGPT) 21, Alkaline Phosphatase 90, Total Protein 5.2L, Albumin 2.5L, Globulin 2.7, Albumin/Globulin Ratio 0.9L Current Medications Medications (Trade) Dose Ordered Sig/Sd Route PRN Reason Start Time Stop Time Status Last Admin Dose Admin Acetaminophen (Tylenol) 650 mg Q4H PRN ORAL fever 03/14/19 11:45 04/13/19 11:44 Chlorhexidine Gluconate (Fawn-Hex 2%) 1 applic DAILY@2000 TOPIC 03/15/19 20:00 04/14/19 19:59 03/15/19 22:08 Dextrose (Dextrose 50%) 25 ml Q30M PRN IV Hypoglycemia 03/14/19 21:45 04/13/19 21:44 Dextrose (Dextrose 50%) 50 ml Q30M PRN IV Hypoglycemia 03/14/19 21:45 04/13/19 21:44 Dextrose/Sodium Chloride 1,000 ml @ 100 mls/hr Q10H IV 03/14/19 13:15 04/13/19 13:14 03/16/19 04:38 Enalaprilat (Vasotec) 2.5 mg Q4H PRN IV sbp more than 200 03/14/19 12:45 04/13/19 12:44 Fluoxetine HCl (PROzac) 20 mg DAILY ORAL 03/15/19 09:00 04/14/19 08:59 03/16/19 08:30 Heparin Sodium (Porcine) (Heparin 5000 units/ml) 5,000 units EVERY 12 HOURS SUBQ 03/14/19 21:00 04/13/19 20:59 03/16/19 08:35 Hydralazine HCl (Apresoline) 20 mg Q4H PRN IV sbp more than 160 03/14/19 12:45 04/13/19 12:44 03/15/19 15:23 Insulin Aspart (NovoLOG) BEFORE MEALS AND HS SUBQ 03/15/19 06:30 04/14/19 06:29 03/15/19 06:35 Labetalol HCl (Normodyne) 20 mg Q1H PRN IV sbp more than 180 03/14/19 12:45 04/13/19 12:44 Lorazepam (Ativan 2mg/ml 1ml) 0.5 mg Q4H PRN IV For Anxiety 03/14/19 11:45 03/21/19 11:44 03/14/19 16:20 Metoprolol Tartrate (Lopressor) 2.5 mg Q6H PRN IVP Heart rate >125 03/15/19 20:45 04/14/19 20:44 03/16/19 08:32 Morphine Sulfate (Morphine Sulfate) 2 mg Q4H PRN IVP For Pain 4-6 03/14/19 11:45 03/21/19 11:44 03/14/19 13:24 Morphine Sulfate (Morphine Sulfate) 4 mg Q4H PRN IVP For Pain 7-10 03/14/19 11:45 03/21/19 11:44 03/16/19 04:32 Ondansetron HCl (Zofran) 4 mg Q6H PRN IVP Nausea & Vomiting 03/14/19 11:45 04/13/19 11:44 03/16/19 03:59 Polyethylene Glycol (Miralax) 17 gm HSPRN PRN ORAL Constipation 03/14/19 11:45 04/13/19 11:44 Tbo-Filgrastim (Granix) 300 mcg QHS SQ 03/16/19 21:00 04/15/19 20:59 Zolpidem Tartrate (Ambien) 5 mg HSPRN PRN ORAL Insomnia 03/14/19 11:45 03/21/19 11:44 Cass Nguyen MD Mar 16, 2019 08:53
--- NOTE | 2019-03-16 10:57 | NUR ---
NURSE NOTES: notified Dr. Truong about 03/16 labs.
--- NOTE | 2019-03-16 11:50 | Cardiology Progress Note ---
Assessment/Plan Assessment/Plan [id number] venous dupelx per staff was neg lat nite anemic felipa etiologty of sinus tachy excep tfor deman not yet apparetn will see if pulm feel other testign necessary echo trop ekg all orderd and pending ? need ho surgery ? Objective Last 24 Hour Vital Signs Date Time Temp Pulse Resp B/P (MAP) Pulse Ox O2 Delivery O2 Flow Rate FiO2 03/16/19 10:50 128 03/16/19 08:32 138 147/87 03/16/19 08:10 Room Air 03/16/19 08:00 98.8 141 22 147/87 (107) 95 03/16/19 04:00 139 03/16/19 04:00 99.0 130 21 135/91 (106) 95 03/16/19 00:00 98.9 129 22 133/81 (98) 95 03/16/19 00:00 132 03/15/19 21:00 Room Air 03/15/19 20:00 99.1 128 21 144/70 (94) 95 03/15/19 20:00 154 03/15/19 16:00 98.5 124 20 161/98 (119) 95 03/15/19 16:00 133 03/15/19 15:23 165/98 03/15/19 12:00 117 03/15/19 12:00 98.6 117 20 143/79 (100) 94 Intake and Output 03/15/19 03/16/19 19:00 07:00 Output Total 300 ml 800 ml Balance -300 ml -800 ml Output Urine Total 300 ml 800 ml # Bowel Movements 1 Laboratory Tests Test 03/15/19 22:50 03/16/19 06:00 White Blood Count 25.1 K/UL (4.8-10.8) *H 19.3 K/UL (4.8-10.8) H Red Blood Count 2.46 M/UL (4.20-5.40) L 2.53 M/UL (4.20-5.40) L Hemoglobin 7.8 G/DL (12.0-16.0) L 8.0 G/DL (12.0-16.0) L Hematocrit 23.8 % (37.0-47.0) L 24.6 % (37.0-47.0) L Mean Corpuscular Volume 97 FL (80-99) 97 FL (80-99) Mean Corpuscular Hemoglobin 31.7 PG (27.0-31.0) H 31.5 PG (27.0-31.0) H Mean Corpuscular Hemoglobin Concent 32.8 G/DL (32.0-36.0) 32.4 G/DL (32.0-36.0) Red Cell Distribution Width 13.4 % (11.6-14.8) 14.3 % (11.6-14.8) Platelet Count 193 K/UL (150-450) 192 K/UL (150-450) Mean Platelet Volume 9.1 FL (6.5-10.1) 7.0 FL (6.5-10.1) Neutrophils (%) (Auto) % (45.0-75.0) % (45.0-75.0) Lymphocytes (%) (Auto) % (20.0-45.0) % (20.0-45.0) Monocytes (%) (Auto) % (1.0-10.0) % (1.0-10.0) Eosinophils (%) (Auto) % (0.0-3.0) % (0.0-3.0) Basophils (%) (Auto) % (0.0-2.0) % (0.0-2.0) Differential Total Cells Counted 100 100 Neutrophils % (Manual) 93 % (45-75) H 97 % (45-75) H Lymphocytes % (Manual) 4 % (20-45) L 2 % (20-45) L Monocytes % (Manual) 1 % (1-10) 1 % (1-10) Eosinophils % (Manual) 0 % (0-3) 0 % (0-3) Basophils % (Manual) 0 % (0-2) 0 % (0-2) Band Neutrophils 2 % (0-8) 0 % (0-8) Platelet Estimate Adequate Adequate Platelet Morphology Normal Normal Hypochromasia 1+ 1+ Sodium Level 140 MMOL/L (136-145) Potassium Level 4.2 MMOL/L (3.5-5.1) Chloride Level 111 MMOL/L (98-107) H Carbon Dioxide Level 21 MMOL/L (21-32) Anion Gap 8 mmol/L (5-15) Blood Urea Nitrogen 27 mg/dL (7-18) H Creatinine 1.5 MG/DL (0.55-1.30) H Estimat Glomerular Filtration Rate mL/min (>60) Glucose Level 244 MG/DL (74-106) #H Calcium Level 8.0 MG/DL (8.5-10.1) L Phosphorus Level 1.7 MG/DL (2.5-4.9) L Magnesium Level 1.2 MG/DL (1.8-2.4) L Total Bilirubin 0.3 MG/DL (0.2-1.0) Aspartate Amino Transf (AST/SGOT) 15 U/L (15-37) Alanine Aminotransferase (ALT/SGPT) 21 U/L (12-78) Alkaline Phosphatase 90 U/L (46-116) Total Protein 5.2 G/DL (6.4-8.2) L Albumin 2.5 G/DL (3.4-5.0) L Globulin 2.7 g/dL Albumin/Globulin Ratio 0.9 (1.0-2.7) L Ousmane Izquierdo MD Mar 16, 2019 11:50
[2019-03-16 12:00] VITALS: BP 148/90
[2019-03-16] MEDS: Metoprolol Succinate XL 25mg tab ORAL SCH (12:46)
--- NOTE | 2019-03-16 13:29 | Internal Med Progress Note ---
Subjective Date of Service: Mar 16, 2019 Physician Name IvannaZi Attending Physician Aiden Hinds MD Current Medications Medications (Trade) Dose Ordered Sig/Sd Route PRN Reason Start Time Stop Time Status Last Admin Dose Admin Acetaminophen (Tylenol) 650 mg Q4H PRN ORAL fever 03/14/19 11:45 04/13/19 11:44 Chlorhexidine Gluconate (Fawn-Hex 2%) 1 applic DAILY@2000 TOPIC 03/15/19 20:00 04/14/19 19:59 03/15/19 22:08 Dextrose (Dextrose 50%) 25 ml Q30M PRN IV Hypoglycemia 03/14/19 21:45 04/13/19 21:44 Dextrose (Dextrose 50%) 50 ml Q30M PRN IV Hypoglycemia 03/14/19 21:45 04/13/19 21:44 Enalaprilat (Vasotec) 2.5 mg Q4H PRN IV sbp more than 200 03/14/19 12:45 04/13/19 12:44 Fluoxetine HCl (PROzac) 20 mg DAILY ORAL 03/15/19 09:00 04/14/19 08:59 03/16/19 08:30 Heparin Sodium (Porcine) (Heparin 5000 units/ml) 5,000 units EVERY 12 HOURS SUBQ 03/14/19 21:00 04/13/19 20:59 03/16/19 08:35 Hydralazine HCl (Apresoline) 20 mg Q4H PRN IV sbp more than 160 03/14/19 12:45 04/13/19 12:44 03/15/19 15:23 Insulin Aspart (NovoLOG) BEFORE MEALS AND HS SUBQ 03/15/19 06:30 04/14/19 06:29 03/15/19 06:35 Labetalol HCl (Normodyne) 20 mg Q1H PRN IV sbp more than 180 03/14/19 12:45 04/13/19 12:44 Lorazepam (Ativan 2mg/ml 1ml) 0.5 mg Q4H PRN IV For Anxiety 03/14/19 11:45 03/21/19 11:44 03/14/19 16:20 Metoprolol Succinate (Toprol XL) 25 mg DAILY ORAL 03/16/19 12:00 04/15/19 11:59 03/16/19 12:46 Metoprolol Tartrate (Lopressor) 2.5 mg Q6H PRN IVP Heart rate >125 03/15/19 20:45 04/14/19 20:44 03/16/19 08:32 Morphine Sulfate (Morphine Sulfate) 2 mg Q4H PRN IVP For Pain 4-6 03/14/19 11:45 03/21/19 11:44 03/14/19 13:24 Morphine Sulfate (Morphine Sulfate) 4 mg Q4H PRN IVP For Pain 7-10 03/14/19 11:45 03/21/19 11:44 03/16/19 10:25 Ondansetron HCl (Zofran) 4 mg Q6H PRN IVP Nausea & Vomiting 03/14/19 11:45 04/13/19 11:44 03/16/19 03:59 Polyethylene Glycol (Miralax) 17 gm HSPRN PRN ORAL Constipation 03/14/19 11:45 04/13/19 11:44 Tbo-Filgrastim (Granix) 300 mcg QHS SQ 03/17/19 21:00 04/16/19 20:59 Zolpidem Tartrate (Ambien) 5 mg HSPRN PRN ORAL Insomnia 03/14/19 11:45 03/21/19 11:44 Allergies: Coded Allergies: PENICILLINS (Verified Allergy, Unknown, 06/03/15) ROS Limited/Unobtainable: No Constitutional: Reports: no symptoms HEENT: Reports: no symptoms Cardiovascular: Reports: no symptoms Respiratory: Reports: no symptoms Gastrointestinal/Abdominal: Reports: no symptoms Genitourinary: Reports: no symptoms Neurologic/Psychiatric: Reports: no symptoms Subjective 74 YO F admitted with fall injury. Now fracture of left olecranon. Cover for Int Anthony-Dr Hinds Objective Last Vital Signs Date Time Temp Pulse Resp B/P (MAP) Pulse Ox O2 Delivery O2 Flow Rate FiO2 03/16/19 12:46 116 148/90 03/16/19 08:10 Room Air 03/16/19 08:00 98.8 22 95 Laboratory Tests Test 03/15/19 22:50 03/16/19 06:00 03/16/19 13:00 White Blood Count 25.1 K/UL (4.8-10.8) *H 19.3 K/UL (4.8-10.8) H Red Blood Count 2.46 M/UL (4.20-5.40) L 2.53 M/UL (4.20-5.40) L Hemoglobin 7.8 G/DL (12.0-16.0) L 8.0 G/DL (12.0-16.0) L Hematocrit 23.8 % (37.0-47.0) L 24.6 % (37.0-47.0) L Mean Corpuscular Volume 97 FL (80-99) 97 FL (80-99) Mean Corpuscular Hemoglobin 31.7 PG (27.0-31.0) H 31.5 PG (27.0-31.0) H Mean Corpuscular Hemoglobin Concent 32.8 G/DL (32.0-36.0) 32.4 G/DL (32.0-36.0) Red Cell Distribution Width 13.4 % (11.6-14.8) 14.3 % (11.6-14.8) Platelet Count 193 K/UL (150-450) 192 K/UL (150-450) Mean Platelet Volume 9.1 FL (6.5-10.1) 7.0 FL (6.5-10.1) Neutrophils (%) (Auto) % (45.0-75.0) % (45.0-75.0) Lymphocytes (%) (Auto) % (20.0-45.0) % (20.0-45.0) Monocytes (%) (Auto) % (1.0-10.0) % (1.0-10.0) Eosinophils (%) (Auto) % (0.0-3.0) % (0.0-3.0) Basophils (%) (Auto) % (0.0-2.0) % (0.0-2.0) Differential Total Cells Counted 100 100 Neutrophils % (Manual) 93 % (45-75) H 97 % (45-75) H Lymphocytes % (Manual) 4 % (20-45) L 2 % (20-45) L Monocytes % (Manual) 1 % (1-10) 1 % (1-10) Eosinophils % (Manual) 0 % (0-3) 0 % (0-3) Basophils % (Manual) 0 % (0-2) 0 % (0-2) Band Neutrophils 2 % (0-8) 0 % (0-8) Platelet Estimate Adequate Adequate Platelet Morphology Normal Normal Hypochromasia 1+ 1+ Sodium Level 140 MMOL/L (136-145) Potassium Level 4.2 MMOL/L (3.5-5.1) Chloride Level 111 MMOL/L (98-107) H Carbon Dioxide Level 21 MMOL/L (21-32) Anion Gap 8 mmol/L (5-15) Blood Urea Nitrogen 27 mg/dL (7-18) H Creatinine 1.5 MG/DL (0.55-1.30) H Estimat Glomerular Filtration Rate mL/min (>60) Glucose Level 244 MG/DL (74-106) #H Calcium Level 8.0 MG/DL (8.5-10.1) L Phosphorus Level 1.7 MG/DL (2.5-4.9) L Magnesium Level 1.2 MG/DL (1.8-2.4) L Total Bilirubin 0.3 MG/DL (0.2-1.0) Aspartate Amino Transf (AST/SGOT) 15 U/L (15-37) Alanine Aminotransferase (ALT/SGPT) 21 U/L (12-78) Alkaline Phosphatase 90 U/L (46-116) Total Protein 5.2 G/DL (6.4-8.2) L Albumin 2.5 G/DL (3.4-5.0) L Globulin 2.7 g/dL Albumin/Globulin Ratio 0.9 (1.0-2.7) L Troponin I Pending Intake and Output 03/15/19 03/16/19 19:00 07:00 Output Total 300 ml 800 ml Balance -300 ml -800 ml Output Urine Total 300 ml 800 ml # Bowel Movements 1 Objective PHYSICAL EXAMINATION: GENERAL: The patient is awake, responsive no acute distress. HEENT: Pupils are equal and reactive to light. Extraocular motor intact. NECK: Supple. No JVD. LUNGS: Good air entry. No wheezing or rales. Chest wall has left-sided chest wall PassPort. ABDOMEN: Soft, nondistended, nontender. Positive bowel sounds. EXTREMITIES: No cyanosis, clubbing, edema NEUROLOGIC: Cranial nerves II through XII grossly intact. Moving all the extremities except the left upper extremity due to the pain as well as left hip pain NEUROLOGIC: Cranial nerves II through XII grossly grossly intact. RECTAL/GENITOURINARY: Refused and deferred. PSYCHIATRIC: Mood and affect is intact. Assessment/Plan Problem List: (1) Hypercholesteremia (2) HTN (hypertension) Assessment & Plan: Continue hydralazine, vasotec and labetolol (3) Breast cancer, left (4) Deep venous thrombosis (5) Fracture of olecranon process, left, closed Assessment & Plan: Non surgical-see ortho note-Dr Montaño (6) Intertrochanteric fracture of left femur Assessment & Plan: S/P ORIF previously. See ortho note-Dr Montaño (7) Diabetes mellitus Assessment & Plan: continue novolog sliding scale (8) Osteogenesis imperfecta Status: progressing Assessment/Plan discharge planning: SNF vs Acute rehab Zi Goncalves MD Mar 16, 2019 13:29
[2019-03-16 16:00] VITALS: BP 148/86
[2019-03-16] MEDS: Morphine Sulfate 2mg/ml Inj(IV/IM USE ONLY) IVP PRN (19:00)
--- NOTE | 2019-03-16 19:25 | NUR ---
NURSE NOTES: Received report from Henrique Nur RN. Patient in bed AAO X4 with no complaints of acute pain or discomfort noted at this time. Kept clean, dry, and comfortable in bed. Patient has hx of brittle bones and currently has e left arm FX, patient handled with extra care when turning and being cleaned PRN when soiled. IV line intact and patent, and placed on continuous cardiac monitoring per protocol. Safety precaution in place; siderails X3 up, call light within reach, bed in lowest position, brakes and alarm on at all times. Needs and wants anticipated and attended. Will continue plan of care No BP, blood draw or IV starts on Left arm d/t Fx
--- NOTE | 2019-03-16 19:36 | NUR ---
HAND-OFF: Report given to Darin/RN, pt in stable condition.
[2019-03-16 20:00] VITALS: BP 139/96
--- NOTE | 2019-03-16 20:15 | Consultation ---
DATE OF CONSULTATION: 03/16/2019 CARDIOLOGY CONSULTATION REFERRING PHYSICIAN: Aiden Hinds M.D. REASON FOR REFERRAL: Tachycardia. HISTORY OF PRESENT ILLNESS: This is a 74-year-old female with history of breast cancer, getting chemotherapy under the direction of Dr. Waggoner and has had some shortness of breath. A few days ago, she was walking, did not have a right shoe on and fell. She remembers the fall. She injured her hip, knee, and left elbow, diagnosed with fractures and was admitted to the hospital, noted to be tachycardic last night to 120. Does not have any chest pain now, although she did a few days ago when she touched the area where her catheter for chemotherapy is. No chest pains on walking. There is occasional shortness of breath on exertion. She has three pillow usage, not because of shortness of breath, but because of discomfort in relation to her cats. She states she has occasional palpitations and occasional dizziness on standing. PAST MEDICAL HISTORY: Positive for history of osteogenesis imperfecta. She has history of renal failure, severe hypertension, hypercalcemia, diabetes mellitus, dehydration, medical noncompliance, primary hyperparathyroidism, diabetes mellitus, and hypertension. No history of heart attack. She has breast cancer. No stroke. No hepatitis or tuberculosis. No asthma or emphysema. No ulcers. No kidney problems, liver problems, or thyroid problems she states. She has never had any heart problems. ALLERGIES: She is allergic to penicillin. SOCIAL HISTORY: Never smoked. Never drank alcoholic beverages. REVIEW OF SYSTEMS: GASTROINTESTINAL: She has had recurrent nausea and some vomiting in the past few days. No diarrhea. No bloody stools or black stools. : Occasional burning on urination. PULMONARY: Occasional coughing. CONSTITUTIONAL: Negative. PHYSICAL EXAMINATION: GENERAL: Shows to be elderly female, in no respiratory distress. NECK: Supple. No jugular venous distention. LUNGS: Appeared to show relatively clear to auscultation. CARDIAC: Regular rhythm. Tachycardic. No heaves or thrills noted. ABDOMEN: Soft, nontender, and obese. EXTREMITIES: There is no edema. NEUROLOGIC: She is awake, alert, and responsive. LABORATORY AND DIAGNOSTIC DATA: White count 33.8, down to 19.3, hemoglobin is 8 down from 10.1 at the time of her admission, and platelet counts are 192,000. Sodium is 140, potassium 4.2, chloride 111, bicarb 21, BUN of 27, and creatinine of 1.5. At original admission, potassium was 6.8 with creatinine of 1.9 that is improved. Blood sugars between 131 to 241, magnesium decreased at 1.2, phosphorus of 1.7, and calcium is 8.0. Total protein is 5.2 with albumin of 2.5. TSH of 1.085. B12 level back in August was 759. Her coags, INR of 1 and PTT of 27. She did have tib-fib x-rays that showed no acute abnormalities and chronic postsurgical traumatic findings. She had chest x-ray that shows mild interstitial prominence and central bronchial wall thickening, probably basis of senescent changes. Next is elbow film that showed slightly distracted olecranon fracture not optimally demonstrated subluxation or dislocation of radial head, acute indeterminate chronic appearing deformity, and hip and pelvis films shows acute fracture, which demonstrated subsequent CT scan. Fecal impaction is noted on that x-ray. Pelvic CT showed acute fracture of intertrochanteric lesion, trochanteric lesion of the left femur nondisplaced, repair of old femoral neck fracture, hardware intact, compression fracture of L4-L5, and ovarian cyst. EKG at the time of admission on the shows sinus rhythm at a rate of 68 and normal QRS axis. No ST or T-wave abnormalities. ASSESSMENT AND PLAN: 1. Sinus tachycardia. 2. Recurrent nausea and vomiting, possibly secondary to constipation and/or medication effects. 3. Olecranon fracture. 4. Femoral fracture. 5. Breast cancer on chemotherapy. 6. Anemia. This patient was seen in cardiac consultation. Because of the tachycardia that appears to be sinus, EKG will be repeated. TSH was last checked yesterday at 1.085 ruling out hyperthyroidism, which is probably ruled out even by the fact that this initial EKG did not show significant tachycardia. The venous duplex study of the lower extremities have been ordered reportedly performed last night and showed no evidence of acute DVT, although the final report is pending. An echocardiogram has been ordered and is pending. EKG has been ordered and pending. First set of cardiac enzymes was negative. On the 1st, those levels were repeated, may need the etiology of the patient's sinus tachycardia aside from demand of pain and/or nausea is not yet apparent. We will see if Dr. Nguyen from a pulmonary point of view thinks other testings should be performed on that basis as well. Not clear if the patient requires surgery or not based on Dr. Montaño's input. No surgery on the olecranon. However, I am not sure about her hip issues. Ousmane Izquierdo M.D. DR: Ella JOB#: [id number] CC:
[2019-03-16] MEDS ORDERED: TBO-Filgrastim 300 mcg/0.5ml SQ SCH (21:00)
[2019-03-16] MEDS: Dyna-Hex 2% Top Sol 2oz TOPIC SCH (22:04)
[2019-03-17] VITALS: BP 128/92
[2019-03-17] MEDS: Morphine Sulfate 4mg/ml Inj (IV USE ONLY) IVP PRN (02:44)
--- NOTE | 2019-03-17 03:47 | NUR ---
NURSE NOTES: Patient in bed asleep with no S/S of acute pain or distress noted. Will continue to monitor.
[2019-03-17 04:00] VITALS: BP 131/75
[2019-03-17] MEDS: NovoLOG Insulin Flexpen SUBQ SCH ×4 (06:21→21:54)
--- NOTE | 2019-03-17 07:05 | NUR ---
NURSE NOTES: Received report from Jimmy Richard RN. Patient in bed AAO X4 with no complaints of acute pain or discomfort noted at this time. Patient has hx of brittle bones and currently has left arm fracture, patient handled with extra care when turning and being cleaned PRN when soiled. Patient on left arm precaution. Portcath of left chest is patent, dry, and intact. On continuous cardiac monitoring per protocol. Safety precaution in place; side rails X3 up, call light within reach, bed in lowest position, brakes and alarm on at all times. Labs were drawn by previous nurse and sent. Will continue plan of care. Patient states she slept well last night and denies nausea and vomiting. patient ate more ice chips.
--- NOTE | 2019-03-17 07:46 | NUR ---
HAND-OFF: Report given to Gloria Singleton RN. Patient in bed with no S/S of distress. Endorsed plan of care.
[2019-03-17 08:00] VITALS: BP 163/75
[2019-03-17 08:23] LABS: HEMATOCRIT 22.7 % (37.0-47.0); HEMOGLOBIN 7.3 G/DL (12.0-16.0); MEAN CORPUSCULAR VOLUME 96 FL (80-99); PLATELET COUNT 158 K/UL (150-450); RED BLOOD COUNT 2.37 M/UL (4.20-5.40); RED CELL DISTRIBUTION WIDTH 14.1 % (11.6-14.8); WHITE BLOOD COUNT 8.7 K/UL (4.8-10.8)
[2019-03-17 08:38] LABS: ALANINE AMINOTRANSFERASE 20 U/L (12-78); ALBUMIN 2.2 G/DL (3.4-5.0); ALBUMIN/GLOBULIN RATIO 0.8 (1.0-2.7); ALKALINE PHOSPHATASE 74 U/L (46-116); ANION GAP 6 mmol/L (5-15); ASPARTATE AMINO TRANSFERASE 13 U/L (15-37); BILIRUBIN,TOTAL 0.3 MG/DL (0.2-1.0); BLOOD UREA NITROGEN 26 mg/dL (7-18); CALCIUM 8.4 MG/DL (8.5-10.1); CARBON DIOXIDE 23 MMOL/L (21-32); CHLORIDE 113 MMOL/L (98-107); CREATININE 1.4 MG/DL (0.55-1.30); PHOSPHORUS 2.5 MG/DL (2.5-4.9); POTASSIUM 4.9 MMOL/L (3.5-5.1); SODIUM 142 MMOL/L (136-145)
--- NOTE | 2019-03-17 08:48 | NUR ---
NURSE NOTES: @8:48am Received critical lab value of troponin 0.08 from wilder Ellsworth. @8:49am: Called Dr. Nguyen's office to report hgb 7.3, mg 1.5, and calcium 8.4. Awaiting orders.
[2019-03-17] MEDS: Metoprolol Succinate XL 25mg tab ORAL SCH (08:59)
[2019-03-17] MEDS: Heparin 5000 units/ml inj SUBQ SCH ×2 (09:04→21:54)
--- NOTE | 2019-03-17 09:54 | NUR ---
CASE MANAGEMENT: INITIAL REVIEW 74 YR OLD FEMALE CASSI FROM HOME CC: MULTIPLE TRAMA/ FALL SI: HTN, CLOSED LEFT HIP FX, LEFT FEMORAL FX; ACUTE RF, METASTATIC ADENOCARCINOMA 98.6 76 19 208/96 100% ON RA K+ 6.8; BUN 41; CREAT 1.9; BG 213; RBC 3.27; H/H 10.1/31.8; IS: IVF NS X1 IV MORPHINE SULFATE X1 IV ZOFRAN IV D5W X1 KAYEXALATE PO X1 IV NOVOLOG X1 LABETALOL PO X1 CASE MANAGEMENT: INITIAL REVIEW 03/17/19 SI: HTN, CLOSED LEFT HIP FX, LEFT FEMORAL FX; ACUTE RF, METASTATIC ADENOCARCINOMA 98.2 88 19 163/75 99% ON RA TROP BUN 26; CREAT 1.4; RBC 2.37; H/H 7.3/22.7; MG 1.5 IS: TOPROL PO QD IV LOPRESSOR 6H/PRN PROZAC PO QD IV MORPHINE SULFATE Q4/PRN HEPARIN SQ Q12HR NOVOLOG SQ AC&HS : 2E TELE UNIT DCP: REFER TO Rita LUNA @ [facility] BY DR. YE Addendum: 03/17/19 at 1057 by CHANDRA RANDALL LVN CASE MANAGEMENT: REVIEW 03/17/19 SI: HTN, CLOSED LEFT HIP FX, LEFT FEMORAL FX; ACUTE RF, METASTATIC ADENOCARCINOMA 98.2 88 19 163/75 99% ON RA TROP 0.080; BUN 26; CREAT 1.4; RBC 2.37; H/H 7.3/22.7; MG 1.5 IS: TOPROL PO QD IV LOPRESSOR 6H/PRN PROZAC PO QD IV MORPHINE SULFATE Q4/PRN HEPARIN SQ Q12HR NOVOLOG SQ AC&HS : 2E TELE UNIT DCP: REFER TO Rita LUNA @ [facility] BY DR. YE
--- NOTE | 2019-03-17 10:40 | Consultation ---
Consult Note Consult Note HPI: 74yo woman with PMH DM, HTN, breast cancer with lung mets, R IJ DVT, KARMA pulm nodule, CKD, osteogenesis imperfecta, multiple old fractures presents after mechanical fall when she put on her shoes incorrectly. Pt found to have L femoral fracture and L elbow fracture. On admission, WBC 4.8 but the following day increased to 33 after filgrastim and now downtrending. ID consulted. Pt states that she fell before the fall and denies fever, chills, cough, sob, abdominal pain, diarrhea, dysuria, hematuria prior to the fall or currently. Occasional nausea which she believes is from the chemotherapy. Pt just finished her first round of chemotherapy before admission. ROS: All ten point ROS negative except for what is above. PMH: per HPI Med: reviewed All: Penicillin SHx: reviewed FHx: noncontributory VS: Afebrile Gen: NAD HEENT: anicteric sclera. R chest wall port without tenderness CV: RRR. Resp: RRR. nonlabored. no wheezes or crackles Abd: normoactive BS+. Soft. no TTP Ext: no LE edema Neuro: awake. interactive. Assessment/Plan: 74yo woman with PMH below presents after fall. Afebrile Tachycardia, improving WBC 33, SP likely from filgrastim and reactive from fractures CRP 16.9 ESR 60 Acute femoral fracture and elbow fracture Hyperkalemia DM HTN breast cancer with lung mets on chemotherapy R IJ DVT KARMA pulm nodule CKD osteogenesis imperfecta multiple old fractures Plan: continue to monitor off antibiotics obtain cultures if febrile aspiration precaution, elevate HOB, incentive spirometry Thank you for this consult. [facility] will continue to follow the patient with you. Theresa Murry MD Mar 17, 2019 10:40
--- NOTE | 2019-03-17 11:26 | Pulmonology Progress Note ---
Assessment/Plan Problems: (1) Hypertensive emergency (2) Closed left hip fracture (3) Acute renal failure (ARF) (4) Metastatic adenocarcinoma (5) Breast cancer (6) History of hypertension (7) Diabetes mellitus (8) Leukocytosis Assessment/Plan wbc lower, WNL now V/q scan to rule out PE because of persistent tachycardia cultures negative afebrile BP better renal function improving Ortho note reviewed, no need for surgery sliding scale, diabetic diet check labs in am. Subjective ROS Limited/Unobtainable: Yes Constitutional: Reports: no symptoms HEENT: Repors: no symptoms Respiratory: Reports: no symptoms Allergies: Coded Allergies: PENICILLINS (Verified Allergy, Unknown, 06/03/15) Objective Last 24 Hour Vital Signs Date Time Temp Pulse Resp B/P (MAP) Pulse Ox O2 Delivery O2 Flow Rate FiO2 03/17/19 09:00 Room Air 03/17/19 08:59 88 163/75 03/17/19 08:00 98.2 88 19 163/75 (104) 99 03/17/19 04:00 81 03/17/19 04:00 98.5 79 19 131/75 (93) 97 03/17/19 00:00 98.6 106 18 128/92 (104) 98 03/17/19 00:00 96 03/16/19 21:00 Room Air 03/16/19 20:00 102 03/16/19 20:00 99.0 109 17 139/96 (110) 99 03/16/19 16:27 112 03/16/19 16:00 98.4 110 22 148/86 (106) 98 03/16/19 12:46 116 148/90 03/16/19 12:00 119 03/16/19 12:00 98.8 128 22 148/90 (109) 98 Intake and Output 03/16/19 03/17/19 19:00 07:00 Intake Total 480 ml Output Total 300 ml 650 ml Balance 180 ml -650 ml Intake Oral 480 ml Output Urine Total 300 ml 650 ml # Voids 2 2 General Appearance: WD/WN HEENT: normocephalic, atraumatic, anicteric Respiratory/Chest: chest wall non-tender, lungs clear Cardiovascular: normal peripheral pulses, normal rate, regular rhythm Abdomen: normal bowel sounds, soft, non tender, no organomegaly Genitourinary: normal external genitalia Extremities: no clubbing Skin: no rash, no ulcers Laboratory Tests 03/16/19 13:00: Troponin I 0.253H 03/17/19 07:40: Troponin I 0.080H, White Blood Count 8.7#, Red Blood Count 2.37L, Hemoglobin 7.3L, Hematocrit 22.7L, Mean Corpuscular Volume 96, Mean Corpuscular Hemoglobin 30.9, Mean Corpuscular Hemoglobin Concent 32.3, Red Cell Distribution Width 14.1 , Platelet Count 158, Mean Platelet Volume 7.3, Neutrophils (%) (Auto) , Lymphocytes (%) (Auto) , Monocytes (%) (Auto) , Eosinophils (%) (Auto) , Basophils (%) (Auto) , Differential Total Cells Counted 100, Neutrophils % ( Manual) 89H, Lymphocytes % (Manual) 7L, Monocytes % (Manual) 3, Eosinophils % ( Manual) 1, Basophils % (Manual) 0, Band Neutrophils 0, Platelet Estimate Adequate, Platelet Morphology Normal, Erythrocyte Sedimentation Rate 60H, Sodium Level 142, Potassium Level 4.9, Chloride Level 113H, Carbon Dioxide Level 23, Anion Gap 6, Blood Urea Nitrogen 26H, Creatinine 1.4H, Estimat Glomerular Filtration Rate , Glucose Level 107#H, Calcium Level 8.4L, Phosphorus Level 2.5, Magnesium Level 1.5L, Total Bilirubin 0.3, Aspartate Amino Transf (AST/SGOT) 13L, Alanine Aminotransferase (ALT/SGPT) 20, Alkaline Phosphatase 74, C-Reactive Protein, Quantitative 16.9H, Total Protein 5.1L, Albumin 2.2L, Globulin 2.9, Albumin/Globulin Ratio 0.8L Current Medications Medications (Trade) Dose Ordered Sig/Sd Route PRN Reason Start Time Stop Time Status Last Admin Dose Admin Acetaminophen (Tylenol) 650 mg Q4H PRN ORAL fever 03/14/19 11:45 04/13/19 11:44 Chlorhexidine Gluconate (Fawn-Hex 2%) 1 applic DAILY@1999 TOPIC 03/15/19 20:00 04/14/19 19:59 03/16/19 22:04 Dextrose (Dextrose 50%) 25 ml Q30M PRN IV Hypoglycemia 03/14/19 21:45 04/13/19 21:44 Dextrose (Dextrose 50%) 50 ml Q30M PRN IV Hypoglycemia 03/14/19 21:45 04/13/19 21:44 Enalaprilat (Vasotec) 2.5 mg Q4H PRN IV sbp more than 200 03/14/19 12:45 04/13/19 12:44 Fluoxetine HCl (PROzac) 20 mg DAILY ORAL 03/15/19 09:00 04/14/19 08:59 03/17/19 08:59 Heparin Sodium (Porcine) (Heparin 5000 units/ml) 5,000 units EVERY 12 HOURS SUBQ 03/14/19 21:00 04/13/19 20:59 03/17/19 09:04 Hydralazine HCl (Apresoline) 20 mg Q4H PRN IV sbp more than 160 03/14/19 12:45 04/13/19 12:44 03/15/19 15:23 Insulin Aspart (NovoLOG) BEFORE MEALS AND HS SUBQ 03/15/19 06:30 04/14/19 06:29 03/15/19 06:35 Labetalol HCl (Normodyne) 20 mg Q1H PRN IV sbp more than 180 03/14/19 12:45 04/13/19 12:44 Lorazepam (Ativan 2mg/ml 1ml) 0.5 mg Q4H PRN IV For Anxiety 03/14/19 11:45 03/21/19 11:44 03/14/19 16:20 Metoprolol Succinate (Toprol XL) 25 mg DAILY ORAL 03/16/19 12:00 04/15/19 11:59 03/17/19 08:59 Metoprolol Tartrate (Lopressor) 2.5 mg Q6H PRN IVP Heart rate >125 03/15/19 20:45 04/14/19 20:44 03/16/19 08:32 Morphine Sulfate (Morphine Sulfate) 2 mg Q4H PRN IVP For Pain 4-6 03/14/19 11:45 03/21/19 11:44 03/16/19 19:00 Morphine Sulfate (Morphine Sulfate) 4 mg Q4H PRN IVP For Pain 7-10 03/14/19 11:45 03/21/19 11:44 03/17/19 02:44 Ondansetron HCl (Zofran) 4 mg Q6H PRN IVP Nausea & Vomiting 03/14/19 11:45 04/13/19 11:44 03/16/19 17:59 Polyethylene Glycol (Miralax) 17 gm HSPRN PRN ORAL Constipation 03/14/19 11:45 04/13/19 11:44 Tbo-Filgrastim (Granix) 300 mcg QHS SQ 03/17/19 21:00 04/16/19 20:59 Zolpidem Tartrate (Ambien) 5 mg HSPRN PRN ORAL Insomnia 03/14/19 11:45 03/21/19 11:44 Cass Nguyen MD Mar 17, 2019 11:26
[2019-03-17 12:00] VITALS: BP 157/77
--- NOTE | 2019-03-17 12:00 | NUR ---
NURSE NOTES: Notify Dr. Nguyen about labs mg, ca, and hgb. Dr. Nguyen will enter orders.
--- NOTE | 2019-03-17 12:16 | Cardiology Report ---
APPROVED REPORT EXAM: Two-dimensional and M-mode echocardiogram with Doppler and color Doppler. INDICATION TACHYCARDIA M-Mode DIMENSIONS IVSd1.0 (0.7-1.1cm)Left Atrium (MM)2.5 (1.6-4.0cm) LVDd2.7 (3.5-5.6cm)Aortic Root2.7 (2.0-3.7cm) PWd0.9 (0.7-1.1cm)Aortic Cusp Exc.1.5 (1.5-2.0cm) IVSs0.9 cm LVDs2.1 (2.5-4.0cm) PWs0.6 cm Normal left ventricular chamber size, systolic function and wall motion . Left ventricular ejection fraction estimated to be 55%. All other cardiac chamber sizes are within normal limits. Focal aortic valve sclerosis with adequate cusp excursion. Thickened mitral valve leaflets with normal excursion. Mitral annulus and aortic root calcification. Normal pulmonic valve structure. Normal tricuspid valve structure. IVC at normal size with physiologic collapse. A color flow and spectral Doppler study was performed and revealed: Trace mitral regurgitation. Mitral diastolic velocities suggest reduced left ventricular relaxation c/w mild LV diastolic dysfunction (Grade I ) Mild tricuspid regurgitation. Tricuspid systolic velocities suggests peak right ventricular systolic pressure of 69 mmHg,consistent with severe pulmonary hypertension
--- NOTE | 2019-03-17 15:00 | NUR ---
NURSE NOTES: Daughter of patient, (Tamar Porter) request to hold blood tranfusion and to contact Dr. Walker for consultation. Made attempt to call the doctor Aaron and Dr. Gentile. Awaiting call back.
--- NOTE | 2019-03-17 15:43 | NUR ---
NM Lung V/Q Scan complete.
[2019-03-17 16:00] VITALS: BP 135/82
--- NOTE | 2019-03-17 16:05 | Diagnostic Imaging Report ---
Indication: Chest pain Technique: A ventilation/perfusion scan was performed. Ventilation was performed utilizing 40 mCi of Technetium 99m-DTPA. Perfusion was performed with 5.5 mCi of technetium 99m-MAA injected intravenously. Multiple side by side projections obtained. Findings: Ventilation is markedly heterogeneous. Perfusion is markedly heterogeneous. No significant mismatched defects seen. Impression: Intermediate probability for pulmonary embolus. Consider CTA for further evaluation Interpretation of findings are based on PICESILIA vernon (2006).
--- NOTE | 2019-03-17 18:45 | NUR ---
NURSE NOTES: Spoke to Dr. Goncalves regarding daughter declining blood transfusion until Dr. Walker is consulted. In addition, daughter wishes patient go to [facility] for higher level of care for orthopedics.
--- NOTE | 2019-03-17 18:49 | Internal Med Progress Note ---
Subjective Date of Service: Mar 17, 2019 Physician Name IvannaZi Attending Physician Aiden Hinds MD Current Medications Medications (Trade) Dose Ordered Sig/Sd Route PRN Reason Start Time Stop Time Status Last Admin Dose Admin Acetaminophen (Tylenol) 650 mg Q4H PRN ORAL fever 03/14/19 11:45 04/13/19 11:44 Chlorhexidine Gluconate (Fawn-Hex 2%) 1 applic DAILY@2000 TOPIC 03/15/19 20:00 04/14/19 19:59 03/16/19 22:04 Dextrose (Dextrose 50%) 25 ml Q30M PRN IV Hypoglycemia 03/14/19 21:45 04/13/19 21:44 Dextrose (Dextrose 50%) 50 ml Q30M PRN IV Hypoglycemia 03/14/19 21:45 04/13/19 21:44 Enalaprilat (Vasotec) 2.5 mg Q4H PRN IV sbp more than 200 03/14/19 12:45 04/13/19 12:44 Fluoxetine HCl (PROzac) 20 mg DAILY ORAL 03/15/19 09:00 04/14/19 08:59 03/17/19 08:59 Heparin Sodium (Porcine) (Heparin 5000 units/ml) 5,000 units EVERY 12 HOURS SUBQ 03/14/19 21:00 04/13/19 20:59 03/17/19 09:04 Hydralazine HCl (Apresoline) 20 mg Q4H PRN IV sbp more than 160 03/14/19 12:45 04/13/19 12:44 03/15/19 15:23 Insulin Aspart (NovoLOG) BEFORE MEALS AND HS SUBQ 03/15/19 06:30 04/14/19 06:29 03/15/19 06:35 Labetalol HCl (Normodyne) 20 mg Q1H PRN IV sbp more than 180 03/14/19 12:45 04/13/19 12:44 Lorazepam (Ativan 2mg/ml 1ml) 0.5 mg Q4H PRN IV For Anxiety 03/14/19 11:45 03/21/19 11:44 03/14/19 16:20 Metoprolol Succinate (Toprol XL) 25 mg DAILY ORAL 03/16/19 12:00 04/15/19 11:59 03/17/19 08:59 Metoprolol Tartrate (Lopressor) 2.5 mg Q6H PRN IVP Heart rate >125 03/15/19 20:45 04/14/19 20:44 03/16/19 08:32 Morphine Sulfate (Morphine Sulfate) 2 mg Q4H PRN IVP For Pain 4-6 03/14/19 11:45 03/21/19 11:44 03/16/19 19:00 Morphine Sulfate (Morphine Sulfate) 4 mg Q4H PRN IVP For Pain 7-10 03/14/19 11:45 03/21/19 11:44 03/17/19 02:44 Ondansetron HCl (Zofran) 4 mg Q6H PRN IVP Nausea & Vomiting 03/14/19 11:45 04/13/19 11:44 03/16/19 17:59 Polyethylene Glycol (Miralax) 17 gm HSPRN PRN ORAL Constipation 03/14/19 11:45 04/13/19 11:44 Tbo-Filgrastim (Granix) 300 mcg QHS SQ 03/17/19 21:00 04/16/19 20:59 Zolpidem Tartrate (Ambien) 5 mg HSPRN PRN ORAL Insomnia 03/14/19 11:45 03/21/19 11:44 Allergies: Coded Allergies: PENICILLINS (Verified Allergy, Unknown, 06/03/15) ROS Limited/Unobtainable: No Constitutional: Reports: no symptoms HEENT: Reports: no symptoms Cardiovascular: Reports: no symptoms Respiratory: Reports: no symptoms Gastrointestinal/Abdominal: Reports: no symptoms Genitourinary: Reports: no symptoms Subjective 74 YO F admitted with fall injury. Now fracture of left olecranon. Cover for Int Med-Dr Hinds. Patient family requests transfer to [facility]. Daughter refused transfusion Objective Last Vital Signs Date Time Temp Pulse Resp B/P (MAP) Pulse Ox O2 Delivery O2 Flow Rate FiO2 03/17/19 16:00 97.7 83 18 135/82 (99) 99 03/17/19 09:00 Room Air Laboratory Tests Test 03/17/19 07:40 White Blood Count 8.7 K/UL (4.8-10.8) # Red Blood Count 2.37 M/UL (4.20-5.40) L Hemoglobin 7.3 G/DL (12.0-16.0) L Hematocrit 22.7 % (37.0-47.0) L Mean Corpuscular Volume 96 FL (80-99) Mean Corpuscular Hemoglobin 30.9 PG (27.0-31.0) Mean Corpuscular Hemoglobin Concent 32.3 G/DL (32.0-36.0) Red Cell Distribution Width 14.1 % (11.6-14.8) Platelet Count 158 K/UL (150-450) Mean Platelet Volume 7.3 FL (6.5-10.1) Neutrophils (%) (Auto) % (45.0-75.0) Lymphocytes (%) (Auto) % (20.0-45.0) Monocytes (%) (Auto) % (1.0-10.0) Eosinophils (%) (Auto) % (0.0-3.0) Basophils (%) (Auto) % (0.0-2.0) Differential Total Cells Counted 100 Neutrophils % (Manual) 89 % (45-75) H Lymphocytes % (Manual) 7 % (20-45) L Monocytes % (Manual) 3 % (1-10) Eosinophils % (Manual) 1 % (0-3) Basophils % (Manual) 0 % (0-2) Band Neutrophils 0 % (0-8) Platelet Estimate Adequate Platelet Morphology Normal Erythrocyte Sedimentation Rate 60 MM/HR (0-30) H Sodium Level 142 MMOL/L (136-145) Potassium Level 4.9 MMOL/L (3.5-5.1) Chloride Level 113 MMOL/L (98-107) H Carbon Dioxide Level 23 MMOL/L (21-32) Anion Gap 6 mmol/L (5-15) Blood Urea Nitrogen 26 mg/dL (7-18) H Creatinine 1.4 MG/DL (0.55-1.30) H Estimat Glomerular Filtration Rate mL/min (>60) Glucose Level 107 MG/DL (74-106) #H Calcium Level 8.4 MG/DL (8.5-10.1) L Phosphorus Level 2.5 MG/DL (2.5-4.9) Magnesium Level 1.5 MG/DL (1.8-2.4) L Total Bilirubin 0.3 MG/DL (0.2-1.0) Aspartate Amino Transf (AST/SGOT) 13 U/L (15-37) L Alanine Aminotransferase (ALT/SGPT) 20 U/L (12-78) Alkaline Phosphatase 74 U/L (46-116) Troponin I 0.080 ng/mL (0.000-0.056) C-Reactive Protein, Quantitative 16.9 mg/dL (0.00-0.90) H Total Protein 5.1 G/DL (6.4-8.2) L Albumin 2.2 G/DL (3.4-5.0) L Globulin 2.9 g/dL Albumin/Globulin Ratio 0.8 (1.0-2.7) L Intake and Output 03/16/19 03/17/19 19:00 07:00 Intake Total 480 ml Output Total 300 ml 650 ml Balance 180 ml -650 ml Intake Oral 480 ml Output Urine Total 300 ml 650 ml # Voids 2 2 Objective PHYSICAL EXAMINATION: GENERAL: The patient is awake, responsive no acute distress. HEENT: Pupils are equal and reactive to light. Extraocular motor intact. NECK: Supple. No JVD. LUNGS: Good air entry. No wheezing or rales. Chest wall has left-sided chest wall PassPort. ABDOMEN: Soft, nondistended, nontender. Positive bowel sounds. EXTREMITIES: No cyanosis, clubbing, edema NEUROLOGIC: Cranial nerves II through XII grossly intact. Moving all the extremities except the left upper extremity due to the pain as well as left hip pain NEUROLOGIC: Cranial nerves II through XII grossly grossly intact. RECTAL/GENITOURINARY: Refused and deferred. PSYCHIATRIC: Mood and affect is intact. Assessment/Plan Problem List: (1) Hypercholesteremia (2) HTN (hypertension) Assessment & Plan: Continue hydralazine, vasotec and labetolol (3) Breast cancer, left (4) Deep venous thrombosis (5) Fracture of olecranon process, left, closed Assessment & Plan: Non surgical-see ortho note-Dr Montaño (6) Intertrochanteric fracture of left femur Assessment & Plan: S/P ORIF previously. See ortho note-Dr Montaño (7) Diabetes mellitus Assessment & Plan: continue novolog sliding scale (8) Osteogenesis imperfecta (9) Severe anemia Assessment & Plan: Daughter refused transfusion Assessment/Plan discharge planning: Family requests transfer to [facility] Zi Goncalves MD Mar 17, 2019 18:49
--- NOTE | 2019-03-17 19:45 | NUR ---
NURSE NOTES: Received pt and report from DAMIAN Milligan. Observed pt resting in bed with both eyes open. Pt is A/Ox4. monitoring analyst is in placed, IV site intact, asymptomatic, and patent. Bed is in the lowest position and locked. Call light within reach. Contacted Dr. Nguyen regarding Lung VQ scan results. DAMIAN Milligan endorsed that pt's daughter refused blood transfusion at this time. Family also requested pt gets transferred to [facility]; case manger is ordered to be on pt's case. No signs/symptoms of acute distress noted at this time. Will continue plan of care.
--- NOTE | 2019-03-17 19:55 | NUR ---
HAND-OFF: Report given to DAMIAN Whitmore.
[2019-03-17 20:00] VITALS: BP 158/94
--- NOTE | 2019-03-17 20:06 | Cardiology Progress Note ---
Assessment/Plan Assessment/Plan 1. Sinus tachycardia. 2. Recurrent nausea and vomiting, possibly secondary to constipation and/or medication effects. 3. Olecranon fracture. 4. Femoral fracture. 5. Breast cancer on chemotherapy. 6. Anemia. 7. Pulm htn 8. intermediate probablity v/q 9. renal insuf v/q noted no longer tachy but is on bb no t seem sob chioma prluritic chest pain but pulm htn cr improved today may be by tomorrow cr is improved enough to have ctpa ? ekg noted no st changes trop min abn echo noted no swma Subjective Cardiovascular: Denies: chest pain, lightheadedness, palpitations Respiratory: Denies: shortness of breath Gastrointestinal/Abdominal: Denies: abdominal pain Genitourinary: Reports: burning Objective Last 24 Hour Vital Signs Date Time Temp Pulse Resp B/P (MAP) Pulse Ox O2 Delivery O2 Flow Rate FiO2 03/17/19 16:00 97.7 83 18 135/82 (99) 99 03/17/19 15:12 92 03/17/19 12:00 98.1 72 20 157/77 (103) 100 03/17/19 11:46 75 03/17/19 09:00 Room Air 03/17/19 08:59 88 163/75 03/17/19 08:00 98.2 88 19 163/75 (104) 99 03/17/19 07:52 82 03/17/19 04:00 81 03/17/19 04:00 98.5 79 19 131/75 (93) 97 03/17/19 00:00 98.6 106 18 128/92 (104) 98 03/17/19 00:00 96 03/16/19 21:00 Room Air General Appearance: no apparent distress, alert Cardiovascular: normal rate Respiratory/Chest: lungs clear Abdomen: normal bowel sounds, non tender, soft Extremities: no swelling Intake and Output 03/16/19 03/17/19 19:00 07:00 Intake Total 480 ml Output Total 300 ml 650 ml Balance 180 ml -650 ml Intake Oral 480 ml Output Urine Total 300 ml 650 ml # Voids 2 2 Laboratory Tests Test 03/17/19 07:40 White Blood Count 8.7 K/UL (4.8-10.8) # Red Blood Count 2.37 M/UL (4.20-5.40) L Hemoglobin 7.3 G/DL (12.0-16.0) L Hematocrit 22.7 % (37.0-47.0) L Mean Corpuscular Volume 96 FL (80-99) Mean Corpuscular Hemoglobin 30.9 PG (27.0-31.0) Mean Corpuscular Hemoglobin Concent 32.3 G/DL (32.0-36.0) Red Cell Distribution Width 14.1 % (11.6-14.8) Platelet Count 158 K/UL (150-450) Mean Platelet Volume 7.3 FL (6.5-10.1) Neutrophils (%) (Auto) % (45.0-75.0) Lymphocytes (%) (Auto) % (20.0-45.0) Monocytes (%) (Auto) % (1.0-10.0) Eosinophils (%) (Auto) % (0.0-3.0) Basophils (%) (Auto) % (0.0-2.0) Differential Total Cells Counted 100 Neutrophils % (Manual) 89 % (45-75) H Lymphocytes % (Manual) 7 % (20-45) L Monocytes % (Manual) 3 % (1-10) Eosinophils % (Manual) 1 % (0-3) Basophils % (Manual) 0 % (0-2) Band Neutrophils 0 % (0-8) Platelet Estimate Adequate Platelet Morphology Normal Erythrocyte Sedimentation Rate 60 MM/HR (0-30) H Sodium Level 142 MMOL/L (136-145) Potassium Level 4.9 MMOL/L (3.5-5.1) Chloride Level 113 MMOL/L (98-107) H Carbon Dioxide Level 23 MMOL/L (21-32) Anion Gap 6 mmol/L (5-15) Blood Urea Nitrogen 26 mg/dL (7-18) H Creatinine 1.4 MG/DL (0.55-1.30) H Estimat Glomerular Filtration Rate mL/min (>60) Glucose Level 107 MG/DL (74-106) #H Calcium Level 8.4 MG/DL (8.5-10.1) L Phosphorus Level 2.5 MG/DL (2.5-4.9) Magnesium Level 1.5 MG/DL (1.8-2.4) L Total Bilirubin 0.3 MG/DL (0.2-1.0) Aspartate Amino Transf (AST/SGOT) 13 U/L (15-37) L Alanine Aminotransferase (ALT/SGPT) 20 U/L (12-78) Alkaline Phosphatase 74 U/L (46-116) Troponin I 0.080 ng/mL (0.000-0.056) C-Reactive Protein, Quantitative 16.9 mg/dL (0.00-0.90) H Total Protein 5.1 G/DL (6.4-8.2) L Albumin 2.2 G/DL (3.4-5.0) L Globulin 2.9 g/dL Albumin/Globulin Ratio 0.8 (1.0-2.7) L Ousmane Izquierdo MD Mar 17, 2019 20:06
--- NOTE | 2019-03-17 20:32 | NUR ---
NURSE NOTES: Dr. Nguyen made aware of pt's Lung VQ scan. No orders at this time.
[2019-03-17] MEDS: Dyna-Hex 2% Top Sol 2oz TOPIC SCH (20:43)
[2019-03-17] MEDS: TBO-Filgrastim 300 mcg/0.5ml SQ SCH (21:53)
[2019-03-18] VITALS (7 sets, daily range): BP systolic 135–171; BP diastolic 67–91
[2019-03-18] MEDS: NovoLOG Insulin Flexpen SUBQ SCH ×4 (06:08→21:02)
[2019-03-18 06:46] LABS: HEMATOCRIT 22.6 % (37.0-47.0); HEMOGLOBIN 7.3 G/DL (12.0-16.0); MEAN CORPUSCULAR VOLUME 96 FL (80-99); PLATELET COUNT 177 K/UL (150-450); RED BLOOD COUNT 2.35 M/UL (4.20-5.40); RED CELL DISTRIBUTION WIDTH 13.8 % (11.6-14.8); WHITE BLOOD COUNT 6.1 K/UL (4.8-10.8)
[2019-03-18 07:17] LABS: ANION GAP 10 mmol/L (5-15); BLOOD UREA NITROGEN 22 mg/dL (7-18); CALCIUM 9.3 MG/DL (8.5-10.1); CARBON DIOXIDE 21 MMOL/L (21-32); CHLORIDE 110 MMOL/L (98-107); CREATININE 1.2 MG/DL (0.55-1.30); POTASSIUM 4.1 MMOL/L (3.5-5.1); SODIUM 141 MMOL/L (136-145)
--- NOTE | 2019-03-18 07:22 | Cardiology Report ---
APPROVED REPORT EKG Measurement Heart [id number] [id number] Sinus rhythm with short WY Left ventricular hypertrophy with repolarization abnormality Abnormal ECG
--- NOTE | 2019-03-18 07:23 | Cardiology Report ---
APPROVED REPORT EKG Measurement Heart [id number] NM [id number] [id number] Sinus tachycardia with short NM with frequent premature ventricular complexes Left ventricular hypertrophy with repolarization abnormality Abnormal ECG
--- NOTE | 2019-03-18 07:39 | NUR ---
HAND-OFF: Report given to DAMIAN Jackson. Plan of care endorsed.
--- NOTE | 2019-03-18 07:39 | NUR ---
NURSE NOTES: Nurse report given by DAMIAN Whitmore. Patient's awake and eating breakfast at home. AO x 4, denies pain, no s/s of SOB or distress. Bed low and locked, call light within reach, side rails x 2, bed alarm is on. Left elbow brace is applied. IV is saline locked, patent and asymptomatic. Will continue to monitor.
[2019-03-18] MEDS: Metoprolol Succinate XL 25mg tab ORAL SCH (09:24)
[2019-03-18] MEDS: Heparin 5000 units/ml inj SUBQ SCH ×2 (09:28→21:01)
--- NOTE | 2019-03-18 09:44 | NUR ---
CASE MANAGEMENT: REVIEW 03/18/19 SI: HTN, CLOSED LEFT HIP FX, LEFT FEMORAL FX; ACUTE RF, METASTATIC ADENOCARCINOMA 97.1 99 18 135/79 100% ON RA BUN 22; RBC 2.35; H/H 7.3/22.6 IS: TOPROL PO Q IV LOPRESSOR 6H/PRN IV HYDRALAZINE Q4/PRN PROZAC PO QD IV MORPHINE SULFATE Q4/PRN HEPARIN SQ Q12HR NOVOLOG SQ AC&HS GRANIX SQ QHS IV ZOFRAN Q6/PRN IV ATIVAN Q4/PRN : 2E TELE UNIT DCP: PT EVAL REFER TO Rita LUNA @ [facility] BY DR. YE DAUGHTER REQUEST TRANSFER TO [place]
--- NOTE | 2019-03-18 11:02 | NUR ---
NURSE NOTES: Spoke to Dr. Nguyen in person regarding about patient's condition whether or not she's getting any blood transfusion. Made Dr. Nguyen aware that the patient's daughter wants him to speak to Dr. Waggoner first and for him to clear her for getting the blood transfusion, the daughter does not want the patient to get blood transfusion until Dr Nguyen spoke with Dr. Waggoner. Dr. Nguyen acknowledged. Awaiting for new orders.
--- NOTE | 2019-03-18 11:14 | Pulmonology Progress Note ---
Assessment/Plan Problems: (1) Hypertensive emergency (2) Closed left hip fracture (3) Acute renal failure (ARF) (4) Metastatic adenocarcinoma (5) Breast cancer (6) History of hypertension (7) Diabetes mellitus (8) Leukocytosis Assessment/Plan wbc lower, WNL now V/q scan to rule out PE was intermediate, Will get CT angio to rule out PE cultures negative afebrile BP better renal function improving Ortho note reviewed, no need for surgery sliding scale, diabetic diet check labs in am. d/w Dr Waggoner, agrees with transfusing one unit. case management to look for a place at [facility]. Subjective Interval Events: no new complains Allergies: Coded Allergies: PENICILLINS (Verified Allergy, Unknown, 06/03/15) Objective Last 24 Hour Vital Signs Date Time Temp Pulse Resp B/P (MAP) Pulse Ox O2 Delivery O2 Flow Rate FiO2 03/18/19 09:24 99 135/79 03/18/19 09:00 Room Air 03/18/19 08:00 117 03/18/19 08:00 97.1 99 18 135/79 (97) 100 03/18/19 04:00 97.5 103 19 135/67 (89) 100 03/18/19 03:38 108 03/18/19 01:25 105 147/77 (100) 03/18/19 00:53 171/89 03/18/19 00:00 97.2 95 19 171/87 (115) 100 03/17/19 23:31 89 03/17/19 21:00 Room Air 03/17/19 20:00 98.4 91 20 158/94 (115) 98 03/17/19 19:09 85 03/17/19 16:00 97.7 83 18 135/82 (99) 99 03/17/19 15:12 92 03/17/19 12:00 98.1 72 20 157/77 (103) 100 03/17/19 11:46 75 Intake and Output 03/17/19 03/18/19 19:00 07:00 Output Total 400 ml Balance -400 ml Output Urine Total 400 ml # Voids 2 General Appearance: WD/WN HEENT: normocephalic, atraumatic Respiratory/Chest: chest wall non-tender, lungs clear Breasts: no masses Cardiovascular: normal peripheral pulses, normal rate Abdomen: normal bowel sounds, soft, non tender Genitourinary: normal external genitalia Extremities: no cyanosis Neurologic/Psychiatric: 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 II-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 grossly normal, no motor/sensory deficits Lymphatic: no neck adenopathy Laboratory Tests 03/18/19 05:35: White Blood Count 6.1, Red Blood Count 2.35L, Hemoglobin 7.3L, Hematocrit 22.6L , Mean Corpuscular Volume 96, Mean Corpuscular Hemoglobin 31.2H, Mean Corpuscular Hemoglobin Concent 32.3, Red Cell Distribution Width 13.8, Platelet Count 177, Mean Platelet Volume 8.1, Neutrophils (%) (Auto) , Lymphocytes (%) ( Auto) , Monocytes (%) (Auto) , Eosinophils (%) (Auto) , Basophils (%) (Auto) , Differential Total Cells Counted 100, Neutrophils % (Manual) 84H, Lymphocytes % (Manual) 14L, Monocytes % (Manual) 2, Eosinophils % (Manual) 0, Basophils % ( Manual) 0, Band Neutrophils 0, Platelet Estimate Adequate, Platelet Morphology Normal, Hypochromasia 1+, Sodium Level 141, Potassium Level 4.1, Chloride Level 110H, Carbon Dioxide Level 21, Anion Gap 10, Blood Urea Nitrogen 22H, Creatinine 1.2, Estimat Glomerular Filtration Rate , Glucose Level 126H, Calcium Level 9.3 Current Medications Medications (Trade) Dose Ordered Sig/Sd Route PRN Reason Start Time Stop Time Status Last Admin Dose Admin Acetaminophen (Tylenol) 650 mg Q4H PRN ORAL fever 03/14/19 11:45 04/13/19 11:44 Chlorhexidine Gluconate (Fawn-Hex 2%) 1 applic DAILY@1999 TOPIC 03/15/19 20:00 04/14/19 19:59 03/17/19 20:43 Dextrose (Dextrose 50%) 25 ml Q30M PRN IV Hypoglycemia 03/14/19 21:45 04/13/19 21:44 Dextrose (Dextrose 50%) 50 ml Q30M PRN IV Hypoglycemia 03/14/19 21:45 04/13/19 21:44 Enalaprilat (Vasotec) 2.5 mg Q4H PRN IV sbp more than 200 03/14/19 12:45 04/13/19 12:44 Fluoxetine HCl (PROzac) 20 mg DAILY ORAL 03/15/19 09:00 12/2/19 08:59 03/18/19 09:24 Heparin Sodium (Porcine) (Heparin 5000 units/ml) 5,000 units EVERY 12 HOURS SUBQ 03/14/19 21:00 04/13/19 20:59 03/18/19 09:28 Hydralazine HCl (Apresoline) 20 mg Q4H PRN IV sbp more than 160 03/14/19 12:45 04/13/19 12:44 03/18/19 00:53 Insulin Aspart (NovoLOG) BEFORE MEALS AND HS SUBQ 03/15/19 06:30 04/14/19 06:29 03/18/19 06:08 Labetalol HCl (Normodyne) 20 mg Q1H PRN IV sbp more than 180 03/14/19 12:45 04/13/19 12:44 Lorazepam (Ativan 2mg/ml 1ml) 0.5 mg Q4H PRN IV For Anxiety 03/14/19 11:45 03/21/19 11:44 03/14/19 16:20 Metoprolol Succinate (Toprol XL) 25 mg DAILY ORAL 03/16/19 12:00 04/15/19 11:59 03/18/19 09:24 Metoprolol Tartrate (Lopressor) 2.5 mg Q6H PRN IVP Heart rate >125 03/15/19 20:45 04/14/19 20:44 03/16/19 08:32 Morphine Sulfate (Morphine Sulfate) 2 mg Q4H PRN IVP For Pain 4-6 03/14/19 11:45 03/21/19 11:44 03/16/19 19:00 Morphine Sulfate (Morphine Sulfate) 4 mg Q4H PRN IVP For Pain 7-10 03/14/19 11:45 03/21/19 11:44 03/17/19 02:44 Ondansetron HCl (Zofran) 4 mg Q6H PRN IVP Nausea & Vomiting 03/14/19 11:45 04/13/19 11:44 03/16/19 17:59 Polyethylene Glycol (Miralax) 17 gm HSPRN PRN ORAL Constipation 03/14/19 11:45 04/13/19 11:44 Tbo-Filgrastim (Granix) 300 mcg QHS SQ 03/17/19 21:00 04/16/19 20:59 03/17/19 21:53 Zolpidem Tartrate (Ambien) 5 mg HSPRN PRN ORAL Insomnia 03/14/19 11:45 03/21/19 11:44 Cass Nguyen MD Mar 18, 2019 11:14
[2019-03-18] MEDS: Morphine Sulfate 2mg/ml Inj(IV/IM USE ONLY) IVP PRN (11:17)
--- NOTE | 2019-03-18 11:30 | NUR ---
NURSE NOTES: Patient's schedule to have CTA chest with contrast. Consent is signed by patient.
--- NOTE | 2019-03-18 12:51 | NUR ---
DISCHARGE PLANNING: PATIENT HAS BEEN REFERRED TO [facility] HAVE BEEN FAXED T:[phone] F:[phone] SPOKE TO ARABELLA TALAMANTES PENDING ON PT EVALUATION
--- NOTE | 2019-03-18 12:54 | NUR ---
DISCHARGE PLANNING: PATIENT HAS BEEN REFERRED TO [facility] FA[facility] T:[phone] F:[phone] AWAITING A RESPONSE Addendum: 03/18/19 at 1621 by CHANDRA RANDALL LVN [facility] HAS ACCEPTED PATIENT NO DISCHARGE ORDER AT THIS TIME
--- NOTE | 2019-03-18 13:41 | Cardiology Progress Note ---
Assessment/Plan Assessment/Plan 1. Sinus tachycardia. 2. Recurrent nausea and vomiting, possibly secondary to constipation and/or medication effects. 3. Olecranon fracture. 4. Femoral fracture. 5. Breast cancer on chemotherapy. 6. Anemia. 7. Pulm htn 8. intermediate probablity v/q 9. renal insuf v/q noted no longer tachy but is on bb no t seem sob chioma prluritic chest pain but pulm htn ctpa ordered final ct reprot suggestive of an acute fracture i discussed with dr leggett he will revisit pat later today ekg noted no st changes trop min abn echo noted no swma looks ok is comfortable Subjective Cardiovascular: Reports: chest pain - right sided earlier today if took a deep breath Respiratory: Denies: shortness of breath, SOB with excertion Gastrointestinal/Abdominal: Denies: abdominal pain Genitourinary: Denies: burning Objective Last 24 Hour Vital Signs Date Time Temp Pulse Resp B/P (MAP) Pulse Ox O2 Delivery O2 Flow Rate FiO2 03/18/19 12:00 97.3 93 18 161/89 (113) 100 03/18/19 12:00 95 03/18/19 09:24 99 135/79 03/18/19 09:00 Room Air 03/18/19 08:00 117 03/18/19 08:00 97.1 99 18 135/79 (97) 100 03/18/19 04:00 97.5 103 19 135/67 (89) 100 03/18/19 03:38 108 03/18/19 01:25 105 147/77 (100) 03/18/19 00:53 171/89 03/18/19 00:00 97.2 95 19 171/87 (115) 100 03/17/19 23:31 89 03/17/19 21:00 Room Air 03/17/19 20:00 98.4 91 20 158/94 (115) 98 03/17/19 19:09 85 03/17/19 16:00 97.7 83 18 135/82 (99) 99 03/17/19 15:12 92 General Appearance: no apparent distress, alert Neck: supple Cardiovascular: normal rate Respiratory/Chest: lungs clear Abdomen: normal bowel sounds, non tender, soft Extremities: no swelling Intake and Output 03/17/19 03/18/19 19:00 07:00 Output Total 400 ml Balance -400 ml Output Urine Total 400 ml # Voids 2 Laboratory Tests Test 03/18/19 05:35 White Blood Count 6.1 K/UL (4.8-10.8) Red Blood Count 2.35 M/UL (4.20-5.40) L Hemoglobin 7.3 G/DL (12.0-16.0) L Hematocrit 22.6 % (37.0-47.0) L Mean Corpuscular Volume 96 FL (80-99) Mean Corpuscular Hemoglobin 31.2 PG (27.0-31.0) H Mean Corpuscular Hemoglobin Concent 32.3 G/DL (32.0-36.0) Red Cell Distribution Width 13.8 % (11.6-14.8) Platelet Count 177 K/UL (150-450) Mean Platelet Volume 8.1 FL (6.5-10.1) Neutrophils (%) (Auto) % (45.0-75.0) Lymphocytes (%) (Auto) % (20.0-45.0) Monocytes (%) (Auto) % (1.0-10.0) Eosinophils (%) (Auto) % (0.0-3.0) Basophils (%) (Auto) % (0.0-2.0) Differential Total Cells Counted 100 Neutrophils % (Manual) 84 % (45-75) H Lymphocytes % (Manual) 14 % (20-45) L Monocytes % (Manual) 2 % (1-10) Eosinophils % (Manual) 0 % (0-3) Basophils % (Manual) 0 % (0-2) Band Neutrophils 0 % (0-8) Platelet Estimate Adequate Platelet Morphology Normal Hypochromasia 1+ Sodium Level 141 MMOL/L (136-145) Potassium Level 4.1 MMOL/L (3.5-5.1) Chloride Level 110 MMOL/L (98-107) H Carbon Dioxide Level 21 MMOL/L (21-32) Anion Gap 10 mmol/L (5-15) Blood Urea Nitrogen 22 mg/dL (7-18) H Creatinine 1.2 MG/DL (0.55-1.30) Estimat Glomerular Filtration Rate mL/min (>60) Glucose Level 126 MG/DL (74-106) H Calcium Level 9.3 MG/DL (8.5-10.1) Ousmane Izquierdo MD Mar 18, 2019 13:41
--- NOTE | 2019-03-18 13:41 | NUR ---
NURSE NOTES: Patient's off the floor for CT chest with contrast. Patient's in stable condition.
--- NOTE | 2019-03-18 14:24 | Diagnostic Imaging Report ---
APPROVED REPORT CPT Code: 20843 Present Symptoms Lower Extremity Pain: Bilateral BILATERAL: Imaging reveals a patent deep venous system bilaterally. There is no evidence of thrombus within the right and left femoral, right popliteal or right tibial segments. The greater saphenous veins are also within normal limits. Doppler indicates normal spontaneous flow within these segments. The left popliteal and tibial veins were not imaged due to pain.
--- NOTE | 2019-03-18 15:08 | NUR ---
NURSE NOTES: Dr. Nguyen confirmed and consulted with Dr. Waggoner regarding patient's getting blood transfusion and it is cleared by both doctors to perform blood transfusion. Spoke to daughter, Tamar to make her aware that patient's getting the transfusion. Daughter acknowledge. Order acknowledged and carried out.
--- NOTE | 2019-03-18 15:16 | Infectious Diseases Prog Note ---
Assessment/Plan Assessment/Plan Assessment/Plan: 74yo woman with PMH below presents after fall. Afebrile Tachycardia, improving WBC 33, SP likely from filgrastim and reactive from fractures CRP 16.9 ESR 60 Acute femoral fracture and elbow fracture Hyperkalemia DM HTN breast cancer with lung mets on chemotherapy R IJ DVT KARMA pulm nodule CKD osteogenesis imperfecta multiple old fractures Plan: continue to monitor off antibiotics obtain cultures if febrile aspiration precaution, elevate HOB, incentive spirometry Thank you for this consult. [facility] will continue to follow the patient with you. Subjective Allergies: Coded Allergies: PENICILLINS (Verified Allergy, Unknown, 06/03/15) Subjective Afebrile. No complaints. No leukocytosis. Objective Vital Signs Last 24 Hour Vital Signs Date Time Temp Pulse Resp B/P (MAP) Pulse Ox O2 Delivery O2 Flow Rate FiO2 03/18/19 12:00 97.3 93 18 161/89 (113) 100 03/18/19 12:00 95 03/18/19 09:24 99 135/79 03/18/19 09:00 Room Air 03/18/19 08:00 117 03/18/19 08:00 97.1 99 18 135/79 (97) 100 03/18/19 04:00 97.5 103 19 135/67 (89) 100 03/18/19 03:38 108 03/18/19 01:25 105 147/77 (100) 03/18/19 00:53 171/89 03/18/19 00:00 97.2 95 19 171/87 (115) 100 03/17/19 23:31 89 03/17/19 21:00 Room Air 03/17/19 20:00 98.4 91 20 158/94 (115) 98 03/17/19 19:09 85 03/17/19 16:00 97.7 83 18 135/82 (99) 99 Height (Feet): 4 Height (Inches): 6.00 Weight (Pounds): 109 Objective VS: Afebrile Gen: NAD HEENT: anicteric sclera. R chest wall port without tenderness CV: RRR. Resp: RRR. nonlabored. no wheezes or crackles Abd: normoactive BS+. Soft. no TTP Ext: no LE edema Neuro: awake. interactive. Laboratory Tests Test 11/5/19 05:35 White Blood Count 6.1 K/UL (4.8-10.8) Red Blood Count 2.35 M/UL (4.20-5.40) L Hemoglobin 7.3 G/DL (12.0-16.0) L Hematocrit 22.6 % (37.0-47.0) L Mean Corpuscular Volume 96 FL (80-99) Mean Corpuscular Hemoglobin 31.2 PG (27.0-31.0) H Mean Corpuscular Hemoglobin Concent 32.3 G/DL (32.0-36.0) Red Cell Distribution Width 13.8 % (11.6-14.8) Platelet Count 177 K/UL (150-450) Mean Platelet Volume 8.1 FL (6.5-10.1) Neutrophils (%) (Auto) % (45.0-75.0) Lymphocytes (%) (Auto) % (20.0-45.0) Monocytes (%) (Auto) % (1.0-10.0) Eosinophils (%) (Auto) % (0.0-3.0) Basophils (%) (Auto) % (0.0-2.0) Differential Total Cells Counted 100 Neutrophils % (Manual) 84 % (45-75) H Lymphocytes % (Manual) 14 % (20-45) L Monocytes % (Manual) 2 % (1-10) Eosinophils % (Manual) 0 % (0-3) Basophils % (Manual) 0 % (0-2) Band Neutrophils 0 % (0-8) Platelet Estimate Adequate Platelet Morphology Normal Hypochromasia 1+ Sodium Level 141 MMOL/L (136-145) Potassium Level 4.1 MMOL/L (3.5-5.1) Chloride Level 110 MMOL/L (98-107) H Carbon Dioxide Level 21 MMOL/L (21-32) Anion Gap 10 mmol/L (5-15) Blood Urea Nitrogen 22 mg/dL (7-18) H Creatinine 1.2 MG/DL (0.55-1.30) Estimat Glomerular Filtration Rate mL/min (>60) Glucose Level 126 MG/DL (74-106) H Calcium Level 9.3 MG/DL (8.5-10.1) Current Medications Medications (Trade) Dose Ordered Sig/Sd Route PRN Reason Start Time Stop Time Status Last Admin Dose Admin Acetaminophen (Tylenol) 650 mg Q4H PRN ORAL fever 03/14/19 11:45 04/13/19 11:44 Chlorhexidine Gluconate (Fawn-Hex 2%) 1 applic DAILY@2000 TOPIC 03/15/19 20:00 04/14/19 19:59 03/17/19 20:43 Dextrose (Dextrose 50%) 25 ml Q30M PRN IV Hypoglycemia 03/14/19 21:45 04/13/19 21:44 Dextrose (Dextrose 50%) 50 ml Q30M PRN IV Hypoglycemia 03/14/19 21:45 04/13/19 21:44 Enalaprilat (Vasotec) 2.5 mg Q4H PRN IV sbp more than 200 03/14/19 12:45 04/13/19 12:44 Fluoxetine HCl (PROzac) 20 mg DAILY ORAL 03/15/19 09:00 04/14/19 08:59 03/18/19 09:24 Heparin Sodium (Porcine) (Heparin 5000 units/ml) 5,000 units EVERY 12 HOURS SUBQ 03/14/19 21:00 04/13/19 20:59 03/18/19 09:28 Hydralazine HCl (Apresoline) 20 mg Q4H PRN IV sbp more than 160 03/14/19 12:45 04/13/19 12:44 03/18/19 00:53 Insulin Aspart (NovoLOG) BEFORE MEALS AND HS SUBQ 03/15/19 06:30 04/14/19 06:29 03/18/19 11:58 Labetalol HCl (Normodyne) 20 mg Q1H PRN IV sbp more than 180 03/14/19 12:45 04/13/19 12:44 Lorazepam (Ativan 2mg/ml 1ml) 0.5 mg Q4H PRN IV For Anxiety 03/14/19 11:45 03/21/19 11:44 03/14/19 16:20 Metoprolol Succinate (Toprol XL) 25 mg DAILY ORAL 03/16/19 12:00 04/15/19 11:59 03/18/19 09:24 Metoprolol Tartrate (Lopressor) 2.5 mg Q6H PRN IVP Heart rate >125 03/15/19 20:45 04/14/19 20:44 03/16/19 08:32 Morphine Sulfate (Morphine Sulfate) 2 mg Q4H PRN IVP For Pain 4-6 03/14/19 11:45 03/21/19 11:44 03/18/19 11:17 Morphine Sulfate (Morphine Sulfate) 4 mg Q4H PRN IVP For Pain 7-10 03/14/19 11:45 03/21/19 11:44 03/17/19 02:44 Ondansetron HCl (Zofran) 4 mg Q6H PRN IVP Nausea & Vomiting 03/14/19 11:45 04/13/19 11:44 03/18/19 11:16 Polyethylene Glycol (Miralax) 17 gm HSPRN PRN ORAL Constipation 03/14/19 11:45 04/13/19 11:44 Tbo-Filgrastim (Granix) 300 mcg QHS SQ 03/17/19 21:00 04/16/19 20:59 03/17/19 21:53 Zolpidem Tartrate (Ambien) 5 mg HSPRN PRN ORAL Insomnia 03/14/19 11:45 03/21/19 11:44 Theresa Murry MD Mar 18, 2019 15:16
--- NOTE | 2019-03-18 17:03 | Internal Med Progress Note ---
Subjective Date of Service: Mar 18, 2019 Physician Name Goncalves,Zi Attending Physician Aiden Hinds MD Current Medications Medications (Trade) Dose Ordered Sig/Sd Route PRN Reason Start Time Stop Time Status Last Admin Dose Admin Acetaminophen (Tylenol) 650 mg Q4H PRN ORAL fever 03/14/19 11:45 04/13/19 11:44 Chlorhexidine Gluconate (Fawn-Hex 2%) 1 applic DAILY@2000 TOPIC 03/15/19 20:00 04/14/19 19:59 03/17/19 20:43 Dextrose (Dextrose 50%) 25 ml Q30M PRN IV Hypoglycemia 03/14/19 21:45 04/13/19 21:44 Dextrose (Dextrose 50%) 50 ml Q30M PRN IV Hypoglycemia 03/14/19 21:45 04/13/19 21:44 Enalaprilat (Vasotec) 2.5 mg Q4H PRN IV sbp more than 200 03/14/19 12:45 04/13/19 12:44 Fluoxetine HCl (PROzac) 20 mg DAILY ORAL 03/15/19 09:00 04/14/19 08:59 03/18/19 09:24 Heparin Sodium (Porcine) (Heparin 5000 units/ml) 5,000 units EVERY 12 HOURS SUBQ 03/14/19 21:00 04/13/19 20:59 03/18/19 09:28 Hydralazine HCl (Apresoline) 20 mg Q4H PRN IV sbp more than 160 03/14/19 12:45 04/13/19 12:44 03/18/19 00:53 Insulin Aspart (NovoLOG) BEFORE MEALS AND HS SUBQ 03/15/19 06:30 04/14/19 06:29 03/18/19 11:58 Labetalol HCl (Normodyne) 20 mg Q1H PRN IV sbp more than 180 03/14/19 12:45 04/13/19 12:44 Lorazepam (Ativan 2mg/ml 1ml) 0.5 mg Q4H PRN IV For Anxiety 03/14/19 11:45 03/21/19 11:44 03/14/19 16:20 Metoprolol Succinate (Toprol XL) 25 mg DAILY ORAL 03/16/19 12:00 04/15/19 11:59 03/18/19 09:24 Metoprolol Tartrate (Lopressor) 2.5 mg Q6H PRN IVP Heart rate >125 03/15/19 20:45 04/14/19 20:44 03/16/19 08:32 Morphine Sulfate (Morphine Sulfate) 2 mg Q4H PRN IVP For Pain 4-6 03/14/19 11:45 03/21/19 11:44 03/18/19 11:17 Morphine Sulfate (Morphine Sulfate) 4 mg Q4H PRN IVP For Pain 7-10 03/14/19 11:45 03/21/19 11:44 03/17/19 02:44 Ondansetron HCl (Zofran) 4 mg Q6H PRN IVP Nausea & Vomiting 03/14/19 11:45 04/13/19 11:44 03/18/19 11:16 Polyethylene Glycol (Miralax) 17 gm HSPRN PRN ORAL Constipation 03/14/19 11:45 04/13/19 11:44 Tbo-Filgrastim (Granix) 300 mcg QHS SQ 03/17/19 21:00 04/16/19 20:59 03/17/19 21:53 Zolpidem Tartrate (Ambien) 5 mg HSPRN PRN ORAL Insomnia 03/14/19 11:45 03/21/19 11:44 Allergies: Coded Allergies: PENICILLINS (Verified Allergy, Unknown, 06/03/15) ROS Limited/Unobtainable: No Constitutional: Reports: no symptoms HEENT: Reports: no symptoms Cardiovascular: Reports: no symptoms Respiratory: Reports: no symptoms Gastrointestinal/Abdominal: Reports: no symptoms Genitourinary: Reports: no symptoms Neurologic/Psychiatric: Reports: no symptoms Subjective 74 YO F admitted with fall injury. Now fracture of left olecranon. Cover for Int Anthony-Dr Hinds. Patient family requests [facility]. Daughter agreed with transfusion. Await CT angio chest to R/O pulm embolism Objective Last Vital Signs Date Time Temp Pulse Resp B/P (MAP) Pulse Ox O2 Delivery O2 Flow Rate FiO2 03/18/19 16:00 99.3 99 18 160/82 (108) 100 03/18/19 09:00 Room Air Laboratory Tests Test 03/18/19 05:35 White Blood Count 6.1 K/UL (4.8-10.8) Red Blood Count 2.35 M/UL (4.20-5.40) L Hemoglobin 7.3 G/DL (12.0-16.0) L Hematocrit 22.6 % (37.0-47.0) L Mean Corpuscular Volume 96 FL (80-99) Mean Corpuscular Hemoglobin 31.2 PG (27.0-31.0) H Mean Corpuscular Hemoglobin Concent 32.3 G/DL (32.0-36.0) Red Cell Distribution Width 13.8 % (11.6-14.8) Platelet Count 177 K/UL (150-450) Mean Platelet Volume 8.1 FL (6.5-10.1) Neutrophils (%) (Auto) % (45.0-75.0) Lymphocytes (%) (Auto) % (20.0-45.0) Monocytes (%) (Auto) % (1.0-10.0) Eosinophils (%) (Auto) % (0.0-3.0) Basophils (%) (Auto) % (0.0-2.0) Differential Total Cells Counted 100 Neutrophils % (Manual) 84 % (45-75) H Lymphocytes % (Manual) 14 % (20-45) L Monocytes % (Manual) 2 % (1-10) Eosinophils % (Manual) 0 % (0-3) Basophils % (Manual) 0 % (0-2) Band Neutrophils 0 % (0-8) Platelet Estimate Adequate Platelet Morphology Normal Hypochromasia 1+ Sodium Level 141 MMOL/L (136-145) Potassium Level 4.1 MMOL/L (3.5-5.1) Chloride Level 110 MMOL/L (98-107) H Carbon Dioxide Level 21 MMOL/L (21-32) Anion Gap 10 mmol/L (5-15) Blood Urea Nitrogen 22 mg/dL (7-18) H Creatinine 1.2 MG/DL (0.55-1.30) Estimat Glomerular Filtration Rate mL/min (>60) Glucose Level 126 MG/DL (74-106) H Calcium Level 9.3 MG/DL (8.5-10.1) Intake and Output 03/17/19 03/18/19 19:00 07:00 Output Total 400 ml Balance -400 ml Output Urine Total 400 ml # Voids 2 Objective PHYSICAL EXAMINATION: GENERAL: The patient is awake, responsive no acute distress. HEENT: Pupils are equal and reactive to light. Extraocular motor intact. NECK: Supple. No JVD. LUNGS: Good air entry. No wheezing or rales. Chest wall has left-sided chest wall PassPort. ABDOMEN: Soft, nondistended, nontender. Positive bowel sounds. EXTREMITIES: No cyanosis, clubbing, edema NEUROLOGIC: Cranial nerves II through XII grossly intact. Moving all the extremities except the left upper extremity due to the pain as well as left hip pain NEUROLOGIC: Cranial nerves II through XII grossly grossly intact. RECTAL/GENITOURINARY: Refused and deferred. PSYCHIATRIC: Mood and affect is intact. Assessment/Plan Problem List: (1) Hypercholesteremia (2) HTN (hypertension) Assessment & Plan: Continue hydralazine, vasotec and labetolol (3) Breast cancer, left (4) Deep venous thrombosis (5) Fracture of olecranon process, left, closed Assessment & Plan: Non surgical-see ortho note-Dr Montaño (6) Intertrochanteric fracture of left femur Assessment & Plan: S/P ORIF previously. See ortho note-Dr Montaño (7) Diabetes mellitus Assessment & Plan: continue novolog sliding scale (8) Osteogenesis imperfecta (9) Severe anemia Assessment & Plan: Daughter agreed with transfusion Assessment/Plan discharge planning: Rehab on [place] [facility] Zi Goncalves MD Mar 18, 2019 17:03
--- NOTE | 2019-03-18 18:35 | Diagnostic Imaging Report ---
ndication: Shortness of breath, history of hypertension and breast cancer Technique: IV administration nonionic contrast. Spiral acquisitions obtained from the lung bases to the lung apices. Multiplanar and 3-D reconstructions were generated. Total dose length product 470 mGycm. CTDIvol(s) 34, 15, 13 mGy. Dose reduction achieved using automated exposure control Comparison: Noncontrast chest CT 12/23/2018 Findings: There is good quality opacification of the pulmonary arteries. No intraluminal filling defects or other findings to suggest acute pulmonary embolus demonstrated. Normal caliber pulmonary arteries. No evidence of right ventricular dilatation. Normal heart size. No evidence of thoracic aortic aneurysm or dissection. There is variant branching anatomy of common origin of the right brachiocephalic and left common carotid artery. Normal caliber of the great neck vessels. Interim development of infiltrate in the posterior inferior right upper lobe. This is manifested by a combination of groundglass opacity and some dense consolidation. A cystic space in the superior segment of the right lower lobe is surrounded by some hazy opacity. The cystic spaces evident previously. The surrounding hazy opacity is new. Again demonstrated is mild thickening of the major minor fissures. Linear bands at both lung bases are slightly more extensive than on the prior exam, likely represent a combination of atelectasis and scarring. No consolidation is seen in the left lung or right lower lobe. No effusions. 4 mm left upper lobe nodule, currently demonstrated on image 36 of series 4, appears grossly unchanged. The heart size is normal. No pericardial effusion. There are coronary artery calcifications noted. There is a large precarinal node which measures 2 x 1.4 cm, previously 1.5 x 1 cm. There is a left chest port catheter, not evident previously. The thyroid is mildly enlarged and demonstrates multiple subcentimeter nodules. No axillary mass or adenopathy. There is a left breast mass again demonstrated, measuring 3.5 x 2 cm, previously 3.6 x 3.4. The bones demonstrate numerous thoracic compression fracture deformities. These overall appears similar in extent to the previous study. Also noted is a left humeral fracture deformity, and is unchanged left upper rib cage deformity as well as multiple rib fracture deformities bilaterally. Included upper abdominal anatomy demonstrates bulkiness to the left adrenal. Impression: Right upper lobe and superior segment right lower lobe parenchymal opacity, as described, likely representing pneumonia. Superior segment right lower lobe cystic space, also demonstrated previously. Bilateral basilar atelectatic changes, somewhat increased from the prior exam. Interim decrease size of previously demonstrated left breast mass. Interim increased mediastinal lymphadenopathy. This could be metastatic/neoplastic. Interim left chest port placement. Multiple small thyroid nodules. Previously demonstrated left lower pole nodule is less conspicuous currently. Multiple thoracic vertebral body compression fracture deformities, overall appearing similar to the prior exam Chest wall posttraumatic deformities, unchanged The CT scanner at [facility] is accredited by the [employer] and the scans are performed using protocols designed to limit radiation exposure to as low as reasonably achievable to attain images of sufficient resolution adequate for diagnostic evaluation.
--- NOTE | 2019-03-18 19:27 | NUR ---
HAND-OFF: Report given to DAMIAN Watson. Patient's stable. Plan of care endorsed.
[2019-03-18] MEDS: Dyna-Hex 2% Top Sol 2oz TOPIC SCH (20:57)
[2019-03-18] MEDS: TBO-Filgrastim 300 mcg/0.5ml SQ SCH (20:57)
[2019-03-19] VITALS (7 sets, daily range): BP systolic 144–173; BP diastolic 84–90
--- NOTE | 2019-03-19 03:15 | Progress Note ---
DATE: 03/18/2019 SUBJECTIVE: The patient has had multiple medical issues; however, she was going to start physical therapy. Orthopedic consultation was obtained for further care and recommendation for left elbow and left thigh. In terms of the left elbow, she was evaluated, previously diagnosed with nondisplaced olecranon fracture. There is a history of osteogenesis imperfecta. Given that this is nondisplaced, conservative treatment with splint application would be reasonable. She is going to be made nonweightbearing to left lower extremity. She has had previous multiple surgeries for her femoral neck. A CT scan of the pelvis showed a possible fracture. Orthopedic consultation was obtained for reevaluation. PHYSICAL EXAMINATION: GENERAL: The patient is alert and oriented. She is resting comfortably in bed. EXTREMITIES: Left knee incision is clean, dry, intact. Left hip incision is clean, dry, intact. There is some tenderness to palpation over the left thigh area, but no gross pain with internal and external rotation. Posterior calf is soft. Left arm, posterior splint is in place. DISCUSSION: CT scan of the pelvis again was reviewed, which showed closed reduction and percutaneous pinning of femoral neck fracture with open reduction and internal fixation of the femoral shaft fracture. There are some cortical irregularities along the proximal femur which may be consistent with a possible fracture through the previous fracture site as well as along the hardware. At this point, there is no failure of the hardware given her complex medical history, again these are nondisplaced. What I recommend is basically nonweightbearing on the left lower extremity to let the fracture heal. Surgery would be very challenging given the previous fixation of the femoral neck as well as the distal fixation of the femur. If it does displace, clearly she has a pretty bad hip joint as well as knee joint and I do not think some angulation would necessarily cause a significant functional limitation. I have gone over my recommendations with the patient. At this point, unfortunately the best treatment is conservative treatment with bedrest and nonweightbearing of the left lower extremity. Repeat imaging studies at [address] scan to make sure and see that the fracture is healing accordingly. Alan Montaño M.D. DR: Jorje JOB#: [id number] CC: AVA
[2019-03-19] MEDS: NovoLOG Insulin Flexpen SUBQ SCH ×4 (05:55→21:01)
--- NOTE | 2019-03-19 07:40 | NUR ---
NURSE NOTES: Nurse report given by DAMIAN Watson. Patient's sleeping in bed but easily awake, spontaneous eyes opening, AO x 4, complains of pain on L arm 3/10, no s/s of distress or SOB. Bed low and locked, call light within reach, side rails x 2. IV is saline locked, patent and asymptomatic. Will continue to monitor.
[2019-03-19] MEDS: Metoprolol Succinate XL 25mg tab ORAL SCH (09:18)
[2019-03-19] MEDS: Heparin 5000 units/ml inj SUBQ SCH ×2 (09:20→21:01)
[2019-03-19] MEDS: Morphine Sulfate 4mg/ml Inj (IV USE ONLY) IVP PRN (09:47)
[2019-03-19 10:01] LABS: BASOPHILS % (AUTO) 1.5 % (0.0-2.0); EOSINOPHILS % (AUTO) 0.5 % (0.0-3.0); HEMOGLOBIN 8.8 G/DL (12.0-16.0); MEAN CORPUSCULAR VOLUME 93 FL (80-99); MONOCYTES % (AUTO) 5.9 % (1.0-10.0); NEUTROPHILS % (AUTO) 82.1 % (45.0-75.0); PLATELET COUNT 207 K/UL (150-450); RED BLOOD COUNT 2.89 M/UL (4.20-5.40); RED CELL DISTRIBUTION WIDTH 13.6 % (11.6-14.8); WHITE BLOOD COUNT 6.4 K/UL (4.8-10.8)
[2019-03-19 10:14] LABS: ANION GAP 10 mmol/L (5-15); BLOOD UREA NITROGEN 19 mg/dL (7-18); CALCIUM 9.5 MG/DL (8.5-10.1); CARBON DIOXIDE 22 MMOL/L (21-32); CHLORIDE 108 MMOL/L (98-107); CREATININE 1.2 MG/DL (0.55-1.30); SODIUM 140 MMOL/L (136-145)
--- NOTE | 2019-03-19 10:34 | NUR ---
CASE MANAGEMENT: REVIEW 03/19/19 SI: HTN, CLOSED LEFT HIP FX, LEFT FEMORAL FX; ACUTE RF, METASTATIC ADENOCARCINOMA 98.8 102 20 173/86 99% ON RA BG 190; RBC 2.89; H/H 8.8/27.0 IS: TOPROL PO QD IV LOPRESSOR 6H/PRN IV HYDRALAZINE Q4/PRN PROZAC PO QD IV MORPHINE SULFATE Q4/PRN HEPARIN SQ Q12HR NOVOLOG SQ AC&HS GRANIX SQ QHS IV ZOFRAN Q6/PRN IV ATIVAN Q4/PRN : 2E TELE UNIT DCP: BL TX PT EVAL REFERRED AND ACCEPTED BY YUMIKO HILARIO HC DAUGHTER REQUEST TRANSFER TO [place]
--- NOTE | 2019-03-19 10:48 | Internal Med Progress Note ---
Subjective Date of Service: Mar 19, 2019 Physician Name IvannaZi Attending Physician Aiden Hinds MD Current Medications Medications (Trade) Dose Ordered Sig/Sd Route PRN Reason Start Time Stop Time Status Last Admin Dose Admin Acetaminophen (Tylenol) 650 mg Q4H PRN ORAL fever 03/14/19 11:45 04/13/19 11:44 03/19/19 02:34 Chlorhexidine Gluconate (Fawn-Hex 2%) 1 applic DAILY@2000 TOPIC 03/15/19 20:00 04/14/19 19:59 03/18/19 20:57 Dextrose (Dextrose 50%) 25 ml Q30M PRN IV Hypoglycemia 03/14/19 21:45 04/13/19 21:44 Dextrose (Dextrose 50%) 50 ml Q30M PRN IV Hypoglycemia 03/14/19 21:45 04/13/19 21:44 Enalaprilat (Vasotec) 2.5 mg Q4H PRN IV sbp more than 200 03/14/19 12:45 04/13/19 12:44 Fluoxetine HCl (PROzac) 20 mg DAILY ORAL 03/15/19 09:00 04/14/19 08:59 03/19/19 09:18 Heparin Sodium (Porcine) (Heparin 5000 units/ml) 5,000 units EVERY 12 HOURS SUBQ 03/14/19 21:00 04/13/19 20:59 03/19/19 09:20 Hydralazine HCl (Apresoline) 20 mg Q4H PRN IV sbp more than 160 03/14/19 12:45 04/13/19 12:44 03/19/19 09:18 Insulin Aspart (NovoLOG) BEFORE MEALS AND HS SUBQ 03/15/19 06:30 04/14/19 06:29 03/18/19 21:02 Labetalol HCl (Normodyne) 20 mg Q1H PRN IV sbp more than 180 03/14/19 12:45 04/13/19 12:44 Lorazepam (Ativan 2mg/ml 1ml) 0.5 mg Q4H PRN IV For Anxiety 03/14/19 11:45 03/21/19 11:44 03/14/19 16:20 Metoprolol Succinate (Toprol XL) 25 mg DAILY ORAL 03/16/19 12:00 04/15/19 11:59 03/19/19 09:18 Metoprolol Tartrate (Lopressor) 2.5 mg Q6H PRN IVP Heart rate >125 03/15/19 20:45 04/14/19 20:44 03/16/19 08:32 Morphine Sulfate (Morphine Sulfate) 2 mg Q4H PRN IVP For Pain 4-6 03/14/19 11:45 03/21/19 11:44 03/18/19 11:17 Morphine Sulfate (Morphine Sulfate) 4 mg Q4H PRN IVP For Pain 7-10 03/14/19 11:45 03/21/19 11:44 03/19/19 09:47 Ondansetron HCl (Zofran) 4 mg Q6H PRN IVP Nausea & Vomiting 03/14/19 11:45 04/13/19 11:44 03/18/19 11:16 Polyethylene Glycol (Miralax) 17 gm HSPRN PRN ORAL Constipation 03/14/19 11:45 04/13/19 11:44 Tbo-Filgrastim (Granix) 300 mcg QHS SQ 03/17/19 21:00 04/16/19 20:59 03/18/19 20:57 Zolpidem Tartrate (Ambien) 5 mg HSPRN PRN ORAL Insomnia 03/14/19 11:45 03/21/19 11:44 Allergies: Coded Allergies: PENICILLINS (Verified Allergy, Unknown, 06/03/15) ROS Limited/Unobtainable: No Constitutional: Reports: no symptoms HEENT: Reports: no symptoms Cardiovascular: Reports: no symptoms Respiratory: Reports: no symptoms Gastrointestinal/Abdominal: Reports: no symptoms Genitourinary: Reports: no symptoms Neurologic/Psychiatric: Reports: no symptoms Subjective 74 YO F admitted with fall injury. Now fracture of left olecranon. Cover for Int Anthony-Dr Hinds. Await CT angio chest to R/O pulm embolism Objective Last Vital Signs Date Time Temp Pulse Resp B/P (MAP) Pulse Ox O2 Delivery O2 Flow Rate FiO2 03/19/19 09:18 102 173/86 03/19/19 09:00 Room Air 03/19/19 08:00 98.8 20 99 Laboratory Tests Test 03/19/19 09:30 White Blood Count 6.4 K/UL (4.8-10.8) Red Blood Count 2.89 M/UL (4.20-5.40) L Hemoglobin 8.8 G/DL (12.0-16.0) L Hematocrit 27.0 % (37.0-47.0) L Mean Corpuscular Volume 93 FL (80-99) Mean Corpuscular Hemoglobin 30.5 PG (27.0-31.0) Mean Corpuscular Hemoglobin Concent 32.7 G/DL (32.0-36.0) Red Cell Distribution Width 13.6 % (11.6-14.8) Platelet Count 207 K/UL (150-450) Mean Platelet Volume 8.0 FL (6.5-10.1) Neutrophils (%) (Auto) 82.1 % (45.0-75.0) H Lymphocytes (%) (Auto) 10.0 % (20.0-45.0) L Monocytes (%) (Auto) 5.9 % (1.0-10.0) Eosinophils (%) (Auto) 0.5 % (0.0-3.0) Basophils (%) (Auto) 1.5 % (0.0-2.0) Sodium Level 140 MMOL/L (136-145) Potassium Level 4.0 MMOL/L (3.5-5.1) Chloride Level 108 MMOL/L (98-107) H Carbon Dioxide Level 22 MMOL/L (21-32) Anion Gap 10 mmol/L (5-15) Blood Urea Nitrogen 19 mg/dL (7-18) H Creatinine 1.2 MG/DL (0.55-1.30) Estimat Glomerular Filtration Rate mL/min (>60) Glucose Level 190 MG/DL (74-106) H Calcium Level 9.5 MG/DL (8.5-10.1) Intake and Output 03/18/19 03/19/19 19:00 07:00 Intake Total 1150 ml Output Total 1350 ml Balance -200 ml Intake Oral 1150 ml Output Urine Total 1350 ml # Voids 2 Objective PHYSICAL EXAMINATION: GENERAL: The patient is awake, responsive no acute distress. HEENT: Pupils are equal and reactive to light. Extraocular motor intact. NECK: Supple. No JVD. LUNGS: Good air entry. No wheezing or rales. Chest wall has left-sided chest wall PassPort. ABDOMEN: Soft, nondistended, nontender. Positive bowel sounds. EXTREMITIES: No cyanosis, clubbing, edema NEUROLOGIC: Cranial nerves II through XII grossly intact. Moving all the extremities except the left upper extremity due to the pain as well as left hip pain NEUROLOGIC: Cranial nerves II through XII grossly grossly intact. RECTAL/GENITOURINARY: Refused and deferred. PSYCHIATRIC: Mood and affect is intact. Assessment/Plan Problem List: (1) Hypercholesteremia (2) HTN (hypertension) Assessment & Plan: Continue hydralazine, vasotec and labetolol (3) Breast cancer, left (4) Deep venous thrombosis (5) Fracture of olecranon process, left, closed Assessment & Plan: Non surgical; non weight bearing-see ortho note-Dr Montaño (6) Intertrochanteric fracture of left femur Assessment & Plan: S/P ORIF previously. Non surgical; non weight bearing-See ortho note-Dr Montaño (7) Diabetes mellitus Assessment & Plan: continue novolog sliding scale (8) Osteogenesis imperfecta (9) Severe anemia Assessment & Plan: Daughter agreed with transfusion Assessment/Plan discharge planning: Rehab on [facility] Await CT angio chest to R/O pulmonary embolism Zi Goncalves MD Mar 19, 2019 10:48
--- NOTE | 2019-03-19 13:21 | NUR ---
P.T Note: P.T evaluation completed and tx initiated. Please refer to P.T evaluation for current functional status. Pt is alert O x 4, pleasant and cooperative. Pt is generally weak with c/o severe pain on the L shoulder and L hip ( more on the L shoulder ) aggravated by movement initiation/transitions. Pt is also currently under NWB status on LUE and LLE for the next few weeks or until cleared by Dr. Montaño. Due to the above limitations and restrictions, functional mobility performance and independence are compromised. Pt currently require MAX A x 2 and gentle verbal and tactile cues as well as extended amount of time to initiate and complete Bed mobility and Transfer mobility tasks. Pt was only able to stand and maintain NWB on LUE/LE with MAX support x 2P while leaning against the bed rail for 5 secs. Pt tolerated P.T eval/tx poorly due to the above reasons however is cooperative and motivated. Recommend SNF for further rehab intervention VS ARU and then eventually to ARU as she progress . Thank you for this referral.
--- NOTE | 2019-03-19 14:03 | Pulmonology Progress Note ---
Assessment/Plan Problems: (1) Hypertensive emergency (2) Closed left hip fracture (3) Acute renal failure (ARF) (4) Metastatic adenocarcinoma (5) Breast cancer (6) History of hypertension (7) Diabetes mellitus (8) Leukocytosis Assessment/Plan wbc lower, WNL now CT angio negative cultures negative afebrile BP better renal function improving sliding scale, diabetic diet check labs in am. will Montaño, who recommended conservative treatment Subjective ROS Limited/Unobtainable: No Constitutional: Reports: no symptoms HEENT: Repors: no symptoms Respiratory: Reports: no symptoms Allergies: Coded Allergies: PENICILLINS (Verified Allergy, Unknown, 06/03/15) Objective Last 24 Hour Vital Signs Date Time Temp Pulse Resp B/P (MAP) Pulse Ox O2 Delivery O2 Flow Rate FiO2 03/19/19 12:00 98.6 98 18 144/84 (104) 98 03/19/19 12:00 96 03/19/19 09:18 102 173/86 03/19/19 09:18 173/86 03/19/19 09:00 Room Air 03/19/19 08:00 98.8 102 20 173/86 (115) 99 03/19/19 08:00 96 03/19/19 04:00 97.9 103 18 159/89 (112) 99 03/19/19 04:00 97 03/19/19 00:00 97.9 109 20 156/87 (110) 100 03/19/19 00:00 108 03/18/19 21:00 Room Air 03/18/19 20:00 116 03/18/19 20:00 97.9 116 18 144/91 (108) 100 03/18/19 17:00 184/91 03/18/19 16:00 102 03/18/19 16:00 99.3 99 18 160/82 (108) 100 Intake and Output 03/18/19 03/19/19 19:00 07:00 Intake Total 1150 ml Output Total 1350 ml Balance -200 ml Intake Oral 1150 ml Output Urine Total 1350 ml # Voids 2 General Appearance: WD/WN HEENT: normocephalic, atraumatic Respiratory/Chest: chest wall non-tender, lungs clear Cardiovascular: normal peripheral pulses Abdomen: normal bowel sounds, soft, non tender Genitourinary: normal external genitalia Extremities: no cyanosis Neurologic/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 II-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 grossly normal Lymphatic: no neck adenopathy Musculoskeletal: normal muscle bulk Laboratory Tests 03/19/19 09:30: White Blood Count 6.4, Red Blood Count 2.89L, Hemoglobin 8.8L, Hematocrit 27.0L , Mean Corpuscular Volume 93, Mean Corpuscular Hemoglobin 30.5, Mean Corpuscular Hemoglobin Concent 32.7, Red Cell Distribution Width 13.6, Platelet Count 207, Mean Platelet Volume 8.0, Neutrophils (%) (Auto) 82.1H, Lymphocytes ( %) (Auto) 10.0L, Monocytes (%) (Auto) 5.9, Eosinophils (%) (Auto) 0.5, Basophils (%) (Auto) 1.5, Sodium Level 140, Potassium Level 4.0, Chloride Level 108H, Carbon Dioxide Level 22, Anion Gap 10, Blood Urea Nitrogen 19H, Creatinine 1.2, Estimat Glomerular Filtration Rate , Glucose Level 190H, Calcium Level 9.5 Current Medications Medications (Trade) Dose Ordered Sig/Sd Route PRN Reason Start Time Stop Time Status Last Admin Dose Admin Acetaminophen (Tylenol) 650 mg Q4H PRN ORAL fever 03/14/19 11:45 04/13/19 11:44 03/19/19 02:34 Chlorhexidine Gluconate (Fawn-Hex 2%) 1 applic DAILY@1999 TOPIC 03/15/19 20:00 04/14/19 19:59 03/18/19 20:57 Dextrose (Dextrose 50%) 25 ml Q30M PRN IV Hypoglycemia 03/14/19 21:45 04/13/19 21:44 Dextrose (Dextrose 50%) 50 ml Q30M PRN IV Hypoglycemia 03/14/19 21:45 04/13/19 21:44 Enalaprilat (Vasotec) 2.5 mg Q4H PRN IV sbp more than 200 03/14/19 12:45 04/13/19 12:44 Fluoxetine HCl (PROzac) 20 mg DAILY ORAL 03/15/19 09:00 04/14/19 08:59 03/19/19 09:18 Heparin Sodium (Porcine) (Heparin 5000 units/ml) 5,000 units EVERY 12 HOURS SUBQ 03/14/19 21:00 04/13/19 20:59 03/19/19 09:20 Hydralazine HCl (Apresoline) 20 mg Q4H PRN IV sbp more than 160 03/14/19 12:45 04/13/19 12:44 03/19/19 09:18 Insulin Aspart (NovoLOG) BEFORE MEALS AND HS SUBQ 03/15/19 06:30 04/14/19 06:29 03/19/19 11:59 Labetalol HCl (Normodyne) 20 mg Q1H PRN IV sbp more than 180 03/14/19 12:45 04/13/19 12:44 Lorazepam (Ativan 2mg/ml 1ml) 0.5 mg Q4H PRN IV For Anxiety 03/14/19 11:45 03/21/19 11:44 03/14/19 16:20 Metoprolol Succinate (Toprol XL) 25 mg DAILY ORAL 03/16/19 12:00 04/15/19 11:59 03/19/19 09:18 Metoprolol Tartrate (Lopressor) 2.5 mg Q6H PRN IVP Heart rate >125 03/15/19 20:45 04/14/19 20:44 03/16/19 08:32 Morphine Sulfate (Morphine Sulfate) 2 mg Q4H PRN IVP For Pain 4-6 03/14/19 11:45 03/21/19 11:44 03/18/19 11:17 Morphine Sulfate (Morphine Sulfate) 4 mg Q4H PRN IVP For Pain 7-10 03/14/19 11:45 03/21/19 11:44 03/19/19 09:47 Ondansetron HCl (Zofran) 4 mg Q6H PRN IVP Nausea & Vomiting 03/14/19 11:45 04/13/19 11:44 03/18/19 11:16 Polyethylene Glycol (Miralax) 17 gm HSPRN PRN ORAL Constipation 03/14/19 11:45 04/13/19 11:44 Tbo-Filgrastim (Granix) 300 mcg QHS SQ 03/17/19 21:00 04/16/19 20:59 03/18/19 20:57 Zolpidem Tartrate (Ambien) 5 mg HSPRN PRN ORAL Insomnia 03/14/19 11:45 03/21/19 11:44 Cass Nguyen MD Mar 19, 2019 14:03
--- NOTE | 2019-03-19 14:51 | Infectious Diseases Prog Note ---
Assessment/Plan Assessment/Plan Assessment/Plan: 74yo woman with PMH below presents after fall. Afebrile Tachycardia, improving WBC 33, SP likely from filgrastim and reactive from fractures CRP 16.9 ESR 60 03/18 CTPA: Right upper lobe and superior segment right lower lobe parenchymal opacity, as described, likely representing pneumonia. Superior segment right lower lobe cystic space, also demonstrated previously. Bilateral basilar atelectatic changes, somewhat increased from the prior exam. Interim decrease size of previously demonstrated left breast mass. Interim increased mediastinal lymphadenopathy. This could be metastatic/neoplastic. Interim left chest port placement. Multiple small thyroid nodules. Previously demonstrated left lower pole nodule is less conspicuous currently. Multiple thoracic vertebral body compression fracture deformities, overall appearing similar to the prior exam. Chest wall posttraumatic deformities, unchanged. Acute femoral fracture and elbow fracture Hyperkalemia DM HTN breast cancer with lung mets on chemotherapy R IJ DVT KARMA pulm nodule CKD osteogenesis imperfecta multiple old fractures Plan: continue to monitor off antibiotics. Pt has no s/s of pneumonia. obtain cultures if febrile aspiration precaution, elevate HOB, incentive spirometry Thank you for this consult. [facility] will continue to follow the patient with you. Subjective Allergies: Coded Allergies: PENICILLINS (Verified Allergy, Unknown, 06/03/15) Subjective Afebrile. No chills, cough, sob, abdominal pain, dysuria, diarrhea. Objective Vital Signs Last 24 Hour Vital Signs Date Time Temp Pulse Resp B/P (MAP) Pulse Ox O2 Delivery O2 Flow Rate FiO2 03/19/19 12:00 98.6 98 18 144/84 (104) 98 03/19/19 12:00 96 03/19/19 09:18 102 173/86 03/19/19 09:18 173/86 03/19/19 09:00 Room Air 03/19/19 08:00 98.8 102 20 173/86 (115) 99 03/19/19 08:00 96 03/19/19 04:00 97.9 103 18 159/89 (112) 99 03/19/19 04:00 97 03/19/19 00:00 97.9 109 20 156/87 (110) 100 03/19/19 00:00 108 03/18/19 21:00 Room Air 03/18/19 20:00 116 03/18/19 20:00 97.9 116 18 144/91 (108) 100 03/18/19 17:00 184/91 03/18/19 16:00 102 03/18/19 16:00 99.3 99 18 160/82 (108) 100 Height (Feet): 4 Height (Inches): 6.00 Weight (Pounds): 121 Objective VS: Afebrile Gen: NAD HEENT: anicteric sclera. R chest wall port without tenderness CV: RRR. Resp: RRR. nonlabored. no wheezes or crackles Abd: normoactive BS+. Soft. no TTP Ext: no LE edema Neuro: awake. interactive. Laboratory Tests Test 03/19/19 09:30 White Blood Count 6.4 K/UL (4.8-10.8) Red Blood Count 2.89 M/UL (4.20-5.40) L Hemoglobin 8.8 G/DL (12.0-16.0) L Hematocrit 27.0 % (37.0-47.0) L Mean Corpuscular Volume 93 FL (80-99) Mean Corpuscular Hemoglobin 30.5 PG (27.0-31.0) Mean Corpuscular Hemoglobin Concent 32.7 G/DL (32.0-36.0) Red Cell Distribution Width 13.6 % (11.6-14.8) Platelet Count 207 K/UL (150-450) Mean Platelet Volume 8.0 FL (6.5-10.1) Neutrophils (%) (Auto) 82.1 % (45.0-75.0) H Lymphocytes (%) (Auto) 10.0 % (20.0-45.0) L Monocytes (%) (Auto) 5.9 % (1.0-10.0) Eosinophils (%) (Auto) 0.5 % (0.0-3.0) Basophils (%) (Auto) 1.5 % (0.0-2.0) Sodium Level 140 MMOL/L (136-145) Potassium Level 4.0 MMOL/L (3.5-5.1) Chloride Level 108 MMOL/L (98-107) H Carbon Dioxide Level 22 MMOL/L (21-32) Anion Gap 10 mmol/L (5-15) Blood Urea Nitrogen 19 mg/dL (7-18) H Creatinine 1.2 MG/DL (0.55-1.30) Estimat Glomerular Filtration Rate mL/min (>60) Glucose Level 190 MG/DL (74-106) H Calcium Level 9.5 MG/DL (8.5-10.1) Current Medications Medications (Trade) Dose Ordered Sig/Sd Route PRN Reason Start Time Stop Time Status Last Admin Dose Admin Acetaminophen (Tylenol) 650 mg Q4H PRN ORAL fever 03/14/19 11:45 04/13/19 11:44 03/19/19 02:34 Chlorhexidine Gluconate (Fawn-Hex 2%) 1 applic DAILY@1999 TOPIC 03/15/19 20:00 04/14/19 19:59 03/18/19 20:57 Dextrose (Dextrose 50%) 25 ml Q30M PRN IV Hypoglycemia 03/14/19 21:45 04/13/19 21:44 Dextrose (Dextrose 50%) 50 ml Q30M PRN IV Hypoglycemia 03/14/19 21:45 04/13/19 21:44 Enalaprilat (Vasotec) 2.5 mg Q4H PRN IV sbp more than 200 03/14/19 12:45 04/13/19 12:44 Fluoxetine HCl (PROzac) 20 mg DAILY ORAL 03/15/19 09:00 04/14/19 08:59 03/19/19 09:18 Heparin Sodium (Porcine) (Heparin 5000 units/ml) 5,000 units EVERY 12 HOURS SUBQ 03/14/19 21:00 04/13/19 20:59 03/19/19 09:20 Hydralazine HCl (Apresoline) 20 mg Q4H PRN IV sbp more than 160 03/14/19 12:45 04/13/19 12:44 03/19/19 09:18 Insulin Aspart (NovoLOG) BEFORE MEALS AND HS SUBQ 03/15/19 06:30 04/14/19 06:29 03/19/19 11:59 Labetalol HCl (Normodyne) 20 mg Q1H PRN IV sbp more than 180 03/14/19 12:45 04/13/19 12:44 Lorazepam (Ativan 2mg/ml 1ml) 0.5 mg Q4H PRN IV For Anxiety 03/14/19 11:45 03/21/19 11:44 03/14/19 16:20 Metoprolol Succinate (Toprol XL) 25 mg DAILY ORAL 03/16/19 12:00 04/15/19 11:59 03/19/19 09:18 Metoprolol Tartrate (Lopressor) 2.5 mg Q6H PRN IVP Heart rate >125 03/15/19 20:45 04/14/19 20:44 03/16/19 08:32 Morphine Sulfate (Morphine Sulfate) 2 mg Q4H PRN IVP For Pain 4-6 03/14/19 11:45 03/21/19 11:44 03/18/19 11:17 Morphine Sulfate (Morphine Sulfate) 4 mg Q4H PRN IVP For Pain 7-10 03/14/19 11:45 03/21/19 11:44 03/19/19 09:47 Ondansetron HCl (Zofran) 4 mg Q6H PRN IVP Nausea & Vomiting 03/14/19 11:45 04/13/19 11:44 03/18/19 11:16 Polyethylene Glycol (Miralax) 17 gm HSPRN PRN ORAL Constipation 03/14/19 11:45 04/13/19 11:44 Tbo-Filgrastim (Granix) 300 mcg QHS SQ 03/17/19 21:00 04/16/19 20:59 03/18/19 20:57 Zolpidem Tartrate (Ambien) 5 mg HSPRN PRN ORAL Insomnia 03/14/19 11:45 03/21/19 11:44 Theresa Murry MD Mar 19, 2019 14:51
--- NOTE | 2019-03-19 15:49 | NUR ---
RD ASSESSMENT & RECOMMENDATIONS SEE CARE ACTIVITY FOR COMPLETE ASSESSMENT DAILY ESTIMATED NEEDS: Needs based on CA, DM/ 46.8kg 25-30 kcals/kg 1983-8667 total kcals 1-1.5 g protein/kg 47-70 g total protein 25-30 mL/kg 5352-5352 total fluid mLs NUTRITION DIAGNOSIS: Increased kcal/prot needs R/T catabolic dx as evidenced by pt w/ hx of recently diagnosed Left breast cancer, likely metastatic per MD. CURRENT DIET:CCHO LOW, mech soft chopped PO DIET RECOMMENDATIONS: CCHO LOW/ texture as tolerated + Glucerna BID in b/w meals ADDITIONAL RECOMMENDATIONS: * Calibrated bedscale wt * Monitor PO acceptance and tolerance * Monitor lytes, replete as needed (low mag) * Monitor BGs closely
--- NOTE | 2019-03-19 19:42 | NUR ---
HAND-OFF: Report given to DAMIAN Peraza. Patient's stable, plan of care endorsed.
--- NOTE | 2019-03-19 20:14 | NUR ---
NURSE NOTES: RECEIVED PATIENT RESTING IN BED, LUE WITH SPLINT/BRACE. FALL PRECAUTIONS IN PLACE: CALL LIGHT AND BEDSIDE TABLE WITHIN REACH, BED IN LOW POSITION AND BED ALARM ON. PLAN OF CARE REVIEWED.
--- NOTE | 2019-03-19 20:30 | Cardiology Progress Note ---
Assessment/Plan Assessment/Plan 1. Sinus tachycardia. 2. Recurrent nausea and vomiting, possibly secondary to constipation and/or medication effects. 3. Olecranon fracture. 4. Femoral fracture. 5. Breast cancer on chemotherapy. 6. Anemia. 7. Pulm htn 8. intermediate probablity v/q 9. renal insuf ctpa neg for pe ortho noted conservative managment swma looks ok is comfortable bp uo start acei cr imporved Subjective Cardiovascular: Denies: chest pain Respiratory: Denies: shortness of breath Gastrointestinal/Abdominal: Denies: abdominal pain Genitourinary: Denies: burning Objective Last 24 Hour Vital Signs Date Time Temp Pulse Resp B/P (MAP) Pulse Ox O2 Delivery O2 Flow Rate FiO2 03/19/19 16:00 93 03/19/19 16:00 98.9 94 20 157/90 (112) 98 03/19/19 12:00 98.6 98 18 144/84 (104) 98 03/19/19 12:00 96 03/19/19 09:18 102 173/86 03/19/19 09:18 173/86 03/19/19 09:00 Room Air 03/19/19 08:00 98.8 102 20 173/86 (115) 99 03/19/19 08:00 96 03/19/19 04:00 97.9 103 18 159/89 (112) 99 03/19/19 04:00 97 03/19/19 00:00 97.9 109 20 156/87 (110) 100 03/19/19 00:00 108 03/18/19 21:00 Room Air General Appearance: no apparent distress, alert Cardiovascular: normal rate Respiratory/Chest: lungs clear, rhonchi - bilaterally Abdomen: normal bowel sounds, non tender, soft Extremities: no swelling Intake and Output 03/18/19 03/19/19 19:00 07:00 Intake Total 1150 ml Output Total 1350 ml Balance -200 ml Intake Oral 1150 ml Output Urine Total 1350 ml # Voids 2 Laboratory Tests Test 03/19/19 09:30 White Blood Count 6.4 K/UL (4.8-10.8) Red Blood Count 2.89 M/UL (4.20-5.40) L Hemoglobin 8.8 G/DL (12.0-16.0) L Hematocrit 27.0 % (37.0-47.0) L Mean Corpuscular Volume 93 FL (80-99) Mean Corpuscular Hemoglobin 30.5 PG (27.0-31.0) Mean Corpuscular Hemoglobin Concent 32.7 G/DL (32.0-36.0) Red Cell Distribution Width 13.6 % (11.6-14.8) Platelet Count 207 K/UL (150-450) Mean Platelet Volume 8.0 FL (6.5-10.1) Neutrophils (%) (Auto) 82.1 % (45.0-75.0) H Lymphocytes (%) (Auto) 10.0 % (20.0-45.0) L Monocytes (%) (Auto) 5.9 % (1.0-10.0) Eosinophils (%) (Auto) 0.5 % (0.0-3.0) Basophils (%) (Auto) 1.5 % (0.0-2.0) Sodium Level 140 MMOL/L (136-145) Potassium Level 4.0 MMOL/L (3.5-5.1) Chloride Level 108 MMOL/L (98-107) H Carbon Dioxide Level 22 MMOL/L (21-32) Anion Gap 10 mmol/L (5-15) Blood Urea Nitrogen 19 mg/dL (7-18) H Creatinine 1.2 MG/DL (0.55-1.30) Estimat Glomerular Filtration Rate mL/min (>60) Glucose Level 190 MG/DL (74-106) H Calcium Level 9.5 MG/DL (8.5-10.1) Ousmane Izquierdo MD Mar 19, 2019 20:30
[2019-03-19] MEDS: TBO-Filgrastim 300 mcg/0.5ml SQ SCH (20:59)
[2019-03-19] MEDS: Dyna-Hex 2% Top Sol 2oz TOPIC SCH (20:59)
[2019-03-20] VITALS: BP 180/95
[2019-03-20 04:00] VITALS: BP 168/89
[2019-03-20 05:39] LABS: BASOPHILS % (AUTO) 1.7 % (0.0-2.0); EOSINOPHILS % (AUTO) 1.4 % (0.0-3.0); HEMATOCRIT 28.1 % (37.0-47.0); HEMOGLOBIN 9.4 G/DL (12.0-16.0); LYMPHOCYTES % (AUTO) 11.6 % (20.0-45.0); MEAN CORPUSCULAR VOLUME 93 FL (80-99); MONOCYTES % (AUTO) 11.8 % (1.0-10.0); NEUTROPHILS % (AUTO) 73.5 % (45.0-75.0); PLATELET COUNT 242 K/UL (150-450); RED BLOOD COUNT 3.03 M/UL (4.20-5.40); RED CELL DISTRIBUTION WIDTH 13.6 % (11.6-14.8); WHITE BLOOD COUNT 9.2 K/UL (4.8-10.8)
[2019-03-20 06:04] LABS: ANION GAP 7 mmol/L (5-15); BLOOD UREA NITROGEN 15 mg/dL (7-18); CALCIUM 9.7 MG/DL (8.5-10.1); CARBON DIOXIDE 25 MMOL/L (21-32); CHLORIDE 107 MMOL/L (98-107); CREATININE 1.2 MG/DL (0.55-1.30); POTASSIUM 3.7 MMOL/L (3.5-5.1); SODIUM 139 MMOL/L (136-145)
[2019-03-20] MEDS: NovoLOG Insulin Flexpen SUBQ SCH ×4 (06:06→21:00)
--- NOTE | 2019-03-20 07:35 | NUR ---
HAND-OFF: Report given to Rita PROCTOR RN. PATIENT RESTING IN BED, NO SIGNS OF DISTRESS NOTED.
--- NOTE | 2019-03-20 07:35 | NUR ---
HAND-OFF: Report given to DAMIAN Ovalles. Pt. in stable condition. Plan of care endorsed.
[2019-03-20 08:00] VITALS: BP 150/70
[2019-03-20] MEDS: Lisinopril 10mg tab ORAL SCH ×2 (09:01→17:06)
[2019-03-20] MEDS: Metoprolol Succinate XL 25mg tab ORAL SCH (09:01)
[2019-03-20] MEDS: Heparin 5000 units/ml inj SUBQ SCH ×2 (09:04→21:03)
--- NOTE | 2019-03-20 09:22 | NUR ---
DISCHARGE TRANSFER UPDATE: PHYSIC[facility] FULL TO MAX CAPAC[facility] AT THIS TIME~ NO BED AVAILABLE PATIENT HAS BEEN ACCEPTED TO [facility] AWAITING DC ORDER
--- NOTE | 2019-03-20 09:30 | NUR ---
NURSE NOTES: Report received from DAMIAN Peraza. Pt. AOx4. In RA. Pain 3/10 and can be tolerated per Pt. Denies SOB. Left hand noticed to be swollen. Pt. doesn't remember if it was swollen yesterday. Space between brace was noticed to be tight, left 2 finger space. Repositioned hand to comfort place on a pillow. Port a cath dressing intact. Flushed and SL. Bed on lowest position, side rails upx2, brakes engaged, alarm on. Call light within easy reach.
--- NOTE | 2019-03-20 10:25 | NUR ---
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
[2019-03-20] MEDS ORDERED: Morphine Sulfate 2mg/ml Inj(IV/IM USE ONLY) IVP PRN (11:00)
[2019-03-20] MEDS ORDERED: HYDROcodone/Acetamin 5/325 tab ORAL PRN (11:00)
--- NOTE | 2019-03-20 11:16 | Pulmonology Progress Note ---
Assessment/Plan Problems: (1) Hypertensive emergency (2) Closed left hip fracture (3) Acute renal failure (ARF) (4) Metastatic adenocarcinoma (5) Breast cancer (6) History of hypertension (7) Diabetes mellitus (8) Leukocytosis Assessment/Plan wbc lower, WNL now CT angio negative cultures negative afebrile BP better renal function improving sliding scale, diabetic diet check labs in am. add [place] for pain control Subjective ROS Limited/Unobtainable: No Constitutional: Reports: no symptoms HEENT: Repors: no symptoms Respiratory: Reports: no symptoms Allergies: Coded Allergies: PENICILLINS (Verified Allergy, Unknown, 06/03/15) Objective Last 24 Hour Vital Signs Date Time Temp Pulse Resp B/P (MAP) Pulse Ox O2 Delivery O2 Flow Rate FiO2 03/20/19 09:01 150/70 03/20/19 09:01 102 150/70 03/20/19 09:00 Room Air 03/20/19 08:00 98.7 102 18 150/70 (96) 99 03/20/19 08:00 102 03/20/19 04:00 95 03/20/19 04:00 97.9 97 17 168/89 (115) 98 03/20/19 00:52 180/95 03/20/19 00:00 90 03/20/19 00:00 97.9 92 18 180/95 (123) 97 03/19/19 21:00 Room Air 03/19/19 20:00 96 03/19/19 20:00 99.1 102 19 157/84 (108) 98 03/19/19 16:00 93 03/19/19 16:00 98.9 94 20 157/90 (112) 98 03/19/19 12:00 98.6 98 18 144/84 (104) 98 03/19/19 12:00 96 Intake and Output 03/19/19 03/20/19 19:00 07:00 Intake Total 360 ml 120 ml Output Total 100 ml Balance 260 ml 120 ml Intake Oral 360 ml 120 ml Output Urine Total 100 ml # Voids 2 2 # Bowel Movements 1 1 General Appearance: WD/WN HEENT: normocephalic Cardiovascular: normal peripheral pulses, normal rate Abdomen: normal bowel sounds, soft, non tender, no scars Extremities: no cyanosis Skin: no rash 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 Laboratory Tests 03/20/19 04:45: White Blood Count 9.2, Red Blood Count 3.03L, Hemoglobin 9.4L, Hematocrit 28.1L , Mean Corpuscular Volume 93, Mean Corpuscular Hemoglobin 30.9, Mean Corpuscular Hemoglobin Concent 33.4, Red Cell Distribution Width 13.6, Platelet Count 242, Mean Platelet Volume 6.8, Neutrophils (%) (Auto) 73.5, Lymphocytes (% ) (Auto) 11.6L, Monocytes (%) (Auto) 11.8H, Eosinophils (%) (Auto) 1.4, Basophils (%) (Auto) 1.7, Sodium Level 139, Potassium Level 3.7, Chloride Level 107, Carbon Dioxide Level 25, Anion Gap 7, Blood Urea Nitrogen 15, Creatinine 1.2, Estimat Glomerular Filtration Rate , Glucose Level 117H, Calcium Level 9.7 Current Medications Medications (Trade) Dose Ordered Sig/Sd Route PRN Reason Start Time Stop Time Status Last Admin Dose Admin Acetaminophen (Tylenol) 650 mg Q4H PRN ORAL fever 03/14/19 11:45 04/13/19 11:44 03/20/19 09:01 Acetaminophen/ Hydrocodone Bitart ([place] 5/325) 1 tab Q4H PRN ORAL Moderate Pain (Pain Scale 4-6) 03/20/19 11:00 03/27/19 10:59 Chlorhexidine Gluconate (Fawn-Hex 2%) 1 applic DAILY@1999 TOPIC 03/15/19 20:00 04/14/19 19:59 03/19/19 20:59 Dextrose (Dextrose 50%) 25 ml Q30M PRN IV Hypoglycemia 03/14/19 21:45 04/13/19 21:44 Dextrose (Dextrose 50%) 50 ml Q30M PRN IV Hypoglycemia 03/14/19 21:45 04/13/19 21:44 Enalaprilat (Vasotec) 2.5 mg Q4H PRN IV sbp more than 200 03/14/19 12:45 04/13/19 12:44 Fluoxetine HCl (PROzac) 20 mg DAILY ORAL 03/15/19 09:00 04/14/19 08:59 03/20/19 09:01 Heparin Sodium (Porcine) (Heparin 5000 units/ml) 5,000 units EVERY 12 HOURS SUBQ 03/14/19 21:00 04/13/19 20:59 03/20/19 09:04 Hydralazine HCl (Apresoline) 20 mg Q4H PRN IV sbp more than 160 03/14/19 12:45 04/13/19 12:44 03/20/19 00:52 Insulin Aspart (NovoLOG) BEFORE MEALS AND HS SUBQ 03/15/19 06:30 04/14/19 06:29 03/19/19 21:01 Labetalol HCl (Normodyne) 20 mg Q1H PRN IV sbp more than 180 03/14/19 12:45 04/13/19 12:44 Lisinopril (Zestril) 10 mg BID ORAL 03/20/19 09:00 04/19/19 08:59 03/20/19 09:01 Lorazepam (Ativan 2mg/ml 1ml) 0.5 mg Q4H PRN IV For Anxiety 03/14/19 11:45 03/21/19 11:44 03/14/19 16:20 Metoprolol Succinate (Toprol XL) 25 mg DAILY ORAL 03/16/19 12:00 04/15/19 11:59 03/20/19 09:01 Metoprolol Tartrate (Lopressor) 2.5 mg Q6H PRN IVP Heart rate >125 03/15/19 20:45 04/14/19 20:44 03/16/19 08:32 Morphine Sulfate (Morphine Sulfate) 2 mg Q4H PRN IVP For Pain 4-6 03/20/19 11:00 03/21/19 11:44 Morphine Sulfate (Morphine Sulfate) 4 mg Q4H PRN IVP For Pain 7-10 03/14/19 11:45 03/21/19 11:44 03/19/19 09:47 Ondansetron HCl (Zofran) 4 mg Q6H PRN IVP Nausea & Vomiting 03/14/19 11:45 04/13/19 11:44 03/18/19 11:16 Polyethylene Glycol (Miralax) 17 gm HSPRN PRN ORAL Constipation 03/14/19 11:45 04/13/19 11:44 Tbo-Filgrastim (Granix) 300 mcg QHS SQ 11/4/19 21:00 04/16/19 20:59 03/19/19 20:59 Zolpidem Tartrate (Ambien) 5 mg HSPRN PRN ORAL Insomnia 03/14/19 11:45 03/21/19 11:44 Cass Nguyen MD Mar 20, 2019 11:16
[2019-03-20 12:00] VITALS: BP 140/86
--- NOTE | 2019-03-20 14:48 | Infectious Diseases Prog Note ---
Assessment/Plan Assessment/Plan Assessment/Plan: 74yo woman with PMH below presents after fall. Afebrile Tachycardia, improving WBC 33, SP likely from filgrastim and reactive from fractures CRP 16.9 ESR 60 11/5 CTPA: Right upper lobe and superior segment right lower lobe parenchymal opacity, as described, likely representing pneumonia. Superior segment right lower lobe cystic space, also demonstrated previously. Bilateral basilar atelectatic changes, somewhat increased from the prior exam. Interim decrease size of previously demonstrated left breast mass. Interim increased mediastinal lymphadenopathy. This could be metastatic/neoplastic. Interim left chest port placement. Multiple small thyroid nodules. Previously demonstrated left lower pole nodule is less conspicuous currently. Multiple thoracic vertebral body compression fracture deformities, overall appearing similar to the prior exam. Chest wall posttraumatic deformities, unchanged. Acute femoral fracture and elbow fracture Hyperkalemia DM HTN breast cancer with lung mets on chemotherapy R IJ DVT KARMA pulm nodule CKD osteogenesis imperfecta multiple old fractures Plan: continue to monitor off antibiotics. Pt has no s/s of pneumonia. obtain cultures if febrile aspiration precaution, elevate HOB, incentive spirometry Thank you for this consult. [facility] will continue to follow the patient with you. Subjective Allergies: Coded Allergies: PENICILLINS (Verified Allergy, Unknown, 06/03/15) Subjective Afebrile. Happy that she is able to eat. Denies chills, cough, sob, abdominal pain. Objective Vital Signs Last 24 Hour Vital Signs Date Time Temp Pulse Resp B/P (MAP) Pulse Ox O2 Delivery O2 Flow Rate FiO2 03/20/19 12:00 91 03/20/19 09:01 150/70 03/20/19 09:01 102 150/70 03/20/19 09:00 Room Air 03/20/19 08:00 98.7 102 18 150/70 (96) 99 03/20/19 08:00 102 03/20/19 04:00 95 03/20/19 04:00 97.9 97 17 168/89 (115) 98 03/20/19 00:52 180/95 03/20/19 00:00 90 03/20/19 00:00 97.9 92 18 180/95 (123) 97 03/19/19 21:00 Room Air 03/19/19 20:00 96 03/19/19 20:00 99.1 102 19 157/84 (108) 98 03/19/19 16:00 93 03/19/19 16:00 98.9 94 20 157/90 (112) 98 Height (Feet): 4 Height (Inches): 6.00 Weight (Pounds): 121 Objective VS: Afebrile Gen: NAD HEENT: anicteric sclera. R chest wall port without tenderness CV: RRR. Resp: RRR. nonlabored. no wheezes or crackles Abd: normoactive BS+. Soft. no TTP Ext: no LE edema Neuro: awake. interactive. Laboratory Tests Test 03/20/19 04:45 White Blood Count 9.2 K/UL (4.8-10.8) Red Blood Count 3.03 M/UL (4.20-5.40) L Hemoglobin 9.4 G/DL (12.0-16.0) L Hematocrit 28.1 % (37.0-47.0) L Mean Corpuscular Volume 93 FL (80-99) Mean Corpuscular Hemoglobin 30.9 PG (27.0-31.0) Mean Corpuscular Hemoglobin Concent 33.4 G/DL (32.0-36.0) Red Cell Distribution Width 13.6 % (11.6-14.8) Platelet Count 242 K/UL (150-450) Mean Platelet Volume 6.8 FL (6.5-10.1) Neutrophils (%) (Auto) 73.5 % (45.0-75.0) Lymphocytes (%) (Auto) 11.6 % (20.0-45.0) L Monocytes (%) (Auto) 11.8 % (1.0-10.0) H Eosinophils (%) (Auto) 1.4 % (0.0-3.0) Basophils (%) (Auto) 1.7 % (0.0-2.0) Sodium Level 139 MMOL/L (136-145) Potassium Level 3.7 MMOL/L (3.5-5.1) Chloride Level 107 MMOL/L (98-107) Carbon Dioxide Level 25 MMOL/L (21-32) Anion Gap 7 mmol/L (5-15) Blood Urea Nitrogen 15 mg/dL (7-18) Creatinine 1.2 MG/DL (0.55-1.30) Estimat Glomerular Filtration Rate mL/min (>60) Glucose Level 117 MG/DL (74-106) H Calcium Level 9.7 MG/DL (8.5-10.1) Current Medications Medications (Trade) Dose Ordered Sig/Sd Route PRN Reason Start Time Stop Time Status Last Admin Dose Admin Acetaminophen (Tylenol) 650 mg Q4H PRN ORAL fever 03/14/19 11:45 04/13/19 11:44 03/20/19 09:01 Acetaminophen/ Hydrocodone Bitart ([place] 5/325) 1 tab Q4H PRN ORAL Moderate Pain (Pain Scale 4-6) 03/20/19 11:00 03/27/19 10:59 03/20/19 12:06 Chlorhexidine Gluconate (Fawn-Hex 2%) 1 applic DAILY@1999 TOPIC 03/15/19 20:00 04/14/19 19:59 03/19/19 20:59 Dextrose (Dextrose 50%) 25 ml Q30M PRN IV Hypoglycemia 03/14/19 21:45 04/13/19 21:44 Dextrose (Dextrose 50%) 50 ml Q30M PRN IV Hypoglycemia 03/14/19 21:45 04/13/19 21:44 Enalaprilat (Vasotec) 2.5 mg Q4H PRN IV sbp more than 200 03/14/19 12:45 04/13/19 12:44 Fluoxetine HCl (PROzac) 20 mg DAILY ORAL 03/15/19 09:00 04/14/19 08:59 03/20/19 09:01 Heparin Sodium (Porcine) (Heparin 5000 units/ml) 5,000 units EVERY 12 HOURS SUBQ 03/14/19 21:00 04/13/19 20:59 03/20/19 09:04 Hydralazine HCl (Apresoline) 20 mg Q4H PRN IV sbp more than 160 03/14/19 12:45 04/13/19 12:44 03/20/19 00:52 Insulin Aspart (NovoLOG) BEFORE MEALS AND HS SUBQ 03/15/19 06:30 04/14/19 06:29 03/20/19 12:11 Labetalol HCl (Normodyne) 20 mg Q1H PRN IV sbp more than 180 03/14/19 12:45 04/13/19 12:44 Lisinopril (Zestril) 10 mg BID ORAL 03/20/19 09:00 04/19/19 08:59 03/20/19 09:01 Lorazepam (Ativan 2mg/ml 1ml) 0.5 mg Q4H PRN IV For Anxiety 03/14/19 11:45 03/21/19 11:44 03/14/19 16:20 Metoprolol Succinate (Toprol XL) 25 mg DAILY ORAL 03/16/19 12:00 04/15/19 11:59 03/20/19 09:01 Metoprolol Tartrate (Lopressor) 2.5 mg Q6H PRN IVP Heart rate >125 03/15/19 20:45 04/14/19 20:44 03/16/19 08:32 Morphine Sulfate (Morphine Sulfate) 2 mg Q4H PRN IVP For Pain 4-6 03/20/19 11:00 03/21/19 11:44 Morphine Sulfate (Morphine Sulfate) 4 mg Q4H PRN IVP For Pain 7-03/14/19 11:45 03/21/19 11:44 03/19/19 09:47 Ondansetron HCl (Zofran) 4 mg Q6H PRN IVP Nausea & Vomiting 03/14/19 11:45 04/13/19 11:44 03/18/19 11:16 Polyethylene Glycol (Miralax) 17 gm HSPRN PRN ORAL Constipation 03/14/19 11:45 04/13/19 11:44 Tbo-Filgrastim (Granix) 300 mcg QHS SQ 03/17/19 21:00 04/16/19 20:59 03/19/19 20:59 Zolpidem Tartrate (Ambien) 5 mg HSPRN PRN ORAL Insomnia 03/14/19 11:45 03/21/19 11:44 Theresa Murry MD Mar 20, 2019 14:48
--- NOTE | 2019-03-20 15:05 | Internal Med Progress Note ---
Subjective Date of Service: Mar 20, 2019 Physician Name IvannaZi Attending Physician Aiden Hinds MD Current Medications Medications (Trade) Dose Ordered Sig/Sd Route PRN Reason Start Time Stop Time Status Last Admin Dose Admin Acetaminophen (Tylenol) 650 mg Q4H PRN ORAL fever 03/14/19 11:45 04/13/19 11:44 03/20/19 09:01 Acetaminophen/ Hydrocodone Bitart ([place] 5/325) 1 tab Q4H PRN ORAL Moderate Pain (Pain Scale 4-6) 03/20/19 11:00 03/27/19 10:59 03/20/19 12:06 Chlorhexidine Gluconate (Fawn-Hex 2%) 1 applic DAILY@1999 TOPIC 03/15/19 20:00 04/14/19 19:59 03/19/19 20:59 Dextrose (Dextrose 50%) 25 ml Q30M PRN IV Hypoglycemia 03/14/19 21:45 04/13/19 21:44 Dextrose (Dextrose 50%) 50 ml Q30M PRN IV Hypoglycemia 03/14/19 21:45 04/13/19 21:44 Enalaprilat (Vasotec) 2.5 mg Q4H PRN IV sbp more than 200 03/14/19 12:45 04/13/19 12:44 Fluoxetine HCl (PROzac) 20 mg DAILY ORAL 03/15/19 09:00 04/14/19 08:59 03/20/19 09:01 Heparin Sodium (Porcine) (Heparin 5000 units/ml) 5,000 units EVERY 12 HOURS SUBQ 03/14/19 21:00 04/13/19 20:59 03/20/19 09:04 Hydralazine HCl (Apresoline) 20 mg Q4H PRN IV sbp more than 160 03/14/19 12:45 04/13/19 12:44 03/20/19 00:52 Insulin Aspart (NovoLOG) BEFORE MEALS AND HS SUBQ 03/15/19 06:30 04/14/19 06:29 03/20/19 12:11 Labetalol HCl (Normodyne) 20 mg Q1H PRN IV sbp more than 180 03/14/19 12:45 04/13/19 12:44 Lisinopril (Zestril) 10 mg BID ORAL 03/20/19 09:00 04/19/19 08:59 03/20/19 09:01 Lorazepam (Ativan 2mg/ml 1ml) 0.5 mg Q4H PRN IV For Anxiety 03/14/19 11:45 03/21/19 11:44 03/14/19 16:20 Metoprolol Succinate (Toprol XL) 25 mg DAILY ORAL 03/16/19 12:00 04/15/19 11:59 03/20/19 09:01 Metoprolol Tartrate (Lopressor) 2.5 mg Q6H PRN IVP Heart rate >125 03/15/19 20:45 04/14/19 20:44 03/16/19 08:32 Morphine Sulfate (Morphine Sulfate) 2 mg Q4H PRN IVP For Pain 4-6 03/20/19 11:00 03/21/19 11:44 Morphine Sulfate (Morphine Sulfate) 4 mg Q4H PRN IVP For Pain 7-10 03/14/19 11:45 03/21/19 11:44 03/19/19 09:47 Ondansetron HCl (Zofran) 4 mg Q6H PRN IVP Nausea & Vomiting 03/14/19 11:45 04/13/19 11:44 03/18/19 11:16 Polyethylene Glycol (Miralax) 17 gm HSPRN PRN ORAL Constipation 03/14/19 11:45 04/13/19 11:44 Tbo-Filgrastim (Granix) 300 mcg QHS SQ 03/17/19 21:00 04/16/19 20:59 03/19/19 20:59 Zolpidem Tartrate (Ambien) 5 mg HSPRN PRN ORAL Insomnia 03/14/19 11:45 03/21/19 11:44 Allergies: Coded Allergies: PENICILLINS (Verified Allergy, Unknown, 06/03/15) ROS Limited/Unobtainable: No Constitutional: Reports: no symptoms HEENT: Reports: no symptoms Cardiovascular: Reports: no symptoms Respiratory: Reports: no symptoms Gastrointestinal/Abdominal: Reports: no symptoms Genitourinary: Reports: no symptoms Neurologic/Psychiatric: Reports: no symptoms Subjective 74 YO F admitted with fall injury. Now fracture of left olecranon. Cover for Int Med-Dr Hinds. Objective Last Vital Signs Date Time Temp Pulse Resp B/P (MAP) Pulse Ox O2 Delivery O2 Flow Rate FiO2 03/20/19 12:00 96.6 86 20 140/86 (104) 96 03/20/19 09:00 Room Air Laboratory Tests Test 03/20/19 04:45 White Blood Count 9.2 K/UL (4.8-10.8) Red Blood Count 3.03 M/UL (4.20-5.40) L Hemoglobin 9.4 G/DL (12.0-16.0) L Hematocrit 28.1 % (37.0-47.0) L Mean Corpuscular Volume 93 FL (80-99) Mean Corpuscular Hemoglobin 30.9 PG (27.0-31.0) Mean Corpuscular Hemoglobin Concent 33.4 G/DL (32.0-36.0) Red Cell Distribution Width 13.6 % (11.6-14.8) Platelet Count 242 K/UL (150-450) Mean Platelet Volume 6.8 FL (6.5-10.1) Neutrophils (%) (Auto) 73.5 % (45.0-75.0) Lymphocytes (%) (Auto) 11.6 % (20.0-45.0) L Monocytes (%) (Auto) 11.8 % (1.0-10.0) H Eosinophils (%) (Auto) 1.4 % (0.0-3.0) Basophils (%) (Auto) 1.7 % (0.0-2.0) Sodium Level 139 MMOL/L (136-145) Potassium Level 3.7 MMOL/L (3.5-5.1) Chloride Level 107 MMOL/L (98-107) Carbon Dioxide Level 25 MMOL/L (21-32) Anion Gap 7 mmol/L (5-15) Blood Urea Nitrogen 15 mg/dL (7-18) Creatinine 1.2 MG/DL (0.55-1.30) Estimat Glomerular Filtration Rate mL/min (>60) Glucose Level 117 MG/DL (74-106) H Calcium Level 9.7 MG/DL (8.5-10.1) Intake and Output 03/19/19 03/20/19 19:00 07:00 Intake Total 360 ml 240 ml Output Total 100 ml Balance 260 ml 240 ml Intake Oral 360 ml 240 ml Output Urine Total 100 ml # Voids 2 2 # Bowel Movements 1 1 Objective PHYSICAL EXAMINATION: GENERAL: The patient is awake, responsive no acute distress. HEENT: Pupils are equal and reactive to light. Extraocular motor intact. NECK: Supple. No JVD. LUNGS: Good air entry. No wheezing or rales. Chest wall has left-sided chest wall PassPort. ABDOMEN: Soft, nondistended, nontender. Positive bowel sounds. EXTREMITIES: No cyanosis, clubbing, edema NEUROLOGIC: Cranial nerves II through XII grossly intact. Moving all the extremities except the left upper extremity due to the pain as well as left hip pain NEUROLOGIC: Cranial nerves II through XII grossly grossly intact. RECTAL/GENITOURINARY: Refused and deferred. PSYCHIATRIC: Mood and affect is intact. Assessment/Plan Problem List: (1) Hypercholesteremia (2) HTN (hypertension) Assessment & Plan: Continue hydralazine, vasotec and labetolol (3) Breast cancer, left (4) Deep venous thrombosis (5) Fracture of olecranon process, left, closed Assessment & Plan: Non surgical; non weight bearing-see ortho note-Dr Montaño (6) Intertrochanteric fracture of left femur Assessment & Plan: S/P ORIF previously. Non surgical; non weight bearing-See ortho note-Dr Montaño (7) Diabetes mellitus Assessment & Plan: continue novolog sliding scale (8) Osteogenesis imperfecta (9) Severe anemia Assessment & Plan: Daughter agreed with transfusion (10) Metastatic adenocarcinoma Status: unchanged Assessment/Plan discharge planning: Rehab on [facility]; CT angio chest = neg for pulmonary embolism Zi Goncalves MD Mar 20, 2019 15:05
[2019-03-20] MEDS ORDERED: NS 275ml ONE (15:19)
[2019-03-20] MEDS ORDERED: NS 500ML ONE (15:19)
[2019-03-20] MEDS ORDERED: Tubing IV Blood Pump IV ONE (15:19)
[2019-03-20] MEDS ORDERED: Tubing IV Secondary IV ONE (15:19)
[2019-03-20] MEDS ORDERED: D5 1/2NS 1000ml IV ONE (15:19)
[2019-03-20 16:00] VITALS: BP 131/86
--- NOTE | 2019-03-20 19:18 | Cardiology Progress Note ---
Assessment/Plan Assessment/Plan 1. Sinus tachycardia. 2. Recurrent nausea and vomiting, possibly secondary to constipation and/or medication effects. 3. Olecranon fracture. 4. Femoral fracture. 5. Breast cancer on chemotherapy. 6. Anemia. 7. Pulm htn 8. intermediate probablity v/q 9. renal insuf ctpa neg for pe ortho noted conservative managment swma looks ok is comfortable bp better cr stable on acei Subjective Cardiovascular: Denies: chest pain Respiratory: Denies: shortness of breath Gastrointestinal/Abdominal: Denies: abdominal pain Genitourinary: Denies: burning Objective Last 24 Hour Vital Signs Date Time Temp Pulse Resp B/P (MAP) Pulse Ox O2 Delivery O2 Flow Rate FiO2 03/20/19 17:06 131/86 03/20/19 16:00 96.8 81 18 131/86 (101) 97 03/20/19 16:00 84 03/20/19 12:00 96.6 86 20 140/86 (104) 96 03/20/19 12:00 91 03/20/19 09:01 150/70 03/20/19 09:01 102 150/70 03/20/19 09:00 Room Air 03/20/19 08:00 98.7 102 18 150/70 (96) 99 03/20/19 08:00 102 03/20/19 04:00 95 03/20/19 04:00 97.9 97 17 168/89 (115) 98 03/20/19 00:52 180/95 03/20/19 00:00 90 03/20/19 00:00 97.9 92 18 180/95 (123) 97 03/19/19 21:00 Room Air 03/19/19 20:00 96 03/19/19 20:00 99.1 102 19 157/84 (108) 98 General Appearance: no apparent distress, alert Neck: supple Cardiovascular: normal rate Respiratory/Chest: lungs clear Abdomen: normal bowel sounds, non tender, soft Extremities: no swelling Intake and Output 03/19/19 03/20/19 19:00 07:00 Intake Total 360 ml 240 ml Output Total 100 ml Balance 260 ml 240 ml Intake Oral 360 ml 240 ml Output Urine Total 100 ml # Voids 2 2 # Bowel Movements 1 1 Laboratory Tests Test 03/20/19 04:45 White Blood Count 9.2 K/UL (4.8-10.8) Red Blood Count 3.03 M/UL (4.20-5.40) L Hemoglobin 9.4 G/DL (12.0-16.0) L Hematocrit 28.1 % (37.0-47.0) L Mean Corpuscular Volume 93 FL (80-99) Mean Corpuscular Hemoglobin 30.9 PG (27.0-31.0) Mean Corpuscular Hemoglobin Concent 33.4 G/DL (32.0-36.0) Red Cell Distribution Width 13.6 % (11.6-14.8) Platelet Count 242 K/UL (150-450) Mean Platelet Volume 6.8 FL (6.5-10.1) Neutrophils (%) (Auto) 73.5 % (45.0-75.0) Lymphocytes (%) (Auto) 11.6 % (20.0-45.0) L Monocytes (%) (Auto) 11.8 % (1.0-10.0) H Eosinophils (%) (Auto) 1.4 % (0.0-3.0) Basophils (%) (Auto) 1.7 % (0.0-2.0) Sodium Level 139 MMOL/L (136-145) Potassium Level 3.7 MMOL/L (3.5-5.1) Chloride Level 107 MMOL/L (98-107) Carbon Dioxide Level 25 MMOL/L (21-32) Anion Gap 7 mmol/L (5-15) Blood Urea Nitrogen 15 mg/dL (7-18) Creatinine 1.2 MG/DL (0.55-1.30) Estimat Glomerular Filtration Rate mL/min (>60) Glucose Level 117 MG/DL (74-106) H Calcium Level 9.7 MG/DL (8.5-10.1) Ousmane Izquierdo MD Mar 20, 2019 19:18
--- NOTE | 2019-03-20 19:30 | NUR ---
NURSE NOTES: Received patient from Jp SALGADO. Patient in bed, on room air, no s/s respiratory distress. Bed in low position, locked, bed alarm on, call light within reach. Left arm immobilizer in place, elevated for left hand edema. Portacath on left upper chest, dressing clean, dry, and intact, last changed 03/15/19.
[2019-03-20 20:00] VITALS: BP 164/100
[2019-03-20] MEDS: TBO-Filgrastim 300 mcg/0.5ml SQ SCH (20:51)
[2019-03-20] MEDS: Dyna-Hex 2% Top Sol 2oz TOPIC SCH (21:03)
[2019-03-20] MEDS: Morphine Sulfate 4mg/ml Inj (IV USE ONLY) IVP PRN (23:10)
[2019-03-21] VITALS (8 sets, daily range): BP systolic 140–167; BP diastolic 79–103
--- NOTE | 2019-03-21 03:14 | NUR ---
HAND-OFF: Patient asleep in bed, no signs of respiratory distress. Bed in low position, locked, bed alarm on, call light within reach. Plan of care endorsed to Natalie SALGADO.
--- NOTE | 2019-03-21 03:15 | NUR ---
OBTAINED REPORT FROM KANG SALGADO. PT RESTING IN BED, APPEARS COMFORTABLE. NO SIGNS OF APPARENT DISTRESS. CALL LIGHT WITHIN REACH. FALL RISK PRECAUTIONS IN PLACE AT ALL TIMES.
[2019-03-21] MEDS: Morphine Sulfate 4mg/ml Inj (IV USE ONLY) IVP PRN (05:11)
[2019-03-21] MEDS: NovoLOG Insulin Flexpen SUBQ SCH ×4 (05:50→21:07)
--- NOTE | 2019-03-21 07:00 | NUR ---
NURSE NOTES: Received report from DAMIAN Estrada. The patient is resting on the bed without acute distress or shortness of breath. The patient's bed in the lowest position, call light in reach, and fall and aspiration precaution reinforced. Fracture site splint well applied and does not have signs or symptoms of acute pain on site not. The patient's port-a-cath intact and patent. Will continue plan of care. Addendum: 03/21/19 at 1511 by Sander Thomas RN Fracture site splint well applied and does not have signs or symptoms of acute pain on site.
--- NOTE | 2019-03-21 07:00 | NUR ---
GAVE FULL REPORT TO KALEN SALGADO, PT RESTING IN BED FREE FROM APPARENT DISTRESS.
[2019-03-21] MEDS: Metoprolol Succinate XL 25mg tab ORAL SCH (09:19)
[2019-03-21] MEDS: Lisinopril 10mg tab ORAL SCH ×2 (09:20→17:20)
[2019-03-21] MEDS: Heparin 5000 units/ml inj SUBQ SCH ×2 (09:21→21:09)
--- NOTE | 2019-03-21 10:43 | Pulmonology Progress Note ---
Assessment/Plan Problems: (1) Hypertensive emergency (2) Closed left hip fracture (3) Acute renal failure (ARF) (4) Metastatic adenocarcinoma (5) Breast cancer (6) History of hypertension (7) Diabetes mellitus (8) Leukocytosis Assessment/Plan doing better CT angio negative cultures negative afebrile BP better renal function improving sliding scale, diabetic diet add [place] for pain control dc planning Subjective ROS Limited/Unobtainable: Yes Constitutional: Reports: no symptoms HEENT: Repors: no symptoms Respiratory: Reports: no symptoms Allergies: Coded Allergies: PENICILLINS (Verified Allergy, Unknown, 06/03/15) Objective Last 24 Hour Vital Signs Date Time Temp Pulse Resp B/P (MAP) Pulse Ox O2 Delivery O2 Flow Rate FiO2 03/21/19 09:20 166/92 03/21/19 09:19 104 166/92 03/21/19 08:00 112 03/21/19 08:00 98.1 104 20 166/92 (116) 98 03/21/19 04:00 97.1 98 18 140/90 (107) 96 03/21/19 04:00 94 03/21/19 00:00 98.4 95 24 159/79 (105) 97 03/21/19 00:00 99 03/20/19 21:00 Room Air 03/20/19 20:52 164/100 03/20/19 20:00 97.9 87 16 164/100 (121) 98 03/20/19 20:00 85 03/20/19 17:06 131/86 03/20/19 16:00 96.8 81 18 131/86 (101) 97 03/20/19 16:00 84 03/20/19 12:00 96.6 86 20 140/86 (104) 96 03/20/19 12:00 91 Intake and Output 03/20/19 03/21/19 18:59 06:59 Intake Total 800 ml 260 ml Balance 800 ml 260 ml Intake Oral 800 ml 260 ml # Voids 3 General Appearance: WD/WN HEENT: normocephalic, atraumatic Respiratory/Chest: chest wall non-tender, lungs clear Breasts: no masses Cardiovascular: normal peripheral pulses Abdomen: normal bowel sounds, soft, non tender Genitourinary: normal external genitalia Extremities: no cyanosis Skin: no rash Neurologic/Psychiatric: [employer] II-XII grossly normal Current Medications Medications (Trade) Dose Ordered Sig/Sd Route PRN Reason Start Time Stop Time Status Last Admin Dose Admin Acetaminophen (Tylenol) 650 mg Q4H PRN ORAL fever 03/14/19 11:45 04/13/19 11:44 03/20/19 20:52 Acetaminophen/ Hydrocodone Bitart ([place] 5/325) 1 tab Q4H PRN ORAL Moderate Pain (Pain Scale 4-6) 03/20/19 11:00 03/27/19 10:59 03/20/19 12:06 Chlorhexidine Gluconate (Fawn-Hex 2%) 1 applic DAILY@1999 TOPIC 03/15/19 20:00 04/14/19 19:59 03/20/19 21:03 Dextrose (Dextrose 50%) 25 ml Q30M PRN IV Hypoglycemia 03/14/19 21:45 04/13/19 21:44 Dextrose (Dextrose 50%) 50 ml Q30M PRN IV Hypoglycemia 03/14/19 21:45 04/13/19 21:44 Enalaprilat (Vasotec) 2.5 mg Q4H PRN IV sbp more than 200 03/14/19 12:45 04/13/19 12:44 Fluoxetine HCl (PROzac) 20 mg DAILY ORAL 03/15/19 09:00 04/14/19 08:59 03/21/19 09:19 Heparin Sodium (Porcine) (Heparin 5000 units/ml) 5,000 units EVERY 12 HOURS SUBQ 03/14/19 21:00 04/13/19 20:59 03/21/19 09:21 Hydralazine HCl (Apresoline) 20 mg Q4H PRN IV sbp more than 160 03/14/19 12:45 04/13/19 12:44 03/20/19 20:52 Insulin Aspart (NovoLOG) BEFORE MEALS AND HS SUBQ 03/15/19 06:30 04/14/19 06:29 03/20/19 17:07 Labetalol HCl (Normodyne) 20 mg Q1H PRN IV sbp more than 180 03/14/19 12:45 04/13/19 12:44 Lisinopril (Zestril) 10 mg BID ORAL 03/20/19 09:00 04/19/19 08:59 03/21/19 09:20 Lorazepam (Ativan 2mg/ml 1ml) 0.5 mg Q4H PRN IV For Anxiety 03/14/19 11:45 03/21/19 11:44 03/14/19 16:20 Metoprolol Succinate (Toprol XL) 25 mg DAILY ORAL 03/16/19 12:00 04/15/19 11:59 03/21/19 09:19 Metoprolol Tartrate (Lopressor) 2.5 mg Q6H PRN IVP Heart rate >125 03/15/19 20:45 04/14/19 20:44 03/16/19 08:32 Morphine Sulfate (Morphine Sulfate) 2 mg Q4H PRN IVP For Pain 4-6 03/20/19 11:00 03/21/19 11:44 Morphine Sulfate (Morphine Sulfate) 4 mg Q4H PRN IVP For Pain 7-10 03/14/19 11:45 03/21/19 11:44 03/21/19 05:11 Ondansetron HCl (Zofran) 4 mg Q6H PRN IVP Nausea & Vomiting 03/14/19 11:45 04/13/19 11:44 03/18/19 11:16 Polyethylene Glycol (Miralax) 17 gm HSPRN PRN ORAL Constipation 03/14/19 11:45 04/13/19 11:44 Tbo-Filgrastim (Granix) 300 mcg QHS SQ 03/17/19 21:00 04/16/19 20:59 03/20/19 20:51 Zolpidem Tartrate (Ambien) 5 mg HSPRN PRN ORAL Insomnia 03/14/19 11:45 03/21/19 11:44 Cass Nguyen MD Mar 21, 2019 10:43
--- NOTE | 2019-03-21 11:00 | NUR ---
NURSE NOTES: The patient is stable without acute distress or shortness of breath. Will continue plan of care.
--- NOTE | 2019-03-21 12:00 | NUR ---
NURSE NOTES: Notified Dr. Puentes and Dr. Murry regarding critical lab result of WBC. Dr. Murry ordered blood culture. Will carry out the order now.
[2019-03-21 12:29] LABS: HEMATOCRIT 30.8 % (37.0-47.0); MEAN CORPUSCULAR VOLUME 93 FL (80-99); PLATELET COUNT 339 K/UL (150-450); RED BLOOD COUNT 3.32 M/UL (4.20-5.40); RED CELL DISTRIBUTION WIDTH 13.4 % (11.6-14.8)
[2019-03-21 12:52] LABS: ANION GAP 7 mmol/L (5-15); BLOOD UREA NITROGEN 19 mg/dL (7-18); CALCIUM 9.4 MG/DL (8.5-10.1); CARBON DIOXIDE 28 MMOL/L (21-32); CHLORIDE 105 MMOL/L (98-107); CREATININE 1.3 MG/DL (0.55-1.30); POTASSIUM 3.8 MMOL/L (3.5-5.1); SODIUM 140 MMOL/L (136-145)
--- NOTE | 2019-03-21 14:00 | NUR ---
NURSE NOTES: Notified Dr. Murry regarding abnormal WBC of 45.[address] Murry was at the bedside assessed the patient. The patient is stable without acute distress or shortness of breath with stable vital signs. Per Dr. Murry, elevated WBC is expected due to medication effect. Per Dr. Murry, stable to be discharged to [facility]. Will notify Dr. Nguyen regarding clearance from Dr. Murry. Will continue plan of care.
--- NOTE | 2019-03-21 14:30 | NUR ---
NURSE NOTES: Notified Dr. Nguyen regarding clearance from Dr. Murry. Awaiting for Dr. Nguyen's response. Will continue plan of care.
[2019-03-21 14:47] LABS: HEMOGLOBIN 9.9 G/DL (12.0-16.0); MEAN CORPUSCULAR VOLUME 93 FL (80-99); PLATELET COUNT 353 K/UL (150-450); RED BLOOD COUNT 3.24 M/UL (4.20-5.40); RED CELL DISTRIBUTION WIDTH 13.6 % (11.6-14.8)
[2019-03-21 14:51] LABS: WHITE BLOOD COUNT 48.7 K/UL (4.8-10.8)
--- NOTE | 2019-03-21 15:53 | Infectious Diseases Prog Note ---
Assessment/Plan Assessment/Plan Assessment/Plan: 74yo woman with PMH below presents after fall. Afebrile Tachycardia, improving Leukocytosis, recurrent likely from filgrastim and reactive from fractures pt asymptomatic CRP 16.9 ESR 60 03/18 CTPA: Right upper lobe and superior segment right lower lobe parenchymal opacity, as described, likely representing pneumonia. Superior segment right lower lobe cystic space, also demonstrated previously. Bilateral basilar atelectatic changes, somewhat increased from the prior exam. Interim decrease size of previously demonstrated left breast mass. Interim increased mediastinal lymphadenopathy. This could be metastatic/neoplastic. Interim left chest port placement. Multiple small thyroid nodules. Previously demonstrated left lower pole nodule is less conspicuous currently. Multiple thoracic vertebral body compression fracture deformities, overall appearing similar to the prior exam. Chest wall posttraumatic deformities, unchanged. Acute femoral fracture and elbow fracture Hyperkalemia DM HTN breast cancer with lung mets on chemotherapy R IJ DVT KARMA pulm nodule CKD osteogenesis imperfecta multiple old fractures Plan: continue to monitor off antibiotics. Pt has no s/s of infection. Pt has been receiving G-CSF daily for the last 5 days. will obtain bcx to f/u bacteremia okay to DC to SNF with strict return precautions and close monitoring. assessment/plan discussed with patient and she is in agreement with plan. aspiration precaution, elevate HOB, incentive spirometry Thank you for this consult. [facility] will continue to follow the patient with you. Subjective Allergies: Coded Allergies: PENICILLINS (Verified Allergy, Unknown, 06/03/15) Subjective Afebrile. WBC up to 45. Pt feels well. Denies cough, sob, abdominal pain, diarrhea, dysuria, hematuria, headache. Stable LUE pain. Stable nausea since chemotherapy. Objective Vital Signs Last 24 Hour Vital Signs Date Time Temp Pulse Resp B/P (MAP) Pulse Ox O2 Delivery O2 Flow Rate FiO2 03/21/19 12:00 107 03/21/19 12:00 98.7 108 20 155/90 (111) 97 03/21/19 09:20 166/92 03/21/19 09:19 104 166/92 03/21/19 09:00 Room Air 03/21/19 08:00 112 03/21/19 08:00 98.1 104 20 166/92 (116) 98 03/21/19 04:00 97.1 98 18 140/90 (107) 96 03/21/19 04:00 94 11/8/19 00:00 98.4 95 24 159/79 (105) 97 03/21/19 00:00 99 03/20/19 21:00 Room Air 03/20/19 20:52 164/100 03/20/19 20:00 97.9 87 16 164/100 (121) 98 03/20/19 20:00 85 03/20/19 17:06 131/86 03/20/19 16:00 96.8 81 18 131/86 (101) 97 03/20/19 16:00 84 Height (Feet): 4 Height (Inches): 6.00 Weight (Pounds): 121 Objective VS: Afebrile Gen: NAD HEENT: anicteric sclera. R chest wall port without tenderness CV: RRR. Resp: RRR. nonlabored. no wheezes or crackles Abd: normoactive BS+. Soft. no TTP Ext: no LE edema Neuro: awake. interactive. Laboratory Tests Test 03/21/19 11:20 03/21/19 14:30 White Blood Count 45.0 K/UL (4.8-10.8) #*H 48.7 K/UL (4.8-10.8) *H Red Blood Count 3.32 M/UL (4.20-5.40) L 3.24 M/UL (4.20-5.40) L Hemoglobin 10.0 G/DL (12.0-16.0) L 9.9 G/DL (12.0-16.0) L Hematocrit 30.8 % (37.0-47.0) L 30.0 % (37.0-47.0) L Mean Corpuscular Volume 93 FL (80-99) 93 FL (80-99) Mean Corpuscular Hemoglobin 30.0 PG (27.0-31.0) 30.6 PG (27.0-31.0) Mean Corpuscular Hemoglobin Concent 32.3 G/DL (32.0-36.0) 33.0 G/DL (32.0-36.0) Red Cell Distribution Width 13.4 % (11.6-14.8) 13.6 % (11.6-14.8) Platelet Count 339 K/UL (150-450) 353 K/UL (150-450) Mean Platelet Volume 7.7 FL (6.5-10.1) 8.2 FL (6.5-10.1) Neutrophils (%) (Auto) % (45.0-75.0) % (45.0-75.0) Lymphocytes (%) (Auto) % (20.0-45.0) % (20.0-45.0) Monocytes (%) (Auto) % (1.0-10.0) % (1.0-10.0) Eosinophils (%) (Auto) % (0.0-3.0) % (0.0-3.0) Basophils (%) (Auto) % (0.0-2.0) % (0.0-2.0) Differential Total Cells Counted 100 100 Neutrophils % (Manual) 67 % (45-75) 67 % (45-75) Lymphocytes % (Manual) 5 % (20-45) L 7 % (20-45) L Monocytes % (Manual) 9 % (1-10) 7 % (1-10) Eosinophils % (Manual) 0 % (0-3) 0 % (0-3) Basophils % (Manual) 0 % (0-2) 0 % (0-2) Metamyelocytes % 4 % (0-0) H 2 % (0-0) H Myelocytes % 2 % (0-0) H 1 % (0-0) H Band Neutrophils 13 % (0-8) H 16 % (0-8) H Toxic Granulation 1+ 1+ Platelet Estimate Adequate Adequate Platelet Morphology Normal Normal Hypochromasia 1+ Sodium Level 140 MMOL/L (136-145) Potassium Level 3.8 MMOL/L (3.5-5.1) Chloride Level 105 MMOL/L (98-107) Carbon Dioxide Level 28 MMOL/L (21-32) Anion Gap 7 mmol/L (5-15) Blood Urea Nitrogen 19 mg/dL (7-18) H Creatinine 1.3 MG/DL (0.55-1.30) Estimat Glomerular Filtration Rate mL/min (>60) Glucose Level 128 MG/DL (74-106) H Calcium Level 9.4 MG/DL (8.5-10.1) Polychromasia 1+ Current Medications Medications (Trade) Dose Ordered Sig/Sd Route PRN Reason Start Time Stop Time Status Last Admin Dose Admin Acetaminophen (Tylenol) 650 mg Q4H PRN ORAL fever 03/14/19 11:45 04/13/19 11:44 03/20/19 20:52 Acetaminophen/ Hydrocodone Bitart ([place] 5/325) 1 tab Q4H PRN ORAL Moderate Pain (Pain Scale 4-6) 03/20/19 11:00 03/27/19 10:59 03/20/19 12:06 Chlorhexidine Gluconate (Fawn-Hex 2%) 1 applic DAILY@1999 TOPIC 03/15/19 20:00 04/14/19 19:59 03/20/19 21:03 Dextrose (Dextrose 50%) 25 ml Q30M PRN IV Hypoglycemia 03/14/19 21:45 04/13/19 21:44 Dextrose (Dextrose 50%) 50 ml Q30M PRN IV Hypoglycemia 03/14/19 21:45 04/13/19 21:44 Enalaprilat (Vasotec) 2.5 mg Q4H PRN IV sbp more than 200 03/14/19 12:45 04/13/19 12:44 Fluoxetine HCl (PROzac) 20 mg DAILY ORAL 03/15/19 09:00 04/14/19 08:59 03/21/19 09:19 Heparin Sodium (Porcine) (Heparin 5000 units/ml) 5,000 units EVERY 12 HOURS SUBQ 03/14/19 21:00 04/13/19 20:59 03/21/19 09:21 Hydralazine HCl (Apresoline) 20 mg Q4H PRN IV sbp more than 160 03/14/19 12:45 04/13/19 12:44 03/20/19 20:52 Insulin Aspart (NovoLOG) BEFORE MEALS AND HS SUBQ 03/15/19 06:30 04/14/19 06:29 03/21/19 12:15 Labetalol HCl (Normodyne) 20 mg Q1H PRN IV sbp more than 180 03/14/19 12:45 04/13/19 12:44 Lisinopril (Zestril) 10 mg BID ORAL 03/20/19 09:00 04/19/19 08:59 03/21/19 09:20 Metoprolol Succinate (Toprol XL) 25 mg DAILY ORAL 03/16/19 12:00 04/15/19 11:59 03/21/19 09:19 Metoprolol Tartrate (Lopressor) 2.5 mg Q6H PRN IVP Heart rate >125 03/15/19 20:45 04/14/19 20:44 03/16/19 08:32 Ondansetron HCl (Zofran) 4 mg Q6H PRN IVP Nausea & Vomiting 03/14/19 11:45 04/13/19 11:44 03/21/19 11:23 Polyethylene Glycol (Miralax) 17 gm HSPRN PRN ORAL Constipation 03/14/19 11:45 04/13/19 11:44 Tbo-Filgrastim (Granix) 300 mcg QHS SQ 03/17/19 21:00 04/16/19 20:59 03/20/19 20:51 Theresa Murry MD Mar 21, 2019 15:53
--- NOTE | 2019-03-21 16:08 | NUR ---
DISCHARGED PLANNED: WHEN DISCHARGED PATIENT AND DAUGHTER ARE AWARE OF DISCHARGE PLAN PATIENT HAS BEEN ACCEPTED TO [facility] T: [phone] FOR NURSE TO NURSE REPORT ROOM# 12B SKILLED [facility] WILL BE ARRANGED BY NURSE PLEASE CALL AND INFORM DAUGHTER MONA OF DISCHARGE T: [phone]
--- NOTE | 2019-03-21 17:30 | NUR ---
NURSE NOTES: The patient is stable without acute distress or shortness of breath. Awaiting from Dr. Nguyen's response. Will continue plan of care.
--- NOTE | 2019-03-21 17:51 | NUR ---
NURSE NOTES: Dr. Hinds at the bedside assessed the patient. Dr. Hinds ordered the patient to discharged to [facility]. Will wait for discharge order and will carry out as soon as receives it. Will continue plan of care.
--- NOTE | 2019-03-21 18:00 | NUR ---
NURSE NOTES: Received discharge order from Dr. Hinds. Dr. Hinds finalized the discharge medication. Called Akau, daughter, next of kin, and POA to inform [facility] Akua verbalized understanding and would like the patient to be transferred to [facility] in stable condition and vital signs. Spoke with Elzbieta, the receiving nurse at [facility]. Gave full comprehensive report and course of hospitalization and follow up care to [facility]. Spoke with [facility] for transportation arrangement. ETA for transportation will be around 2029. Will continue plan of care until discharge.
[2019-03-21] MEDS ORDERED: NORCO 5-325 TA1 EACH ORAL (18:12)
[2019-03-21] MEDS ORDERED: ACETAMINOPHEN325 M1 ORAL (18:12)
--- NOTE | 2019-03-21 18:15 | Internal Med Progress Note ---
Subjective Physician Name Aiden Hinds Attending Physician Aiden Hinds MD Current Medications Medications (Trade) Dose Ordered Sig/Sd Route PRN Reason Start Time Stop Time Status Last Admin Dose Admin Acetaminophen (Tylenol) 650 mg Q4H PRN ORAL fever 03/14/19 11:45 04/13/19 11:44 03/20/19 20:52 Acetaminophen/ Hydrocodone Bitart ([place] 5/325) 1 tab Q4H PRN ORAL Moderate Pain (Pain Scale 4-6) 03/20/19 11:00 03/27/19 10:59 03/20/19 12:06 Chlorhexidine Gluconate (Fawn-Hex 2%) 1 applic DAILY@1999 TOPIC 03/15/19 20:00 04/14/19 19:59 03/20/19 21:03 Dextrose (Dextrose 50%) 25 ml Q30M PRN IV Hypoglycemia 03/14/19 21:45 04/13/19 21:44 Dextrose (Dextrose 50%) 50 ml Q30M PRN IV Hypoglycemia 03/14/19 21:45 04/13/19 21:44 Enalaprilat (Vasotec) 2.5 mg Q4H PRN IV sbp more than 200 03/14/19 12:45 04/13/19 12:44 Fluoxetine HCl (PROzac) 20 mg DAILY ORAL 03/15/19 09:00 04/14/19 08:59 03/21/19 09:19 Heparin Sodium (Porcine) (Heparin 5000 units/ml) 5,000 units EVERY 12 HOURS SUBQ 03/14/19 21:00 04/13/19 20:59 03/21/19 09:21 Hydralazine HCl (Apresoline) 20 mg Q4H PRN IV sbp more than 160 03/14/19 12:45 04/13/19 12:44 03/20/19 20:52 Insulin Aspart (NovoLOG) BEFORE MEALS AND HS SUBQ 03/15/19 06:30 04/14/19 06:29 03/21/19 17:19 Labetalol HCl (Normodyne) 20 mg Q1H PRN IV sbp more than 180 03/14/19 12:45 04/13/19 12:44 Lisinopril (Zestril) 10 mg BID ORAL 03/20/19 09:00 04/19/19 08:59 03/21/19 17:20 Metoprolol Succinate (Toprol XL) 25 mg DAILY ORAL 03/16/19 12:00 04/15/19 11:59 03/21/19 09:19 Metoprolol Tartrate (Lopressor) 2.5 mg Q6H PRN IVP Heart rate >125 03/15/19 20:45 04/14/19 20:44 03/16/19 08:32 Ondansetron HCl (Zofran) 4 mg Q6H PRN IVP Nausea & Vomiting 03/14/19 11:45 04/13/19 11:44 03/21/19 11:23 Polyethylene Glycol (Miralax) 17 gm HSPRN PRN ORAL Constipation 03/14/19 11:45 04/13/19 11:44 Tbo-Filgrastim (Granix) 300 mcg QHS SQ 03/17/19 21:00 04/16/19 20:59 03/20/19 20:51 Allergies: Coded Allergies: PENICILLINS (Verified Allergy, Unknown, 06/03/15) Subjective awake, alert, responsive, No CP or SOB Objective Last Vital Signs Date Time Temp Pulse Resp B/P (MAP) Pulse Ox O2 Delivery O2 Flow Rate FiO2 03/21/19 17:29 99.4 104 20 167/103 (124) 97 03/21/19 09:00 Room Air Laboratory Tests Test 03/21/19 11:20 03/21/19 14:30 White Blood Count 45.0 K/UL (4.8-10.8) #*H 48.7 K/UL (4.8-10.8) *H Red Blood Count 3.32 M/UL (4.20-5.40) L 3.24 M/UL (4.20-5.40) L Hemoglobin 10.0 G/DL (12.0-16.0) L 9.9 G/DL (12.0-16.0) L Hematocrit 30.8 % (37.0-47.0) L 30.0 % (37.0-47.0) L Mean Corpuscular Volume 93 FL (80-99) 93 FL (80-99) Mean Corpuscular Hemoglobin 30.0 PG (27.0-31.0) 30.6 PG (27.0-31.0) Mean Corpuscular Hemoglobin Concent 32.3 G/DL (32.0-36.0) 33.0 G/DL (32.0-36.0) Red Cell Distribution Width 13.4 % (11.6-14.8) 13.6 % (11.6-14.8) Platelet Count 339 K/UL (150-450) 353 K/UL (150-450) Mean Platelet Volume 7.7 FL (6.5-10.1) 8.2 FL (6.5-10.1) Neutrophils (%) (Auto) % (45.0-75.0) % (45.0-75.0) Lymphocytes (%) (Auto) % (20.0-45.0) % (20.0-45.0) Monocytes (%) (Auto) % (1.0-10.0) % (1.0-10.0) Eosinophils (%) (Auto) % (0.0-3.0) % (0.0-3.0) Basophils (%) (Auto) % (0.0-2.0) % (0.0-2.0) Differential Total Cells Counted 100 100 Neutrophils % (Manual) 67 % (45-75) 67 % (45-75) Lymphocytes % (Manual) 5 % (20-45) L 7 % (20-45) L Monocytes % (Manual) 9 % (1-10) 7 % (1-10) Eosinophils % (Manual) 0 % (0-3) 0 % (0-3) Basophils % (Manual) 0 % (0-2) 0 % (0-2) Metamyelocytes % 4 % (0-0) H 2 % (0-0) H Myelocytes % 2 % (0-0) H 1 % (0-0) H Band Neutrophils 13 % (0-8) H 16 % (0-8) H Toxic Granulation 1+ 1+ Platelet Estimate Adequate Adequate Platelet Morphology Normal Normal Hypochromasia 1+ Sodium Level 140 MMOL/L (136-145) Potassium Level 3.8 MMOL/L (3.5-5.1) Chloride Level 105 MMOL/L (98-107) Carbon Dioxide Level 28 MMOL/L (21-32) Anion Gap 7 mmol/L (5-15) Blood Urea Nitrogen 19 mg/dL (7-18) H Creatinine 1.3 MG/DL (0.55-1.30) Estimat Glomerular Filtration Rate mL/min (>60) Glucose Level 128 MG/DL (74-106) H Calcium Level 9.4 MG/DL (8.5-10.1) Polychromasia 1+ Intake and Output 03/20/19 03/21/19 19:00 07:00 Intake Total 680 ml 260 ml Balance 680 ml 260 ml Intake Oral 680 ml 260 ml # Voids 3 Objective GENERAL: The patient is awake, responsive no acute distress. HEENT: Pupils are equal and reactive to light. Extraocular motor intact. NECK: Supple. No JVD. LUNGS: Good air entry. No wheezing or rales. Chest wall has left-sided chest wall PassPort. ABDOMEN: Soft, nondistended, nontender. Positive bowel sounds. EXTREMITIES: No cyanosis, clubbing, edema NEUROLOGIC: Cranial nerves II through XII grossly intact. Moving all the extremities except the left upper extremity due to the pain as well as left hip pain NEUROLOGIC: Cranial nerves II through XII grossly grossly intact. RECTAL/GENITOURINARY: Refused and deferred. PSYCHIATRIC: Mood and affect is intact. Assessment/Plan Assessment/Plan (1) Hypercholesteremia (2) HTN (hypertension) Assessment & Plan: Continue hydralazine, vasotec and labetolol (3) Breast cancer, left (4) Deep venous thrombosis (5) Fracture of olecranon process, left, closed Assessment & Plan: Non surgical; non weight bearing-see ortho note-Dr Montaño (6) Intertrochanteric fracture of left femur Assessment & Plan: S/P ORIF previously. Non surgical; non weight bearing-See ortho note-Dr Montaño (7) Diabetes mellitus Assessment & Plan: continue novolog sliding scale (8) Osteogenesis imperfecta (9) Severe anemia Assessment & Plan: Daughter agreed with transfusion (10) Metastatic adenocarcinoma Status: unchanged Assessment/Plan discharge planning: Rehab on [place] [facility] Aiden Rivera MD Mar 21, 2019 18:15
--- NOTE | 2019-03-21 19:20 | NUR ---
HAND-OFF: Report given to DAMIAN Ovalles. The patient is resting on the bed without acute distress or shortness of breath. The patient's bed in the lowest position, call light in reach, and fall and aspiration precaution reinforced. Left chest port-a-cath intact and patent. The patient's left elbow splint well applied and no s/s of acute pain. Discharge instruction given to the patient and verbalized understanding. The patient was informed about the transfer to [facility]. Endorsed plan of care.
--- NOTE | 2019-03-21 20:30 | NUR ---
NURSE NOTES: Notified Dr. Hinds whether portacath access should be removed before discharge, Dr. Hinds said "yes."
--- NOTE | 2019-03-21 21:11 | NUR ---
CHARGE NURSE NOTES: Portacath flushed with 10 ml NS x 2, dressing removed and rodriguez needle removed. No oozing noted, port covered with bandaid.
--- NOTE | 2019-03-21 21:20 | NUR ---
NURSE NOTES: Patient transported off unit by BLS. Patient in stable condition, 2100 medications given, blood sugar 151. Vitals stable. Arm band off, engine monitor off.
--- NOTE | 2019-03-22 05:45 | Progress Note ---
DATE: 03/21/2019 SUBJECTIVE: The patient has no issues overnight. She is doing relatively well. On examination, posterior splint is in place. Left leg shows some swelling and minimal pain. Posterior calf is soft. ASSESSMENT: 1. Left olecranon fracture, nondisplaced. 2. Left femoral neck fracture, nondisplaced. DISCUSSION: At this point, we are going to continue with the nonweightbearing of the left arm as well as left leg. After thorough discussion with her daughter and explained the treatment plan where she is nonweightbearing for 6 weeks. At that point, repeat imaging studies will be obtained. At that point, she may begin some gradual weightbearing on the left lower extremity as well as full range of motion of the left arm. Given the multiple injuries, she need of rehabilitation center to take care of her until she is more independent. Alan Montaño M.D. DR: Jorje JOB#: [id number] CC:
--- NOTE | 2019-03-23 16:08 | Discharge Summary ---
Discharge Summary Discharge Summary _ DATE OF ADMISSION: 03/14/2019 DATE OF DISCHARGE: 03/21/2019 DISCHARGED BY: Dr. Aiden Hinds CONSULTANTS: Dr. Alan Murry BRIEF HOSPITAL COURSE: Patient is a 74-year-old demented female, with past medical history significant for left breast CA, possible mets to the lung, history of acute DVT of the right internal jugular, left upper lobe pulmonary nodule, chronic kidney disease , hypertension, diabetes type 2, osteogenesis imperfecta, history of multiple old fractures of the extremity, who was brought into the emergency room by EMS due to fall at home and sustained injury to the left side of the body. After initial evaluation at the ED, she was noted to have left femoral fracture as well as left elbow fracture. Initial blood pressure was in 200. She had elevated potassium level of 6.8. She was admitted to telemetry for further evaluation. Orthopedic consultation was obtained. The left elbow showed minimally displaced olecranon fracture with severe osteopenia. Left hip series showed close reduction and percutaneous pinning, previous left femoral neck fracture, which has healed with significant deformity both right and left femur. Fracture was minimally displaced. She was recommended to continue with sling immobilization for aperiod of 3 weeks. At that point, can begin hinged brace and begin active range of motion exercises. Patient will need slower rehabilitation given underlying osteogenesis imperfecta. Would take longer time to heal. She will need serial x-rays on a weekly basis, to make sure there is no displacement of the fracture. If there is displacement, patient will require operative fixation. Patient was tachycardic heart rate 120s. Nitro Man was consulted. She was given beta-doc. EKG did not show any ST changes. Echocardiogram no wall motion abnormality. EF 55%. Right ventricular systolic pressure of 69 mmHg consistent with severe pulmonary hypertension. VQ scan showed intermediate probability. WBC went up to 33. ID was consulted. Patient just finished first round of chemotherapy prior to admission. Leukocytosis possibly secondary from filgrastim and reactive process. She was monitored off antibiotics. She was given incentive spirometry. She was placed on aspiration precautions. Hemoglobin dropped to 7.3, hematocrit 22. She received 2 units packed RBC blood transfusion. CTA of the chest with contrast showed right upper lobe and superior segment right lower lobe parenchymal opacity, likely pneumonia. Indicating decrease in the left breast mass. Increased mediastinal lymphadenopathy. Multiple small thyroid allergies. Multiple thoracic vertebral compression fracture deformities. Blood culture did not isolate any growth. CRP was 16. ESR 60. Orthopedic reevaluation was obtained. CT scan showed possible fracture. Orthopedics reviewed CT scan which showed closed reduction and percutaneous femoral neck fracture with open reduction and internal fixation of the femoral shaft fracture. There was cortical irregularities along the proximal femur which may be consistent with possible fracture through a previous fracture site as well as along the hardware. There is no failure of hardware given her complex medical history, these are nondisplaced. She was recommended nonweightbearing on the left lower extremity to let the fracture heal. Surgery would be very challenging given previous fixation of the femoral neck as well as distal fixation of the femur. Were orthopedic recommendation, best treatment is conservative treatment with bedrest and nonweightbearing of the left lower extremity. She was recommended to repeat imaging at 6 weeks. She was eventually discharged to SNF. FINAL DIAGNOSES: Left internal fracture, nondisplaced Left femoral neck fracture, nondisplaced Left breast cancer History of acute DVT Osteogenesis imperfecta Severe anemia requiring blood transfusion Metastatic adenocarcinoma Sinus tachycardia DISPOSITION: DC to SNF. DISCHARGE MEDICATIONS: Refer to Discharge Medication List. DISCHARGE INSTRUCTIONS: Follow-up in a week. I have been assigned to complete a discharge summary on this account, I was not involved with the patient's management.--CORINNE Case Jacqueline Robles NP Mar 23, 2019 16:08
== END 2019-03-21 21:27 | DRG 562 ==
LOC: EDBD 07:16 → EMR 07:28 → 2E 08:49 → EDBEDREQ 10:05 → 3E 03-16 01:11 → 2E 03-16 01:29
PROC: 30233N1 Transfusion of Nonautologous Red Blood Cells into Peripheral Vein, Percutaneous Approach (ICD-10-PCS; principal; 2019-03-18)
DX: S52.025A Nondisplaced fracture of olecranon process without intraarticular extension of left ulna, initial encounter for closed fracture (principal); S72.002A Fracture of unspecified part of neck of left femur, initial encounter for closed fracture; N17.9 Acute kidney failure, unspecified; Q78.0 Osteogenesis imperfecta; I82.C11 Acute embolism and thrombosis of right internal jugular vein; C78.00 Secondary malignant neoplasm of unspecified lung; I16.1 Hypertensive emergency; W19.XXXA Unspecified fall, initial encounter; Z88.0 Allergy status to penicillin; I12.9 Hypertensive chronic kidney disease with stage 1 through stage 4 chronic kidney disease, or unspecified chronic kidney disease; E11.22 Type 2 diabetes mellitus with diabetic chronic kidney disease; N18.9 Chronic kidney disease, unspecified; E78.5 Hyperlipidemia, unspecified; E87.5 Hyperkalemia; D64.9 Anemia, unspecified; C50.912 Malignant neoplasm of unspecified site of left female breast; R00.0 Tachycardia, unspecified; E86.0 Dehydration; K59.00 Constipation, unspecified; R11.2 Nausea with vomiting, unspecified; T50.905A Adverse effect of unspecified drugs, medicaments and biological substances, initial encounter; I10 Essential (primary) hypertension
CPT/HCPCS: 36415; 71045; 71275; 72170; 72192; 78579; 78580; 80048; 80053; 82962; 83735; 84100; 84443; 84484; 85007; 85025; 85610; 85651; 85730; 86140; 86850; 86900; 86901; 86920; 87040; 93005; 93306; 93970; 93971; 96374; 96375; 99285; A9503; J1815; J2405